=== PATIENT | male | born 1940 | race Caucasian/White ===

== ENCOUNTER 2018-06-10 11:30 | Emergency (ER) | payer MEDICARE, SELFPAY ==
[2018-06-10 11:36] VITALS: BP 136/76; PULSE 83; RESP 18; TEMP 36.2; O2SAT 99; BMI 31.2
--- NOTE | 2018-06-10 12:01 | CT_ITS ---
STUDY: CT ABDOMEN AND PELVIS WITHOUT CONTRAST REASON FOR EXAM: Male, 78 years old. Left flank pain, history of left lobectomy for cancer RADIATION DOSAGE (If Supplied By Facility): CTDIvol = ( 15.97 ) mGy, DLP = ( 849.62 ) mGycm TECHNIQUE: Transaxial images were obtained from the dome of the diaphragm to the symphysis pubis without oral contrast, and without intravenous contrast. Sagittal and coronal images were reconstructed. Individualized dose optimization techniques were used for this CT. COMPARISON: None. FINDINGS: Elevation of left hemidiaphragm compatible with history of lobectomy. There are fibrotic changes in both lung bases. Coronary artery calcifications are present. Heart size is normal visualized extent. Normal liver. The gallbladder is contracted. Normal spleen. Normal pancreas. Normal bilateral adrenal glands. Calcification in the right kidney on axial image 61 is felt to be vascular rather than nephrolithiasis. 2 and 3 mm calculus in the inferior left kidney is evident on image 57. No ureteral calculi are seen. No hydronephrosis. There is a small hiatal hernia. Normal small intestine. Normal colon. The appendix is visualized and appears normal. There is diffuse atherosclerotic calcification of the abdominal aorta, without a demonstrated aneurysm. Normal inferior vena cava. Normal retroperitoneum. Normal urinary bladder. There is enlargement of the prostate gland. Normal abdominal wall. Degenerative changes of the lumbar spine with canal narrowing at L3-L4 and L4-L5. CT/Abdomen/Pelvis without Cont IMPRESSION: 1. No hydronephrosis or ureteral calculi. Nonobstructing left renal calculus (2-3 mm). Electronically Signed: Rene Andersen MD at 13:05 EST , Service support ,
[2018-06-10] MEDS: Ketorolac 30 MG/ML Syringe IV (12:09)
--- NOTE | 2018-06-10 12:22 | ED.VISSUMM ---
- ER Visit Summary Date of Service: 06/10/18 Chief Complaint: Flank pain History of Present Illness: The patient is a 78 M who presents via private vehicle for left flank pain. Patient states that began sometime on Tuesday. Tuesday morning he was snowblowing but states he did not believe he did anything out of the ordinary. He notes the pain is grabbing him and sharp at times. It is worse when he takes a deep breath and worse with certain movements. He was seen in urgent care on Tuesday where he had a dip urine that was negative. Is felt to be musculoskeletal that time. He states is not gotten any better and family wanted him involved. He denies any rash other than the rash where his had applied a dressing that irritated his skin. He notes no bowel movement since Tuesday. No urinary symptoms. No change in his breathing from baseline. Physical Examination: Afebrile vital signs are stable Gen: Well-nourished well-developed Head: Normocephalic atraumatic Eyes: Perrl EOMI ENT: TMs clear no rhinorrhea moist mucous membranes Neck: Supple no lymphadenopathy no JVD nontender CVS: Regular rate rhythm no murmurs normal S1-S2 Respiratory: No distress clear to auscultation bilaterally chest nontender Abdomen: Soft nontender nondistended normal bowel sounds no masses Back: Nontender Extremity: Nontender no edema Skin: Normal color a well demarcated area of dermatitis in a rectangular pattern over the left lower flank. Neuro: alert orientated ?3 CN II-XII intact normal strength sensation reflexes gait cerebellar Psych: Normal affect normal mood Test Results: CBC BMP and urinalysis are normal. CT of the abdomen pelvis demonstrated no obvious perinephric stranding or hydronephroureter. Emergency Department Course and Treatment: Patient received a dose of Toradol and feels significant at this point I do not see any renal cause for the patient's CVA pain. I do not believe this to be pulmonary embolism. He has no tachypnea, tachycardia, hypoxemia, or significant risk factors for PE. I do not believe this to be cardiac in nature. Do not believe this to be aortic dissection. The patient will be discharged home with instructions for anti-inflammatories. Impression: 1. Left flank muscle strain This note was generated with [employer] dictation software. It may contain incorrect words, spelling, and punctuation that were not noted in review of the chart prior to signing ED Disposition - Plan for ED Patient: Disposition: Home or Assisted Living Instructions: ED Sprain Strain Lumbar Referrals: Tito Macias MD [Primary Care Provider] - Keep Michel appointment Additional Instructions: Anti-inflammatories for pain
[2018-06-10 12:24] LABS: Bacteria 0 SEEN /hpf (None Seen); Mucous, Urine 0 SEEN /hpf (<or=2+); Red Blood Cells-Urine 0 SEEN /hpf (0-5); Squamous Epithelial Cells - UA 0 SEEN /hpf (0-5); White Blood Cells 0 SEEN /hpf (0-5)
--- NOTE | 2018-06-10 12:25 | ED.DCSUM_ITS ---
- ER Visit Summary Date of Service: 06/10/18 Chief Complaint: Flank pain History of Present Illness: The patient is a 78 M who presents via private vehicle for left flank pain. Patient states that began sometime on Tuesday. Tuesday morning he was snowblowing but states he did not believe he did anythi ng out of the ordinary. He notes the pain is grabbing him and sharp at times. It is worse when he takes a deep breath and worse with certain movements. He was seen in urgent care on Tuesday where he had a dip urine that was negative. Is felt to be musculoskeletal that time. He states is not gotten any better and family wanted him involved. He denies any rash other than the rash where his had applied a dressing that irritated his skin. He notes no bowel movement since Tuesday. No urinary symptoms. No change in his breathing from baseline. Physical Examination: Afebrile vital signs are stable Gen: Well-nourished well-developed Head: Normocephalic atraumatic Eyes: Perrl EOMI ENT: TMs clear no rhinorrhea moist mucous membranes Neck: Supple no lymphadenopathy no JVD nontender CVS: Regular rate rhythm no murmurs normal S1-S2 Respiratory: No distress clear to auscultation bilaterally chest nontender Abdomen: Soft nontender nondistended normal bowel sounds no masses Back: Nontender Extremity: Nontender no edema Skin: Normal color a well demarcated area of dermatitis in a rectangular pattern over the left lower flank. Neuro: alert orientated ?3 CN II-XII intact normal strength sensation reflexes gait cerebellar Psych: Normal affect normal mood Test Results: CBC BMP and urinalysis are normal. CT of the abdomen pelvis demonstrated no obvious perinephric stranding or hydronephroureter. Emergency Department Course and Treatment: Patient received a dose of Toradol and feels significant at this point I do not see any renal cause for the patient's CVA pain. I do not believe this to be pulmonary embolism. He has no tachypnea, tachycardia, hypoxemia, or significant risk factors for PE. I do not believe this to be cardiac in nature. Do not believe this to be aortic dissection. The patient will be discharged home with instructions for anti- inflammatories. Impression: 1. Left flank muscle strain This note was generated with [employer] dictation software. It may contain incorrect words, spelling, and punctuation that were not noted in review of the chart prior to signing ED Disposition - Plan for ED Patient: Disposition: Home or Assisted Living Instructions: ED Sprain Strain Lumbar Referrals: Tito Macias MD [Primary Care Provider] - Keep Michel appointment Additional Instructions: Anti-inflammatories for pain
[2018-06-10 12:27] LABS: Absolute Lymphocyte Count 1.11 X10^3/ul (0.83-4.51); Absolute Neutrophil Count 3.5 X10^3/uL (2.0-7.7); Basophil# 0.03 X10^3/uL; Basophil% 0.6 % (0-1); Eosinophils% 1.9 % (0-5); Hematocrit 45.7 % (40-54); Lymphocyte # 1.11 X10^3/ul (4.0); Lymphocyte % 21.1 % (19-41); Mean Corp Hgb Conc 32.8 g/gl (32-36); Mean Corpuscular Hgb 28.1 pg (27.0-32.0); Mean Corpuscular Volume 85.6 fL (80-94); Mean Platelet Vol. 10.5 fl (6.2-12.0); Monocyte# 0.47 X10^3/uL; Monocyte% 8.9 % (0-10); Neutrophil # 3.54 X10^3/uL (2.7-7.7); Neutrophil % 67.3 % (47-70); POSITIVE COUNT NO; POSITIVE DIFFERENTIAL NO; POSITIVE MORPHOLOGY NO; Platelet Count 154 K/mm3 (150-450); RBC Distribution Width CV 12.9 % (11.6-14.6); RBC Distribution Width SD 40.3 fl (35.1-43.9); Red Blood Count 5.34 M/mm3 (4.6-6.2); White Blood Count 5.3 K/mm3 (4.4-11.0)
[2018-06-10 12:35] LABS: Color, Urine Yellow (Yellow); Glucose, Dipstick Normal (Normal); Ketone-Dipstick Negative (Negative); Leukocyte Esterase-Dipstick Negative /ul (Negative); Nitrite-Dipstick Negative (Negative); Occult Blood-Urine Negative /ul (Negative); Protein-Dipstick Negative (Negative); Specific Gravity, Urine 1.015 (1.002-1.030); Urine Bilirubin Dipstick Negative (Negative); Urine Clarity Clear (Clear); Urine Urobilinogen Normal (Normal)
[2018-06-10 12:38] LABS: Anion Gap 6 (5-15); BUN 18 mg/dL (7-18); BUN/Creat Ratio 23.1 RATIO (10-20); Chloride 102 mmol/L (98-107); Creatinine, Serum 0.78 mg/dL (0.70-1.30); EST Glomerular Filtration Rate 102 mL/min (>60); Est Glom Filt Rate - Afr Amer 124 mL/min (>60); Estimated Creatinine Clearance 62.86 ml/min; Glucose 93 mg/dL (74-106); Potassium 3.6 mmol/L (3.5-5.1); Sodium Level 136 mmol/L (136-145)
[2018-06-10 13:43] VITALS: BP 125/70; PULSE 80; RESP 15; O2SAT 97
[2018-06-10 13:44] VITALS: BP 140/72; PULSE 80; RESP 14; O2SAT 98
== END 2018-06-10 13:56 | disposition home or self-care (01) ==
PROVIDERS: Emergency Provider Emergency Medicine; Family Provider Internal Medicine; PCP Internal Medicine
DX: S39.011A Strain of muscle, fascia and tendon of abdomen, initial encounter (principal); Z87.891 Personal history of nicotine dependence; X58.XXXA Exposure to other specified factors, initial encounter; Y93.H1 Activity, digging, shoveling and raking; Y92.008 Other place in unspecified non-institutional (private) residence as the place of occurrence of the external cause; Y99.8 Other external cause status
CPT/HCPCS: 74176; 80048; 81001; 85025; 96374; 99283

== ENCOUNTER → 2019-12-28 06:33 | Outpatient (CLI) | payer MEDICARE, SELFPAY ==
--- NOTE | 2019-12-28 12:48 | STRESSREP_ITS ---
Stress Test Report Exercise myocardial perfusion stress test. 79-year-old man with a history of chest pain. Stress protocol: Resting EKG demonstrates sinus bradycardia with a rate of 48 bpm. The patient exercised according to regular Amish protocol for a total duration of 4 minutes and 31 seconds. Patient completed 1 minute and 31 seconds to stage II of the Amish protocol the maximum heart rate attained was 127 bpm which was 90% of max impacted heart rate the maximum workload was 6.4 metabolic equivalents. Patient maintained sinus rhythm throughout the recording. At rest there were no ST or T wave changes noted to suggest ischemia at peak exercise upsloping ST changes only were noted. The peak blood pressure was 170/90 mmHg. The test was ter minated due to the target heart rate being achieved. Myocardial perfusion protocol. 14.8 mCi of technetium 99m sestamibi was injected at rest. The patient exercised according to regular Amish protocol for 4-1/2 minutes. At peak exercise 44.5 mCi of technetium 99m sestamibi was injected stress images were obtained stress and rest images were reconstructed and compared in the short axis vertical and horizontal long axis. Gated images were also obtained Perfusion SPECT analysis: Review of the stress images demonstrate normal uptake of tracer noted in all areas of the myocardium the resting images similarly demonstrated normal uptake of tracer noted in all areas of the myocardium. No areas of reversibility are noted to suggest ischemia no previous infarct is noted. Gated SPECT analysis: The gated ejection fraction is 61%. Conclusion: Normal exercise myocardial perfusion stress test at a moderate workload. Preserved ejection fraction.
== END ==
PROVIDERS: PCP Internal Medicine; Referring Provider Internal Medicine; Visit Provider Internal Medicine
DX: R07.9 Chest pain, unspecified (principal); R06.00 Dyspnea, unspecified
CPT/HCPCS: 78452; 93017; A9500; A4216

== ENCOUNTER → 2020-10-29 14:57 | Outpatient (CLI) | payer MEDICARE, SELFPAY ==
[2020-10-29 08:46] VITALS: BMI 28.5
[2020-10-29 16:19] LABS: Absolute Lymphocyte Count 1.05 X10^3/uL (0.83-4.51); Absolute Neutrophil Count 4.6 X10^3/uL (2.0-7.7); Basophil# 0.05 X10^3/uL; Basophil% 0.8 % (0-1); Eosinophils% 3.1 % (0-5); Hematocrit 44.3 % (40-54); Hemoglobin 14.3 g/dL (13.0-16.5); Lymphocyte # 1.05 X10^3/ul (0.83-4.51); Lymphocyte % 16.3 % (19-41); Mean Corp Hgb Conc 32.3 g/dL (32-36); Mean Corpuscular Hgb 28.1 pg (27.0-32.0); Mean Platelet Vol. 10.1 fl (6.2-12.0); Monocyte% 7.8 % (0-10); NRBC Flagged by Analyzer 0 % (0-5); Neutrophil # 4.61 X10^3/uL (2.7-7.7); Neutrophil % 71.5 % (47-70); Platelet Count 193 K/mm3 (150-450); RBC Distribution Width CV 13.2 % (11.6-14.6); RBC Distribution Width SD 41.8 fl (35.1-43.9); Red Blood Count 5.09 M/mm3 (4.6-6.2); White Blood Count 6.4 K/mm3 (4.4-11.0)
[2020-10-29 16:46] LABS: BNP,B-Type NATRIURETIC PEPTIDE 50.3 pg/mL (0-100)
[2020-10-29 16:50] LABS: Anion Gap 5 (5-15); BUN 20 mg/dL (7-18); BUN/Creat Ratio 27.7 RATIO (10-20); Calcium,Total 8.8 mg/dL (8.5-10.1); Chloride 104 mmol/L (98-107); Creatinine, Serum 0.72 mg/dL (0.70-1.30); EST Glomerular Filtration Rate 111 mL/min (>60); Est Glom Filt Rate - Afr Amer 134 mL/min (>60); Glucose 82 mg/dL (74-106); Potassium 3.7 mmol/L (3.5-5.1); Sodium Level 138 mmol/L (136-145)
== END ==
PROVIDERS: PCP Internal Medicine; Referring Provider Internal Medicine Cardiovascular Disease; Visit Provider Internal Medicine Cardiovascular Disease
DX: I27.21 Secondary pulmonary arterial hypertension (principal); R06.02 Shortness of breath; J84.112 Idiopathic pulmonary fibrosis
CPT/HCPCS: 36415; 80048; 83880; 85025

== ENCOUNTER 2020-11-03 09:55 | Day surgery (SDC) | payer MEDICARE, SELFPAY ==
[2020-10-29 08:46] VITALS: BMI 28.5
[2020-10-31 08:34] VITALS: BMI 28.5
[2020-11-03 11:06] LABS: Blood Gas Specimen Type VEN; VBG BASE EXCESS 2 mmol/L (-1.0-3.5); VBG Bicarbonate 27 mmol/L (22-26); VBG PO2 38 mmHg (25-40); VBG SO2 69 % (50-70); VBG TCO2 29 mmol/L (23-33); VBG pCO2 47.3 mmHg (41-51); VBG pH 7.37 (7.32-7.42)
[2020-11-03 11:21] LABS: Blood Gas Specimen Type VEN; VBG BASE EXCESS 2 mmol/L (-1.0-3.5); VBG Bicarbonate 27 mmol/L (22-26); VBG PO2 38 mmHg (25-40); VBG SO2 71 % (50-70); VBG TCO2 28 mmol/L (23-33); VBG pH 7.38 (7.32-7.42)
[2020-11-03 11:21] LABS: Blood Gas Specimen Type VEN; VBG BASE EXCESS 2 mmol/L (-1.0-3.5); VBG Bicarbonate 28 mmol/L (22-26); VBG PO2 34 mmHg (25-40); VBG SO2 63 % (50-70); VBG TCO2 29 mmol/L (23-33); VBG pCO2 47.5 mmHg (41-51); VBG pH 7.37 (7.32-7.42)
--- NOTE | 2020-11-03 11:35 | CL.D_ITS ---
Patient Name: JORGE RAMIRES Study Date: 11/03/2020 Performing: Noah Rajput MD Ht: 70.07 inches 178 cm : 1940 Wt: 198.42 lbs 90 kg Age: 80 Gender: male BSA: 2.08 PROCEDURE(S) PERFORMED [id number] ONLY CLINICAL PROFILE AND INDICATIONS Indications: Other Heart Failure: None CONCLUSIONS Normal right heart pressures were noted with upper normal pulmonary capillary wedge pressure. Significant coronary calcification was noted on fluoroscopy and attempts were made to obtain precerti fication for a left heart catheterization but this was denied RECOMMENDATIONS Would recommend stress testing DESCRIPTION OF PROCEDURE The patient arrived to the procedure lab. The risks and benefits of the procedure as well as a full d escription of our services here and current unavailability of surgical backup were fully explained to the patient and/or their significant other prior to the catheterization. The Timeout was completed, verifying the correct patient and procedure. The patient's procedural site was prepped and draped in the usual fashion. . Using a modified Seldinger technique, Venous access was obtained via the right antecubital area, a 7Fr sheath was inserted. A 7Fr thermal dilution catheter was inserted and right h eart pressures were recorded, it was then advanced to PA position for cardiac outputs. O2 saturations were then obtained. Thermal dilution cardiac outputs were then recorded. The Thermal dilution cathet er was then removed.The venous sheath was then pulled and manual compression applied until hemostasis achieved CORONARY ANGIOGRAPHY RIGHT HEART ASSESSMENT Thermal CO: 4.37 Thermal CI: 2.1 PW: 18 PA: 29/10 17 RV: 30/-1 3 RA: 6/3 1 PVR: -18 Right Heart pressures - normal COMPLICATIONS PROCEDURE MEDICATIONS Versed 1 mg IV SUMMARY OF HEMODYNAMIC DATA Time AIR REST ECG 10:23:09 RA 6/3 (1) SV 10:59:17 RV 30/-1, 3 10:59:29 PA 29/10 (17) PA 11:00:00 PW (18) PV 11:01:19 PA 32/10 (18) 11:03:45 RV 31/0, 2 11:06:58 RA 3/4 (2) 11:08:35 Type SV CO (l/m) CI (l/m/ HR Time AIR REST Thermal 82.50 4.37 2.10 53 10:23:00 Label % O2 Pres/Loc Time AIR REST PA 69 PA 11:27:08 RA 63 SV 11:27:24 RV 70 11:27:29 Signed By Noah Rajput MD On 11/03/2020 11:34:25 AM Noah Rajput MD
== END 2020-11-03 14:00 | disposition home or self-care (01) ==
LOC: CLSP 09:57
PROVIDERS: PCP Internal Medicine; Referring Provider Internal Medicine Cardiovascular Disease; Visit Provider Internal Medicine Cardiovascular Disease
DX: I25.10 Atherosclerotic heart disease of native coronary artery without angina pectoris (principal); I27.21 Secondary pulmonary arterial hypertension; J84.112 Idiopathic pulmonary fibrosis; I10 Essential (primary) hypertension; E78.5 Hyperlipidemia, unspecified; N40.0 Benign prostatic hyperplasia without lower urinary tract symptoms; K21.9 Gastro-esophageal reflux disease without esophagitis; E66.9 Obesity, unspecified; Z68.28 Body mass index [BMI] 28.0-28.9, adult; I77.819 Aortic ectasia, unspecified site; Z86.2 Personal history of diseases of the blood and blood-forming organs and certain disorders involving the immune mechanism; Z85.118 Personal history of other malignant neoplasm of bronchus and lung; Z90.2 Acquired absence of lung [part of]; Z79.899 Other long term (current) drug therapy; Z87.891 Personal history of nicotine dependence
CPT/HCPCS: 82803; 93451; 99152; 99153; J7040; C1751; C1769; C1894

== ENCOUNTER → 2020-12-01 06:14 | Outpatient (CLI) | payer MEDICARE, SELFPAY ==
[2020-10-31 08:34] VITALS: BMI 28.5
--- NOTE | 2020-12-01 15:52 | STRESSREP ---
Stress Test Report Exercise myocardial perfusion stress test. 80-year-old man with a history of coronary artery calcification. Medications simvastatin, furosemide, lisinopril. Stress protocol: Rest EKG demonstrates sinus bradycardia with a rate of 55 bpm normal intervals are noted resting blood pressure is 128/82 mmHg. The patient exercised according to regular Amish protocol for total duration of 4 minutes and 17 seconds. The maximum heart rate attained was 139 bpm which was 99% of max infected heart rate the maximum workload was 6 metabolic equivalents. At rest there were no ST changes noted to suggest ischemia and at peak exercise upsloping ST changes were noted with did not meet the criteria for ischemia. The test was terminated due to dyspnea and the target heart rate being achieved. The peak blood pressure was 182/102 mmHg. Myocardial perfusion protocol. 13.0 mCi of technetium 99m sestamibi was injected at rest. The patient exercised according to the regular Amish protocol. At peak exercise 39.0 mCi of technetium 99m sestamibi was injected stress images were obtained stress and rest images were reconstructed and compared in the short axis vertical long and horizontal long axis. Gated images were also obtained. Perfusion SPECT analysis: Review of the stress images demonstrated normal uptake of tracer noted in all areas of the myocardium. The resting images similarly demonstrated normal uptake of tracer noted in all areas of the myocardium. No areas of reversibility are noted to suggest ischemia and no previous infarct is noted. Gated SPECT analysis: The gated ejection fraction is 59%. Conclusion: Normal exercise myocardial perfusion stress test. Preserved ejection fraction. Low to moderate workload attained.
== END ==
PROVIDERS: PCP Internal Medicine; Referring Provider Internal Medicine Cardiovascular Disease; Visit Provider Internal Medicine Cardiovascular Disease
DX: I25.10 Atherosclerotic heart disease of native coronary artery without angina pectoris (principal); C34.92 Malignant neoplasm of unspecified part of left bronchus or lung; D69.6 Thrombocytopenia, unspecified; E78.5 Hyperlipidemia, unspecified; I10 Essential (primary) hypertension; I25.84 Coronary atherosclerosis due to calcified coronary lesion; I27.21 Secondary pulmonary arterial hypertension; I77.819 Aortic ectasia, unspecified site; J84.112 Idiopathic pulmonary fibrosis; R06.02 Shortness of breath
CPT/HCPCS: 78452; 93017; A9500; A4216

== ENCOUNTER → 2021-09-03 | Outpatient (CLI) | payer MEDICARE, SELFPAY ==
--- NOTE | 2021-09-03 08:48 | PR.HP_ITS ---
History of Present Illness Arrival date:: 09/03/21 Arrival time:: 08:00 Date of Referral:: 09/03/21 Date of Evaluation: 09/03/21 Referring Physician: Dr. Hermelinda Cook @ [facility] Primary Diagnosis: COPD, Interstitial Pulmonary Fibrosis [facility] Breathless Scale: When is the patient short of breath? Y/N Grade: Description of Breathlessness: 0 I only get breathless with strenuous exercise. 1 I get short of breath when hurrying on level ground or walking up a slight hill. 2 On level ground, I walk slower than people of the same age because of breathless, or have to stop for breath when walking at my own pace. 3 I stop for breath after walking 100 yards or after a few minutes on level ground. 4 I am too breathless to leave the house or I am breathless when dressing. Respiratory Problems: Yes: Fatigue, Able to Speak in Full Sentences, Dizziness, Dyspnea with Activity No: Retain Secretions, Limited Range of Motion, Anxiety, Panic, Dyspnea at Rest, Dyspnea Lying Down Flat, Cough with Secretions - Secretions Normal Color:: yellowish color to clear Thin:: Yes Cough:: Yes AM: Yes Hx of Sleep Apnea: No Do you snore loudly (louder than talking or can be heard through closed doors)?: No Do you often feel tired/ fatigued/ sleepy during daytime?: Yes Has anyone observed you stop breathing during sleep?: No History of Hypertension (for STOP score): Yes STOP Results: Positive Home Medications: Home Medications albuterol sulfate 90 mcg/actuation aerosol inhaler 2 inh INHALATION Q6H PRN g 10/28/20 aspirin 81 mg tablet,delayed release 81 mg PO DAILY 10/28/20 calcium carbonate 500 mg calcium (1,250 mg) tablet 500 mg PO DAILY 10/28/20 multivitamin 1 tab PO DAILY 10/28/20 naproxen sodium 220 mg capsule 220 mg PO BID PRN 10/28/20 oxybutynin chloride 5 mg tablet,extended release 24 hr 5 mg PO DAILY tab 10/28/20 pantoprazole 20 mg tablet,delayed release 20 mg PO DAILY tab 10/28/20 simvastatin 10 mg tablet 10 mg PO QHS tab 10/28/20 tamsulosin 0.4 mg capsule 0.8 mg PO DAILY cap 10/28/20 furosemide 40 mg tablet 40 mg PO DAILY #90 tab 10/29/20 lisinopril 10 mg tablet 10 mg PO DAILY tab 10/29/20 mometasone-formoterol HFA 200 mcg-5 mcg/actuation aerosol inhaler 2 inh INHALATION BID g 10/29/20 Allergies/Adverse Reactions: Allergies No Known Allergies Allergy (Verified 01/29/21 13:42) Medical Utilization Do you use a peak flow meter at home?: No Do you use a spacer device with your inhalers?: No Number of hospital visits in the last year?: 0 Number of emergency room visits in the last year?: 0 Do you see your physician on a regular schedule?: Yes How often?: 6 months Advanced Directives - Advanced Directives Power of Carton Marker Machine: Yes Living Will: Yes Advance Directives Information Provided: No Advance Directives on File: No - @ the [facility] DNR Order?:: No - MOLST See MOLST form: No Past Medical History - Covid-19 Screening Fever: No Unexplained muscle aches: No - chronic lower back and hip area if retaining fluid Current respiratory symptoms: Yes - chronic shortness of breath related to lung disease Upper respiratory infections symptoms: No Gastro-intestinal symptoms: No Bcv-Obbw-Mkidio symptoms: No Has tested positive for COVID-19 in last 30 days: No Date of testin07/01/21 - All vaccines including the two boosters. Had contact w/person w/symptoms or Covid-19 (+) last 14 days: No Has High Risk Exposures ID'd by Health dept/Inf Control team: No 65 years or older:: Yes Lives in Assisted Living facility:: No Has a chronic lung disease or moderate to severe asthma:: Yes Has a serious heart condition:: No Immunocompromised:: No Severely obese (Body Mass Index of 40 or higher):: No Diabetic:: No Has chronic kidney disease undergoing dialysis:: No Has liver disease:: No Medical History: Past Medical History (Last Reviewed 01/29/21 @ 16:36 by Dottie Jackson NP, [employer]) BPH (benign prostatic hyperplasia) N40.0 Coronary artery calcification I25.10, I25.84 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 4.1 cm per echo 08/2020 Essential hypertension I10 GERD (gastroesophageal reflux disease) K21.9 Hiatal hernia K44.9 Hyperlipidemia E78.5 Non-small cell cancer of left lung C34.92 Obesity E66.9 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 Thrombocytopenia D69.6 Thyroid nodule E04.1 Surgical History: Past Surgical History (Last Reviewed 01/29/21 @ 16:36 by Dottie Jackson [employer], [facility]) History of bronchoscopy Onset Date: 2016 Z98.890 History of lobectomy of lung Onset Date: 2007 Z90.2 left History of right heart catheterization Onset Date: 11/03/20 Z98.890 - Current/ Previous Services Pulmonary Rehab:: No Social History - Smoking History Smoking Status: Former smoker Packs Smoked per Day: 1 Hx Smoking Cessation Date: 09/16/69 Hx Tobacco Use: Yes Hx Smoking Exposure: No - Alcohol Use Alcohol Usage: No - Substance Abuse Hx Substance Use: No - Occupation Occupation (List type of work in comments):: 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 Functioning ADL/IADL - Current Ability Current Ability: Independent Self-Care (e.g.,grooming, dressing, & bathing), Independent Ambulation, Independent Transfer, Independent Household tasks (e.g., light meal prep, laundry, shopping) - Pt Functioning Prior to Problem Prior Functioning: Self-Care (e.g.,grooming, dressing, & bathing): Independent, Ambulation: Independent, Transfer: Independent, Household tasks (e.g., light meal prep, laundry, shopping): Independent Social Environment - Status Marital Status: - Current Living Arrangements Living Environment:: Spouse - Children How many children do you have?: 2 Do any of your children live nearby?: Yes - Safety Do you feel safe in your surroundings?: Yes - Assistance Do you need any assistance at home?: none Review of Systems Review of Systems: Right click = Denies (Slash). Left click = Reports ([place]) Respiratory: Reports: Cough, SOB upon Exertion, Sputum production, Appetite, Normal - nothing tastes as good as it once used too., Dizziness/Lightheadedness - when get short of breath and extremely whipped ill feel dizzy for a brief period., Fatigue, Sleep, Normal. Denies: Sexual changes Is Patient Pain Free?: Yes Pain Location: none Pain Level: 0/10 Risk Factor Assessment - Vital Signs Temperature: 98.6 F Pulse Rate: 64 Pulse Rhythm: Regular Respiratory Rate: 17 Pulse Ox: 97 - 3 liters, Blood Pressure: 120/58 - Diabetes Nutrition Referral for Diabetes: No - Obesity Height: 5 ft 10 in Weight:: 179 lb Weight in Pounds: 179.0 lbs Weight Source: Standing Scale Body Mass Index (BMI): 25.7 Nutritional Referral for Obesity: No - Physical Activity Physical Inactivity: None - Risk Stratification Risk Guidelines: Lowest Risk: Risk Factor for Smoking, Risk Factor for Dyslipidemia, Risk Factor for Diabetes, Risk Factor for Obesity, Risk Factor for Hypertension, Risk Factor for Depression, Moderate Risk: Risk Factor for Sedentary Lifestyle - moderate to severe, Highest Risk: Risk Factor for Sedentary Lifestyle Motivation - Motivation to Participate On a scale of 1 to 10, how prepared are you to commit to attending program?: 10 What do you see as barriers to successfully being able to complete the program?: none What do you see as the benefits of succesfully completing the program? In other words, what do you hope to get out of participating in the program?: want to be able to do things, maybe get off the oxygen. Are there issues you are dealing with that will interfere with completing the program?: none Do you have a spouse or signficant other, family or friends who will help support you to complete the program?: yes Diagnostic Data Review - Pulmonary Function Test FEV1:: 1.69 - 62% predicted FVC:: 2.05 - 56% predicted FEV1/FVC%:: 82
[2021-09-03 09:07] VITALS: BP 120/58; PULSE 64; RESP 17; TEMP 37; O2SAT 97; BMI 25.7
--- NOTE | 2021-09-03 09:14 | PR.ITP_ITS ---
General Information2 - General Information Admitting Diagnosis: INTERSTITIAL PULMONARY FIBROSIS, COPD - Personal Learning Style/Barriers Personal Learning Style:: Audio/Visual, Written Barriers to Learning: Vision impaired, Hearing impaired Stage of change r/t lifestyle modifications: Action Educational Classes MA: Living with Chronic Lung Disease: Initial Assessment, Breathing Retraining: Initial Assessment, Energy Conservation: Initial Assessment, Oxygen therapy: Initial Assessment - PATIENT WOULD LIKE TO DECREASE LITER FLOW - Education/Goals Individual Counseling: Initial Assessment: Sedentary Lifestyle MA Patient Goals: Increase muscle strength: Initial Assessment, Experience less dyspnea: Initial Assessment, Improve energy level: Initial Assessment, Participate in home exercise: Initial Assessment, Improve the ability to cope with ADLs: Initial Assessment, Improve knowledge of lung disease: Initial Assessment, Increase knowledge of oxygen use: Initial Assessment, Reduce Stress/relaxation techniques: Initial Assessment Exercise - Initial Assessment - Visit Date of Eval: 09/03/21 Session Number:: 0 - PRE-PULMONARY REHAB EVALUATION - Problem/Goals Problems: Deconditioning, No regular exercise, Knowledge deficit exercise guidelines, Knowledge deficit exercise safety Goals:: Aerobic exercise 30-60 mins x 12 weeks [36 sessions] - Physician Prescribed Exercise Modalities: Treadmill, Airdyne, NuStep Frequency (days/week): 3 Duration (Minutes):: 30-45 Intensity: 60-80% of age predicted maximum heart rate reserve Current METSs:: 3.0 Target HR:: 118 - 90-118 THRR Resting Blood Pressure: 120/58 Minimum SpO2 with exercise: 97 - 3 LITERS OXYGEN EKG Type: NSR - Plan Plan and Plan to Review:: Benefits of exercise, Core components of exercise, How to measure dyspnea level, How to monitor dyspnea level, Exercise intensity, Exercise safety guideline, Home exercise guidelines, Carla: 3-4/11-13 Home Exercise Mode: Airdyne, Treadmill, Walking Nutrition/Wt Mgmt - Initial - Visit Date of Eval: 09/03/21 Session Number:: 0 - PRE-PULM REHAB EVAL - Problems/Goals Goals: BMI 21-25 - Weight Management Admit Height:: 5 ft 10 in Admit Weight:: 179 lb Admit BMI:: 25.7 - Intervention Referral to dietitian:: No Will attend diet classes:: No Intervention/Plan: Instruct on ideal BMI & set weight loss goal w/patient - Plan Nutrition Plan: Yes Physical activity log: Psychosocial - Initial Assess - Visit Date of Eval: 09/03/21 Session Number:: 0 - PRE-PULM REHAB EVAL - Problems/Goals History of Emotional Disorders: None Psychosocial Goals: 1. Patient is free from overwhelming symtoms of depression (or anxiety, 2. Identifies personal stressors & states the strategies for managing, 3. Identifies activities to decrease isolation and/or symptoms of, 4. Improved psychosocial coping skills., 5. Verbalizes coping strategies., 6. Adequate treatment of depression., 7. Improved Q.O.L. - Psychosocial Test Tool Used:: Pulmonary QOL, PHQ-9 Questionnaire - Referral to Behavioral Health PS - Interventions: Yes Attend Stress Management Classes, No Referral to Behavioral Health if PHQ-9 score >9:, No [facility], No Referral to Physician if PHQ-9 if score is 5-9: - Intervention/Plan: See List Interventions/Plan:: Assess stressors,coping strategies & signs of derpression on admission, Instruct/assist pt to develop coping & personal stress Mgt strategies, Instruct patient to recognize signs & symptoms of depression, Instruct patient to recog Oxygen & Oxygen Titration Init - Visit Date of Eval: 09/03/21 Session Number:: 0 - PRE-PULM REHAB EVAL - Initial Assessment Oxygen on Admission: Continuous home use SpO2:: 97 Port O2:: 3 Patient Reports:: Prod cough daily <1 Tbsp - Goal Oxygen & Oxygen Tritration Goals: Effective hypoxemia control, Uses O2 as Rx'd/safely - Plans Plan: Monitor SpO2 rest & with exercise, Recommend appropriate FiO2 to Pt/MD, Train appropriate O2 use at rest, Train appropriate O2 use with exercise, Train O2 safety & systems Reviewed prescribed medications:: Purpose, Schedule, Side effects, Importance of compliance Instruct correct technique/timing & care:: MDI, DPI, Nebulizer, Return demo use of inhaler Bronchial Hygiene Plan: Controlled cough, Vibratory PEP device, Role of exercise in secretion clearance, Hydration, Hand hygiene, When to call MD, Signs/symptoms to report: Core Components - Initial - Visit Date of Eval: 09/03/21 Session Number:: 0 - PRE-PULM REHAB EVALUATION - Hypertension Hypertension Diagnosis:: Hypertension ICD-10 I10 BP: 120/58 - TAKING BP MEDICATION [place] [employer] Hypertension Guidelines: [place] [employer] Hypertension Guidelines. Normal BP Less than 120/80. Elevated BP 120/80. Hypertension Stage 1: BP 130-139/80-89. Hypertesnion Stage 2: BP 140 or higher/90 or higher. Hypertension Crisis: BP higher than 180/120 Low Sodium diet: Yes Outcomes/Goals: Able to verbalize/achieve optimal blood pressure <130/80, Incorporates diet changes & exercise for blood pressure control by DC - Exacerbation Mgmt & Airway Clearance Problems:: Poor knowledge of O2 use/safety Hypoxemia Goals:: Hypoxemia managed Bronchial Hygiene Problems:: Respiratory infection Prevention/Management Goals: Pt demonstrates effective cough, effective secretion clearance., Pt describes signs and symptoms of infection. Patient Reports:: Prod cough daily <1 Tbsp Plan: Monitor SpO2 rest & with exercise, Recommend appropriate FiO2 to Pt/MD, Train appropriate O2 use at rest, Train appropriate O2 use with exercise, Train O2 safety & systems Instruct correct technique/timing & care:: MDI, DPI, Nebulizer, Return demo use of inhaler Bronchial Hygiene Plan: Controlled cough, Vibratory PEP device, Role of exercise in secretion clearance, Hydration, Hand hygiene, When to call MD, Signs/symptoms to report: - Medication Interventions/plans: Instruct on medication effects & side effects, Instruct importance of taking meds as ordered & assist problem solving Medication Goals: Adherence to prescribed medications, Correct technique/timing & care of MDI, DPI, nebulizer, and spacer. Medications: Yes MDI, Yes DPI, Yes NEB, No Spacer Reviewed prescribed medications:: Purpose, Schedule, Side effects - Diabetes Diabetes:: No Core Components - 30 DAYS Core Components - 60 DAYS Core Components - 90 DAYS Core Components - Final Patient Health Questionnaire Initial Assessment 1. Little interest or pleasure in doing things: Several days 2. Feeling down, depressed, or hopeless: Several days 3. Trouble falling or staying asleep, or sleeping too much: Not at all 4. Feeling tired or having little energy: Several days 5. Poor appetite or overeating: Not at all 6. Feeling bad about yourself -- or that you are a failure or have let yourself or your family down: Several days 7. Trouble concentrating on things, such as reading the newspaper or watching television: Not at all 8. Moving or speaking so slowly that other people could have noticed. Or the opposite - being so fidgety or restless that you have been moving around a lot more than usual: Not at all 9. Thoughts that you would be better off , or of hurting yourself in some way: Not at all How difficult have these problems made it for you to do your work, take care of things at home, or get along with other people?: Somewhat difficult Total Score: 4 Knowledge Questionaire (BCKQ) - Information Information: [place] COPD Knowledge Questionnaire (BCKQ) This questionnaire is designed to find out what you know about your lung problem. It should be completed without help form anyone else. This usually takes between 10 and 20 minutes. Your answers will help us to find out what information you need to help you to understand and manage your lung condition. Gregory the [place] which you think is the correct answer. - Questions a. In COPD the word chronic means it is severe: Don't know b. COPD can only be confirmed by breathing tests: True c. In COPD ther is usually gradual worsening over time: True d. In COPD oxygen levels in the blood are always low: Don't know e. COPD is usually in people less than 40 years old: Don't know Promise than 80% of COPD cases are caused by cigarette smoking: True b. COPD can be caused by occupational dust exposure: True c. Longstanding asthma can develop into COPD: Don't know d. COPD is commonly an inherited disease: Don't know e. Women are less vunerable to the effects of cigarette than men: False a. Swelling of the ankles is common in COPD:: True b. Fatigue [tiredness] is common in COPD: True c. Wheezing is common in COPD: True d. Crushing chest pain is common in COPD: True e. Rapid weight loss is common in COPD: Don't know a. Severe breathlessness prevents travel by air: Don't know b. Breathlessness can be worsened by eating large meals: True c. Breathlessness means that your oxygen levels are low: True d. Breathlessness is a normal response to exercise: Don't know e. Breathlessness is primarily caused by a narrowing of the bronchial tubes: True a. Coughing phlegm is a common symptom in COPD: True b. Clearing phlegm is more difficult if you get dehydrated: True c. Bronchodilator inhalers can help clear phlegm: True d. Phlegm causes harm if swallowed: Don't know e. Clearing phlegm can be assisted by breathing exercises: True a. Chest infections often cause coughing of blood: Don't know b. Chest infection phlegm usually becomes coloured (ylw/grn): True cExerbations (episodes of worsening) can occur in the absence of chest infection: True d. Chest infections are always accompanied by a high temperature: True e. Steroid tablets should be taken whenever there is an exacerbation: True aWalking excercises better than breathing to improve fitness: True b. Exercise should be avoided as it strains the lungs: False c. Exercise can help maintain your bone density: True d. Exercise helps relieve depression: True e. Exercise should be stopped if it makes you breathless: Don't know a. Stopping smoking will reduce the risk of heart disease: True b. Stopping smoking will slow down further lung damage: True c. Stopping smoking is pointless as the damage is done: False d.Stopping smoking usually results in improved lung function: True eNicotine replacement therapy only available on prescription: Don't know a. A flu jab is recommended every year: True b. You can get flu from having a flu jab: Don't know c. You can only have a flu jab if you are 65 or over: False d. A pneumonia jab protects against all forms of pneumonia: True e.You can have a pneumonia jab and a flu job on the same day: False a. Bronchodilators act quickly (within 10 minutes): True b. Both short & long acting bronchodilators can be taken on the same day: Don't know c. Spacers (volumatic,nebuhaler,serochamber)should be dried w/atowel after washing: Don't know d. A spacer device increases the medication to the lungs: True e. Tremor may be a side effect of bronchodilators: True a. To be effective, the course should last at least 10 days: True b. Excessive use of antibiotics can cause resistant bacteria (germs): True c. Antibiotics will clear all chest infections: True d. Antibiotic treatment is necessary for an exacerbation (worsening) however mild: True e. Seek advice if antibiotics cause severe diarrhoea: True a. Steroid tablets help strengthen muscles: False b. Steroid tablets should be avoided if there is a chest infection: False c. The risk of long-term side effects due to steroids is less w/short courses then w/continous treatment: Don't know dIndigestion is common side effect from using steroid tablet: True e. Steroid tablets can increase your appetite: True a. Inhaled steroids should be stopped if you are given steroid tablets: Don't k now bSteroid inhalers can be used for rapid relief breathlessnes: True c. Spacer devices reduce the risk of getting thrush in the mouth: True d.Steroid inhaler should be taken before your bronchodilator: Don't know e. Inhaled steroids improve lung function in COPD: True COPD Knowledge Test Total Score:: 33 COPD Assessment Test [CAT] - Questions Never cough = 0, Cough all the time = 5: 1 No phlegm = 0, Chest full of phlegm = 5: 3 No chest tightness = 0, Chest very tight = 5: 2 No breathless w/exertion = 0, Very breathless w/exertion = 5: 5 No limitations w/activity = 0, Very limited w/activity = 5: 5 Confident leaving home = 0, Not at all confident = 5: 3 Sleep soundly = 0, Don't sleep soundly = 5: 1 Lots of energy = 0, No energy at all = 5: 4 Total CAT score:: 24 Self-Efficacy Initial Assessment We would like to know how confident you are in doing certain activities. Please select your confidence level for:: Select your confidence level for the following using the scale 1-10 where 1 is not at all confident and 10 is totally confident. Your score is the average of all 6 responses. Fatigue: How confident are you that you can keep the fatigue caused by your disease from interfering with the things you want to do? Select Number: 1 Physical Discomfort or Pain: How confident are you that you can keep the physical discomfort or pain of your disease from interfering with the things you want to do? Select Number: 1 Emotional Distress: How confident are you that you can keep the emotional distress caused by your disease from interfering with the things you want to do? Select Number: 1 Other Symptoms or Health Problems: How confident are you that you can keep other symptoms or health problems from interfering with the things you want to do? Different Tasks and Activities: How confident are you that you can do the different tasks and activities needed to manage your health condition so as to reduce your need to see a doctor? Select Number: 4 Medication: How confident are you that you can do things other than just taking medication to reduce how much your illness affects your everyday life? Select Number: 2 Nutrition Survey - Nutrition Survey Initial Have you lost >10 lbs over the past 2 months without trying?: No Are you following a special diet at home for diabetes, low fat, or low salt?: Yes Are you interested in meeting with a dietitian for help understanding your diet?: No Do you eat less than 3 meals a day?: No Do you eat fatty meats (guajardo, sausage, ribs, etc), fried foods, desserts, large amounts of salad dressings, margarine, butter, or cheese most days?: No Do you have food allergies? [Enter types in comment field]: No Do you eat in restaurants more than 3 times a week?: No Do you season food with salt, seasoning salt, or garlic salt?: No Do you used canned, boxed, frozen meals, or soups, seasoning packets?: Yes Total Score:: 2
[2021-09-03 10:09] VITALS: BP 120/58; O2SAT 97; BMI 25.7
== END | disposition home or self-care (01) ==
PROVIDERS: PCP Internal Medicine
DX: J84.112 Idiopathic pulmonary fibrosis (principal); C34.92 Malignant neoplasm of unspecified part of left bronchus or lung; J44.9 Chronic obstructive pulmonary disease, unspecified; I27.21 Secondary pulmonary arterial hypertension; D69.6 Thrombocytopenia, unspecified; Z87.891 Personal history of nicotine dependence; N40.0 Benign prostatic hyperplasia without lower urinary tract symptoms; I25.10 Atherosclerotic heart disease of native coronary artery without angina pectoris; I10 Essential (primary) hypertension; K21.9 Gastro-esophageal reflux disease without esophagitis; E78.5 Hyperlipidemia, unspecified; E66.9 Obesity, unspecified; E04.1 Nontoxic single thyroid nodule; Z79.899 Other long term (current) drug therapy; Z79.82 Long term (current) use of aspirin
CPT/HCPCS: 97150; G0239

== ENCOUNTER 2021-09-11 10:30 | Outpatient (RCR) | payer MEDICARE, SELFPAY | END 2021-09-15 23:59 | LOC: PR 10:30 | PROVIDERS: PCP Internal Medicine | DX: J44.9 Chronic obstructive pulmonary disease, unspecified (principal) | CPT/HCPCS: 97150; 94626 ==

== ENCOUNTER 2021-10-02 10:55 | Outpatient (CLI) | payer MEDICARE, SELFPAY ==
[2021-09-30 08:19] VITALS: BMI 26.4
--- NOTE | 2021-10-02 10:57 | CT_ITS ---
STUDY: CTA CHEST REASON FOR EXAM: Male, 81 years old. Dilation of aorta and pulmonary fibrosis RADIATION DOSAGE (If Supplied By Facility): CTDIvol = ( 21.66 ) mGy, DLP = ( 462.89 ) mGycm TECHNIQUE: The examination was performed with the intravenous administration of IV 75mL Isovue-370. Post-processing of the angiographic images was performed, with multiplanar reformation and 3D reconstruction. Individualized dose optimization techniques were used for this CT. COMPARISON: None. FINDINGS: 59.4 mm hypodense nodule in the right lobe of the thyroid gland. Normal enhancement of the main pulmonary artery and right and left pulmonary arteries. Normal enhancement of the bilateral peripheral pulmonary arteries. There is no demonstrated pulmonary embolism. There is atherosclerotic calcification of the aortic arch with tortuosity. There is no demonstrated aortic dissection. There are calcifications of the coronary arteries. There are visualized mediastinal lymph nodes, which are within normal size limits, and with normal morphology. Calcified bilateral hilar lymph nodes. Normal visualized trachea and bronchi. Hyperinflation. Diffuse increased interstitial markings in both lungs worse in the lower lobes although the upper lobes are affected as well especially in the right upper lobe. Multiple subpleural blebs suggestive of a chronic end-stage pulmonary fibrosis. Normal pleura. Normal chest wall structures. There are degenerative changes of thoracic spine. Hiatal hernia. CT/CTA Chest W/WO Contrast IMPRESSION: Findings in keeping with chronic interstitial fibrosis. Coronary artery calcification. No evidence of aortic dilatation. Electronically Signed: Anthony Chapa MD at 12:05 EDT ,
[2021-10-02 11:15] LABS: CREATININE FINGERSTICK < 0.9 mg/dL (0.70-1.30); EGFR FINGERSTICK > 60.0000 mL/min (>60)
== END 2021-10-02 23:59 | disposition home or self-care (01) ==
LOC: CT 10:56
PROVIDERS: PCP Internal Medicine; Referring Provider Nurse Practitioner Gerontology; Visit Provider Nurse Practitioner Gerontology
DX: I77.819 Aortic ectasia, unspecified site (principal); J44.9 Chronic obstructive pulmonary disease, unspecified; J84.112 Idiopathic pulmonary fibrosis
CPT/HCPCS: 71275; 97150; Q9967; 94626

== ENCOUNTER 2021-10-14 10:30 | Outpatient (RCR) | payer MEDICARE, SELFPAY ==
--- NOTE | 2021-09-30 08:12 | PCM.PR.TP ---
Exercise - 30-Day Assessment - Visit Date of Eval: 09/30/21 Session Number:: 9 - Physician Prescribed Exercise Modalities: Treadmill, NuStep, SciFit Frequency (days/week): 3 Duration (Minutes):: 30-45 Aerobic Exercise [30-60 min 3-7x/week]:: Progressing Current METSs:: 3.5 Target HR:: 118 - THHR 90-118 Target RPE 12-16:: 12-13 Current RPD:: 2-3 Maximum Exercise HR:: 104 Resting Blood Pressure: 110/54 Maximum Exercise Blood Pressure: 116/54 Minimum SpO2 with exercise: 90 EKG Type: Sinus tach with occasional PAC and PVC Current Minutes of Exercise: 39:00 - Home Exercise Home Exercise:: No Nutrition/Wt Mgmt - 30-Day - Visit Date of Eval: 09/30/21 Session Number:: 9 - Weight Management Height: 5 ft 10 in Weight:: 184 lb BMI: 26.4 Weight Goals Progress:: Goal met Psychosocial - 30-Day - Visit Date of Eval: 09/30/21 Session Number:: 9 - Problems/Goals Psychosocial Goals: 7. Improved Q.O.L. - Psychosocial Test Tool Used:: PHQ-9 Questionnaire Referred to MD for counseling:: No - Referral to Behavioral Health PS - Interventions: Yes Attend Stress Management Classes, No Referral to Behavioral Health if PHQ-9 score >9:, No Referral to [facility], No Referral to Physician if PHQ-9 if score is 5-9: - Plan Interventions/Plan:: Assess stressors,coping strategies & signs of derpression on admission, Instruct/assist pt to develop coping & personal stress Mgt strategies, Instruct patient to recognize signs & symptoms of depression, Instruct patient to recog Oxygen & Oxygen Titration 30D - Visit Date of Eval: 09/30/21 Session Number:: 9 - Reassessment Reassessment- 30 Days: Demonstrate knowledge of O2 Rx at rest & w/exercise, Using O2 as Rx'd, Has home O2 as Rx'd, Uses port O2 as Rx'd Breath Sounds:: Diminished, Inspiratory Wheezes SpO2:: 98 - @ rest 4 liters Core Components - Initial Core Components - 30 DAYS - Visit Date of Eval: 09/30/21 Session Number:: 9 - Hypertension Resting Blood Pressure:: 110/54 [place] [employer] Hypertension Guidelines: [place] [employer] Hypertension Guidelines. Normal BP Less than 120/80. Elevated BP 120/80. Hypertension Stage 1: BP 130-139/80-89. Hypertesnion Stage 2: BP 140 or higher/90 or higher. Hypertension Crisis: BP higher than 180/120 Peak Exercise Blood Pressure:: 132/66 - W/exercise Change in medication: No Outcomes/Goals: Able to verbalize/achieve optimal blood pressure <130/80, Incorporates diet changes & exercise for blood pressure control by DC Interventions/plan: Instruct on optimal blood pressure, hypertension & medications, Instruct on effects of sodium, alcohol, stress, exercise &hypertension 30 day Reassessments:: Progressing - Exacerbation Mgmt & Airway Clearance Reassessment: Demonstrates knowledge of O2 Rx at rest, Demonstrates knowledge of O2 Rx with exercise, Using O2 as prescribed, Has home O2 as prescribed, Uses port O2 as prescribed Bronchial Hygiene Plan: Yes Pt demonstrates correctly for effective cough, Yes Pt demo correct for device - PFlex, SMI and Spacer devices, Yes Pt demo correct for improved hydration, Yes Pt demo correct for hand hygiene, Yes Pt demo correct for verbalize when to call MD - Medication Medication list reviewed:: Yes Taking medications 100% of the time:: Met Medication reassessment: Yes Pt demonstrates correct technique timing for MDI, Yes Pt demonstrates correct technique timing for DPI, Yes Pt demonstrates correct technique timing for NEB, Yes Pt demonstrates correct technique timing for spacer - Diabetes Diabetes:: No - Heart Failure Documenting weight rocky: Yes Core Components - 60 DAYS Core Components - 90 DAYS Core Components - Final Patient Health Questionnaire 30-Day Re-eval Assessment 1. Little interest or pleasure in doing things: Several days 2. Feeling down, depressed, or hopeless: Several days 3. Trouble falling or staying asleep, or sleeping too much: Not at all 4. Feeling tired or having little energy: Several days 5. Poor appetite or overeating: Not at all 6. Feeling bad about yourself -- or that you are a failure or have let yourself or your family down: Not at all 7. Trouble concentrating on things, such as reading the newspaper or watching television: Not at all 8. Moving or speaking so slowly that other people could have noticed. Or the opposite - being so fidgety or restless that you have been moving around a lot more than usual: Not at all 9. Thoughts that you would be better off , or of hurting yourself in some way: Not at all How difficult have these problems made it for you to do your work, take care of things at home, or get along with other people?: Somewhat difficult Total Score: 3 Knowledge Questionaire (BCKQ) - Information Information: [place] COPD Knowledge Questionnaire (BCKQ) This questionnaire is designed to find out what you know about your lung problem. It should be completed without help form anyone else. This usually takes between 10 and 20 minutes. Your answers will help us to find out what information you need to help you to understand and manage your lung condition. Gregory the [place] which you think is the correct answer. Self-Efficacy 30-Day Re-eval Assessment We would like to know how confident you are in doing certain activities. Please select your confidence level for:: Select your confidence level for the following using the scale 1-10 where 1 is not at all confident and 10 is totally confident. Your score is the average of all 6 responses. Fatigue: How confident are you that you can keep the fatigue caused by your disease from interfering with the things you want to do? Select Number: 3 Physical Discomfort or Pain: How confident are you that you can keep the physical discomfort or pain of your disease from interfering with the things you want to do? Select Number: 4 Emotional Distress: How confident are you that you can keep the emotional distress caused by your disease from interfering with the things you want to do? Select Number: 4 Other Symptoms or Health Problems: How confident are you that you can keep other symptoms or health problems from interfering with the things you want to do? Select Number: 5 Different Tasks and Activities: How confident are you that you can do the different tasks and activities needed to manage your health condition so as to reduce your need to see a doctor? Select Number: 3 Medication: How confident are you that you can do things other than just taking medication to reduce how much your illness affects your everyday life? Select Number: 4 Total Score:: 3 Nutrition Survey
[2021-09-30 08:19] VITALS: BP 110/54; BP 132/66; O2SAT 98; BMI 26.4
== END 2021-10-15 23:59 ==
LOC: PR 10:30
PROVIDERS: PCP Internal Medicine
DX: J84.112 Idiopathic pulmonary fibrosis (principal); J44.9 Chronic obstructive pulmonary disease, unspecified
CPT/HCPCS: 97150; 94626

== ENCOUNTER 2021-11-13 10:30 | Outpatient (RCR) | payer MEDICARE, SELFPAY ==
[2021-09-30 08:19] VITALS: BMI 26.4
[2021-10-16 00:43] VITALS: BP 110/54; BP 132/66
--- NOTE | 2021-10-30 06:29 | PCM.PR.TP ---
Exercise - 60-Day Assessment - Visit Date of Eval: 10/30/21 Session Number:: 21 - Physician Prescribed Exercise Modalities: Biodyne - Schwinn Airdyne Bike, SciFit Intensity: 60-80% of age predicted maximum heart rate reserve Aerobic Exercise [30-60 min 3-7x/week]:: Progressing Carla-14 Current METSs: 3.5 Target HR:: 118 - THHR 90-118 Current RPD:: 3 Maximum Exercise HR:: 103 Resting Blood Pressure: 100/48 Maximum Exercise Blood Pressure: 120/62 Minimum SpO2 with exercise: 91 - on 4 liters EKG Type: NSR to sinus tach w occasional PACs and rare PVC Current Minutes of Exercise: 51:16 - Home Exercise Home Exercise:: Yes Mode: Walking Frequency:: daily Time (minutes):: 60 - > 1 hour physical activity daily Nutrition/Wt Mgmt - 60-Day - Visit Date of Eval: 10/30/21 Session Number:: 21 - Weight Management Height: 5 ft 10 in Weight:: 180 lb 8 oz BMI: 25.9 Weight Goals Progress:: Goal met Psychosocial - 60-Day - Visit Date of Eval: 10/30/21 Session Number:: 21 - Problems/Goals History of Emotional Disorders: Anxious - Psychosocial Test Tool Used:: PHQ-9 Questionnaire Referred to MD for counseling:: No - Referral to Behavioral Health PS - Interventions: Yes Attend Stress Management Classes, No Referral to Behavioral Health if PHQ-9 score >9:, No Referral to [facility], No Referral to Physician if PHQ-9 if score is 5-9: - Plan Interventions/Plan:: Assess stressors,coping strategies & signs of derpression on admission, Instruct/assist pt to develop coping & personal stress Mgt strategies, Instruct patient to recognize signs & symptoms of depression, Instruct patient to recog Oxygen & Oxygen Titration 60D - Visit Date of Eval: 10/30/21 Session Number:: 21 - Reassessment Reassessment- 60 Days: Demonstrate knowledge of O2 Rx at rest & w/exercise, Using O2 as Rx'd, Has home O2 as Rx'd, Uses port O2 as Rx'd Breath Sounds:: Clear, Diminished SpO2:: 95 - on 4 liters at rest Core Components - Initial Core Components - 30 DAYS Core Components - 60 DAYS - Visit Date of Eval: 10/30/21 Session Number:: 21 - Hypertension Hypertension Diagnosis:: Hypertension ICD-10 I10 Resting Blood Pressure:: 100/48 Citizen [place] [employer] Hypertension Guidelines: [place] [employer] Hypertension Guidelines. Normal BP Less than 120/80. Elevated BP 120/80. Hypertension Stage 1: BP 130-139/80-89. Hypertesnion Stage 2: BP 140 or higher/90 or higher. Hypertension Crisis: BP higher than 180/120 Peak Exercise Blood Pressure:: 120/62 Change in medication: No Outcomes/Goals: Able to verbalize/achieve optimal blood pressure <130/80, Incorporates diet changes & exercise for blood pressure control by DC Interventions/plan: Instruct on optimal blood pressure, hypertension & medications, Instruct on effects of sodium, alcohol, stress, exercise &hypertension 60 day Reassessments:: Met - Tobacco - 60-Day Tobacco Program Goals: Complete smoking cessation. Attend education classes. Improve Knowledge Test score Tobacco Use: Non-smoker Gave Education Materials For:: Pulmonary Disease, Risk Factors, Breathing Techniques, Medical Compliance, Pulmonary A&P, Exacerbation Signs & Symptoms, Stress & Relaxation 60-day Reassessments:: Progressing - Exacerbation Mgmt & Airway Clearance Reassessment: Demonstrates knowledge of O2 Rx at rest, Demonstrates knowledge of O2 Rx with exercise, Using O2 as prescribed, Has home O2 as prescribed, Uses port O2 as prescribed Bronchial Hygiene Plan: Yes Pt demo correct for device - SMI, Acapella, Spacer, PFlex, Yes Pt demo correct for improved hydration, Yes Pt demo correct for hand hygiene, Yes Pt demo correct for verbalize when to call MD - Medication Medication list reviewed:: Yes Taking medications 100% of the time:: Met Taking medications 100% of the time:: Met Medication reassessment: Yes Pt demonstrates correct technique timing for MDI, Yes Pt demonstrates correct technique timing for DPI, Yes Pt demonstrates correct technique timing for NEB, Yes Pt demonstrates correct technique timing for spacer 60-day Reassessments:: Met - Diabetes Diabetes:: No Core Components - 90 DAYS Core Components - Final Patient Health Questionnaire 60-Day Re-eval Assessment 1. Little interest or pleasure in doing things: Not at all 2. Feeling down, depressed, or hopeless: Several days 3. Trouble falling or staying asleep, or sleeping too much: Several days 4. Feeling tired or having little energy: Not at all 5. Poor appetite or overeating: Not at all 6. Feeling bad about yourself -- or that you are a failure or have let yourself or your family down: Not at all 7. Trouble concentrating on things, such as reading the newspaper or watching television: Not at all 8. Moving or speaking so slowly that other people could have noticed. Or the opposite - being so fidgety or restless that you have been moving around a lot more than usual: Not at all 9. Thoughts that you would be better off , or of hurting yourself in some way: Not at all How difficult have these problems made it for you to do your work, take care of things at home, or get along with other people?: Somewhat difficult Total Score: 2 Knowledge Questionaire (BCKQ) - Information Information: [place] COPD Knowledge Questionnaire (BCKQ) This questionnaire is designed to find out what you know about your lung problem. It should be completed without help form anyone else. This usually takes between 10 and 20 minutes. Your answers will help us to find out what information you need to help you to understand and manage your lung condition. Gregory the [place] which you think is the correct answer. Self-Efficacy 60-Day Re-eval Assessment We would like to know how confident you are in doing certain activities. Please select your confidence level for:: Select your confidence level for the following using the scale 1-10 where 1 is not at all confident and 10 is totally confident. Your score is the average of all 6 responses. Fatigue: How confident are you that you can keep the fatigue caused by your disease from interfering with the things you want to do? Select Number: 5 Physical Discomfort or Pain: How confident are you that you can keep the physical discomfort or pain of your disease from interfering with the things you want to do? Select Number: 5 Emotional Distress: How confident are you that you can keep the emotional distress caused by your disease from interfering with the things you want to do? Select Number: 5 Other Symptoms or Health Problems: How confident are you that you can keep other symptoms or health problems from interfering with the things you want to do? Select Number: 7 Different Tasks and Activities: How confident are you that you can do the different tasks and activities needed to manage your health condition so as to reduce your need to see a doctor? Select Number: 4 Medication: How confident are you that you can do things other than just taking medication to reduce how much your illness affects your everyday life? Select Number: 4 Total Score:: 5 Nutrition Survey
[2021-10-30 06:37] VITALS: BP 100/48; BP 120/62; O2SAT 95; BMI 25.9
== END 2021-11-15 23:59 ==
LOC: PR 10:30
PROVIDERS: PCP Internal Medicine
DX: J84.112 Idiopathic pulmonary fibrosis (principal); J44.9 Chronic obstructive pulmonary disease, unspecified
CPT/HCPCS: 97150; 94626

== ENCOUNTER 2021-12-04 10:30 | Outpatient (RCR) | payer MEDICARE, SELFPAY ==
[2021-10-30 06:37] VITALS: BMI 25.9
[2021-11-16 00:33] VITALS: BP 100/48; BP 120/62
--- NOTE | 2021-11-27 08:50 | PR.ITP_ITS ---
Exercise - Final Assessment - Visit Date of Eval: 11/27/21 Session Number:: 32 - Physician Prescribed Exercise Modalities: Treadmill, NuStep, SciFit Frequency (days/week): 3 Duration (Minutes):: 38:12 Aerobic Exercise [30-60 min 3-7x/week]:: Met - Patient has met his program and personal goal Carla Current METSs:: 4.5 Target Heart Rate:: 90-118 Current RPD:: 2 Resting Blood Pressure: 118/56 Maximum Exercise Blood Pressure: 142/68 Minimum SpO2 with exercise: 90 EKG Type: NSR to sinus tach w/rare PAC & PVC Current Minutes of Exercise: 38:12 - Home Exercise Home Exercise:: Yes Mode: Walking Frequency: daily Time (minutes):: 30 Nutrition/Wt Mgmt - Final - Visit Date of Eval: 11/27/21 Session Number:: 32 - Weight Management Height: 5 ft 10 in Weight:: 182 lb BMI: 26.1 Weight Goals Progress:: Goal met - Healthier weight and toned Psychosocial - Final Assess - Visit Date of Eval: 11/27/21 Session Number:: 32 - Referral to Behavioral Health PS - Interventions: Yes Attend Stress Management Classes, No Referral to Behavioral Health if PHQ-9 score >9:, No Referral to [facility], No Referral to Physician if PHQ-9 if score is 5-9: - Plan Interventions/Plan:: Assess stressors,coping strategies & signs of derpression on admission, Instruct/assist pt to develop coping & personal stress Mgt strategies, Instruct patient to recognize signs & symptoms of depression, Instruct patient to recog - Patient verablizes adn demonstrated proper methods to reduce stress and anxiety Oxygen & Oxygen Titration ASHLY - Visit Date of Eval: 11/27/21 Session Number:: 32 - Reassessment Oxygen & Oxygen Titration Final: Continuous Home Use Breath Sounds:: Diminished, Insp. & Exp. Wheezing - slight SpO2:: 97 - on his 4 liters at rest Core Components - Initial Core Components - 30 DAYS Core Components - 60 DAYS Core Components - 90 DAYS Core Components - Final - Visit Date of Eval: 11/27/21 Session Number:: 32 - Hypertension Hypertension Diagnosis:: Hypertension ICD-10 I10 Resting Blood Pressure:: 118/56 [place] [employer] Hypertension Guidelines: [place] [employer] Hypertension Guidelines. Normal BP Less than 120/80. Elevated BP 120/80. Hypertension Stage 1: BP 130-139/80-89. Hypertesnion Stage 2: BP 140 or higher/90 or higher. Hypertension Crisis: BP higher than 180/120 Peak Exercise Blood Pressure:: 142/68 Outcomes/Goals: Able to verbalize/achieve optimal blood pressure <130/80, Incorporates diet changes & exercise for blood pressure control by DC - Exacerbation Mgmt & Airway Clearance Final Assessment: Demonstrates knowledge of O2 Rx at rest, Demonstrates knowledge of O2 Rx with exercise, Using O2 as prescribed, Has home O2 as prescribed, Uses port O2 as prescribed Bronchial Hygiene Plan: Yes Pt demo correct for device - SMI PFLEX and Spacer, Yes Pt demo correct for sputum management - Acapella Devices, Yes Pt demo correct for improved hydration, Yes Pt demo correct for hand hygiene - Medication Medication list reviewed:: Yes Taking medications 100% of the time:: Met Medication reassessment: Yes Pt demonstrates correct technique timing for MDI, Yes Pt demonstrates correct technique timing for DPI, Yes Pt demonstrates correct technique timing for NEB, Yes Pt demonstrates correct technique timing for spacer - Diabetes Diabetes:: No - Heart Failure Documenting weight daily: No Patient Health Questionnaire Discharge Assessment 1. Little interest or pleasure in doing things: Not at all 2. Feeling down, depressed, or hopeless: Not at all 3. Trouble falling or staying asleep, or sleeping too much: Not at all 4. Feeling tired or having little energy: Several days 5. Poor appetite or overeating: Not at all 6. Feeling bad about yourself -- or that you are a failure or have let yourself or your family down: Not at all 7. Trouble concentrating on things, such as reading the newspaper or watching television: Not at all 8. Moving or speaking so slowly that other people could have noticed. Or the opposite - being so fidgety or restless that you have been moving around a lot more than usual: Not at all 9. Thoughts that you would be better off , or of hurting yourself in some way: Not at all How difficult have these problems made it for you to do your work, take care of things at home, or get along with other people?: Not difficult at all Total Score: 1 Knowledge Questionaire (BCKQ) - Information Information: [place] COPD Knowledge Questionnaire (BCKQ) This questionnaire is designed to find out what you know about your lung probl em. It should be completed without help form anyone else. This usually takes between 10 and 20 minutes. Your answers will help us to find out what information you need to help you to understand and manage your lung condition. Gregory the [place] which you think is the correct answer. Self-Efficacy Discharge Assessment We would like to know how confident you are in doing certain activities. Please select your confidence level for:: Select your confidence level for the following using the scale 1-10 where 1 is not at all confident and 10 is totally confident. Your score is the average of all 6 responses. Fatigue: How confident are you that you can keep the fatigue caused by your disease from interfering with the things you want to do? Select Number: 9 Physical Discomfort or Pain: How confident are you that you can keep the physical discomfort or pain of your disease from interfering with the things you want to do? Select Number: 9 Emotional Distress: How confident are you that you can keep the emotional di stress caused by your disease from interfering with the things you want to do? Select Number: 9 Other Symptoms or Health Problems: How confident are you that you can keep other symptoms or health problems from interfering with the things you want to do? Select Number: 6 Different Tasks and Activities: How confident are you that you can do the different tasks and activities needed to manage your health condition so as to reduce your need to see a doctor? Select Number: 6 Medication: How confident are you that you can do things other than just taking medication to reduce how much your illness affects your everyday life? Select Number: 6 Total Score:: 7 Nutrition Survey
[2021-11-27 08:57] VITALS: BP 118/56; BP 142/68; O2SAT 97; BMI 26.1
== END 2021-12-16 23:59 ==
LOC: PR 10:30
PROVIDERS: PCP Internal Medicine
DX: J84.112 Idiopathic pulmonary fibrosis (principal); J44.9 Chronic obstructive pulmonary disease, unspecified
CPT/HCPCS: 97150; 94626

== ENCOUNTER → 2022-08-12 | Outpatient (CLI) | payer MEDICARE, SELFPAY ==
[2021-11-27 08:57] VITALS: BMI 26.1
--- NOTE | 2022-08-12 13:30 | RAD_ITS ---
INDICATION: LERMA, Rhonchi EXAMINATION/TECHNIQUE: X-RAY - XR Chest 2 Views COMPARISON: FINDINGS: LINES/DEVICES: None. LUNGS: Severe fibrosis right upper lobe, moderate fibrosis peripherally left upper lobe with severe lingula and left lower lobe fibrosis and moderate fibrosis right middle and right lower lobes. MEDIASTINUM AND CARDIOVASCULAR STRUCTURES: Atherosclerotic vascular calcification aortic arch. Tortuous descending aorta. BONES AND SOFT TISSUES: Unremarkable. RAD/Chest PA and Lateral IMPRESSION: Extensive pulmonary fibrosis detailed above. Electronically Signed: Gregory Johnson MD, LILLIAN at 17:19 EDT ,
== END | disposition home or self-care (01) ==
LOC: RAD 13:28
PROVIDERS: PCP Internal Medicine; Referring Provider Nurse Practitioner Gerontology; Visit Provider Nurse Practitioner Gerontology
DX: R06.09 Other forms of dyspnea (principal); R09.89 Other specified symptoms and signs involving the circulatory and respiratory systems
CPT/HCPCS: 71046

== ENCOUNTER → 2023-09-20 | Outpatient (CLI) | payer MEDICARE, SELFPAY ==
[2021-11-27 08:57] VITALS: BMI 26.1
--- NOTE | 2023-09-20 12:51 | ECHOD_ITS ---
Reason For Study: LERMA Procedure This was a 2D Doppler, Color Flow transthoracic echocardiogram. Exam performed in department. Left Ventricle Normal LV size. Left ventricular systolic function is normal. The left ventricular ejection fraction is 55 %. Stage 1 diastolic dysfunction. No regional wall motion abnormalities noted. Right Ventricle Normal RV size. Normal systolic function. Atria Normal left atrium. Normal right atrium. Mitral Valve Normal mitral valve. Tricuspid Valve Normal tricuspid valve. Moderate (2+) tricuspid valve insufficiency. Pulmonary artery systolic pressure is 63 mmHg. Moderate pulmonary hypertension. Aortic Valve Trisinus/trileaflet aortic valve. Pulmonic Valve Normal pulmonic valve. Great Vessels Normal aortic root. The pulmonary artery is normal size. Normal inferior vena cava. Pericardium/Pleural No pericardial effusion. MMode/2D Measurements & Calculations LVIDd: 4.6 cm IVSd: 1.1 cm LA dimension: 2.9 cm LVIDs: 2.8 cm LVPWd: 0.92 cm RVDd: 4.2 cm FS: 39.6 % LAV(MOD-bp): 59.9 ml LA A4 area: 21.2 cm2 RA A4 area: 12.7 cm2 LAV(MOD-bp) Indexed: 32.0 ml/m2 LAV(MOD-sp2): 58.3 ml LAV(MOD-sp4): 58.2 ml Time Measurements MV dec time: 0.34 sec Doppler Measurements & Calculations MV E max dami: 50.4 cm/sec Lat Peak E' Dami: 11.7 cm/sec Med Peak E' Dami: 4.7 cm/sec MV A max dami: 78.8 cm/sec E/E' lat: 4.3 E/E' med: 10.8 MV E/A: 0.64 MV V2 max: 99.1 cm/sec MV P1/2t max dami: 61.6 cm/sec Ao V2 max: 102.3 cm/sec MV max P.9 mmHg MV P1/2t: 120.0 msec Ao max P.2 mmHg MV V2 mean: 50.2 cm/sec MV dec slope: 150.3 cm/sec2 Ao V2 mean: 73.6 cm/sec MV mean P.2 mmHg MVA(P1/2t): 1.8 cm2 Ao mean P.5 mmHg MV V2 VTI: 29.3 cm Ao V2 VTI: 24.3 cm AV (velocity ratio): 0.88 LV V1 max: 84.5 cm/sec PA V2 max: 116.3 cm/sec LV V1 max P.9 mmHg PI dec slope: 177.3 cm/sec2 LV V1 mean P.6 mmHg LV V1 mean: 58.9 cm/sec LV V1 VTI: 21.3 cm TR max dami: 382.2 cm/sec TR max P.4 mmHg ECHO/Echo Complete Interpretation Summary Normal LV size. Left ventricular systolic function is normal. The left ventricular ejection fraction is 55 %. Stage 1 diastolic dysfunction. Pulmonary artery systolic pressure is 63 mmHg. Moderate pulmonary hypertension. Ordering Physician: Dottie Jackson Referring Physician: Dottie Jackson Performed By: Daryl Viera RCS
== END | disposition home or self-care (01) ==
LOC: CVS 12:50
PROVIDERS: PCP Internal Medicine; Referring Provider Nurse Practitioner Gerontology; Visit Provider Nurse Practitioner Gerontology
DX: R06.09 Other forms of dyspnea (principal); I77.819 Aortic ectasia, unspecified site
CPT/HCPCS: 93306

== ENCOUNTER 2024-01-09 13:30 | Emergency (ER) | payer MEDICARE, SELFPAY ==
[2021-11-27 08:57] VITALS: BMI 26.1
[2024-01-09] VITALS (10 sets, daily range): BP systolic 116–167; BP diastolic 63–76; PULSE 70–105; RESP 17–30; TEMP 36.5–38.4; O2SAT 97–100; BMI 23.2
--- NOTE | 2024-01-09 13:54 | EKG12_ITS ---
Test Reason : Blood Pressure : / mmHG Vent. Rate : 095 BPM Atrial Rate : 095 BPM P-R Int : 144 ms QRS Dur : 094 ms QT Int : 338 ms P-R-T Axes : 075 -19 041 degrees QTc Int : 424 ms Sinus rhythm with Premature supraventricular complexes Otherwise normal ECG Confirmed by Jean Curiel ([id number]), telegraph editor KOMAL FRANCIS ([id number]) on 01/10/2024 10:50:03 AM Referred By: Confirmed By:Jean Curiel
[2024-01-09 14:13] LABS: Absolute Lymphocyte Count 0.31 X10^3/uL (0.83-4.51); Absolute Neutrophil Count 7.6 X10^3/uL (2.0-7.7); Basophil# 0.03 X10^3/uL; Basophil% 0.3 % (0-1); Hematocrit 43.2 % (40-54); Hemoglobin 13.9 g/dL (13.0-16.5); Lymphocyte # 0.31 X10^3/ul (0.83-4.51); Lymphocyte % 3.6 % (19-41); Mean Corp Hgb Conc 32.2 g/dL (32-36); Mean Corpuscular Volume 90.2 fL (80-94); Mean Platelet Vol. 10.5 fl (6.2-12.0); Monocyte# 0.76 X10^3/uL; Monocyte% 8.7 % (0-10); NRBC Flagged by Analyzer 0 % (0-5); Neutrophil # 7.59 X10^3/uL (2.7-7.7); Neutrophil % 87.2 % (47-70); POSITIVE DIFFERENTIAL YES; POSITIVE MORPHOLOGY YES; Platelet Count 159 K/mm3 (150-450); RBC Distribution Width CV 12.8 % (11.6-14.6); RBC Distribution Width SD 42.2 fl (35.1-43.9); Red Blood Count 4.79 M/mm3 (4.6-6.2); White Blood Count 8.7 K/mm3 (4.4-11.0)
[2024-01-09 14:15] LABS: Differential Indicated SCAN CRITERIA MET
--- NOTE | 2024-01-09 14:19 | NURSING ---
NO OLD EKGS
[2024-01-09 14:26] LABS: Anion Gap 3 (5-15); BUN 30 mg/dL (7-18); BUN/Creat Ratio 33.9 RATIO (10-20); Calcium,Total 9.6 mg/dL (8.5-10.1); Chloride 102 mmol/L (98-107); Creatinine, Serum 0.89 mg/dL (0.70-1.30); EST Glomerular Filtration Rate 87 mL/min (>60); Est Glom Filt Rate - Afr Amer 105 mL/min (>60); Estimated Creatinine Clearance 64.93 ml/min; Glucose 196 mg/dL (74-106); Potassium 4.1 mmol/L (3.5-5.1); Sodium Level 137 mmol/L (136-145)
--- NOTE | 2024-01-09 14:30 | RAD_ITS ---
STUDY: X-RAY CHEST REASON FOR EXAM: Male, 83 years old. Shortness of breath TECHNIQUE: Single AP portable view of the chest. COMPARISON: Comparison is made with prior study dated August 12, 2022. FINDINGS: Once again, there is evidence of increased interstitial markings with areas of confluence worsened the right upper lobe and left lower lobe in keeping with chronic extensive fibrosis. There is been essentially no change. There is no demonstrated pleural abnormality. Normal size heart. Normal mediastinum and nitesh. Normal visualized pulmonary arteries. There is atherosclerotic calcification of the aortic arch with tortuosity. There are degenerative changes of the visualized thoracic spine. Normal visualized ribs, clavicles, and shoulders. There is no demonstrated abnormality of the visualized soft tissue structures of the upper abdomen. RAD/Chest 1 View (Portable) IMPRESSION: 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 Electronically Signed: Anthony Chapa MD at 14:40 EDT ,
--- NOTE | 2024-01-09 15:54 | EDS_ITS ---
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 Patient states that yesterday he went out to take care of his horses and noted that he started not feeling well and became very nauseous. He states that he felt like he wanted to throw up but ultimately did not. Patient notes that starting yesterday he had increasing cough and shortness of breath with exertion. Patient states that he still is not feeling well prompting him to come here for the valuation management. Patient denies any recent sick contacts. 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 BPH (benign prostatic hyperplasia) Thyroid nodule Hiatal hernia Thrombocytopenia Obesity Hyperlipidemia Essential hypertension GERD (gastroesophageal reflux disease) Non-small cell cancer of left lung Home Medications ?Medication ?Instructions ?Recorded ?Last Taken ?Type albuterol sulfate 90 mcg/actuation 2 inh inhalation Q6H PRN Shortness 10/28/20 Unknown History aerosol inhaler Of Breath multivitamin 1 tab PO DAILY 10/28/20 Unknown History oxybutynin chloride 5 mg 5 mg PO DAILY 10/28/20 Unknown History tablet,extended release 24 hr pantoprazole 20 mg tablet,delayed 20 mg PO DAILY 10/28/20 Unknown History release simvastatin 10 mg tablet 10 mg PO QHS 10/28/20 Unknown History tamsulosin 0.4 mg capsule 0.8 mg PO DAILY 10/28/20 Unknown History lisinopril 10 mg tablet 10 mg PO DAILY 10/29/20 Unknown History mometasone-formoterol HFA 200 2 inh inhalation BID 10/29/20 Unknown History mcg-5 mcg/actuation aerosol inhaler Allergy/AdvReac Type Severity Reaction Status Date / Time No Known Allergies Allergy Verified 01/09/24 13:31 Surgical History History of right heart catheterization (11/03/20) History of bronchoscopy (2016) History of lobectomy of lung (2007) Social History Smoking Status: Former smoker alcohol intake: never substance use type: does not use ROS ROS ED ROS Narrative Constitutional: Denies any fevers, headaches, lightness, dizziness Eyes: Denies change in vision double vision blurry vision Cardiovascular: Denies chest pain palpitations Respiratory: Complains of cough and shortness of breath as noted above Abdomen: Complains of nausea as noted above denies abdominal pain vomiting diarrhea : Denies any urinary symptoms Neurological: Denies numbness, weakness, tingling Musculoskeletal: Denies back pain Skin: Denies rashes or lesions EXAM Physical Exam Narrative Exam Narrative: General: Patient lying in bed rest comfortably did not appear to be acute distress Head: Atraumatic, normocephalic Eyes: PERRL bilateral, EOMI bilateral, no conjunctival injection noted Neck: Soft, supple, trach midline Cardiovascular: Regular rate and rhythm no murmurs gallops rubs noted Respiratory: Patient has coarse breath sounds bilaterally no wheezing noted Abdomen: Soft, nondistended, nontender to palpation Extremities: +4/5 strength noted in the bilateral upper and lower extremities, no pedal edema on exam, radial pulses +2/4 in the bilateral upper extremities Neurological: Patient is following commands knew that he was at [facility] years 2023 Skin: Warm, dry, tact Const Vital Signs: 01/09/24 13:31 01/09/24 15:48 01/09/24 15:48 Temperature 97.7 F L Temperature Source Temporal Pulse Rate 105 H Respiratory Rate 18 29 H Respiratory Effort Respiratory Depth Respiratory Pattern Blood Pressure 132/76 H Blood Pressure Mean 94 Pulse Ox 97 100 100 Oxygen Delivery Method Nasal Cannula Nasal Cannula Nasal Cannula Oxygen Flow Rate (L/min) 5 5 5 01/09/24 15:49 01/09/24 15:52 Temperature Temperature Source Pulse Rate 92 Respiratory Rate 30 H Respiratory Effort Non-Labored Respiratory Depth Normal Respiratory Pattern Tachypnea Blood Pressure 116/70 Blood Pressure Mean 85 Pulse Ox 99 Oxygen Delivery Method Nasal Cannula Nasal Cannula Oxygen Flow Rate (L/min) 5 5 MDM MDM MDM Narrative Medical decision making narrative: Patient is a 83-year-old male who presents to the emergency department the chief complaint of cough and shortness of breath. Patient will have workup performed here on the differential diagnose includes but not limited to ACS, pneumonia, upper respiratory effect second viral etiology, COPD exacerbation. Once workup is obtained reviewed he will be reevaluated. Patient be given 30 cc/kg bolus of IV fluids. Lab Data Labs: Laboratory Results - last 24 hr 01/09/24 14:05 WBC 8.7 RBC 4.79 Hgb 13.9 Hct 43.2 MCV 90.2 MCH 29.0 MCHC 32.2 RDW Std Deviation 42.2 RDW Coeff of Amna 12.8 Plt Count 159 MPV 10.5 Immature Gran % (Auto) 0.200 Neut % (Auto) 87.2 H Lymph % (Auto) 3.6 L [place] % (Auto) 8.7 Eos % (Auto) 0.0 Baso % (Auto) 0.3 Absolute Neuts (auto) 7.6 Absolute Lymphs (auto) 0.31 L Nucleated RBC % 0 Differential Comment COMMENT Sodium 137 Potassium 4.1 Chloride 102 Carbon Dioxide 32.0 Anion Gap 3 L BUN 30 H Creatinine 0.89 Estim Creat Clear Calc 64.93 Est GFR (MDRD) Af Amer 105 Est GFR (MDRD) Non-Af 87 BUN/Creatinine Ratio 33.9 H Glucose 196 H Calcium 9.6 Radiography Diagnostic Testing: Clinical Impression(s) from Imaging Studies Chest X-Ray 01/09/24 14:30 IMPRESSION: 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 Electronically Signed: Anthony Chapa MD at 14:40 EDT , Discharge Plan Triage Chief Complaint: Shortness of Breath ED Provider: Armando Kennedy Dx/Rx/DC Orders Prescriptions: No Action tamsulosin 0.4 mg capsule 0.8 mg PO DAILY oxybutynin chloride 5 mg tablet extended release 24hr 5 mg PO DAILY pantoprazole 20 mg tablet,delayed release (DR/EC) 20 mg PO DAILY simvastatin 10 mg tablet 10 mg PO QHS albuterol sulfate 90 mcg/actuation HFA aerosol inhaler 2 inh inhalation Q6H PRN (Reason: Shortness Of Breath) Patient Comments: INHALE 2 PUFFS INSTRUCTED FOUR TIMES DAILY NEEDED. FOR WHEEZINGAND SHORTNESS OF BREATH. multivitamin Tablet 1 tab PO DAILY Dulera 200-5 mcg/actuation HFA aerosol inhaler 2 inh inhalation BID lisinopril 10 mg tablet 10 mg PO DAILY Primary Care Provider: Tito Macias Referrals: Tito Macias MD [Primary Care Provider] - Print Language: Mauritanian
[2024-01-09] MEDS: 0.9% Normal Saline (1000mL) 1,000 ML 999 ML IV ×3 (16:21→19:03)
[2024-01-09 16:26] LABS: BNP,B-Type NATRIURETIC PEPTIDE 48.1 pg/mL (0-100)
[2024-01-09 16:31] LABS: Troponin-I HS 7 pg/mL (3.0-78.0)
[2024-01-09 16:42] LABS: International Normalized Ratio 1.4; Prothrombin Time (Protime)PT. 16.7 SECONDS (11.7-14.9)
[2024-01-09 16:43] LABS: Partial Thromboplast Time 32.3 Seconds (24.1-36.2)
[2024-01-09] MEDS: Acetaminophen 500 MG Tablet 1000 MG PO (17:08)
[2024-01-09 17:54] LABS: Troponin-I HS 7 pg/mL (3.0-78.0)
[2024-01-09 18:35] LABS: Squamous Epithelial Cells - UA 0 SEEN /hpf (0-5)
[2024-01-09 18:44] LABS: Color, Urine Amber (Yellow); Glucose, Dipstick Normal (Normal); Ketone-Dipstick 5 mg/dl (Negative); Leukocyte Esterase-Dipstick 25 /ul (Negative); Nitrite-Dipstick Negative (Negative); Occult Blood-Urine 50 /ul (Negative); Protein-Dipstick 30 mg/dl (Negative); Specific Gravity, Urine 1.015 (1.002-1.030); Urine Clarity Clear (Clear); Urine Urobilinogen 1 mg/dl (Normal)
[2024-01-09 19:10] LABS: Urine Bilirubin Dipstick 1 mg/dL (Negative)
[2024-01-09 19:11] LABS: Bacteria 1+ /hpf (None Seen); Mucous, Urine 1+ /hpf (<or=2+); Red Blood Cells-Urine 0-5 SEEN /hpf (0-5); White Blood Cells 5-10 SEEN /hpf (0-5)
[2024-01-09] MEDS: levoFLOXacin 750 MG Tablet PO (20:17)
== END 2024-01-09 20:31 | disposition home or self-care (01) ==
PROVIDERS: Emergency Provider Emergency Medicine; PCP Internal Medicine; Visit Provider Emergency Medicine
DX: R06.02 Shortness of breath (principal); J44.9 Chronic obstructive pulmonary disease, unspecified; I25.10 Atherosclerotic heart disease of native coronary artery without angina pectoris; Z87.891 Personal history of nicotine dependence; E78.5 Hyperlipidemia, unspecified; I10 Essential (primary) hypertension; Z85.118 Personal history of other malignant neoplasm of bronchus and lung; K21.9 Gastro-esophageal reflux disease without esophagitis; Z79.899 Other long term (current) drug therapy; N40.0 Benign prostatic hyperplasia without lower urinary tract symptoms
CPT/HCPCS: 71045; 80048; 81001; 83605; 83880; 84484; 85025; 85610; 85730; 87040; 87086; 87631; 93005; 94760; 96360; 96361; 99285; J7030; P9612; A4216

== ENCOUNTER → 2024-02-20 | Outpatient (CLI) | payer MEDICARE, SELFPAY ==
[2021-11-27 08:57] VITALS: BMI 26.1
--- NOTE | 2024-02-20 13:17 | US_ITS ---
STUDY: THYROID ULTRASOUND REASON FOR EXAM: Male, 83 years old. follow up nodule TECHNIQUE: Ultrasound evaluation of the thyroid was performed with real-time and static morocho-scale imaging. COMPARISON: 03/11/2023 FINDINGS: RIGHT LOBE: The right lobe of the thyroid gland measures 5.0 x 2.4 x 2.1 cm. There is a homogeneous echotexture. Nodule 1: Shrinking (8 x 8 x 8 mm from 10 x 10 x 12 mm) solid hypoechoic wider than tall smoothly marginated nodule with no echogenic foci (TR 4) in the lateral right lobe consistent with an adenoma. LEFT LOBE: The left lobe of the thyroid gland measures 4.8 x 1.8 x 1.8 cm. There is a homogeneous echotexture. There are no demonstrated solid, cystic or complex lesions. ISTHMUS: The isthmus measures . The regional lymph nodes are normal. US/Thyroid IMPRESSION: Shrinking adenoma in the right lobe. Electronically Signed: Chemo Tilley MD at 10:25 EST ,
== END | disposition home or self-care (01) ==
LOC: US 13:16
PROVIDERS: PCP Internal Medicine; Referring Provider Surgery; Visit Provider Surgery
DX: E04.1 Nontoxic single thyroid nodule (principal)
CPT/HCPCS: 76536

== ENCOUNTER → 2024-02-23 | Outpatient (CLI) | payer MEDICARE, SELFPAY ==
[2021-11-27 08:57] VITALS: BMI 26.1
[2024-02-23 12:49] LABS: Absolute Lymphocyte Count 0.79 X10^3/uL (0.83-4.51); Absolute Neutrophil Count 3.8 X10^3/uL (2.0-7.7); Basophil# 0.05 X10^3/uL; Basophil% 0.9 % (0-1); Eosinophil# 0.65 X10^3/uL; Eosinophils% 11.5 % (0-5); Hematocrit 43.5 % (40-54); Hemoglobin 13.4 g/dL (13.0-16.5); Lymphocyte # 0.79 X10^3/ul (0.83-4.51); Mean Corp Hgb Conc 30.8 g/dL (32-36); Mean Corpuscular Hgb 27.5 pg (27.0-32.0); Mean Corpuscular Volume 89.3 fL (80-94); Mean Platelet Vol. 10.3 fl (6.2-12.0); Monocyte# 0.33 X10^3/uL; Monocyte% 5.8 % (0-10); NRBC Flagged by Analyzer 0 % (0-5); Neutrophil # 3.82 X10^3/uL (2.7-7.7); Neutrophil % 67.4 % (47-70); Platelet Count 197 K/mm3 (150-450); RBC Distribution Width CV 13.1 % (11.6-14.6); RBC Distribution Width SD 42.4 fl (35.1-43.9); Red Blood Count 4.87 M/mm3 (4.6-6.2); White Blood Count 5.7 K/mm3 (4.4-11.0)
[2024-02-23 13:08] LABS: BNP,B-Type NATRIURETIC PEPTIDE 38.5 pg/mL (0-100)
[2024-02-23 13:10] LABS: Anion Gap 2 (5-15); BUN 36 mg/dL (7-18); BUN/Creat Ratio 53.7 RATIO (10-20); Calcium,Total 9.3 mg/dL (8.5-10.1); Chloride 107 mmol/L (98-107); Creatinine, Serum 0.67 mg/dL (0.70-1.30); EST Glomerular Filtration Rate 120 mL/min (>60); Est Glom Filt Rate - Afr Amer 145 mL/min (>60); Glucose 98 mg/dL (74-106); Potassium 3.9 mmol/L (3.5-5.1); Sodium Level 141 mmol/L (136-145)
== END | disposition home or self-care (01) ==
LOC: LAB 11:59
PROVIDERS: PCP Internal Medicine; Referring Provider Nurse Practitioner Gerontology; Visit Provider Nurse Practitioner Gerontology
DX: R06.09 Other forms of dyspnea (principal)
CPT/HCPCS: 36415; 80048; 83880; 85025

== ENCOUNTER → 2025-01-08 | Outpatient (CLI) | payer MEDICARE, SELFPAY ==
[2021-11-27 08:57] VITALS: BMI 26.1
[2025-01-08 10:55] LABS: Hematocrit 41.3 % (40-54); Hemoglobin 13.1 g/dL (13.0-16.5); Immature Granulocytes Count 0.010 X10^3/uL (0.0-0.0); Mean Corp Hgb Conc 31.7 g/dL (32-36); Mean Corpuscular Volume 90.0 fL (80-94); Mean Platelet Vol. 10.6 fl (6.2-12.0); NRBC Flagged by Analyzer 0 % (0-5); Platelet Count 161 K/mm3 (150-450); RBC Distribution Width CV 13.2 % (11.6-14.6); RBC Distribution Width SD 42.7 fl (35.1-43.9); Red Blood Count 4.59 M/mm3 (4.6-6.2); White Blood Count 4.7 K/mm3 (4.4-11.0)
[2025-01-08 11:30] LABS: Anion Gap 8 (5-15); BUN 15 mg/dL (4-19); BUN/Creat Ratio 23.7 RATIO (10-20); Calcium,Total 9.1 mg/dL (7.6-11.0); Carbon Dioxide 28.6 mmol/L (21.0-32.0); Chloride 102 mmol/L (98-108); Glucose 97 mg/dL (70-99); Potassium 3.9 mmol/L (3.3-5.1); Pro- Brain NATRIURETIC PEPTIDE 201 pg/mL (<=1800)
== END | disposition home or self-care (01) ==
LOC: LAB 10:05
PROVIDERS: PCP Internal Medicine; Referring Provider Nurse Practitioner Gerontology; Visit Provider Nurse Practitioner Gerontology
DX: R06.09 Other forms of dyspnea (principal)
CPT/HCPCS: 36415; 80048; 83880; 85025

== ENCOUNTER → 2025-02-07 | Outpatient (CLI) | payer MEDICARE, SELFPAY ==
[2021-11-27 08:57] VITALS: BMI 26.1
--- NOTE | 2025-02-07 09:50 | ECHOD_ITS ---
Reason For Study Reason For Study: LERMA Procedure This was a 2D Doppler, Color Flow transthoracic echocardiogram. Exam performed in department. Left Ventricle Normal LV size. The left ventricular ejection fraction is 60 %. Stage 1 diastolic dysfunction. No regional wall motion abnormalities noted. Right Ventricle Normal RV size. Normal systolic function. Atria Normal left atrium. Normal right atrium. Mitral Valve Normal mitral valve. Tricuspid Valve Normal tricuspid valve. Mild-Moderate (1-2+) tricuspid valve insufficiency. Pulmonary artery systolic pressure is 42 mmHg. Aortic Valve Normal aortic valve. Pulmonic Valve Normal pulmonic valve. Great Vessels Normal aortic root. The pulmonary artery is normal size. Inferior vena cava collapse with respiration. Pericardium/Pleural No pericardial effusion. MMode/2D Measurements & Calculations LVIDd: 3.7 cm IVSd: 0.83 cm LVOT diam: 2.1 cm LVIDs: 2.6 cm LVPWd: 0.92 cm LVOT area: 3.4 cm2 RVDd: 4.6 cm FS: 31.2 % Ao root diam: 3.4 cm LAV(MOD-bp): 64.9 ml LVAd ap4: 30.1 cm2 LA dimension: 2.8 cm LAV(MOD-bp) Indexed: 33.0 ml/m2 LVLd ap4: 7.8 cm LAV(MOD-sp2): 59.7 ml EDV(MOD-sp4): 92.1 ml LAV(MOD-sp4): 60.1 ml EDV(sp4-el): 98.9 ml LVAs ap4: 17.3 cm2 LVLs ap4: 6.0 cm ESV(MOD-sp4): 41.7 ml ESV(sp4-el): 42.5 ml EF(MOD-sp4): 54.7 % EF(sp4-el): 57.0 % LVAd ap2: 27.8 cm2 SV(MOD-sp4): 50.4 ml SV(MOD-sp2): 49.8 ml LVLd ap2: 7.6 cm SI(MOD-sp4): 25.6 ml/m2 SI(MOD-sp2): 25.3 ml/m2 EDV(MOD-sp2): 83.4 ml EDV(sp2-el): 86.1 ml LVAs ap2: 15.3 cm2 LVLs ap2: 5.8 cm ESV(MOD-sp2): 33.6 ml ESV(sp2-el): 33.9 ml EF(MOD-sp2): 59.7 % SV(sp4-el): 56.4 ml LA A4 area: 20.4 cm2 RA A4 area: 20.5 cm2 TAPSE: 1.3 cm Time Measurements MV dec time: 0.34 sec Doppler Measurements & Calculations MV E max dami: 55.0 cm/sec Lat Peak E' Dami: 13.8 cm/sec Med Peak E' Dami: 5.2 cm/sec MV A max dami: 75.2 cm/sec E/E' lat: 4.0 E/E' med: 10.7 MV E/A: 0.73 MV dec slope: 161.2 cm/sec2 Ao V2 max: 106.9 cm/sec LV V1 max: 91.8 cm/sec Ao max P.6 mmHg LV V1 max P.4 mmHg Ao V2 mean: 77.4 cm/sec LV V1 mean P.8 mmHg Ao mean P.7 mmHg LV V1 mean: 62.6 cm/sec Ao V2 VTI: 24.4 cm LV V1 VTI: 20.5 cm AV (velocity ratio): 0.84 RACHELLE(I,D): 2.8 cm2 RACHELLE(V,D): 2.9 cm2 SV(LVOT): 69.3 ml PA V2 max: 65.2 cm/sec PI end-d dami: 164.3 cm/sec TR max dami: 308.1 cm/sec TR max P.1 mmHg ECHO/Echo Complete Interpretation Summary Normal LV size. The left ventricular ejection fraction is 60 %. Stage 1 diastolic dysfunction. Mild-Moderate (1-2+) tricuspid valve insufficiency. Ordering Physician: Dottie Jackson Referring Physician: Tito Macias Performed By: Giovanni Boss RDCS
== END | disposition home or self-care (01) ==
LOC: CVS 09:50
PROVIDERS: PCP Internal Medicine; Referring Provider Nurse Practitioner Gerontology; Visit Provider Nurse Practitioner Gerontology
DX: R06.09 Other forms of dyspnea (principal)
CPT/HCPCS: 93306

== ENCOUNTER → 2025-03-15 | Outpatient (CLI) | payer MEDICARE, SELFPAY ==
[2021-11-27 08:57] VITALS: BMI 26.1
--- NOTE | 2025-03-15 13:48 | US_ITS ---
PROCEDURE: THYROID 03/15/2025 REASON FOR EXAM: THYROID NODULE TECHNIQUE: Procedure Code: USTHY Modality: US Procedure: THYROID COMPARISON: 20 February 2024. FINDINGS: Transcutaneous 2-D grayscale and color Doppler ultrasound of the thyroid gland was performed. MEASUREMENTS: Right lobe: 4.2 x 2.1 x 1.6 cm. Left lobe: 3.9 x 1.2 x 0.9 cm. Isthmus: 2 mm. RIGHT SIDE: Homogeneous echotexture. The interpolar right thyroid contains a solid, hypoechoic, wider than tall, lobulated nodule measuring 0.9 x 0.8 x 0.7 cm without evidence of echogenic foci. (TR 4) (stable) The interpolar right thyroid contains mixed cystic and solid, isoechoic, wider than tall, smooth nodule measuring 0.4 x 0.3 x 0.2 cm without evidence of echogenic foci. (TR 3) (new) LEFT SIDE: Homogeneous echotexture. No discrete lesion. ISTHMUS: No evidence of nodule or mass. Normal vascularity without microcalcification. No enlarged lymph nodes within the visualized neck US/Thyroid IMPRESSION: Subcentimeter thyroid nodules. TI-RADS 4, MODERATELY SUSPICIOUS. RECOMMENDATIONS: Recommend repeat ultrasound in one year as these nodules do not currently meet size criteria for image guided fine needle aspiration. ACR TI-RADS Guidelines TI RADS 1 - Benign; No FNA TI RADS 2- Not Suspicious; No FNA TI RADS 3- Mildly Suspicious; FNA if >2.5cm or Follow if >1.5cm at 1, 3 and 5 y ears. TI RADS 4- Moderately Suspicious; FNA if >1.5cm or Follow if >1cm at 1, 2, 3 an d 5 years. TI RADS 5- Highly Suspicious; FNA if >1cm or Follow if >0.5cm yearly for up to 5 years. Reference: David FN, Santy WD, Gino EG et al. ACR Thyroid Imaging, Repor ting and Data System (TI-RADS): White Paper of the ACR TI-RADS Committee. J Am Reading Location: [id number]
--- OUTSIDE RECORDS SUMMARY | 2025-03-15 13:48 | XMS RPT_ITS | CCD ---
Author Organization [facility] Care Team Providers Care Quitline Counselor Name Role Phone JOSE R SPICER Unavailable Unavailable JOSE R SPICER Unavailable Unavailable Tito Macias MD Primary Care Provider Dr. Tito Macias Primary Care Provider Dr. Tito Macias Referring Provider Manuel DIRECT MARKETING ANALYST, DIRECT MARKETING ANALYST-C Dottie Attending Provider Tito Macias MD Primary Care Provider Tito Macias MD Primary Care Provider Dr. Tito Macias Primary Care Provider Dr. Tito Macias Referring Provider Manuel HANNAH, DIRECT MARKETING ANALYST-C Dottie Attending Provider Tito Macias MD Primary Care Provider Max 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, Erika M Unavailable Dr. Tito Macias MD Primary Care Provider Dr. Tito Macias MD Referring Provider Manuel HANNAH-Dottie Boykin Attending Provider Dr. Tito Macias MD Primary Care Physician Dr. Tito Macias MD Referring Provider Manuel HANNAH-Dottie Boykin Attending Physician Manuel HANNAH-CDottie Referring Provider Tito Macias Primary Care Unavailable Tito Macias Referring Unavailable Dottie Jackson Attending Unavailable Dottie Jackson Referring Unavailable Macias, Tito Primary Care Unavailable Dottie Jackson Attending Unavailable Manuel, Dottie Attending Unavailable Macias, Tito Primary Care Unavailable Macias, Tito Referring Unavailable Noah Rajput Attending Unavailable Macias, Tito Primary Care Unavailable Manuel, Dottie Attending Unavailable Macias, Tito Primary Care Unavailable Macias, Tito Primary Care Unavailable Macias, Tito Referring Unavailable Manuel, Dottie Attending Unavailable Macias, Tito Primary Care Unavailable Cornelius, Kirstin Attending Unavailable Cornelius, Kirstin Referring Unavailable Manuel, Dottie Referring Unavailable Macias, Tito Primary Care Unavailable Manuel, Dottie Attending Unavailable Manuel, Dottie Referring Unavailable Macias, Tito Primary Care Unavailable Manuel, Dottie Attending Unavailable Macias, Tito Primary Care Unavailable Macias, Tito Referring Unavailable Cornelius, Kirstin Attending Unavailable MACIAS, VESTA Attending Unavailable MACIAS, VESTA Primary Care Unavailable JESSICA MORENO Attending Unavailable MACIAS, VESTA Primary Care Unavailable MACIAS, VESTA Primary Care Unavailable HERMELINDA COPELAND Attending Unavailable MACIAS, VESTA Primary Care Unavailable HERMELINDA COPELAND Referring Unavailable MACIAS, VESTA Primary Care Unavailable HERMELINDA COPELAND Referring Unavailable MACIAS, VESTA Primary Care Unavailable MACIAS, VESTA Referring Unavailable MACIAS, VESTA Primary Care Unavailable HERMELINDA COPELAND Attending Unavailable MACIAS, VESTA Primary Care Unavailable MACIAS, VESTA Attending Unavailable MACIAS, VESTA Primary Care Unavailable HERMELINDA COPELAND Attending Unavailable MACIAS, VESTA Primary Care Unavailable Medications Current Medications Medication Drug Class(es) Dates Sig (Normalized) Sig (Original) [id number] 200 actuat albuterol 0.09 mg/actuat metered dose inhaler (20 sources) beta2-Adrenergic Agonist Start: 10-28-2020 Start: 10-28-2020 Albuterol Sulf ate Active 2 INH INHALATION EVERY 6 HOURS October 28, 2020 12:00am Start: 10-10-2017 take 2 puff(s) by in halation four times daily as needed for wheezing albuterol HFA (PROVENTIL HFA, VENTOLIN HFA) 90 mcg/actuation inhaler Indications: Pulmonary fibrosis (HCC) Inhale 2 Puffs as instructed four times daily as needed. FOR WHEEZING AND SHORTNESS OF BREATH. 1 Inhaler 3 10/10/2017 Active Comment on above: Inhale 2 Puffs as in structed four times daily as needed. FOR WHEEZING AND SHORTNESS OF BREATH. albuterol 0.833 mg/ml / ipratropium bromide 0.167 mg/ml inhalation solution (20 sources) Anticholinergic, beta2-Adrenergic Agonist Start: take 3 mL by inhalation every four hours as needed ipratropium-albute rol 3 mL nebulizer solution (DUONEB) Start: 01-18-2023 End: 05-09-2024 take 3 mL by inhalation every four hours as needed ipratropium-albuterol (DUONEB) 0.5 mg-3 mg(2.5 mg base)/3 mL nebu Inhale 3 mL as instructed every 4 hours as needed for wheezing/shortness of breath. 120 Each 5 05/10/2024 Active Start: 01-18-2022 End: 01-18-2023 take 3 mL by inhalation every six hours as needed for wheezing ipratropium-albuterol (DUONEB) 0.5 mg-3 mg(2.5 mg base)/3 mL nebu Indications: IPF (idiopathic pulmonary fibrosis) (HCC) Inhale 3 mL as instructed every 6 hours as needed for wheezing/shortness of breath. 120 mL 4 07/30/2022 01/18/2023 Discontinued Comment on above: Inhale 3 mL as instr ucted every 6 hours as needed for wheezing/shortness of breath. Inhale 3 mL as instr ucted every 4 hours as needed for wheezing/shortness of breath. azithromycin 500 mg oral tablet (1 source) Macrolide Antimicrobial Start: End: take 1 tablet by mouth once daily azithromycin (ZITHROMAX) 500 mg tablet Take 1 tablet by mouth once daily for 3 days. 3 tablet 0 07/11/2023 07/14/2023 Active Comment on above: Take 1 tablet by cheryl once daily for 3 days. ciprofloxacin 500 mg oral tablet (2 sources) Quinolone Antimicrobial Start: End: take 1 tablet by mouth twice daily ciprofloxacin HCl (CIPRO) 500 mg tablet Indications: Acute bronchitis due to other specified organisms Take 1 tablet by mouth two times a day for 7 days. 14 tablet 0 07/18/2023 07/25/2023 Active Start: 11-27-2021 End: 12-04-2021 take 1 tablet by mouth twice daily ciprofloxacin HCl (CIPRO) 500 mg tablet Indications: Idiopathic pulmonary fibrosis (HCC) Take 1 tablet by mouth twice daily for 7 days. 14 tablet 0 11/27/2021 12/04/2021 Active Comment on above: Take 1 tablet by cheryl th twice daily for 7 days. Take 1 tablet by cheryl th two times a day for 7 days. mirtazapine 7.5 mg oral tablet (20 sources) Start: 03-08-2023 End: 02-01-2024 take 1 tablet by mouth once daily at bedtime Mirtazapine (REMERON) 7.5 mg tablet Indications: Abnormal weight loss Take 1 tablet by mouth daily at bedtime. 90 tablet 3 02/01/2024 Active Comment on above: Take 1 tablet by cheryl th daily at bedtime. Mucus Clearing Device wilmar (20 sources) Start: 01-18-2022 Mucus Clearing Device wilmar Indications: IPF (idiopathic pulmonary fibrosis) ([facility]) Provide 1 device 1 Each 01/18/2022 Active Start: 01-18-2022 Mucus Clearing Device wilmar Indications: IPF (idiopathic pulmonary fibrosis) ([facility]) Provide 1 device 1 Each 0 01/18/2022 Active Comment on above: Provide 1 device Multivitamin preparation (5 sources) Start: 10-28-2020 take 1 tablet by mouth once daily Multivitamin Active 1 TABLET PO DAILY October 28, 2020 7:03pm Start: 10-28-2020 take 1 tablet by cheryl th once daily Multivitamin Active 1 TABLET PO DAILY October 28, 2020 12:00am Multivitamin tablet (3 sources) Start: 10-28-2020 Start: 10-28-2020 Multivitamin t ablet Active 1 {tbl} PO DAILY October 28, 2020 12:00am Nebulizer Accessories kit (20 sources) Start: 01-18-2022 Nebulizer Accessories kit Indications: IPF (idiopathic pulmonary fibrosis) ([facility]) Provide 1 kit. 1 Each 5 01/18/2022 Active Comment on above: Provide 1 kit. 24 hr oxybutynin chloride 5 mg extended release oral tablet (20 sources) Cholinergic Muscarinic Antagonist Start: 04-17-2020 End: 05-07-2024 take 1 tablet by mouth once daily Comment on above: Take 1 tablet by cheryl th once daily. pantoprazole 20 mg delayed release oral tablet (20 sources) Proton Pump Inhibitor Start: 12-06-2019 End: 02-01-2024 take 1 tablet by mouth once daily Comment on above: Take 1 tablet by cheryl th once daily. simvastatin 10 mg oral tablet (20 sources) HMG-CoA Reductase Inhibitor Start: 12-06-2019 End: 01-31-2024 take 1 tablet by mouth at bedtime Comment on above: Take 1 tablet by cheryl th daily at bedtime. sulfamethoxazole 800 mg / trimethoprim 160 mg oral tablet (3 sources) Dihydrofolate Reductase Inhibitor Antibacterial, Sulfonamide Antimicrobial Start: 02-15-2022 End: 03-01-2022 take 1 tablet by mouth twice daily sulfamethoxazole- trimethoprim (BACTRIM DS) 800-160 mg per tablet Indications: COPD with exacerbation (HCC) Take 1 tablet by mouth twice daily for 14 days. 28 tablet 0 02/15/2022 03/01/2022 Active Start: 12-10-2021 End: 12-24-2021 sulfamethoxazole-trimethopri m (BACTRIM DS) 800-160 mg per tablet Take 1 tablet by mouth twice daily for 14 days. FOR 3 DAYS. 28 tablet 0 12/10/2021 12/24/2021 Active Comment on above: Take 1 tablet by cheryl th twice daily for 14 days. FOR 3 DAYS. Take 1 tablet by cheryl th twice daily for 14 days. tamsulosin hydrochloride 0.4 mg oral capsule (20 sources) alpha-Adrenergic Aden Start: 10-28-2020 take 0.8 mg by mouth once daily Tamsulosin Active 0.8 MG PO DAILY October 28, 2020 12:00am Start: 05-24-2020 End: 09-03-2024 take 2 capsules by mouth once daily Comment on above: Take 2 capsules by m out once daily. THERAPEUTIC MULTIVIT/MINERAL TAB (20 sources) Start: 01-19-2005 THERAPEUTIC MULTIVIT/MINERAL TAB Take one(1) tablet daily. otc 0 01/19/2005 Active Comment on above: Take one(1) tablet d aily. Completed/Discontinued Medications Medication Drug Class(es) Dates Sig (Normalized) Sig (Original) aspirin 81 mg delayed release oral tablet (20 sources) Platelet Aggregation Inhibitor, Nonsteroidal Anti-inflammatory Drug Start: 01-31-2008 End: 06-28-2023 take 1 tablet by mouth once daily Aspirin (Adult Aspirin Regimen) 81 mg tablet,delayed release (DR/EC) Discontinued 81 mg PO DAILY October 28, 2020 12:00am June 28, 2023 1:58pm Comment on above: Take one(1) tablet d aily. benzonatate 100 mg oral capsule (13 sources) Non-narcotic Antitussive Start: 02-12-2022 End: 08-20-2022 take 1 capsule by mouth three times daily as needed for cough benzonatate (TESSALON PERLE) 100 mg capsule Indications: Idiopathic pulmonary fibrosis (HCC) , COPD with chronic bronchitis Take 1 capsule by mouth three times daily as needed for cough. 30 capsule 0 02/12/2022 08/20/2022 Discontinued Comment on above: Take 1 capsule by mo ut three times daily as needed for cough. Calcium (1 source) Phosphate Binder, Calcium Start: 01-31-2008 End: 06-17-2021 CALCIUM 500 MG TAB Take one(1) tablet daily. 0 01/31/2008 06/17/2021 Discontinued calcium carbonate 1250 mg oral tablet (8 sources) Start: 10-28-2020 End: 06-28-2023 take 1 tablet by mouth once daily Calcium Carbonate (Calcium 500) 500 mg calcium (1,250 mg) tablet Discontinued 500 mg PO DAILY October 28, 2020 12:00am June 28, 2023 1:58pm doxycycline hyclate 100 mg oral capsule (4 sources) Tetracycline-class Drug Start: 06-03-2023 End: 06-13-2023 take 1 capsule by mouth twice daily doxycycline hyclate (VIBRAMYCIN) 100 mg capsule Indications: Staphylococcus aureus bronchitis Take 1 capsule by mouth two times a day for 10 days. 20 capsule 06/03/2023 06/13/2023 Comment on above: Take 1 capsule by mo ut two times a day for 10 days. fish oil/omega-3 fatty acids(FISH OIL OMEGA 3-6-9 1,000 MG-300 MG CAP) (1 source) Start: 04-25-2007 End: 06-17-2021 fish oil/omega-3 fatty acids(FISH OIL OMEGA 3-6-9 1,000 MG-300 MG CAP) Take one(1) tablet daily. 0 04/25/2007 06/17/2021 Discontinued fluticasone / salmeterol (20 sources) Corticosteroid, beta2-Adrenergic Agonist Start: 03-06-2021 End: 08-20-2022 take 1 dose by inhalation twice daily fluticasone-salmeter ol (ADVAIR, WIXELA) 250-50 mcg/dose inhaler Inhale 1 Each as instructed twice daily. 0 03/06/2021 08/20/2022 Discontinued (Discontinued by Patient) Start: 03-06-2021 take 1 dose by inhal ation twice daily fluticasone-salmeterol (ADVAIR, WIXELA) 250-50 mcg/dose inhaler Inhale 1 Each as instructed twice daily. 0 03/06/2021 Active Start: 03-06-2021 take 1 dose by inhal ation twice daily fluticasone-salmeterol (ADVAIR, WIXELA) 250-50 mcg/dose inhaler Inhale 1 Each as instructed twice daily. 0 03/06/2021 Active take 1 puff(s) by in halation twice daily fluticasone-salmeterol (WIXELA INHUB) 250-50 mcg/dose inhaler Inhale 1 Puff as instructed two times a day. Active take 1 puff(s) by in halation twice daily fluticasone-salmeterol (WIXELA INHUB) 250-50 mcg/dose inhaler Inhale 1 Puff as instructed two times a day. 0 Active End: 07-28-2021 take 1 puff(s) by inhalation twice daily fluticasone-salmeterol (ADVAIR, WIXELA) 250-50 mcg/dose inhaler Inhale 1 Puff as instructed twice daily. 0 07/28/2021 Discontinued (Changing Therapy/Dosage Form) Comment on above: Inhale 1 Puff as ins tructed twice daily. Inhale 1 Each as ins tructed twice daily. Inhale 1 Puff as ins tructed two times a day. fluticasone propion/salmeterol (WIXELA INHUB INHALATION) (1 source) End: 08-18-19 Comment on above: Inhale as instructed . Unknown dose. 60 actuat formoterol fumarate 0.005 mg/actuat / mometasone furoate 0.2 mg/actuat metered dose inhaler (14 sources) Corticosteroid, beta2-Adrenergic Agonist Start: 07-29-19 End: 08-18-19 take 2 puff(s) by inhalation twice daily mometasone-formotero l (DULERA) 200-5 mcg/actuation inhaler Inhale 2 Puffs as instructed twice daily. 1 Inhaler 5 07/28/2021 08/17/2021 Discontinued Start: 10-29-2020 Start: 10-29-2020 Mometasone-For moterol (Dulera) 200-5 mcg/actuation HFA aerosol inhaler Active 2 INH INHALATION TWICE A DAY October 29, 2020 12:00am Comment on above: Inhale 2 Puffs as in structed twice daily. furosemide 40 mg oral tablet (20 sources) Loop Diuretic Start: End: take 1 tablet by mouth twice daily Furosemide (Lasix) 40 mg tablet Discontinued 40 mg PO TWICE A DAY 180 February 09, 2022 2:09pm June 28, 2023 1:59pm Start: 10-29-2020 End: 02-09-2022 take 1 tablet by mouth once daily Furosemide (Lasix) 40 mg tablet Discontinued 40 mg PO DAILY 90 3 October 29, 2020 12:00am February 09, 2022 2:10pm Comment on above: Take 1 tablet by cheryl twice daily. From Dr. Rajput. Start taking one daily. 12 hr guaiFENesin 600 mg extended release oral tablet (20 sources) Start: 08-18-19 End: 11-12-19 take 2 tablets by mouth twice daily guaiFENesin (MUCINEX) 600 mg 12 hr tablet Indications: Chronic cough Take 2 tablets by mouth twice daily. 360 tablet 3 11/17/2022 03/08/2023 Discontinued Comment on above: Take 1 tablet by cheryl th twice daily. Take 2 tablets by mo [facility] twice daily. levoFLOXacin 750 mg oral tablet (8 sources) Quinolone Antimicrobial Start: 01-09-20 24 End: 02-23-20 24 take 1 tablet by mouth once daily Levofloxacin 750 mg tablet Discontinued 750 mg PO DAILY 5 5 0 January 09, 2024 12:00am February 23, 2024 12:35pm Start: 07-28-2021 End: 08-04-2021 levoFLOXacin (LEVAQUIN) 750 mg tablet Take 1 tablet by mouth once daily for 7 days. FOR 7 DAYS. 14 tablet 0 07/28/2021 08/04/2021 Active Comment on above: Take 1 tablet by cheryl once daily for 7 days. FOR 7 DAYS. lisinopril 5 mg oral tablet (20 sources) Angiotensin Converting Enzyme Inhibitor Start: 10-28-2020 End: 10-29-2020 Lisinopril 5 mg tablet Discontinued mg PO October 28, 2020 12:00am October 29, 2020 1:49pm Start: 10-28-2020 End: 10-29-2020 Lisinopril Discontinued MG P O October 28, 2020 12:00am October 29, 2020 1:49pm Start: 06-16-2020 End: 05-02-2025 take 1 tablet by mouth once daily Comment on above: Take 1 tablet by cheryl once daily. naproxen sodium 220 mg oral capsule (20 sources) Nonsteroidal Anti-inflammatory Drug Start: End: 3 take 1 capsule by mouth twice daily as needed for pain Naproxen Sodium (Aleve) 220 mg capsule Discontinued 220 mg PO TWICE A DAY as needed for Pain October 28, 2020 12:00am August 12, 2022 1:09pm Start: 01-31-2008 End: 11-17-2022 naproxen sodium(ALEVE 220 MG TAB) Take one(1) tablet twice daily. 0 01/31/2008 11/17/2022 Discontinued (Discontinued by Patient) Comment on above: Take one(1) tablet t wice daily. nintedanib 150 mg oral capsule (20 sources) Kinase Inhibitor Start: 2 End: 2 take 1 capsule by mouth every twelve hours Nintedanib (Ofev) 100 mg capsule Discontinued 100 mg PO Q12H January 29, 2022 12:00am February 09, 2022 1:42pm Start: 01-12-2022 End: 02-04-2023 take 1 capsule by mouth every twelve hours Nintedanib (Ofev) 150 mg capsule Discontinued 150 mg PO Q12H February 09, 2022 12:00am February 04, 2023 11:35am Comment on above: Take 1 capsule by mo [facility] every 12 hours. [place]-3 Fatty Acids (Fish Oil Concentrate) 1,000 mg capsule (8 sources) Start: 10-28-2020 End: 09-03-2021 take 1 capsule by mouth once daily [place]-3 Fatty Acids (Fish Oil Concentrate) 1,000 mg capsule Discontinued 1000 MG PO DAILY October 28, 2020 7:03pm September 03, 2021 8:52am Start: 10-28-2020 End: 09-03-2021 take 1 capsule by mouth once daily [place]-3 Fatty Acids (Fish Oil Concentrate) 1,000 mg capsule Discontinued 1000 mg PO DAILY October 28, 2020 12:00am September 03, 2021 8:52am Start: 10-28-2020 End: 09-03-2021 take 1 capsule by mouth once daily [place]-3 Fatty Acids (Fish Oil Concentrate) 1,000 mg capsule Discontinued 1000 MG PO DAILY October 28, 2020 12:00am September 03, 2021 8:52am omega3/dha/epa/fish oil/vit D3 (FISH OIL-VIT D3 ORAL) (4 sources) End: 10-01-2021 omega3/dha/epa/fish oil/vit D3 (FISH OIL-VIT D3 ORAL) Take by mouth. 0 10/01/2021 Discontinued (Course of therapy completed) omega3/dha/epa/f kandice oil/vit D3 (FISH OIL-VIT D3 ORAL) Take by mouth. 0 Active Comment on above: Take by mouth. ondansetron 4 mg oral tablet (20 sources) Serotonin-3 Receptor Antagonist Start: 03-30-2022 End: 08-20-2022 ondansetron (ZOFRAN) 4 mg tablet Take one tablet 30 minutes prior to OFEV and every 8 hours as needed for nausea 10 tablet 0 03/30/2022 08/20/2022 Discontinued (Duplicate Entry) Comment on above: Take one tablet 30 m inutes prior to OFEV and every 8 hours as needed for nausea ubidecarenone 100 mg oral capsule (20 sources) Start: 09-08-2010 End: 03-08-2023 Coenzyme Q10 (Co Q-10) 100 mg capsule Discontinued 100 mg PO DAILY October 28, 2020 12:00am September 03, 2021 8:51am Comment on above: Take 1 capsule by mo ut once daily. Problems Active Problems Problem Classification Problem Date Documented Date Episodic/Chronic Acute bronchitis (2 sources) Acute bronchitis; Translations: [Acute bronchitis, unspecified] 07-11-2023 Episodic Aortic; peripheral; and visceral artery aneurysms (15 sources) Dilatation of aorta; Translations: [Aortic ectasia, unspecified site] Chronic Comment on above: 4.1 cm per echo 09/04 20 Cancer of bronchus; lung (8 sources) Non-small cell lung cancer; Translations: [Malignant neoplasm of unspecified part of left bronchus or lung] 10-28-2020 Chronic Chronic obstructive pulmonary disease and bronchiectasis (20 sources) Centriacinar emphysema; Translations: [Centrilobular emphysema] Onset: 12-29-2020 12-29-2020 Chronic Chronic obstructive pulmonary disease and bronchiectasis (1 source) Staphylococcal pneumonia; Translations: [Bronchitis, not specified as acute or chronic] 06-03-2023 Episodic Coagulation and hemorrhagic disorders (20 sources) Platelet count below reference range; Translations: [Thrombocytopenia, unspecified] Onset: 06-12-2014 Resolved: 08-20-2022 06-12-2014 Chronic Coronary atherosclerosis and other heart disease (8 sources) Calcification of coronary artery; Translations: [Atherosclerotic heart disease of [place] coronary artery without angina pectoris] 11-03-2020 Chronic Deficiency and other anemia (1 source) Anemia; Translations: [Anemia, unspecified] Episodic Disorders of lipid metabolism (20 sources) Hyperlipidemia; Translations: [Hyperlipidemia, unspecified] Onset: 01-19-2005 07-01-2015 Chronic Esophageal disorders (20 sources) Gastroesophageal reflux disease; Translations: [Gastro-esophageal reflux disease without esophagitis] Onset: 08-20-2006 08-20-2006 Chronic Essential hypertension (20 sources) Benign essential hypertension; Translations: [Essential (primary) hypertension] Onset: 09-06-2012 09-06-2012 Chronic Headache; including migraine (1 source) Acute headache; Translations: [Acute nonintractable headache, unspecified headache type] 03-06-2024 Episodic Hyperplasia of prostate (20 sources) Benign prostatic hypertrophy with outflow obstruction; Translations: [Benign prostatic hyperplasia with lower urinary tract symptoms] Onset: 01-17-2006 10-08-2015 Chronic Immunizations and screening for infectious disease (4 sources) Vaccination needed; Translations: [Encounter for immunization] Episodic Other aftercare (3 sources) Patient encounter status; Translations: [Encounter for therapeutic drug level monitoring] Episodic Other circulatory disease (4 sources) Wheeze - rhonchi; Translations: [Other specified symptoms and signs involving the circulatory and respiratory systems] 08-12-2022 Episodic Other circulatory disease (1 source) Other specified symptoms and signs involving the circulatory and respiratory systems; Translations: [Abnormal chest sounds] 08-12-2022 Episodic Other connective tissue disease (1 source) Swollen thumb; Translations: [Other specified soft tissue disorders] 06-16-2020 Episodic Other lower respiratory disease (1 source) Interstitial pulmonary disease, unspecified; Translations: [Interstitial pulmonary disease, unspecified] Onset: 10-13-2016 Chronic Other lower respiratory disease (20 sources) Idiopathic pulmonary fibrosis; Translations: [Idiopathic pulmonary fibrosis] Onset: 07-02-2015 12-29-2020 Chronic Other lower respiratory disease (1 source) Pulmonary fibrosis, unspecified; 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)] Onset: 12-05-2024 Chronic Other lower respiratory disease (1 source) Idiopathic pulmonary fibrosis; Translations: [Idiopathic pulmonary fibrosis (HCC)] Onset: 07-29-2021 Chronic Other lower respiratory disease (6 sources) Cough; Translations: [Cough] Episodic Other lower respiratory disease (2 sources) Dyspnea; Translations: [Shortness of breath] Episodic Other lower respiratory disease (14 sources) Dyspnea on exertion; Translations: [Shortness of breath] 08-12-2022 Episodic Other lower respiratory disease (3 sources) Shortness of breath; Translations: [Shortness of breath] Episodic Other lower respiratory disease (2 sources) Chronic cough; Translations: [Chronic cough] Episodic Other lower respiratory disease (2 sources) Other forms of dyspnea; Translations: [Other forms of dyspnea] Onset: 01-17-2025 Episodic Other nutritional; endocrine; and metabolic disorders (8 sources) Obesity; Translations: [Obesity, unspecified] 10-28-2020 Chronic Other upper respiratory disease (1 source) Bleeding from nose; Translations: [Epistaxis] Episodic Pneumonia (except that caused by tuberculosis or sexually transmitted disease) (4 sources) Infective pneumonia; Translations: [Pneumonia, unspecified organism] Onset: 02-15-2025 Episodic Pulmonary heart disease (20 sources) Pulmonary arterial hypertension; Translations: [Secondary pulmonary arterial hypertension] Onset: 02-12-2022 Chronic Residual codes; unclassified (5 sources) Bilateral lower limb edema; Translations: [Localized edema] 12-05-2024 Episodic Respiratory failure; insufficiency; arrest (adult) (20 sources) Chronic hypoxemic respiratory failure; Translations: [Chronic respiratory failure with hypoxia] Onset: 09-17-2021 Chronic Spondylosis; intervertebral disc disorders; other back problems (1 source) Acute low back pain; Translations: [Acute left-sided low back pain without sciatica] Episodic Thyroid disorders (20 sources) Thyroid nodule; Translations: [Nontoxic single thyroid nodule] Onset: 12-18-2019 12-18-2019 Chronic Comment on above: This is an 83-year-o ld male with a moderately complex past history inclusive of a known diagnosis of thyroid nodules who was diagnosed with a right mid polar TI-RADS 5 nodule on ultrasound imaging obtained March 11, 2023. Per history he does not seem symptomatic from this finding and this is unsurprising given its small size. Patient's nodule was primarily regarded as highly suspicious on the account of its modestly oblong shape. Patient reportedly underwent ultrasound-guided FNA with Dr. Navarro and reports of the cytopathology suggest a overall nondiagnostic result but findings of potential atypia amongst the cellularity appreciated. Interestingly, patient's specimen [facility] and the ultimate result from that testing was a benign result. I had a lengthy discussion with Mr. Ramires and his regarding thyroid nodularity, its prevalence, and the scoring using the TI-RADS system. Additionally, I discussed the ways in which thyroid nodule biopsies are now evaluated both by cytopathology as well as by genomic sequencing. It remains unclear to me the exact result of patient's cytopathology and I wish to follow-up with this formally, however, I have shared with him the significance of his benign result with Afirma testing and related to him the excellent negative predictive value that this testing demonstrates. Thus, it is my recommendation to enter a period of surveillance rather than proceed with repeat biopsy. I have stressed the small size of this nodule as being 1 of those motivating factors in addition to the benign result. Given patient's frailty I truly believe this is in his best interest and he agrees.Update 03/14/2024: Patient presents just over 8 months after his initial consultation in 1 year after his most recent thyroid ultrasound for surveillance of a right-sided thyroid nodule that was considered highly suspicious but sonographic appearance but underwent biopsy by Dr. Navarro and had atypical cytopathology with reassuring Afirma genomics that were considered benign. Today patient denies any compressive symptoms and his exam is also reassuring. Further, he completed interval ultrasound imaging that shows shrinkage of his nodule under surveillance (as well as a downgrading). I take all of these to further corroborate our assumption that this nodule, indeed, represents a benign adenoma. Given its previously higher TI-RADS drinking (although I agree with the most recent TI-RADS ranking) and its prior size I recommend keeping to the ACR guidance for thyroid nodule surveillance which would have us repeat his thyroid ultrasound in 1 year. If this to remain stable then we could reevaluate whether or not be continue surveillance or do a third ultrasound in a year and a fourth in 2 years. Patient is pleased with this plan but also confirms that he will reach out earlier if he develops any compressive symptoms. Viral infection (2 sources) Viral disease; Translations: [Viral infection, unspecified] 03-06-2023 Episodic Past or Other Problems Problem Classification Problem Date Documented Date Episodic/Chronic Abdominal hernia (20 sources) Hiatal hernia; Translations: [Diaphragmatic hernia without obstruction or gangrene] Onset: 06-04-2013 Resolved: 09-15-2023 06-04-2013 Episodic Cancer of bronchus; lung (20 sources) History of malignant neoplasm of thoracic cavity structure; Translations: [Personal history of other malignant neoplasm of bronchus and lung] Onset: 04-09-2008 04-09-2008 Episodic Other and unspecified benign neoplasm (20 sources) History of polyp of colon; Translations: [Personal history of colonic polyps] Onset: 06-21-2005 Resolved: 09-15-2023 06-21-2005 Episodic Other connective tissue disease (15 sources) Cyst ; Translations: [Ganglion, multiple sites] Onset: 03-22-2013 Resolved: 07-02-2015 07-02-2015 Episodic Other diseases of bladder and urethra (15 sources) Bladder neck obstruction; Translations: [Bladder-neck obstruction] Onset: 01-17-2006 Resolved: 06-11-2014 06-11-2014 Chronic Other diseases of bladder and urethra (15 sources) Overactive bladder; Translations: [Other neuromuscular dysfunction of bladder] Onset: 01-17-2006 Resolved: 06-11-2014 06-11-2014 Chronic Other diseases of kidney and ureters (1 source) Other obstructive and reflux uropathy; Translations: [BPH with obstruction/lower urinary tract symptoms] Onset: 10-08-2015 Episodic Other inflammatory condition of skin (20 sources) Seborrheic dermatitis; Translations: [Seborrheic dermatitis, unspecified] Onset: 03-13-2007 03-13-2007 Episodic Other lower respiratory disease (15 sources) Lung field abnormal; Translations: [Nonspecific abnormal findings on radiological and other examination of lung field] Onset: 03-17-2007 Resolved: 06-12-2014 06-12-2014 Episodic Other male genital disorders (15 sources) Male erectile dysfunction, unspecified; Translations: [Impotence of organic origin] Onset: 03-13-2010 Resolved: 05-09-2017 05-09-2017 Chronic Other male genital disorders (15 sources) Hemospermia; Translations: [Hematospermia] Onset: 01-17-2006 Resolved: 06-11-2014 06-11-2014 Episodic Other nutritional; endocrine; and metabolic disorders (20 sources) Obese class I; Translations: [Obesity, unspecified] Onset: 10-10-2017 Resolved: 09-15-2023 10-10-2017 Chronic Other nutritional; endocrine; and metabolic disorders (20 sources) Hypoalbuminemia due to protein calorie malnutrition; Translations: [Other disorders of plasma-protein metabolism, not elsewhere classified] Onset: 09-17-2021 Resolved: 08-20-2022 Chronic Other nutritional; endocrine; and metabolic disorders (20 sources) Abnormal weight loss; Translations: [Abnormal weight loss] Onset: 03-08-2023 Resolved: 09-15-2023 03-08-2023 Episodic Results Test Name Value Interpretation Reference Range Facility [facility] 02-22-2025 CNOV Office Visit (PULMWS ) -- JORGE RAMIRES ([id number]) 1940 M NFR Date Time Provider Department 02/22/25 12:45 PM HERMELINDA COPELAND PULMWS During your visit today, we recorded the following information about you: Pulse Blood pressure Weight 95/minute 130/72 75.8 kg Hermelinda Copeland MD 02/22/2025 2:14 PM Signed . [facility] Note Patient name: Jorge Ramires PCP: Tito Macias MD CC: pneumonia HPI: Jorge Ramires 84 year old male former [id number] smoker quitting in 1981 with PMH significant for CPFE, bronchiectasis, history of lung cancer, CAD, HTN, HLD, chronic hypoxemic respiratory failure recently seen for acute visit. He had increased sputum production with change in color. Chest x-ray ordered which did not show any obvious infiltrate, sputum culture showed moderate normal respiratory braxton and rare mold. He was treated with Levaquin. Additionally he had been intolerant of Ofev and Esbriet. Started process for approval of nerandomilast. Needs a new acapella device. Recent echo showed mild PAH with RVSP 42 mmHg and grade 1 diastolic dysfunction. Today he states that the frequency and amount of sputum production has improved with recent course of Levaquin. He continues to have cough at night which interferes with his sleep. This is not a new problem. No chest pain, fevers, chills, wheezing. 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 Coronary artery disease Erectile dysfunction 03/13/2010 Esophageal reflux Essential hypertension, benign 09/06/2012 Ganglion and cyst of synovium, tendon and bursa 03/22/2013 Hematospermia 01/17/2006 Hiatal hernia 06/04/2013 HYPERLIPIDEMIA NEC/NOS 01/19/2005 HYPERTROPHY PROSTATE WITH OBST 01/17/2006 Hypoalbuminemia due to protein-calorie malnutrition (HCC) 09/17/2021 Idiopathic pulmonary fibrosis (HCC) 07/02/2015 Obesity, Class I, BMI 30-34.9 10/10/2017 PERS HX BRONCHOGENIC MALIGNAN 04/09/2008 Personal history of colonic polyps Colon polyps Pulmonary fibrosis (HCC) 07/02/2015 Pure hypercholesterolemia Secondary pulmonary arterial hypertension (HCC) 02/12/2022 Furosemide. [facility]. Thyroid nodule greater than or equal to 1 cm in diameter incidentally noted on imaging study 12/18/2019 ALLERGIES No Known Allergies levoFLOXacin (LEVAQUIN) 500 mg tabletTake 1 tablet by mouth once daily for 7 days.Disp: 7 tabletRfl: 0 tamsulosin (FLOMAX) 0.4 mgTake 2 capsules by mouth once daily.Disp: 180 capsuleRfl: 3 ipratropium-albuterol (DUONEB) 0.5 mg-3 mg(2.5 mg base)/3 mL nebuInhale 3 mL as instructed every 4 hours as needed for wheezing/shortness of breath.Disp: 120 EachRfl: 5 lisinopril (ZESTRIL) 10 mg tabletTake 1 tablet by mouth once daily.Disp: 90 tabletRfl: 3 oxybutynin XL (DITROPAN XL) 5 mg 24 hr tabletTake 1 tablet by mouth once daily.Disp: 90 tabletRfl: 3 Mirtazapine (REMERON) 7.5 mg tabletTake 1 tablet by mouth daily at bedtime.Disp: 90 tabletRfl: [address] (PROTONIX) 20 mg tabletTake 1 tablet by mouth once daily.Disp: 90 tabletRfl: 3 simvastatin (ZOCOR) 10 mg tabletTake 1 tablet by mouth daily at bedtime.Disp: 90 tabletRfl: 3 fluticasone-salmeterol (WIXELA INHUB) 250-50 mcg/dose inhalerInhale 1 Puff as instructed two times a day.Disp: Rfl: Nebulizer Accessories kitProvide 1 kit.Disp: 1 EachRfl: 5 Mucus Clearing Device deviProvide 1 deviceDisp: 1 EachRfl: 0 albuterol HFA (PROVENTIL HFA, VENTOLIN HFA) 90 mcg/actuation inhalerInhale 2 Puffs as instructed four times daily as needed. FOR WHEEZING AND SHORTNESS OF BREATH.Disp: 1 InhalerRfl: 3 THERAPEUTIC MULTIVIT/MINERAL TABTake one(1) tablet daily.Disp: otcRfl: 0 SOCIAL HISTORY[1] FAMILY HISTORY Problem Relation Age of Onset Alzheimer's Disease Mother Heart Father heart attack Breast Cancer Sister Heart Brother aortic aneurysm COPD No Family History PAST SURGICAL HISTORY Procedure Laterality Date COLONOSCOPY FLX DX W/COLLJ SPEC WHEN PFRMD 07/12/2005 COLONOSCOPY FLX DX W/COLLJ SPEC WHEN PFRMD 07/19/2013 Colonoscopy COLONOSCOPY W/BIOPSY SINGLE/MULTIPLE 03/02/2010 ESOPHAGOGASTRODUODENOSCOPY TRANSORAL DIAGNOSTIC 07/19/2013 EGD REMOVAL OF LUNG,LOBECTOMY Left 04/2007 left upper lobe RIGHT HEART CATH 11/03/2020 TONSILLECTOMY AND ADENOIDECTOMY PMH, Social history, family history and surgical history reviewed and updated EMR REVIEW OF SYSTEMS: CONSTITUTIONAL: No fevers, chills, nightsweats, unintended weight loss CARDIOVASCULAR: No chest pain, palpitations, orthopnea. Edema PULM: Se (more content not included)... Normal [facility] CBC panel Auto (Bld)on 02-18 Erythrocyte distribution width (RBC) [Ratio] 13.2 % Normal 11.5-15.0 [facility] Comment on above: Order Comment: Speci men Type: BLOOD SPECIMENOrdering Facility: [facility] Address: [address] [place] [address] Performed By: #### 5 8410-2 ####[facility] LABCLIA [id number] [place] [address] [place] Hematocrit (Bld) [Volume fraction] 43.4 % Normal 39.0-51.0 [facility] Comment on above: Order Comment: Speci men Type: BLOOD SPECIMENOrdering Facility: [facility] Address: [address] [place] [address] Performed By: #### 5 8410-2 ####[facility] LABCLIA [id number] [place] [address] [place] Hemoglobin (Bld) [Mass/Vol] 13.8 g/dL Normal 13.0-17.0 [facility] Comment on above: Order Comment: Speci men Type: BLOOD SPECIMENOrdering Facility: [facility] Address: [address] [place] [address] Performed By: #### 5 8410-2 ####[facility] LABIA [id number] [address] [place] MCH (RBC) [Entitic mass] 28.8 pg Normal 26.0-34.0 [facility] Comment on above: Order Comment: Speci men Type: BLOOD SPECIMENOrdering Facility: [facility] Address: [address] [place] [address] Performed By: #### 5 8410-2 ####[facility] LABIA [id number] [place] [address] [place] MCHC (RBC) [Mass/Vol] 31.8 g/dL Normal 30.5-36.0 [facility] Comment on above: Order Comment: Speci men Type: BLOOD SPECIMENOrdering Facility: [facility] Address: [address] [place] [address] Performed By: #### 5 8410-2 ####[facility] LABIA [id number] [place] [address] [place] MCV (RBC) [Entitic vol] 90.4 fL Normal 80.0-100.0 [facility] Comment on above: Order Comment: Speci men Type: BLOOD SPECIMENOrdering Facility: [facility] Address: [address] [place] [address] Performed By: #### 5 8410-2 ####[facility] LABCLIA [id number] [place] [address] [place] Nucleated RBC (Bld) [#/Vol] 10*3/uL Normal <0.01 [facility] Comment on above: Order Comment: Speci men Type: BLOOD SPECIMENOrdering Facility: [facility] Address: [address] [place] [address] Performed By: #### 5 8410-2 ####[facility] LABCLIA [id number] [place] [address] [place] Platelet mean volume (Bld) [Entitic vol] 11.0 fL Normal 9.0-12.7 [facility] Comment on above: Order Comment: Speci men Type: BLOOD SPECIMENOrdering Facility: [facility] Address: [address] [place] [address] Performed By: #### 5 8410-2 ####[facility] LABCLIA [id number] [place] [address] [place] Platelets (Bld) [#/Vol] 181 10*3/uL Normal 150-400 [facility] Comment on above: Order Comment: Speci men Type: BLOOD SPECIMENOrdering Facility: [facility] Address: [address] [place] [address] Performed By: #### 5 8410-2 ####[facility] LABIA [id number] [place] [address] [place] RBC (Bld) [#/Vol] 4.80 10*6/uL Normal 4.20-6.00 [facility] Comment on above: Order Comment: Speci men Type: BLOOD SPECIMENOrdering Facility: [facility] Address: [address] [place] [address] Performed By: #### 5 8410-2 ####[facility] LABCLIA [id number] [place] [address] [place] WBC (Bld) [#/Vol] 4.16 10*3/uL Normal 3.70-11.00 [facility] Comment on above: Order Comment: Speci men Type: BLOOD SPECIMENOrdering Facility: [facility] Address: [address] [place] [address] Performed By: #### 5 8410-2 ####[facility] LABCLIA [id number] [place] [address] [place] Suzanne 02-18-2025 [facility] KEYLAJORGE ([id number]) 1940 M NFR Date Time Provider Department 02/18/25 HERMELINDA COPELAND During your visit today, we recorded the following information about you: Anette Patricia LPN 02/18/2025 11:34 AM Signed Jascayd 18mg tablets Approved today by [employer] 2017 CaseId:[id number];Status:Ap proved;Review Type:Prior Auth;Coverage Start Date:01/19/2025;Coverage End Date:02/18/2026; Effective Date: 01/19/2025 Authorization Expiration Date: 02/18/2026 Allergies As of Date: 02/18/2025 (No Known Allergies) Date Reviewed: 02/15/2025 Reviewed by: Hermelinda Copeland MD - Fully Assessed Reason for Visit: Insurance Authorization [[id number]] Prescriptions as of 02/27/2025 - tamsulosin (FLOMAX) 0.4 mg Take 2 capsules by mouth once daily. - ipratropium-albuterol (DUONEB) 0.5 mg-3 mg(2.5 mg base)/3 mL nebu Inhale 3 mL as instructed every 4 hours as needed for wheezing/shortness of breath. - lisinopril (ZESTRIL) 10 mg tablet Take 1 tablet by mouth once daily. - oxybutynin XL (DITROPAN XL) 5 mg 24 hr tablet Take 1 tablet by mouth once daily. - Mirtazapine (REMERON) 7.5 mg tablet Take 1 tablet by mouth daily at bedtime. - pantoprazole DR (PROTONIX) 20 mg tablet Take 1 tablet by mouth once daily. - simvastatin (ZOCOR) 10 mg tablet Take 1 tablet by mouth daily at bedtime. - fluticasone-salmeterol (WIXELA INHUB) 250-50 mcg/dose inhaler Inhale 1 Puff as instructed two times a day. - Nebulizer Accessories kit Provide 1 kit. - Mucus Clearing Device wilmar Provide 1 device - albuterol HFA (PROVENTIL HFA, VENTOLIN HFA) 90 mcg/actuation inhaler Inhale 2 Puffs as instructed four times daily as needed. FOR WHEEZING AND SHORTNESS OF BREATH. - THERAPEUTIC MULTIVIT/MINERAL TAB Take one(1) tablet daily. Facility-Administered Medications as of 02/27/2025 - ipratropium-albuterol 3 mL nebulizer solution (DUONEB) Meds Comments as of 05/02/2007: Last dose of fish oil, selenium, calcium, BabyASA, Aleve, and MVI 04/28/07...Reviewed on 05/02/07 All medications have been reviewed /12/05/2006 Judith Roman [facility] Problem List As Of Date 02/18/2025 Noted Resolved Hyperlipidemia, unspecified [E78.5] 01/19/2005 PERSONAL HISTORY OF GI-COLONIC POLYPS [Z86.0100]06/21/2005 09/15/2023 Hematospermia [R36.1] 01/17/2006 06/11/2014 Bladder neck obstruction [N32.0] 01/17/2006 06/11/2014 BPH with obstruction/lower urinary tract sympto*01/17/2006 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] 01/17/2006 06/11/2014 ESOPHAGEAL REFLUX [K21.9] 08/20/2006 SEBORRHEIC DERMATITIS NOS [L21.9] 03/13/2007 Nonspecific (abnormal) findings on radiological*03/17/2007 06/12/2014 PERS HX BRONCHOGENIC MALIGNAN [Z85.118] 04/09/2008 Erectile dysfunction [N52.9] 03/13/2010 05/09/2017 Essential hypertension, benign [I10] 09/06/2012 Ganglion and cyst of synovium, tendon and bursa*03/22/2013 07/02/2015 Hiatal hernia [K44.9] 06/04/2013 09/15/2023 Thrombocytopenia (HCC) [D69.6] 06/12/2014 08/20/2022 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] 07/02/2015 Obesity, Class I, BMI 30-34.9 [E66.811] 10/10/2017 09/15/2023 Thyroid nodule greater than or equal to 1 cm in*12/18/2019 Centrilobular emphysema (HCC) [J43.2] 12/29/2020 COPD with chronic bronchitis (HCC) [J44.89] 12/29/2020 Hypoalbuminemia due to protein-calorie malnutri*09/17/2021 08/20/2022 Dependence on continuous supplemental oxygen [Z*09/17/2021 Chronic respiratory failure with hypoxia (HCC) *12/10/2021 Secondary pulmonary arterial hypertension (HCC)*02/12/2022 Abnormal weight loss [R63.4] 03/08/2023 09/15/2023 Encounter Status:Closed by ANETTE PATRICIA on 02/27/25 Normal [facility] Comprehensive metabolic 2000 panelon 02-18-2025 Albumin [Mass/Vol] 3.8 g/dL Low 3.9-4.9 [facility] Comment on above: Order Comment: Speci priscila Type: BLOOD SPECIMENOrdering Facility: [facility] Address: [address] [place] [address] Performed By: #### 2 4323-8, 38324-5 ####[facility] LABCLIA [id number] [place] [address] [place] ALP [Catalytic activity/Vol] 74 U/L Normal 38-113 [facility] Comment on above: Order Comment: Quangi priscila Type: BLOOD SPECIMENOrdering Facility: [facility] Address: [address] [place] [address] Performed By: #### 2 4323-8, 42316-3 ####[facility] LABCLIA [id number] [place] [address] [place] ALT [Catalytic activity/Vol] 13 U/L Normal 10-54 [facility] Comment on above: Order Comment: Quangi men Type: BLOOD SPECIMENOrdering Facility: [facility] Address: [address] [place] [address] Performed By: #### 2 4323-8, 79657-1 ####[facility] LABCLIA [id number] [place] [address] [place] Anion gap [Moles/Vol] 10 mmol/L Normal 8-15 [facility] Comment on above: Order Comment: Speci men Type: BLOOD SPECIMENOrdering Facility: [facility] Address: [address] [place] [address] Performed By: #### 2 4323-8, 74515-5 ####[facility] LABCLIA [id number] [place] [address] [place] AST [Catalytic activity/Vol] 19 U/L Normal 14-40 [facility] Comment on above: Order Comment: Speci men Type: BLOOD SPECIMENOrdering Facility: [facility] Address: [address] [place] [address] Performed By: #### 2 4323-8, 13851-0 ####[facility] LABCLIA [id number] [place] [address] [place] Bilirubin [Mass/Vol] 0.4 mg/dL Normal 0.2-1.3 [facility] Comment on above: Order Comment: Speci men Type: BLOOD SPECIMENOrdering Facility: [facility] Address: [address] [place] [address] Performed By: #### 2 4323-8, 19303-6 ####[facility] LABCLIA [id number] [place] [address] [place] Calcium [Mass/Vol] 9.4 mg/dL Normal 8.5-10.2 [facility] Comment on above: Order Comment: Speci men Type: BLOOD SPECIMENOrdering Facility: [facility] Address: [address] [place] [address] Performed By: #### 2 4323-8, 19337-4 ####[facility] LABCLIA [id number] [place] [address] [place] Chloride [Moles/Vol] 102 mmol/L Normal 98-107 [facility] Comment on above: Order Comment: Speci men Type: BLOOD SPECIMENOrdering Facility: [facility] Address: [address] [place] [address] Performed By: #### 2 4323-8, 11535-9 ####[facility] LABCLIA [id number] [place] [address] [place] CO2 [Moles/Vol] 28 mmol/L Normal 22-30 [facility] Comment on above: Order Comment: Speci men Type: BLOOD SPECIMENOrdering Facility: [facility] Address: [address] [place] [address] Performed By: #### 2 4323-8, 83553-1 ####[facility] LABCLIA [id number] [place] [address] [place] Creatinine [Mass/Vol] 0.72 mg/dL Low 0.73-1.22 [facility] Comment on above: Order Comment: Speci men Type: BLOOD SPECIMENOrdering Facility: [facility] Address: [address] [place] [address] Performed By: #### 2 4323-8, ####[facility] LABCLIA [id number] [place] [address] [place] eGFRcr SerPlBld CKD-EPI 2020 90 mL/min/1.73m??? Normal >=60 [facility] Comment on above: Order Comment: Speci men Type: BLOOD SPECIMENOrdering Facility: [facility] Address: [address] [place] [address] Result Comment: Rosario mated Glomerular Filtration Rate (eGFR) is calculated using the 2020 CKD-EPI creatinine equation. This equation utilizes serum creatinine, sex, and age as parameters. The creatinine assay has traceable calibration to isotope dilution-mass spectrometry. Refer to KDIGO guidelines for clinical interpretation. In patients with unstable renal function, e.g. those with acute kidney injury, the eGFR may not accurately reflect actual GFR. Performed By: #### 2 4323-8, 00082-0 ####[facility] LABCLIA [id number] [place] [id number] [place] Glucose [Mass/Vol] 106 mg/dL High 74-99 [facility] Comment on above: Order Comment: Speci men Type: BLOOD SPECIMENOrdering Facility: [facility] Address: [address] [place] [address] Result Comment: The [place] [employer] (ADA) provides guidance for cutoff values for fasting glucose and random glucose. The ADA defines fasting as no caloric intake for at least 8 hours. Fasting plasma glucose results between 100 to 125 mg/dL indicate increased risk for diabetes (prediabetes). Fasting plasma glucose results greater than or equal to 126 mg/dL meet the criteria for diagnosis of diabetes. In the absence of unequivocal hyperglycemia, results should be confirmed by repeat testing. In a patient with classic symptoms of hyperglycemia or hyperglycemic crisis, random plasma glucose results greater than or equal to 200 mg/dL meet the criteria for diagnosis of diabetes. Reference: Standards of Medical Care in Diabetes 2016, [place] [employer]. Diabetes Care. 2016.39(Suppl 1). Performed By: #### 2 4323-8, 17894-5 ####[facility] LABCLIA [id number] [place] [address] [place] Potassium [Moles/Vol] 4.1 mmol/L Normal 3.7-5.1 [facility] Comment on above: Order Comment: Speci men Type: BLOOD SPECIMENOrdering Facility: [facility] Address: [address] [place] [address] Performed By: #### 2 4323-8, 30089-0 ####[facility] LABCLIA [id number] [place] [address] [place] Protein [Mass/Vol] 6.9 g/dL Normal 6.3-8.0 [facility] Comment on above: Order Comment: Speci men Type: BLOOD SPECIMENOrdering Facility: [facility] Address: [address] [place] [address] Performed By: #### 2 4323-8, ####[facility] LABCLIA [id number] [place] [id number] [place] Sodium [Moles/Vol] 140 mmol/L Normal 136-144 [facility] Comment on above: Order Comment: Speci men Type: BLOOD SPECIMENOrdering Facility: [facility] Address: [address] [place] [address] Performed By: #### 2 4323-8, 00673-0 ####[facility] LABCLIA [id number] [place] [address] [place] Urea nitrogen [Mass/Vol] 27 mg/dL High 9-24 [facility] Comment on above: Order Comment: Speci men Type: BLOOD SPECIMENOrdering Facility: [facility] Address: [address] [place] [address] Performed By: #### 2 4323-8, 95616-3 ####[facility] LABCLIA [id number] [address] STATES OF [facility] Lipid 1996 panelon 5 Cholesterol [Mass/Vol] 124 mg/dL Normal <200 [facility] Comment on above: Order Comment: Speci men Type: BLOOD SPECIMENOrdering Facility: [facility] Address: [address] [place] [address] Result Comment: <200 mg/dL, Desirable 200-239 mg/dL, Borderline high >239 mg/dL, High Performed By: #### 2 4323-8, 29236-6 ####[facility] LABCLIA [id number] [address] STATES [facility] Cholesterol in HDL [Mass/Vol] 46 mg/dL Normal >39 [facility] Comment on above: Order Comment: Speci men Type: BLOOD SPECIMENOrdering Facility: [facility] Address: [address] [place] [address] Result Comment: 40-5 9 mg/dL, Acceptable >59 mg/dL, High: Negative risk factor for coronary heart disease <40 mg/dL, Low: Positive risk factor for coronary heart disease Performed By: #### 2 4323-8, 14918-3 ####[facility] LABCLIA [id number] [place] [id number] [place] OF [facility] Cholesterol in LDL [Mass/Vol] 64 mg/dL Normal <100 [facility] Comment on above: Order Comment: Quangi men Type: BLOOD SPECIMENOrdering Facility: [facility] Address: [address] [place] [address] Result Comment: <100 mg/dL, Optimal 100-129 mg/dL, Near optimal/above optimal 130-159 mg/dL, Borderline high 160-189 mg/dL, High >189 mg/dL, Very high Secondary prevention optimal LDL Cholesterol levels are recommended to be <70 mg/dL LDL cholesterol is calculated using the Barone-NIH equation. Performed By: #### 2 4323-8, 10882-5 ####[facility] LABCLIA [id number] [place] [address] [place] Cholesterol in LDL/Cholesterol in HDL [Mass ratio] 1.39 {ratio} Normal <2.54 [facility] Comment on above: Order Comment: Quangi men Type: BLOOD SPECIMENOrdering Facility: [facility] Address: [address] [place] [address] Result Comment: Danny santos: 1. National Cholesterol Education Program ATP III Guideline At-A-Glance Quick Desk Reference: National Heart, Lung, and Blood [place]. National Institutes of Health. 2001: NIH Publication No. 01-3305. 2. An International Atherosclerosis Society position paper: global recommendations for the management of dyslipidemia: executive summary, Atherosclerosis. 2014: 232(2):410-413. Performed By: #### 2 4323-8, 23919-1 ####[facility] LABCLIA [id number] [place] [id number] [place] Cholesterol in VLDL [Mass/Vol] 10 mg/dL Normal <30 [facility] Comment on above: Order Comment: Quangi men Type: BLOOD SPECIMENOrdering Facility: [facility] Address: [address] [place] [address] Performed By: #### 2 4323-8, ####[facility] LABCLIA [id number] [place] [id number] [place] Cholesterol non HDL [Mass/Vol] 78 mg/dL Normal <130 [facility] Comment on above: Order Comment: Speci men Type: BLOOD SPECIMENOrdering Facility: [facility] Address: [address] [place] [address] Result Comment: <130 mg/dL, Optimal 130-159 mg/dL, Near optimal/above optimal 160-189 mg/dL, Borderline high 190-219 mg/dL, High >219 mg/dL, Very high Secondary prevention optimal non HDL Cholesterol levels are recommended to be <100 mg/dL Performed By: #### 2 4323-8, 95822-4 ####[facility] LABCLIA [id number] [place] [address] [place] Cholesterol.total/Chol esterol in HDL [Mass ratio] 2.70 {ratio} Normal <5.10 [facility] Comment on above: Order Comment: Speci men Type: BLOOD SPECIMENOrdering Facility: [facility] Address: [address] [place] [address] Performed By: #### 2 4323-8, 16624-2 ####[facility] LABCLIA [id number] [address] STATES [place] FASTING TIME 12 hrs Normal [facility] Comment on above: Order Comment: Speci men Type: BLOOD SPECIMENOrdering Facility: [facility] Address: [address] [place] [address] Performed By: #### 2 4323-8, 11952-7 ####[facility] LABCLIA [id number] [place] [address] [place] Triglyceride [Mass/Vol] 68 mg/dL Normal <150 [facility] Comment on above: Order Comment: Speci men Type: BLOOD SPECIMENOrdering Facility: [facility] Address: [address] [place] [address] Result Comment: <150 mg/dL, Normal 150-199 mg/dL, Borderline high 200-499 mg/dL, High >499 mg/dL, Very high Performed By: #### 2 4323-8, 96030-7 ####[facility] LABCLIA [id number] [address] [place] CNOVon 02-15-2025 CNOV Office Visit (PULMWS ) -- JORGE RAMIRES ([id number]) 1940 M NFR Date Time Provider Department 02/15/25 2:15 PM HERMELINDA COPELAND PULMWS During your visit today, we recorded the following information about you: Pulse Blood pressure Weight 106/minute 120/70 78.5 kg Hermelinda Copeland MD 02/15/2025 3:14 PM Signed . [facility] [place] Note Patient name: Jorge Ramires PCP: Tito Macias MD CC: Not feeling well HPI: Jorge Ramires 84 year old male former 03-dabe-odor smoker, quitting in 1981 with PMH significant for combined pulmonary fibrosis emphysema, bronchiectasis, history of lung cancer, CAD, HTN, HLD, chronic hypoxemic respiratory failure presenting for an acute visit. Unable to tolerate in the past OFEV due to side effects. Has previously grown Serratia marcescens and Staph aureus in sputum. He has not been feeling well for several days. He has had significant fatigue, chills without documented fever, increased chest congestion and shortness of breath. Sputum is thick and yellow to green in color. He submitted a sputum sample which shows moderate respiratory braxton culture is pending at this time. He has had some chest pain more on the right posterior back and across his shoulders. He has been wheezing more, using his nebulized treatments. 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) 12/29/2020 Coronary artery disease Erectile dysfunction 03/13/2010 Esophageal reflux Essential hypertension, benign 09/06/2012 Ganglion and cyst of synovium, tendon and bursa 03/22/2013 Hematospermia 01/17/2006 Hiatal hernia 06/04/2013 HYPERLIPIDEMIA NEC/NOS 01/19/2005 HYPERTROPHY PROSTATE WITH OBST 01/17/2006 Hypoalbuminemia due to protein-calorie malnutrition (HCC) 09/17/2021 Idiopathic pulmonary fibrosis (HCC) 07/02/2015 Obesity, Class I, BMI 30-34.9 10/10/2017 PERS HX BRONCHOGENIC MALIGNAN 04/09/2008 Personal history of colonic polyps Colon polyps Pulmonary fibrosis (HCC) 07/02/2015 Pure hypercholesterolemia Secondary pulmonary arterial hypertension (HCC) 02/12/2022 Furosemide. Heart Group. Thyroid nodule greater than or equal to 1 cm in diameter incidentally noted on imaging study 12/18/2019 ALLERGIES No Known Allergies levoFLOXacin (LEVAQUIN) 500 mg tabletTake 1 tablet by mouth once daily for 7 days.Disp: 7 tabletRfl: 0 tamsulosin (FLOMAX) 0.4 mgTake 2 capsules by mouth once daily.Disp: 180 capsuleRfl: 3 ipratropium-albuterol (DUONEB) 0.5 mg-3 mg(2.5 mg base)/3 mL nebuInhale 3 mL as instructed every 4 hours as needed for wheezing/shortness of breath.Disp: 120 EachRfl: 5 lisinopril (ZESTRIL) 10 mg tabletTake 1 tablet by mouth once daily.Disp: 90 tabletRfl: 3 oxybutynin XL (DITROPAN XL) 5 mg 24 hr tabletTake 1 tablet by mouth once daily.Disp: 90 tabletRfl: 3 Mirtazapine (REMERON) 7.5 mg tabletTake 1 tablet by mouth daily at bedtime.Disp: 90 tabletRfl: [address] (PROTONIX) 20 mg tabletTake 1 tablet by mouth once daily.Disp: 90 tabletRfl: 3 simvastatin (ZOCOR) 10 mg tabletTake 1 tablet by mouth daily at bedtime.Disp: 90 tabletRfl: 3 fluticasone-salmeterol (WIXELA INHUB) 250-50 mcg/dose inhalerInhale 1 Puff as instructed two times a day.Disp: Rfl: Nebulizer Accessories kitProvide 1 kit.Disp: 1 EachRfl: 5 Mucus Clearing Device deviProvide 1 deviceDisp: 1 EachRfl: 0 albuterol HFA (PROVENTIL HFA, VENTOLIN HFA) 90 mcg/actuation inhalerInhale 2 Puffs as instructed four times daily as needed. FOR WHEEZING AND SHORTNESS OF BREATH.Disp: 1 InhalerRfl: 3 THERAPEUTIC MULTIVIT/MINERAL TABTake one(1) tablet daily.Disp: otcRfl: 0 SOCIAL HISTORY[1] FAMILY HISTORY Problem Relation Age of Onset Alzheimer's Disease Mother Heart Father heart attack Breast Cancer Sister Heart Brother aortic aneurysm COPD No Family History PAST SURGICAL HISTORY Procedure Laterality Date COLONOSCOPY FLX DX W/COLLJ SPEC WHEN PFRMD 07/12/2005 COLONOSCOPY FLX DX W/COLLJ SPEC WHEN PFRMD 07/19/2013 Colonoscopy COLONOSCOPY W/BIOPSY SINGLE/MULTIPLE 03/02/2010 ESOPHAGOGASTRODUODENOSCOPY TRANSORAL DIAGNOSTIC 07/19/2013 EGD REMOVAL OF LUNG,LOBECTOMY Left 04/2007 left upper lobe RIGHT HEART CATH 11/03/2020 TONSILLECTOMY AND ADENOIDECTOMY PMH, Social history, family history and surgical history reviewed and updated in EMR REVIEW OF SYSTEMS: CONSTITUTIONAL: No fevers, nightsweats, unintended weight loss. Chills HEENT: Denies nasal congestion/sinus symptoms, allergy problems. CARDIOVASCULAR: No palpit (more content not included)... Normal [facility] XR CHEST 2V FRONTAL/LATon XR CHEST 2V FRONTAL/LAT * * *Final Report* * * DATE OF EXAM: Feb 15 2025 3:03PM [id number] [id number] - XR CHEST 2V FRONTAL/LAT / PROCEDURE REASON: Bacterial pneumonia * * * * Physician Interpretation * * * * EXAMINATION: CHEST RADIOGRAPH (2 VIEW FRONTAL and LATERAL) CLINICAL HISTORY: Bacterial pneumonia MQ: [id number] EXAM DATE/TIME: 02/15/2025 3:03 PM COMPARISON: 03/07/2023 RESULT: Lines, tubes, and devices: None. Lungs and pleura: Lung scarring and extensive interstitial lung. There is elevation left diaphragm. No discrete superimposed alveolar consolidation or gross pleural fluid. No pneumothorax Cardiomediastinal silhouette: Normal cardiomediastinal silhouette. Bones and soft tissues: Degenerative spine changes. IMPRESSION: Lung scarring and interstitial prominence No superimposed alveolar consolidation Clod Puller: ANASTACIA Transcribe Date/Time: Feb 21 2025 6:20P Dictated by : KIRSTIN PHIPPS MD This examination was interpreted and the report reviewed and electronically signed by: KIRSTIN PHIPPS MD on Feb 21 2025 6:22PM EST [id number] Normal [facility] Bacteria Spec Resp Culton Bacteria identified Respiratory culture Nom (Unsp spec) ORGANISM ID: 1 Moderate normal respiratory braxton ORGANISM ID: 2 Rare Mold Mold isolated. Refer to Organism Identification, Mold culture, for species identification. GRAM STAIN: Rare Mixed oral braxton Rare Polymorphonuclear leukocytes Abnormal [facility] Comment on above: Performed By: #### 3 2355-0, 43937-9 ####[facility] LABCLIA [id number] [address] Microorganism Spec Culton Microorganism identified Cx Nom (Unsp spec) ORGANISM ID: 1 Rare Aspergillus fumigatus By MALDI TOF Mass Spectrometry. Normal [facility] Comment on above: Performed By: #### 3 2355-0, 34763-4 ####[facility] LABCLIA [id number] [address] [place] Echo Completeon 02-07-2025 Echo Complete [facility] [address] [place] [address] Echo Complete 02/07/25 0953 MR#: [id number] Acct: [id number] Name: JORGE RAMIRES Rep #: [id number] : 1940 84 From: Noah Rajput MD Attending Dr: Dottie Jackson NP-C Status: [facility] [address] Ordering Dr: Dottie Jackson NP DIRECT MARKETING ANALYST-C Date: 02/07/25 Location: [facility] Sex: M C Admitted: Reason For Study Reason For Study: LERMA Procedure This was a 2D Doppler, Color Flow transthoracic echocardiogram. Exam performed in department. Left Ventricle Normal LV size. The left ventricular ejection fraction is 60 %. Stage 1 diastolic dysfunction. No regional wall motion abnormalities noted. Right Ventricle Normal RV size. Normal systolic function. Atria Normal left atrium. Normal right atrium. Mitral Valve Normal mitral valve. Tricuspid Valve Normal tricuspid valve. Mild-Moderate (1-2+) tricuspid valve insufficiency. Pulmonary artery systolic pressure is 42 mmHg. Aortic Valve Normal aortic valve. Pulmonic Valve Normal pulmonic valve. Great Vessels Normal aortic root. The pulmonary artery is normal size. Inferior vena cava collapse with respiration. Pericardium/Pleural No pericardial effusion. MMode/2D Measurements Calculations LVIDd: 3.7 cm IVSd: 0.83 cm LVOT diam: 2.1 cm LVIDs: 2.6 cm LVPWd: 0.92 cm LVOT area: 3.4 cm2 RVDd: 4.6 cm FS: 31.2 % Ao root diam: 3.4 cm LAV(MOD-bp): 64.9 ml LVAd ap4: 30.1 cm2 LA dimension: 2.8 cm LAV(MOD-bp) Indexed: 33.0 ml/m2 LVLd ap4: 7.8 cm LAV(MOD-sp2): 59.7 ml EDV(MOD-sp4): 92.1 ml LAV(MOD-sp4): 60.1 ml EDV(sp4-el): 98.9 ml LVAs ap4: 17.3 cm2 LVLs ap4: 6.0 cm ESV(MOD-sp4): 41.7 ml ESV(sp4-el): 42.5 ml EF(MOD-sp4): 54.7 % EF(sp4-el): 57.0 % LVAd ap2: 27.8 cm2 SV(MOD-sp4): 50.4 ml SV(MOD-sp2): 49.8 ml LVLd ap2: 7.6 cm SI(MOD-sp4): 25.6 ml/m2 SI(MOD-sp2): 25.3 ml/m2 EDV(MOD-sp2): 83.4 ml EDV(sp2-el): 86.1 ml LVAs ap2: 15.3 cm2 LVLs ap2: 5.8 cm ESV(MOD-sp2): 33.6 ml ESV(sp2-el): 33.9 ml EF(MOD-sp2): 59.7 % SV(sp4-el): 56.4 ml LA A4 area: 20.4 cm2 RA A4 area: 20.5 cm2 TAPSE: 1.3 cm Time Measurements MV dec time: 0.34 sec Doppler Measurements Calculations MV E max steven: 55.0 cm/sec Lat Peak E' Steven: 13.8 cm/sec Med Peak E' Steven: 5.2 cm/sec MV A max steven: 75.2 cm/sec E/E' lat: 4.0 E/E' med: 10.7 MV E/A: 0.73 MV dec slope: 161.2 cm/sec2 Ao V2 max: 106.9 cm/sec LV V1 max: 91.8 cm/sec Ao max P.6 mmHg LV V1 max P.4 mmHg Ao V2 mean: 77.4 cm/sec LV V1 mean P.8 mmHg Ao mean P.7 mmHg LV V1 mean: 62.6 cm/sec Ao V2 VTI: 24.4 cm LV V1 VTI: 20.5 cm AV (velocity ratio): 0.84 RACHELLE(I,D): 2.8 cm2 RACHELLE(V,D): 2.9 cm2 SV(LVOT): 69.3 ml PA V2 max: 65.2 cm/sec PI end-d steven: 164.3 cm/sec TR max steven: 308.1 cm/sec TR max P.1 mmHg ECHO/Echo Complete Interpretation Summary Normal LV size. The left ventricular ejection fraction is 60 %. Stage 1 diastolic dysfunction. Mild-Moderate (1-2+) tricuspid valve insufficiency. Ordering Physician: Dottie Jackson Referring Physician: Tito Macias Performed By: Giovanni Boss RDCS 02/07/25 1226 Date Noah Rajput MD CC: DIRECT MARKETING ANALYST-C Dottie Jackson; Dr. Tito Macias MD Date Dictated: 02/07/25952 Date Transcribed: 02/07/251225 Clod Puller: Signed Normal [facility] Absolute lymphocyte countOrd ered By: Dottie Jackson on 01-08-2025 Lymphocytes Auto (Unsp spec) [#/Vol] 0.73 10*3/uL Low 0.83-4.51 [facility] Absolute neutrophil countOrd ered By: Dottie Jackson on 01-08-2025 Neutrophils (Bld) [#/Vol] 3.4 10*3/uL 2.0-7.7 [facility] Anion gap in Serum or Plasma Ordered By: Dottie Jackson on 01-08-2025 Anion gap [Moles/Vol] 8 mmol/L 5-15 [facility] Automated lymphocyte count a s percentage of total leukocytesOrdered By: Dottie Jackson on 01-08-2025 Lymphocytes/100 WBC Auto (Unsp spec) 15.4 % Low 19-41 [facility] BUN/creatinine ratioOrdered By: Dottie Jackson on 01-08-2025 Urea nitrogen/Creatinine [Mass ratio] 23.7 mg/mg High 02-04 [facility] Basic Metabolic Profile (BMP )on 01-08-2025 BUN/CRE 23.7 RATIO High 02-04 [facility] Comment on above: Performed By: #### L 503.7501, L500.2500, L100.0100 #### [facility] Laboratory [facility] [place], [address] Calcium [Mass/Vol] 9.1 mg/dL Normal 7.6-11.0 [facility] Comment on above: Performed By: #### L 503.7505, L500.2500, L100.0100 #### [facility] [address] [place], [address] Chloride [Moles/Vol] 102 mmol/L Normal 98-108 [facility] Comment on above: Performed By: #### L 503.7505, L500.2500, L100.0100 #### [facility] [address] [place], [address] CO2 [Moles/Vol] 28.6 mmol/L Normal 21.0-32.0 [facility] Comment on above: Performed By: #### L 503.7505, L500.2500, L100.0100 #### [facility] [address] [place], [address] Creatinine [Mass/Vol] 0.62 mg/dL Low 0.70-1.20 [facility] Comment on above: Performed By: #### L 503.7505, L500.2500, L100.0100 #### [facility] [address] [place], [address] GAP 8 Normal 5-15 [facility] Comment on above: Performed By: #### L 503.7505, L500.2500, L100.0100 #### [facility] [address] [place], [address] GFR/1.73 sq M.predicted among non-blacks MDRD (S/P/Bld) [Vol rate/Area] 94 mL/min/{1.73_m2} Normal >60 [facility] Comment on above: Result Comment: mL/m in/1.73m2 CKD-EPI Creatinine Equation (2020) Performed By: #### L 503.7505, L500.2500, L100.0100 #### [facility] [address] [place], [address] Glucose [Mass/Vol] 97 mg/dL Normal 70-99 [facility] Comment on above: Performed By: #### L 503.7505, L500.2500, L100.0100 #### [facility] [address] [place], [address] Potassium [Moles/Vol] 3.9 mmol/L Normal 3.3-5.1 [facility] Comment on above: Performed By: #### L 503.7505, L500.2500, L100.0100 #### [facility] [address] [place], [address] Sodium [Moles/Vol] 139 mmol/L Normal 133-145 [facility] Comment on above: Performed By: #### L 503.7505, L500.2500, L100.0100 #### [facility] [address] [place], [address] Urea nitrogen [Mass/Vol] 15 mg/dL Normal 4-19 [facility] Comment on above: Performed By: #### L 503.7505, L500.2500, L100.0100 #### [facility] [address] [place], [address] Basophil percentageOrdered B y: Dottie Jackson on 01-08-2025 Basophils/100 WBC (Bld) 0.6 % 0-1 [facility] CBC W/Diff, Automatedon 12-18 Absolute Lymph 0.73 X10 3/uL Low 0.83-4.51 [facility] Comment on above: Performed By: #### L 503.7505, L500.2500, L100.0100 #### [facility] [address] [place], [address] Absolute Neut 3.4 X10 3/uL Normal 2.0-7.7 [facility] Comment on above: Performed By: #### L 503.7505, L500.2500, L100.0100 #### [facility] [address] [place], [address] Basophils/100 WBC (Bld) 0.6 % Normal 0-1 [facility] Comment on above: Performed By: #### L 503.7505, L500.2500, L100.0100 #### [facility] [address] [place], [address] Eosinophils/100 WBC (Bld) 4.0 % Normal 0-5 [facility] Comment on above: Performed By: #### L 503.7505, L500.2500, L100.0100 #### [facility] [address] [place], [address] Erythrocyte distribution width (RBC) [Ratio] 13.2 % Normal 11.6-14.6 [facility] Comment on above: Performed By: #### L 503.7505, L500.2500, L100.0100 #### [facility] [address] [place], [address] Hematocrit (Bld) [Volume fraction] 41.3 % Normal 40-54 [facility] Comment on above: Performed By: #### L 503.7505, L500.2500, L100.0100 #### [facility] [address] [place], [address] Hemoglobin (Bld) [Mass/Vol] 13.1 g/dL Normal 13.0-16.5 [facility] Comment on above: Performed By: #### L 503.7505, L500.2500, L100.0100 #### [facility] [address] [place], [address] IG% 0.200 Normal 0.0-0.9 [facility] Comment on above: Result Comment: IG% - Immature Granulocytes (promyelocytes, myelocytes and metamyelocytes) > 1% indicates that a LEFT SHIFT is Present. Performed By: #### L 503.7505, L500.2500, L100.0100 #### [facility] [address] [place], [address] Lymphocytes/100 WBC (Bld) 15.4 % Low 19-41 [facility] Comment on above: Performed By: #### L 503.7505, L500.2500, L100.0100 #### [facility] [address] [place], [address] MCH (RBC) [Entitic mass] 28.5 pg Normal 27.0-32.0 [facility] Comment on above: Performed By: #### L 503.7505, L500.2500, L100.0100 #### [facility] [address] [place], [address] MCHC (RBC) [Mass/Vol] 31.7 g/dL Low 32-36 [facility] Comment on above: Performed By: #### L 503.7505, L500.2500, L100.0100 #### [facility] [address] [place], [address] MCV (RBC) [Entitic vol] 90.0 fL Normal 80-94 [facility] Comment on above: Performed By: #### L 503.7505, L500.2500, L100.0100 #### [facility] [address] [place], [address] Monocytes/100 WBC (Bld) 7.4 % Normal 0-10 [facility] Comment on above: Performed By: #### L 503.7505, L500.2500, L100.0100 #### [facility] [address] [place], [address] Neutrophils/100 WBC (Bld) 72.4 % High 47-70 [facility] Comment on above: Performed By: #### L 503.7505, L500.2500, L100.0100 #### [facility] [address] [place], [address] Nucleated RBC (Bld) [#/Vol] 0 10*3/uL Normal 0-5 [facility] Comment on above: Performed By: #### L 503.7505, L500.2500, L100.0100 #### [facility] [address] [place], [address] Platelet mean volume (Bld) [Entitic vol] 10.6 fL Normal 6.2-12.0 [facility] Comment on above: Performed By: #### L 503.7505, L500.2500, L100.0100 #### [facility] [address] [place], [address] Platelets (Bld) [#/Vol] 161 10*3/uL Normal 150-450 [facility] Comment on above: Performed By: #### L 503.7505, L500.2500, L100.0100 #### [facility] [address] [place], [address] RBC (Bld) [#/Vol] 4.59 10*6/uL Low 4.6-6.2 [facility] Comment on above: Performed By: #### L 503.7505, L500.2500, L100.0100 #### [facility] [address] [place], [address] RDW SD 42.7 fl Normal 35.1-43.9 [facility] Comment on above: Performed By: #### L 503.7505, L500.2500, L100.0100 #### [facility] [address] [place], [address] WBC (Bld) [#/Vol] 4.7 10*3/uL Normal 4.4-11.0 [facility] Comment on above: Performed By: #### L 503.7505, L500.2500, L100.0100 #### [facility] [address] [place], [address] Carbon dioxide, total [Moles /volume] in Central venous bloodOrdered By: Dottie Jackson on 01-08-2025 CO2 [Moles/Vol] 28.6 mmol/L 21.0-32.0 [facility] Cardiology Visit Reporton Cardiology Visit Report [facility] [address] [place] [address] OFFICE VISIT Date of Service: 01/08/25 MR#: [id number] Acct: [id number] Name: JORGE RAMIRES Rep #: [id number] : 1940 Provider: MANOJ bueno Age/Sex: 84/M Location: [facility] Status: Signed HPI HPI History of Present Illness Details: This is a 84-year-old man who presents to the office today for a cardiovascular visit. 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 He had an echocardiogram performed in August of 2020 which demonstrated an ejection fraction of 62%, the right ventricle was mildly dilated, right ventricular function was normal, the estimated right ventricular systolic pressure was estimated to be 55mmhg. From a cardiac standpoint, the patient is doing well. He denies any palpitations, chest pain, pressure or heaviness. He does have SOB with exertion and at rest. He is currently on a 5L of oxygen. He denies Orthopnea, and PND. He does not have bleeding issues; no blood in urine, stool, or nosebleeds. He does acknowledge fatigue, he attributes this to his breathing. He denies myalgias, or claudication. He does have bilateral lower extremity edema. He does not have edema, or sudden weight gain. He denies lightheadedness, dizziness, syncopal or near syncopal episodes, and headaches. Intake Vital Signs 09/13/24 09:27 01/08/25 07:03 Height 5 ft 10 in 5 ft 10 in Weight: 174 lb BMI 25.0 BP 121/70 H Blood Pressure Location Lt brachial Position Sitting Respiration 20 H Pulse 74 Pulse Source Monitor Pulse Oximetry (%) 95 Oxygen Flow Rate (L/min) 5 Intake Visit Reasons: PER PULMONARY Carder Blankets Required: No Is patient in pain?: No Allergies No Known Allergies Allergy (Verified 01/08/25 09:47) Medications ???Medication ???Instructions ???Recorded ???Confirmed ???Type albuterol sulfate 90 mcg/actuation 2 inh inhalation Q6H PRN Shortne ss 10/28/20 01/08/25 History aerosol inhaler Of Breath multivitamin 1 tab PO DAILY 10/28/20 01/08/25 H istory oxybutynin chloride 5 mg 5 mg PO DAILY 10/28/20 01/08/25 Hi story tablet,extended release 24 hr pantoprazole 20 mg tablet,delayed 20 mg PO DAILY 10/28/20 01/08/25 History release simvastatin 10 mg tablet 10 mg PO QHS 10/28/20 01/08/25 His tory tamsulosin 0.4 mg capsule 0.8 mg PO DAILY 10/28/20 01/08/25 History lisinopril 10 mg tablet 10 mg PO DAILY 10/29/20 01/08/25 H istory mometasone-formoterol HFA 200 2 inh inhalation BID 10/29/2012/18 History mcg-5 mcg/actuation aerosol inhaler Ejection fraction %: 55 Have you fallen in the past year?: No PFSH Medical History Coronary artery calcification 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 BPH (benign prostatic hyperplasia) Thyroid nodule Hiatal hernia Thrombocytopenia Obesity Hyperlipidemia Essential hypertension GERD (gastroesophageal reflux disease) Non-small cell cancer of left lung Surgical History History of right heart catheterization (11/03/20) History of bronchoscopy (2016) History of lobectomy of lung (2007) Social History Smoking Status: Former smoker alcohol intake: never substance use type: does not use ROS Const Const: Positive for fatigue; Negative for weakness, headache(s) or frequent falls Eyes Eyes: Negative for blurry vision ENT ENT: Negative for headache(s), dizziness or Nosebleed/epistaxis Cardio Chest Pain: No Palpitations: No Edema: Bilateral (new) Muscle aches with walking: None Resp Respiratory: Positive for SOB with activity and SOB at rest; Negative for SOB orthopnea SOB lying down Additional Details: Wears oxygen 5L via NC GI GI: Negative nausea, vomiting, heartburn, bright, red blood in stools or black,tarry stools : Negative for hematuria Neuro Neuro: Negative for dizziness, lightheadedness, near syncope, syncope, frequent falls, headache(s), weakness or blurry vision Endo Endo: Positive for fatigue Cardiology Exam Const Appearance: cooperative and no acute distress Nutritional Appearance: average body habitus and overweight Orientation: alert and oriented x3 Head Head: normal to inspection Ears: hearing grossly normal bilaterally Nose: external nose normal Face and Sinus: face symmetric Eyes General: appearance normal, both eyes and all related structures Eyelids: eyelids normal Conjunctivae: conjunctivae normal Pupils: PERRL and pupil size EOM: EOM intact bilaterally Neck (more content not included)... Normal [facility] Chloride assayOrdered By: Sai Jackson on 01-08-2025 Chloride [Moles/Vol] 102 mmol/L 98-108 [facility] Eosinophil percentageOrdered By: Dottie Jackson on 01-08-2025 Eosinophils/100 WBC (Bld) 4.0 % 0-5 [facility] Erythrocyte distribution wid th ratioOrdered By: Dottie Jackson on 01-08-2025 Erythrocyte distribution width (RBC) [Ratio] 13.2 % 11.6-14.6 [facility] Erythrocyte distribution wid th standard deviationOrdered By: Dottie Jackson on 01-08-2025 Erythrocyte distribution width (RBC) [Ratio] 42.7 fl 35.1-43.9 [facility] Glomerular filtration rate ( GFR) estimation/1.73 sq m using serum, plasma, or whole bOrdered By: Dottie Jackson on 01-08-2025 GFR/1.73 sq M.predicted among non-blacks MDRD (S/P/Bld) [Vol rate/Area] 94 mL/min/{1.73_m2} >60 [facility] Comment on above: mL/min/1.73m2 CKD-EP I Creatinine Equation (2020) Hematocrit Auto (Bld) [Volum e fraction]Ordered By: Dottie Jackson on 01-08-2025 Hematocrit (Bld) [Volume fraction] 41.3 % 40-54 [facility] Hemoglobin measurementOrdere d By: Dottie Jackson on 01-08-2025 Hemoglobin (Bld) [Mass/Vol] 13.1 g/dL 13.0-16.5 [facility] Immature granulocytes/100 WB C Auto (Bld)Ordered By: Dottie Jackson on 01-08-2025 Immature granulocytes/100 WBC (Bld) 0.200 % 0.0-0.9 [facility] Comment on above: IG% - Immature Granu locytes (promyelocytes, myelocytes and metamyelocytes) > 1% indicates that a LEFT SHIFT is Present. MCV (mean corpuscular volume ) determinationOrdered By: Dottie Jackson on 01-08-2025 MCV (RBC) [Entitic vol] 90.0 fL 80-94 [facility] Mean corpuscular hemoglobin (MCH) determinationOrdered By: Dottie Jackson on 01-08-2025 MCH (RBC) [Entitic mass] 28.5 pg 27.0-32.0 [facility] Mean corpuscular hemoglobin concentration (MCHC) determinationOrdered By: Dottie Jackson on 01-08-2025 MCHC (RBC) [Mass/Vol] 31.7 g/dL Low 32-36 [facility] Mean platelet volume determi nationOrdered By: Dottie Jackson on 01-08-2025 Platelet mean volume (Bld) [Entitic vol] 10.6 fL 6.2-12.0 [facility] Monocyte percentageOrdered B y: Dottie Jackson on 01-08-2025 Monocytes/100 WBC (Bld) 7.4 % 0-10 [facility] Natriuretic peptide.B prohor mojgan N-Terminal [Mass/volume] in Serum or PlasmaOrdered By: Dottie Jackson on 01-08-2025 Natriuretic peptide.B prohormone N-Terminal [Mass/Vol] 201 pg/mL <1800 [facility] Comment on above: Heart Failure Unlike ly: < 300 pg/mLHeart Failure Likely< 50 Years: > 450 pg/mL50-75 Years: > 900 pg/mL>75 Years: > 1800 pg/mL Neutrophil percentageOrdered By: Dottie Jackson on 01-08-2025 Neutrophils/100 WBC (Bld) 72.4 % High 47-70 [facility] Nucleated red blood cell per centageOrdered By: Dottie Jackson on 01-08-2025 Nucleated RBC/100 WBC (Bld) [Ratio] 0 % 0-5 [facility] Platelet countOrdered By: Sai Jackson on 01-08-2025 Platelets (Bld) [#/Vol] 161 10*3/uL 150-450 [facility] Potassium measurement (mass/ volume)Ordered By: Dottie Jackson on 01-08-2025 Potassium (Unsp spec) [Mass/Vol] 3.9 mmol/L 3.3-5.1 [facility] Pro- Brain NATRIURETIC PEPTI Bety 01-08-2025 Natriuretic peptide B (Bld) [Mass/Vol] 201 pg/mL Normal <=1800 [facility] Comment on above: Result Comment: Hear t Failure Unlikely: < 300 pg/mL Heart Failure Likely < 50 Years: > 450 pg/mL 50-75 Years: > 900 pg/mL >75 Years: > 1800 pg/mL Performed By: #### L 503.7505, L500.2500, L100.0100 #### [facility] [address], [place], [id number] RBC Auto (Bld) [#/Vol]Ordere d By: Dottie Jackson on 01-08-2025 RBC (Bld) [#/Vol] 4.59 10*6/uL Low 4.6-6.2 [facility] Serum creatinine measurement (mass/volume)Ordered By: Dottie Jackson on 01-08-2025 Creatinine [Mass/Vol] 0.62 mg/dL Low 0.70-1.20 [facility] Serum glucose measurement (m ass/volume)Ordered By: Dottie Jackson on 01-08-2025 Glucose [Mass/Vol] 97 mg/dL 70-99 [facility] Serum or plasma calcium darwin urement (mass/volume)Ordered By: Dottie Jackson on 01-08-2025 Calcium [Mass/Vol] 9.1 mg/dL 7.6-11.0 [facility] Serum or plasma urea nitroge n measurement (mass/volume)Ordered By: Dottie Jackson on 01-08-2025 Urea nitrogen [Mass/Vol] 15 mg/dL 4-19 [facility] Sodium levelOrdered By: Ayesha Jackson on 01-08-2025 Sodium [Moles/Vol] 139 mmol/L 133-145 [facility] White blood cell (WBC) count Ordered By: Dottie Jackson on 01-08-2025 WBC (Bld) [#/Vol] 4.7 10*3/uL 4.4-11.0 [facility] CNOVon 12-05-2024 CNOV Office Visit (PULMWS ) -- JORGE RAMIRES ([id number]) 1940 M NFR Date Time Provider Department 12/05/24 10:00 AM JESSICA MORENO PULMWS During your visit today, we recorded the following information about you: Pulse Respiration Blood pressure Weight 77/minute 18/minute 110/60 78.5 kg Jessica Moreno APRN.[employer]BI[employer] APPLICATION DEVELOPMENT LEAD 12/05/2024 12:36 PM Signed Pulmonary Medicine Patients name: Jorge Ramires PCP: Tito Macias MD CC: follow-up HPI: Jorge Ramires is a 84 year old male former 24 pack year smoker with PMH significant for CPFE, h/o lung cancer, CAD, HTN, HLD, chronic hypoxemic respiratory failure, bronchiectasis. Previously did not tolerate OFEV d/t intolerable side effects. YOLANDA 04/2024 with overall stable symptoms. No recurrent infections. Current therapy is acapella every day, Wixela and Duoneb/Albuterol as needed. He presents today for follow-up with his daughter. Since his last visit, he reports overall symptoms are stable. He does note slight progression in exertional dyspnea over time. Today, patient reports rarely coughing and occasionally produces clear sputum. No hemoptysis. No wheezing, rarely notes chest tightness. No dyspnea at rest. No fevers, chills, or night sweats. No recent hospitalizations or ED visits or upper respiratory infections. Typically avoids crowds of people or going out in the winter to avoid sick exposures. His weight has remained stable. Very rarely uses Albuterol/Duoneb. He continues to be as active as he can be. 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 Self monitoring of SPO2 at home are stable. Does not use Acapella every day as he does not typically cough. He does report b/l LE edema which is new over the past few months. He follows with cardiology and has an upcoming appointment. 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 Coronary artery disease Erectile dysfunction 03/13/2010 Esophageal reflux Essential hypertension, benign 09/06/2012 Ganglion and cyst of synovium, tendon and bursa 03/22/2013 Hematospermia 01/17/2006 Hiatal hernia 06/04/2013 HYPERLIPIDEMIA NEC/NOS 01/19/2005 HYPERTROPHY PROSTATE WITH OBST 01/17/2006 Hypoalbuminemia due to protein-calorie malnutrition (HCC) 09/17/2021 Idiopathic pulmonary fibrosis (HCC) 07/02/2015 Obesity, Class I, BMI 30-34.9 10/10/2017 PERS HX BRONCHOGENIC MALIGNAN 04/09/2008 Personal history of colonic polyps Colon polyps Pulmonary fibrosis (HCC) 07/02/2015 Pure hypercholesterolemia Secondary pulmonary arterial hypertension (HCC) 02/12/2022 Furosemide. [facility]. Thyroid nodule greater than or equal to 1 cm in diameter incidentally noted on imaging study 12/18/2019 Allergies: No Known Allergies Medication List Accurate as of December 05, 2024 8:20 AM. If you have any questions, ask your nurse or doctor. CONTINUE taking these medications albuterol HFA 90 mcg/actuation inhaler Commonly known as: PROVENTIL HFA, VENTOLIN HFA Inhale 2 Puffs as instructed four times daily as needed. FOR WHEEZING AND SHORTNESS OF BREATH. ipratropium-albuterol 0.5 mg-3 mg(2.5 mg base)/3 mL Nebu Commonly known as: DUONEB Inhale 3 mL as instructed every 4 hours as needed for wheezing/shortness of breath. lisinopril 10 mg tablet Commonly known as: ZESTRIL Take 1 tablet by mouth once daily. Mirtazapine 7.5 mg tablet Commonly known as: Remeron Take 1 tablet by mouth daily at bedtime. Mucus Clearing Device Wilmar Provide 1 device Nebulizer Accessories Kit Provide 1 kit. oxybutynin XL 5 mg 24 hr tablet Commonly known as: DITROPAN XL Take 1 tablet by mouth once daily. pantoprazole DR 20 mg tablet Commonly known as: PROTONIX Take 1 tablet by mouth once daily. simvastatin 10 mg tablet Commonly known as: ZOCOR Take 1 tablet by mouth daily at bedtime. tamsulosin 0.4 mg Commonly known as: FLOMAX Take 2 capsules by mouth once daily. THERAPEUTIC MULTIVIT/MINERAL tablet Generic drug: Multivitamin,[id number]-[id number]-Mi n WIXELA INHUB 250-50 mcg/dose inhaler Generic drug: fluticasone-salmeterol DATA: I personally reviewed and analyzed all labs, radiographs and available pulmonary function testing PFT: 11/2022 Spirometry shows no obstruction.The reduced FVC suggests restriction. The TLC is reduced indicating restriction. IMMUNIZATIONS Prevnar - xx Pneumovax 23 - xx Influenza - 01/2024 COVID-19 - xx RSV- xx Review of Systems Constitutional: Negative for activity change, appetite change, fatigue and unexpected weight change. HENT: Negative for congestion, mouth sores, postnasal drip and sinus pressure. Respiratory: Positive for cough and shortness of breath. N (more content not included)... Normal [facility] Cardiology Visit Reporton Cardiology Visit Report [facility] [address] [place] [address] OFFICE VISIT Date of Service: 09/13/24 MR#: [id number] Acct: [id number] Name: JORGE RAMIRES Rep #: [id number] : 1940 Provider: MANOJ bueno Age/Sex: 84/M Location: [facility] Status: Signed HPI HPI History of Present Illness Details: This is a 84-year-old man who presents to the office today for a cardiovascular visit. 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 He had an echocardiogram performed in August of 2020 which demonstrated an ejection fraction of 62%, the right ventricle was mildly dilated, right ventricular function was normal, the estimated right ventricular systolic pressure was estimated to be 55mmhg. From a cardiac standpoint, the patient is doing well. He denies any palpitations, chest pain, pressure or heaviness. He does have SOB with exertion, and at rest. This is nothing new or worsening. He does wear 5L of Oxygen via NC. He denies Orthopnea, and PND. He does not have bleeding issues; no blood in urine, stool, or nosebleeds. He denies any decrease in energy level, myalgias, or claudication. He does not have edema, or sudden weight gain. He denies lightheadedness, dizziness, syncopal or near syncopal episodes, and headaches. Intake Vital Signs 02/23/24 11:20 09/13/24 09:27 Height 5 ft 10 in 5 ft 10 in Weight: 176 lb BMI 25.2 BP 129/73 H Blood Pressure Location Lt brachial Position Sitting Respiration 18 Pulse 81 Pulse Source Monitor Pulse Oximetry (%) 95 Oxygen Delivery Method nasal canula Oxygen Flow Rate (L/min) 5 Intake Visit Reasons: 6 M FU Carder Blankets Required: No Is patient in pain?: No Allergies No Known Allergies Allergy (Verified 09/13/24 11:38) Medications ???Medication ???Instructions ???Recorded ???Confirmed ???Type albuterol sulfate 90 mcg/actuation 2 inh inhalation Q6H PRN Shortne ss 10/28/20 09/13/24 History aerosol inhaler Of Breath multivitamin 1 tab PO DAILY 10/28/20 09/13/24 H istory oxybutynin chloride 5 mg 5 mg PO DAILY 10/28/20 09/13/24 Hi story tablet,extended release 24 hr pantoprazole 20 mg tablet,delayed 20 mg PO DAILY 10/28/20 09/13/24 History release simvastatin 10 mg tablet 10 mg PO QHS 10/28/20 09/13/24 His tory tamsulosin 0.4 mg capsule 0.8 mg PO DAILY 10/28/20 09/13/24 History lisinopril 10 mg tablet 10 mg PO DAILY 10/29/20 09/13/24 H istory mometasone-formoterol HFA 200 2 inh inhalation BID 10/29/2008/17 History mcg-5 mcg/actuation aerosol inhaler Ejection fraction %: 55 Have you fallen in the past year?: No PFSH Medical History (Reviewed 09/13/24 @ 11:32 by Dottie Jackson DIRECT MARKETING ANALYST, DIRECT MARKETING ANALYST-C) Coronary artery calcification 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 BPH (benign prostatic hyperplasia) Thyroid nodule Hiatal hernia Thrombocytopenia Obesity Hyperlipidemia Essential hypertension GERD (gastroesophageal reflux disease) Non-small cell cancer of left lung Surgical History (Reviewed 09/13/24 @ 11:32 by Dottie Jackson DIRECT MARKETING ANALYST, DIRECT MARKETING ANALYST-C) History of right heart catheterization (11/03/20) History of bronchoscopy (2016) History of lobectomy of lung (2007) Social History (Reviewed 09/13/24 @ 11:32 by Dottie Jackson DIRECT MARKETING ANALYST, DIRECT MARKETING ANALYST-C) Smoking Status: Former smoker alcohol intake: never substance use type: does not use ROS Const Const: Negative for fatigue, weakness, headache(s) or frequent falls Eyes Eyes: Negative for blurry vision ENT ENT: Negative for headache(s), dizziness or Nosebleed/epistaxis Cardio Chest Pain: No Palpitations: No Edema: None Muscle aches with walking: None Resp Respiratory: Positive for SOB with activity and SOB at rest; Negative for SOB orthopnea SOB lying down GI GI: Negative nausea, vomiting, heartburn, bright, red blood in stools or black,tarry stools : Negative for hematuria Neuro Neuro: Negative for dizziness, lightheadedness, near syncope, syncope, frequent falls, headache(s), weakness or blurry vision Endo Endo: Negative for fatigue Cardiology Exam Const Appearance: cooperative and no acute distress Nutritional Appearance: average body habitus Orientation: alert and oriented x3 Head Head: normal to inspection Ears: hearing grossly normal bilaterally Nose: external nose normal Face and Sinus: face symmetric Eyes General: appearance normal, both eyes and all related structures Eyelids: eyelids normal Conjunctivae: conjunctivae normal Pupils: PERRL and pupil size EOM: EOM intact bilaterally Neck Neck: normal visual inspection Carotids: Negative bruit Chest Chest inspection: normal inspection o (more content not included)... Normal [facility] CNOVon 09-03-2024 CNOV Office Visit (INTMWS ) -- JORGE RAMIRES ([id number]) 1940 M NFR Date Time Provider Department 09/03/24 12:40 PM TITO MACIAS INTMWS During your visit today, we recorded the following information about you: Pulse Respiration Blood pressure Weight 76/minute 24/minute 128/64 80.2 kg Tito Macias MD 09/03/2024 1:13 PM Signed This note was created using [email or web address]. Subjective Jorge Ramires is a 84 year old male. He had no new concerns. COPD, pulmonary hypertension, dyspnea on exertion, and oxygen dependency were stable. He still enjoyed going to the [employer]. His BPH was stable. Review of Systems Constitutional: Negative for appetite change and unexpected weight change. Respiratory: Negative for cough, chest tightness and wheezing. Cardiovascular: Negative for chest pain, palpitations and leg swelling. Genitourinary: Negative for difficulty urinating and dysuria. Neurological: Negative for dizziness. 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 Vaping Use Vaping status: Never Used Substance Use Topics Alcohol use: No Drug use: No Current Outpatient Medications Medication Sig ipratropium-albuterol (DUONEB) 0.5 mg-3 mg(2.5 mg base)/3 mL nebu Inhale 3 mL as instructed every 4 hours as needed for wheezing/shortness of breath. lisinopril (ZESTRIL) 10 mg tablet Take 1 tablet by mouth once daily. oxybutynin XL (DITROPAN XL) 5 mg 24 hr tablet Take 1 tablet by mouth once daily. Mirtazapine (REMERON) 7.5 mg tablet Take 1 tablet by mouth daily at bedtime. pantoprazole DR (PROTONIX) 20 mg tablet Take 1 tablet by mouth once daily. simvastatin (ZOCOR) 10 mg tablet Take 1 tablet by mouth daily at bedtime. tamsulosin (FLOMAX) 0.4 mg Take 2 capsules by mouth once daily. fluticasone-salmeterol (WIXELA INHUB) 250-50 mcg/dose inhaler Inhale 1 Puff as instructed two times a day. Nebulizer Accessories kit Provide 1 kit. Mucus Clearing Device wilmar Provide 1 device albuterol HFA (PROVENTIL HFA, VENTOLIN HFA) 90 mcg/actuation inhaler Inhale 2 Puffs as instructed four times daily as needed. FOR WHEEZING AND SHORTNESS OF BREATH. THERAPEUTIC MULTIVIT/MINERAL TAB Take one(1) tablet daily. Current Facility-Administered Medications Medication Dose Route Frequency ipratropium-albuterol 3 mL nebulizer solution (DUONEB) 3 mL INHALATION q 4 H PRN Objective BP 128/64 (BP Site: Right Arm, BP Position: Sitting, BP Cuff Size: Large Adult) Pulse 76 Resp 24 Wt 80.2 kg (176 lb 12.9 oz) BMI 25.37 kg/m? Physical Exam Constitutional: General: He is not in acute distress. Cardiovascular: Rate and Rhythm: Normal rate and regular rhythm. Heart sounds: No murmur heard. No gallop. Pulmonary: Effort: No respiratory distress. Breath sounds: No wheezing or rales. Comments: On portable O2 via NC. Abdominal: General: There is no distension. Musculoskeletal: Right lower leg: No edema. Left lower leg: No edema. Neurological: General: No focal deficit present. Mental Status: He is alert. Assessment and Plan 1. Hyperlipidemia, unspecified hyperlipidemia type - ICD9: 272.4, ICD10: E78.5 (primary diagnosis) - Controlled - Continue current medications - COMPREHENSIVE METABOLIC PANEL - LIPID PANEL, FASTING 2. BPH with obstruction/lower urinary tract symptoms - ICD9: 600.01, 599.69, ICD10: N40.1, N13.8 - Controlled. - TAMSULOSIN 0.4 MG CAPSULE 3. Essential hypertension, benign - ICD9: 401.1, ICD10: I10 - Controlled - Continue current medications - COMPLETE BLOOD COUNT 4. Idiopathic pulmonary fibrosis (HCC) - ICD9: 516.31, ICD10: J84.112 - Stable. Continue current treatments. 5. Secondary pulmonary arterial hypertension (HCC) - ICD9: 416.8, ICD10: I27.21 - Stable. Continue current treatments. Tito Macias MD Allergies As of Date: 09/03/2024 (No Known Allergies) Date Reviewed: 09/03/2024 Reviewed by: Vane Barnes LPN - Fully Assessed Reason for Visit: F/U 6 months [1177] Primary Visit Diagnosis:Hyperlipi (more content not included)... Normal [facility] CNOVon 04-23-2024 CNOV Office Visit (PULMWS ) -- JORGE RAMIRES ([id number]) 1940 M NFR Date Time Provider Department 04/23/24 12:45 PM HERMELINDA COPELAND PULMWS During your visit today, we recorded the following information about you: Weight 77.1 kg Hermelinda Copeland MD 04/23/2024 7:31 PM Signed . [facility] Note Patient name: Jorge Ramires PCP: Tito Macias MD CC: follow-up IPF/COPD HPI: Jorge Ramires 84 year old male former 24 pack year smoker with PMH significant for CPFE, h/o lung cancer, CAD, HTN, HLD, chronic hypoxemic respiratory failure. He had previously been on OFEV but had to discontinue due to intolerable side effects. At [facility] with CHRISTINE he had been admitted to [facility] with exacerbation of bronchiectasis. Sputum positive for Serratia marcescens, treated with Levaquin. He is doing much better. Not coughing as much, rare yellow mucus. Using acapella every day along with nebulized treatments. Has baseline dyspnea. No wheezing. No other new medical issues. PAST MEDICAL HISTORY Diagnosis Date Benign neoplasm of colon Centrilobular emphysema (HCC) 12/29/2020 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[facility] [facility] COPD with chronic bronchitis (HCC) 12/29/2020 Coronary artery disease Erectile dysfunction 03/13/2010 Esophageal reflux Essential hypertension, benign 09/06/2012 Ganglion and cyst of synovium, tendon and bursa 03/22/2013 Hematospermia 01/17/2006 Hiatal hernia 06/04/2013 HYPERLIPIDEMIA NEC/NOS 01/19/2005 HYPERTROPHY PROSTATE WITH OBST 01/17/2006 Hypoalbuminemia due to protein-calorie malnutrition (HCC) 09/17/2021 Idiopathic pulmonary fibrosis (HCC) 07/02/2015 Obesity, Class I, BMI 30-34.9 10/10/2017 PERS HX BRONCHOGENIC MALIGNAN 04/09/2008 Personal history of colonic polyps Colon polyps Pulmonary fibrosis (HCC) 07/02/2015 Pure hypercholesterolemia Secondary pulmonary arterial hypertension (HCC) 02/12/2022 Furosemide. [facility]. Thyroid nodule greater than or equal to 1 cm in diameter incidentally noted on imaging study 12/18/2019 ALLERGIES No Known Allergies Mirtazapine (REMERON) 7.5 mg tabletTake 1 tablet by mouth daily at bedtime.Disp: 90 tabletRfl: [address] (PROTONIX) 20 mg tabletTake 1 tablet by mouth once daily.Disp: 90 tabletRfl: 3 simvastatin (ZOCOR) 10 mg tabletTake 1 tablet by mouth daily at bedtime.Disp: 90 tabletRfl: 3 tamsulosin (FLOMAX) 0.4 mgTake 2 capsules by mouth once daily.Disp: 180 capsuleRfl: 3 fluticasone-salmeterol (WIXELA INHUB) 250-50 mcg/dose inhalerInhale 1 Puff as instructed two times a day.Disp: Rfl: lisinopril (ZESTRIL) 10 mg tabletTake 1 tablet by mouth once daily.Disp: 90 tabletRfl: 3 oxybutynin XL (DITROPAN XL) 5 mg 24 hr tabletTake 1 tablet by mouth once daily.Disp: 90 tabletRfl: 3 ipratropium-albuterol (DUONEB) 0.5 mg-3 mg(2.5 mg base)/3 mL nebuInhale 3 mL as instructed every 4 hours as needed for wheezing/shortness of breath.Disp: 120 EachRfl: 5 Nebulizer Accessories kitProvide 1 kit.Disp: 1 EachRfl: 5 Mucus Clearing Device deviProvide 1 deviceDisp: 1 EachRfl: 0 albuterol HFA (PROVENTIL HFA, VENTOLIN HFA) 90 mcg/actuation inhalerInhale 2 Puffs as instructed four times daily as needed. FOR WHEEZING AND SHORTNESS OF BREATH.Disp: 1 InhalerRfl: 3 THERAPEUTIC MULTIVIT/MINERAL TABTake one(1) tablet daily.Disp: otcRfl: 0 Social History Tobacco Use Smoking status: Former Current packs/day: 0.00 Average packs/day: 1 pack/day for 24.0 years (24.0 ttl pk-yrs) Types: Cigarettes Start date: 06/24/1957 Quit date: 04/18/1981 Years since quittin.0 Smokeless tobacco: Never Tobacco comments: No smoking in childhood home. Vaping Use Vaping status: Never Used Substance Use Topics Alcohol use: No Drug use: No PMH, Social history, family history and surgical history reviewed and updated in EMR REVIEW OF SYSTEMS: CONSTITUTIONAL: No fevers, chills, nightsweats, unintended weight loss CARDIOVASCULAR: No chest pain, palpitations, edema. PULM: See HPI GI: No nausea or diarrhea : No new urinary complaints NEURO: No falls INTEGUMENTARY: No new skin changes PHYSICAL EXAMINATION: Wt 170 lb (77.1kg) BP 122/70, pulse 91, RR 14, SpO2 96% on room air General Appearance: Elderly male, NAD. Skin: Skin color, no suspicious rashes or lesions. Dry skin Head: Normocephalic, no masses, lesions, tenderness or abnormalities. Oropharynx: No oral lesions. Neck: No masses or adenopathy Chest wall: Kyphosis. Lungs: Not labored, normal to percussion, crackles right base and scattered rhonchi on the left. Heart: Regular rate and rhythm, no murmurs. Extremities: No significant edema, no clubbing. Assessment/Plan: 1. Combined pulmonary fibrosis emphysema -Overall improvement since stopping OFEV. Good appetite and no dehydration -He will remain off antifibrotic therapy -Contin (more content not included)... Normal [facility] Surgery Visit Reporton 03-14 Surgery Visit Report [facility] [address] [place] [address] OFFICE VISIT Date of Service: 03/14/24 MR#: [id number] Acct: [id number] Name: JORGE RAMIRES Rep #: [id number] : 1940 Provider: Dr. Kirstin cespedes MD Age/Sex: 83/M Location: [facility] Status: Signed Intake Vital Signs 01/09/24 13:31 02/23/24 11:20 Height 5 ft 10 in 5 ft 10 in Intake Visit Reasons: THYROID RECALL Chief Complaint: thyroid recall Is patient in pain?: No Allergies No Known Allergies Allergy (Verified 03/14/24 10:09) Medications ???Medication ???Instructions ???Recorded ???Confirmed ???Type albuterol sulfate 90 mcg/actuation 2 inh inhalation Q6H PRN Shortness 10/28/20 03/14/24 History aerosol inhaler Of Breath multivitamin 1 tab PO DAILY 10/28/20 03/14/24 History oxybutynin chloride 5 mg 5 mg PO DAILY 10/28/20 03/14/24 History tablet,extended release 24 hr pantoprazole 20 mg tablet,delayed 20 mg PO DAILY 10/28/20 03/14/24 History release simvastatin 10 mg tablet 10 mg PO QHS 10/28/20 03/14/24 History tamsulosin 0.4 mg capsule 0.8 mg PO DAILY 10/28/20 03/14/24 History lisinopril 10 mg tablet 10 mg PO DAILY 10/29/20 03/14/24 History mometasone-formoterol HFA 200 2 inh inhalation BID 10/29/20 03/14/24 History mcg-5 mcg/actuation aerosol inhaler Have you fallen in the past year?: No PFSH Medical History Coronary artery calcification 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 BPH (benign prostatic hyperplasia) Thyroid nodule Hiatal hernia Thrombocytopenia Obesity Hyperlipidemia Essential hypertension GERD (gastroesophageal reflux disease) Non-small cell cancer of left lung Surgical History History of right heart catheterization (11/03/20) History of bronchoscopy (2016) History of lobectomy of lung (2007) Social History Smoking Status: Former smoker alcohol intake: never substance use type: does not use HPI HPI HPI: Patient is a 83-year-old gentleman who presents for evaluation of a thyroid nodule. Patient last seen in initial consultation visit 06/28/2023. He reports that he is health???[place] stable and, specifically, denies any symptoms of new dry cough, swallowing difficulty, or globus sensation. He completed a interval thyroid ultrasound earlier this month that showed a shrinking right-sided TI- RADS 4 nodule (previously rated TI-RADS 5) which now measures 0.8 x 0.8 x 0.8 cm. Below is recapitulated from patient's consultation visit for ease of review: Patient is a 83-year-old gentleman who presents for evaluation of a thyroid nodule. They are referred for surgical consultation from Dr. Macias. This was discovered during a recent physical exam and followed up with ultrasound. Patient does suggest that he has known for some time of a prior nodule but this was unchanged during surveillance. Mr. Ramires reports that he initially met with Dr. Navarro of general surgery who performed an ultrasound and then an ultrasound???guided fine-needle aspiration of the nodule in question. He shares that Dr. Navarro informed him that he had bad news and that he did not get results. Patient was told that he would not have necessarily changed his technique, but did recommend evaluation by another surgeon and initially recommended somebody further from home. It was Mr. Ramires's insistence to stay locally. They do not experience difficulty with swallowing. They do not complain of a new cough but do experience a chronic cough related to a diagnosis of COPD. They do not appreciate new voice changes, but do confirm a history of chronic hoarseness has been present for many years. They do not have a history of snoring/sleep apnea. Additionally, their weight has been slowly increasing after a weight loss related to pneumonia 2 chin ago. There is no history of recent fatigue. They do not have a history of heat or cold intolerance. Other symptoms include: No history of palpitations or sweating irregularity. They do not have a family history of thyroid disorders or endocrinopathies. There is no history of prior radiation exposure. Previous work-up has included thyroid ultrasound. This study was performed on 03/11/2023 and showed a right thyroid lobe measuring 3.7 x 2.1 x 2.3 cm. Within this lobe radiology identified a single nodule measuring 1.0 x 1.1 x 1.2 cm that was rated a TI-RADS 5 due to solid composition, hypoechoic echogenicity, and shape (taller greater than wide) in the mid pole of the lobe. The left thyroid lobe measured 3.5 x 1.9 x 1.1 cm. Within this lobe radiology identified did not comment on any additional (more content not included)... Normal [facility] CNOVon 03-06-2024 CNOV Office Visit (INTMWS ) -- RAMIRESJORGE ([id number]) 1940 M [facility] Date Time Provider Department 03/06/24 10:20 AM TITO MACIAS INTMWS During your visit today, we recorded the following information about you: Temperature Pulse Blood pressure Weight 97.8 degrees 88/minute 120/70 77.3 kg Tito Macias MD 03/07/2024 1:48 PM Signed Jorgeben Ramires is a 83 year old male here for a Medicare wellness visit. Medicare Health Risk Assessment General Health Good Exercise: Minutes/Day 10 min Exercise: Days/Week 7 days Alcohol: Daily Use Never Alcohol: Drinks/Day Patient does not drink Alcohol: 6 or more drinks Never Feel off balance No Concerns: Teeth/Dentures No Concerns: Sexual function No Troubled by feelings None of the above Frequency: Eating healthy diet Several days ADLs requiring help Grocery shopping; Cooking Safety precautions in home/vehicle Yes Smoke, vape, chews tobacco No Difficulty hearing Yes, I wear a hearing aid Difficulty seeing No Current Providers Specialists: I have reviewed specialist-related care of the patient in the medical record. Current care team: Patient Care Team: Tito Macias MD as PCP - General (Internal Medicine) Outside specialists seen: Dr. Shen. Joey, pulmonary. Dr. Noah Rajput, Heart Group. Dr. Donnie Small, Ophthalmology. Dr. Kirstin Shields, [place] surgery. Dr. Luisa Rizzo, [place], [place]. [place]. [place]. Medical/Family history review Reviewed and updated problem list, medical/surgical/family/so cial history, medications, and allergies. Opioid use review Opioid Medications (last 90 days) No data to display Anxiety/Depression screening PHQ-2 Score: 0 (Lower risk for depression) ARPITA-2 Score: 0 (Lower risk for anxiety) Recommendation: no further intervention at this time Cognitive screening Mini Cog Score: 3 Cognitive screening reviewed and No further action needed (score 3-5). Functional Observation Was the patient's Timed Up AND Go test unsteady or >= 12 seconds? No Advance Care Planning Patient was not able to provide a surrogate decision maker or written advance directives Measurements BP 120/70 (BP Site: Left Arm, BP Position: Sitting, BP Cuff Size: Large Adult) Pulse 88 Temp 36.6 ?C (97.8 ?F) (Temporal) Wt 77.3 kg (170 lb 6.7 oz) SpO2 96% BMI 24.45 kg/m? Vision Screening: Follows with optometry/ophthalmology Right: 20/40 Left: 20/ 30 Both: 20/25 Assessment/Plan Medicare annual wellness visit, subsequent (Z00.00) - Counseled on healthy diet and regular exercise - Fall avoidance information provided - Personalized prevention plan provided Tito Macias MD 03/06/2024 10:56 AM Signed Screening schedule The following prevention plan is recommended: Depression Screening Never done Anxiety Screening Never done Advance Directive Discussion due on 04/18/2023 WHAT YOU CAN DO TO PREVENT FALLS Many falls can be prevented. By making some changes, you can lower your chances of falling. Four things YOU can do to prevent falls for you* and your caregiver 1. Begin a regular exercise program Exercise is one of the most important ways to lower your chances of falling. It makes you stronger and helps you feel better. Exercises that improve balance and coordination (like [place] Chi) are the most helpful. Lack of exercise leads to weakness and increases your chances of falling. Ask your doctor or health care provider about the best type of exercise program for you. 2. Have your health care provider review your medicines Have your doctor or pharmacist review all the medicines you take, even [id number] medicines. As you get older, the way medicines work in your body can change. Some medicines, or combinations of medicines, can make you sleepy or dizzy and can cause you to fall. 3. Have your vision checked Have your eyes checked by an eye doctor at least once a year. You may be wearing the wrong glasses or have a condition like glaucoma or cataracts that limits your vision. Poor vision can increase your chances of falling. 4. Make your home safer About half of all falls happen at home. To make your home safer: Remove things you can trip over (like papers, books, clothes, and shoes) from stairs and places where you walk. Remove small throw rugs or use double-sided tape to keep the rugs from slipping. Keep items you use often in cabinets you can reach easily without using a step stool. Have grab bars put in next to your toilet and in the tub or shower. Use non-slip mats in the bathtub and on shower floors. Improve the lighting in your home. As you get older, you need brighter lights to see well. Hang light-weight curtains or shades to reduce glare. Have handrails and lights put in on all staircases. Wear shoes both inside and outside the house (more content not included)... Normal [facility] BNP,B-Type NATRIURETIC PEPTI Bety 02-23-2024 Natriuretic peptide B (Bld) [Mass/Vol] 38.5 pg/mL Normal 0-100 [facility] Comment on above: Performed By: #### L 503.6620, L500.2500, L100.0100 #### [facility] [address] [place], [address] Basic Metabolic Profile (BMP )on 02-23-2024 BUN/CRE 53.7 RATIO High 10-20 [facility] Comment on above: Performed By: #### L 503.6620, L500.2500, L100.0100 #### [facility] [address] [place], [address] CA,Total 9.3 mg/dL Normal 8.5-10.1 [facility] Comment on above: Performed By: #### L 503.6620, L500.2500, L100.0100 #### [facility] [address] [place], [address] Chloride [Moles/Vol] 107 mmol/L Normal 98-107 [facility] Comment on above: Performed By: #### L 503.6620, L500.2500, L100.0100 #### [facility] [address] [place], [address] CO2 [Moles/Vol] 33.0 mmol/L High 21.0-32.0 [facility] Comment on above: Performed By: #### L 503.6620, L500.2500, L100.0100 #### [facility] [address] [place], [address] Creatinine [Mass/Vol] 0.67 mg/dL Low 0.70-1.30 [facility] Comment on above: Result Comment: The validity of the calculated GFR GFRAA in patients over 70 years has not been determined. Clinical correlation is essential. Performed By: #### L 503.6620, L500.2500, L100.0100 #### [facility] [address] [place], [address] EST GFR - AA 145 mL/min Normal >60 [facility] Comment on above: Result Comment: Afri can [place] GFR Calc Performed By: #### L 503.6620, L500.2500, L100.0100 #### [facility] [address] [place], [address] GAP 2 Low 5-15 [facility] Comment on above: Performed By: #### L 503.6620, L500.2500, L100.0100 #### [facility] [address] [place], [address] GFR/1.73 sq M.predicted among non-blacks MDRD (S/P/Bld) [Vol rate/Area] 120 mL/min/{1.73_m2} Normal >60 [facility] Comment on above: Result Comment: Non- GFR Calc Performed By: #### L 503.6620, L500.2500, L100.0100 #### [facility] [address] [place], [address] Glucose [Mass/Vol] 98 mg/dL Normal 74-106 [facility] Comment on above: Performed By: #### L 503.6620, L500.2500, L100.0100 #### [facility] [address] [place], [address] Potassium [Moles/Vol] 3.9 mmol/L Normal 3.5-5.1 [facility] Comment on above: Performed By: #### L 503.6620, L500.2500, L100.0100 #### [facility] [address] [place], [address] Sodium [Moles/Vol] 141 mmol/L Normal 136-145 [facility] Comment on above: Performed By: #### L 503.6620, L500.2500, L100.0100 #### [facility] [address] [place], [address] Urea nitrogen [Mass/Vol] 36 mg/dL High 7-18 [facility] Comment on above: Performed By: #### L 503.6620, L500.2500, L100.0100 #### [facility] [address] [place], [address] CBC W/Diff, Automatedon 11-0 7-4 Absolute Lymph 0.79 X10 3/uL Low 0.83-4.51 [facility] Comment on above: Performed By: #### L 503.6620, L500.2500, L100.0100 #### [facility] [address] [place], [address] Absolute Neut 3.8 X10 3/uL Normal 2.0-7.7 [facility] Comment on above: Performed By: #### L 503.6620, L500.2500, L100.0100 #### [facility] [address] [place], [address] Basophils/100 WBC (Bld) 0.9 % Normal 0-1 [facility] Comment on above: Performed By: #### L 503.6620, L500.2500, L100.0100 #### [facility] [address] [place], [address] Eosinophils/100 WBC (Bld) 11.5 % High 0-5 [facility] Comment on above: Performed By: #### L 503.6620, L500.2500, L100.0100 #### [facility] [address] [place], [address] Erythrocyte distribution width (RBC) [Ratio] 13.1 % Normal 11.6-14.6 [facility] Comment on above: Performed By: #### L 503.6620, L500.2500, L100.0100 #### [facility] [address] [place], [address] Hematocrit (Bld) [Volume fraction] 43.5 % Normal 40-54 [facility] Comment on above: Performed By: #### L 503.6620, L500.2500, L100.0100 #### [facility] [address] [place], [address] Hemoglobin (Bld) [Mass/Vol] 13.4 g/dL Normal 13.0-16.5 [facility] Comment on above: Performed By: #### L 503.6620, L500.2500, L100.0100 #### [facility] [address] [place], [address] IG% 0.400 Normal 0.0-0.9 [facility] Comment on above: Result Comment: IG% - Immature Granulocytes (promyelocytes, myelocytes and metamyelocytes) > 1% indicates that a LEFT SHIFT is Present. Performed By: #### L 503.6620, L500.2500, L100.0100 #### [facility] [address] [place], [address] Lymphocytes/100 WBC (Bld) 14.0 % Low 19-41 [facility] Comment on above: Performed By: #### L 503.6620, L500.2500, L100.0100 #### [facility] [address] [place], [address] MCH (RBC) [Entitic mass] 27.5 pg Normal 27.0-32.0 [facility] Comment on above: Performed By: #### L 503.6620, L500.2500, L100.0100 #### [facility] [address] [place], [address] MCHC (RBC) [Mass/Vol] 30.8 g/dL Low 32-36 [facility] Comment on above: Performed By: #### L 503.6620, L500.2500, L100.0100 #### [facility] [address] [place], [address] MCV (RBC) [Entitic vol] 89.3 fL Normal 80-94 [facility] Comment on above: Performed By: #### L 503.6620, L500.2500, L100.0100 #### [facility] [address] [place], [address] Monocytes/100 WBC (Bld) 5.8 % Normal 0-10 [facility] Comment on above: Performed By: #### L 503.6620, L500.2500, L100.0100 #### [facility] [address] [place], [address] Neutrophils/100 WBC (Bld) 67.4 % Normal 47-70 [facility] Comment on above: Performed By: #### L 503.6620, L500.2500, L100.0100 #### [facility] [address] [place], [address] Nucleated RBC (Bld) [#/Vol] 0 10*3/uL Normal 0-5 [facility] Comment on above: Performed By: #### L 503.6620, L500.2500, L100.0100 #### [facility] [address] [place], [address] Platelet mean volume (Bld) [Entitic vol] 10.3 fL Normal 6.2-12.0 [facility] Comment on above: Performed By: #### L 503.6620, L500.2500, L100.0100 #### [facility] [address] [place], [address] Platelets (Bld) [#/Vol] 197 10*3/uL Normal 150-450 [facility] Comment on above: Performed By: #### L 503.6620, L500.2500, L100.0100 #### [facility] [address] [place], [address] RBC (Bld) [#/Vol] 4.87 10*6/uL Normal 4.6-6.2 [facility] Comment on above: Performed By: #### L 503.6620, L500.2500, L100.0100 #### [facility] [address] [place], [address] RDW SD 42.4 fl Normal 35.1-43.9 [facility] Comment on above: Performed By: #### L 503.6620, L500.2500, L100.0100 #### [facility] [address] [place], [address] WBC (Bld) [#/Vol] 5.7 10*3/uL Normal 4.4-11.0 [facility] Comment on above: Performed By: #### L 503.6620, L500.2500, L100.0100 #### [facility] [address] [place], [address] Cardiology Visit Reporton Cardiology Visit Report [facility] [address] [place] [address] OFFICE VISIT Date of Service: 02/23/24 MR#: [id number] Acct: [id number] Name: JORGE RAMIRES Rep #: [id number] : 1940 Provider: MANOJ bueno Age/Sex: 83/M Location: [facility] Status: Signed HPI HPI History of Present Illness Details: This is a 83-year-old man who presents to the office today for a cardiovascular visit. 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 He had an echocardiogram performed in August of 2020 which demonstrated an ejection fraction of 62%, the right ventricle was mildly dilated, right ventricular function was normal, the estimated right ventricular systolic pressure was estimated to be 55mmhg. From a cardiac standpoint, the patient is doing well. He denies any palpitations, chest pain, pressure or heaviness. He does have SOB with exertion, and at rest. This is worsening. He does wear 5L of Oxygen via NC. He does sleep in a recliner. He denies Orthopnea, and PND. He does not have bleeding issues; no blood in urine, stool or nosebleeds. He does acknowledge chronic fatigue. He denies myalgias, or claudication. He does not have edema, or sudden weight gain. He denies dizziness, lightheadedness, syncopal or near syncopal episodes. He does acknowledge headaches, and will be following up with his PCP for this. Intake Vital Signs 08/03/23 11:02 01/09/24 13:31 02/23/24 11:19 02/23/24 11:20 Height 5 ft 10 in 5 ft 10 in 5 ft 10 in 5 ft 10 in Weight: 163 lb BMI 23.3 BP 128/69 H Blood Pressure Location Lt brachial Position Sitting Respiration 18 Pulse 88 Pulse Source Monitor Pulse Oximetry (%) 90 Oxygen Delivery Method nasal canula Oxygen Flow Rate (L/min) 5 Intake Visit Reasons: 6-9 M Carder Blankets Required: No Is patient in pain?: No Allergies No Known Allergies Allergy (Verified 02/23/24 11:35) Medications ???Medication ???Instructions ???Recorded ???Confirmed ???Type albuterol sulfate 90 mcg/actuation 2 inh inhalation Q6H PRN Shortness 10/28/20 02/23/24 History aerosol inhaler Of Breath multivitamin 1 tab PO DAILY 10/28/20 02/23/24 History oxybutynin chloride 5 mg 5 mg PO DAILY 10/28/20 02/23/24 History tablet,extended release 24 hr pantoprazole 20 mg tablet,delayed 20 mg PO DAILY 10/28/20 02/23/24 History release simvastatin 10 mg tablet 10 mg PO QHS 10/28/20 02/23/24 History tamsulosin 0.4 mg capsule 0.8 mg PO DAILY 10/28/20 02/23/24 History lisinopril 10 mg tablet 10 mg PO DAILY 10/29/20 02/23/24 History mometasone-formoterol HFA 200 2 inh inhalation BID 10/29/20 02/23/24 History mcg-5 mcg/actuation aerosol inhaler Have you fallen in the past year?: No PFSH Medical History (Reviewed 02/23/24 @ 11:35 by Dottie Jackson DIRECT MARKETING ANALYST, DIRECT MARKETING ANALYST-C) Coronary artery calcification 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 BPH (benign prostatic hyperplasia) Thyroid nodule Hiatal hernia Thrombocytopenia Obesity Hyperlipidemia Essential hypertension GERD (gastroesophageal reflux disease) Non-small cell cancer of left lung Surgical History (Reviewed 02/23/24 @ 11:35 by Dottie Jackson DIRECT MARKETING ANALYST, DIRECT MARKETING ANALYST-C) History of right heart catheterization (11/03/20) History of bronchoscopy (2016) History of lobectomy of lung (2007) Social History (Reviewed 02/23/24 @ 11:35 by Dottie Jackson DIRECT MARKETING ANALYST, DIRECT MARKETING ANALYST-C) Smoking Status: Former smoker alcohol intake: never substance use type: does not use ROS Const Const: Positive for fatigue (chronic) and headache(s); Negative for weakness, fever(s), chills, frequent falls, weight gain or weight loss Eyes Eyes: Negative for blind spots, loss of peripheral vision, transient loss of vision, blurry vision, change in vision, double vision, floaters or tunnel vision ENT ENT: Positive for headache(s); Negative for dizziness, Nosebleed/epistaxis, balance problems or neck pain Cardio Chest Pain: No Palpitations: No Edema: None Muscle aches with walking: None Resp Respiratory: Positive for SOB with activity and SOB at rest; Negative for SOB orthopnea SOB lying down Additional Details: Wears Oxygen 5L GI GI: Negative nausea, vomiting, heartburn, bloating, vomiting blood/hematemesis, bright, red blood in stools or black,tarry stools Musc Musc: Negative for muscle aches/ myalgia, muscle weakness, joint pain or balance problems Neuro Neuro: Positive for headache(s); Negative for dizziness, lightheadedness, near syncope, syncope, orthostatic symptoms, frequent falls, weakness, blurry vision or double vision Zackary Hematologic/Lymphatic: Negative for easy bleeding or easy bruising Endo Endo: Positive for fatigue (more content not included)... Normal [facility] Thyroidon 02-20-2024 Thyroid [facility] Imaging Services [address] [place] [address] Thyroid MR#: [id number] Acct: [id number] Name: JORGE RAMIRES Rep #: [id number] : [id number] M 83 From: Chemo Tilley MD PCP: Dr. Tito Macias MD Status: REG CLI Study: Thyroid Date of Exam: 02/20/24 Exam# [id number] Ordering Dr: Kirstin Shields MD [id number] STUDY: THYROID ULTRASOUND REASON FOR EXAM: Male, 83 years old. follow up nodule TECHNIQUE: Ultrasound evaluation of the thyroid was performed with real-time and static morocho-scale imaging. COMPARISON: 03/11/2023 FINDINGS: RIGHT LOBE: The right lobe of the thyroid gland measures 5.0 x 2.4 x 2.1 cm. There is a homogeneous echotexture. Nodule 1: Shrinking (8 x 8 x 8 mm from 10 x 10 x 12 mm) solid hypoechoic wider than tall smoothly marginated nodule with no echogenic foci (TR 4) in the lateral right lobe consistent with an adenoma. LEFT LOBE: The left lobe of the thyroid gland measures 4.8 x 1.8 x 1.8 cm. There is a homogeneous echotexture. There are no demonstrated solid, cystic or complex lesions. ISTHMUS: The isthmus measures . The regional lymph nodes are normal. US/Thyroid IMPRESSION: Shrinking adenoma in the right lobe. Electronically Signed: Chemo Tilley MD at 10:25 EST , CC: Dr. Kirstin Shields MD; Dr. Tito Macias MD Clod Puller: Signed Normal [facility] XR CHEST 2V FRONTAL/LATon [facility] XR Chest PA and Lateralon IMPRESSION: Stable chest Clod Puller: ANASTACIA Transcribe Date/Time: Mar 07 2023 11:28A Dictated by : EUN REID MD This examination was interpreted and the report reviewed and electronically signed by: EUN ERID MD on Mar 07 2023 11:29AM EST DIVISION OF RADIOLOGY * * *Final Report* * * DATE OF EXAM: Mar 07 2023 11:11AM WOX 5291 - XR CHEST 2V FRONTAL/LAT / PROCEDURE REASON: multiple diagnoses * * * * Physician Interpretation * * * * EXAMINATION: CHEST RADIOGRAPH (2 VIEW FRONTAL & LATERAL) CLINICAL HISTORY: Viral illness Acute cough MQ: XC2_6 EXAM DATE/TIME: 03/07/2023 11:11 AM COMPARISON: 12/02/2022 RESULT: Lines, tubes, and devices: None. Lungs and pleura: Bilateral interstitial lung disease likely related to known pulmonary fibrosis, superimposed infectious process not excluded. Stable elevation of the left hemidiaphragm. No pneumothorax. Cardiomediastinal silhouette: Normal cardiomediastinal silhouette. Bones and soft tissues: Unremarkable. DIVISION OF RADIOLOGY Provider, [facility] - 03/07/2023 * * *Final Report* * * DATE OF EXAM: Mar 07 2023 11:11AM WOX 5291 - XR CHEST 2V FRONTAL/LAT / PROCEDURE REASON: multiple diagnoses * * * * Physician Interpretation * * * * EXAMINATION: CHEST RADIOGRAPH (2 VIEW FRONTAL & LATERAL) CLINICAL HISTORY: Viral illness Acute cough MQ: XC2_6 EXAM DATE/TIME: 03/07/2023 11:11 AM COMPARISON: 12/02/2022 RESULT: Lines, tubes, and devices: None. Lungs and pleura: Bilateral interstitial lung disease likely related to known pulmonary fibrosis, superimposed infectious process not excluded. Stable elevation of the left hemidiaphragm. No pneumothorax. Cardiomediastinal silhouette: Normal cardiomediastinal silhouette. Bones and soft tissues: Unremarkable. IMPRESSION IMPRESSION: Stable chest Clod Puller: PSCLoretta Transcribe Date/Time: Mar 07 2023 11:28A Dictated by : EUN REDI MD This examination was interpreted and the report reviewed and electronically signed by: EUN REID MD on Mar 07 2023 11:29AM EST [facility] Radiology Study observation (narrative) [facility] XR Chest PA and LateralOrder ed By: Ccf Provider on 03-07-2023 [facility] COVID & INFLUENZA A/B & RSV NAAT, ROUTINEon 03-06-2023 FLUAV RNA PAU+probe Ql (Unsp spec) Not detected Not Detected [facility] FLUBV RNA PAU+probe Ql (Unsp spec) Not detected Not Detected [facility] RSV A RNA PAU+probe Ql (Unsp spec) Not detected Not Detected [facility] SARS-CoV-2 (COVID-19) RNA PAU+probe Ql (Resp) Not detected See comment [facility] LUNG VOLUMESon 12-02-2022 [facility] No Panel Informationon 12-02 [facility] SPIROMETRY WITH DILATOR IF O BSTRUCTEDon 12-02-2022 ERV BOX (L) 0.92 L [facility] GMD40-57% PRE (L/S) 1.59 L/S [facility] FEV1 PRE (L) 1.53 L [facility] FEV1/FVC PRE (%) 81 % [facility] FRC Box (L) 2.64 L [facility] FVC PRE (L) 1.88 L [facility] IC BOX (L) 0.87 L [facility] PEF PRE (L/S) 3.49 L/S [facility] RV Box (L) 1.72 L [facility] RV/TLC Box (%) 49 % [facility] TLC Box (L) 3.54 L [facility] VC (L) BOX 1.86 L [facility] XR CHEST 2V FRONTAL/LATon [facility] No Panel Informationon 04-08 [facility] CNPNon 11-05-2021 CNPN Telephone (FVMARIA DOLORESD) -- JORGE RAMIRES ([id number]) 1940 M NFR Date Time Provider Department 11/05/21 KEILA MCFARLAND During your visit today, we recorded the following information about you: Allergies As of Date: 11/05/2021 (No Known Allergies) Date Reviewed: 10/01/2021 Reviewed by: Jose R Spicer MD - Fully Assessed Reason for Visit: error [307] Prescriptions as of 04/07/2022 - ondansetron (ZOFRAN) 4 mg tablet Take one tablet 30 minutes prior to OFEV and every 8 hours as needed for nausea - ondansetron (ZOFRAN) 4 mg tablet Take one tablet 30 minutes prior to OFEV and every 8 hours as needed for nausea - furosemide (LASIX) 40 mg tablet Take 1 tablet by mouth twice daily. From Dr. Rajput. Start taking one daily. - benzonatate (TESSALON PERLE) 100 mg capsule Take 1 capsule by mouth three times daily as needed for cough. - Nebulizer Accessories kit Provide 1 kit. - Mucus Clearing Device wilmar Provide 1 device - ipratropium-albuterol (DUONEB) 0.5 mg-3 mg(2.5 mg base)/3 mL nebu Inhale 3 mL as instructed every 6 hours as needed for wheezing/shortness of breath. - nintedanib (OFEV) 150 mg capsule Take 1 capsule by mouth every 12 hours. - pantoprazole DR (PROTONIX) 20 mg tablet Take 1 tablet by mouth once daily. - simvastatin (ZOCOR) 10 mg tablet Take 1 tablet by mouth daily at bedtime. - fluticasone-salmeterol (ADVAIR, WIXELA) 250-50 mcg/dose inhaler Inhale 1 Each as instructed twice daily. - guaiFENesin (MUCINEX) 600 mg 12 hr tablet Take 1 tablet by mouth twice daily. - lisinopril (ZESTRIL, PRINIVIL) 10 mg tablet Take 1 tablet by mouth once daily. - oxybutynin XL (DITROPAN XL) 5 mg 24 hr tablet Take 1 tablet by mouth once daily. - tamsulosin (FLOMAX) 0.4 mg Take 2 capsules by mouth once daily. - albuterol HFA (PROVENTIL HFA, VENTOLIN HFA) 90 mcg/actuation inhaler Inhale 2 Puffs as instructed four times daily as needed. FOR WHEEZING AND SHORTNESS OF BREATH. - Coenzyme Q10 100 mg ORAL Cap Take 1 capsule by mouth once daily. - aspirin(ADULT ASPIRIN EC LOW STRENGTH 81 MG TAB, DELAYED RELEASE) Take one(1) tablet daily. - naproxen sodium(ALEVE 220 MG TAB) Take one(1) tablet twice daily. - THERAPEUTIC MULTIVIT/MINERAL TAB Take one(1) tablet daily. 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] 01/17/2006 06/11/2014 ESOPHAGEAL REFLUX [K21.9] 08/20/2006 SEBORRHEIC DERMATITIS NOS [L21.9] 03/13/2007 Nonspecific (abnormal) findings on radiological*03/17/2007 06/12/2014 PERS HX BRONCHOGENIC MALIGNAN [Z85.118] 04/09/2008 Erectile dysfunction [N52.9] 03/13/2010 05/09/2017 Essential hypertension, benign [I10] 09/06/2012 Ganglion and cyst of synovium, tendon and bursa*03/22/2013 07/02/2015 Hiatal hernia [K44.9] 06/04/2013 Thrombocytopenia (HCC) [D69.6] 06/12/2014 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] 07/02/2015 Obesity, Class I, BMI 30-34.9 [E66.9] 10/10/2017 Thyroid nodule greater than or equal to 1 cm in*12/18/2019 Centrilobular emphysema (HCC) [J43.2] 12/29/2020 COPD with chronic bronchitis (HCC) [J44.9] 12/29/2020 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 Patient has symptoms of cough with yellow sputum production and more SOB than usual. Prescribed Cipro and prednisone, sent to [facility] per patient request. Keila Mcfarland APRN-[facility] Pulmonary Medicine 11/04/2021 Allergies As of Date: 11/04/2021 (No Known Allergies) Date Reviewed: 10/01/2021 Reviewed by: Jose R Spicer MD - Fully Assessed Reason for Visit: Orders [681] Order(s):predniSONE (DELTASONE) 20 mg tabletTake 2 tablets by mouth once daily for 6 days.Disp: 12 tabletRfl: 0 ciprofloxacin HCl (CIPRO) 500 mg tabletTake 1 tablet by mouth twice daily for 7 days.Disp: 14 tabletRfl: 0 Prescriptions as of 11/04/2021 - predniSONE (DELTASONE) 20 mg tablet Take 2 tablets by mouth once daily for 6 days. - ciprofloxacin HCl (CIPRO) 500 mg tablet Take 1 tablet by mouth twice daily for 7 days. - fluticasone-salmeterol (ADVAIR, WIXELA) 250-50 mcg/dose inhaler Inhale 1 Each as instructed twice daily. - guaiFENesin (MUCINEX) 600 mg 12 hr tablet Take 1 tablet by mouth twice daily. - lisinopril (ZESTRIL, PRINIVIL) 10 mg tablet Take 1 tablet by mouth once daily. - oxybutynin XL (DITROPAN XL) 5 mg 24 hr tablet Take 1 tablet by mouth once daily. - tamsulosin (FLOMAX) 0.4 mg Take 2 capsules by mouth once daily. - pantoprazole DR (PROTONIX) 20 mg tablet Take 1 tablet by mouth once daily. - simvastatin (ZOCOR) 10 mg tablet Take 1 tablet by mouth daily at bedtime. - albuterol HFA (PROVENTIL HFA, VENTOLIN HFA) 90 mcg/actuation inhaler Inhale 2 Puffs as instructed four times daily as needed. FOR WHEEZING AND SHORTNESS OF BREATH. - Coenzyme Q10 100 mg ORAL Cap Take 1 capsule by mouth once daily. - aspirin(ADULT ASPIRIN EC LOW STRENGTH 81 MG TAB, DELAYED RELEASE) Take one(1) tablet daily. - naproxen sodium(ALEVE 220 MG TAB) Take one(1) tablet twice daily. - THERAPEUTIC MULTIVIT/MINERAL TAB Take one(1) tablet daily. 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] 01/17/2006 06/11/2014 ESOPHAGEAL REFLUX [K21.9] 08/20/2006 SEBORRHEIC DERMATITIS NOS [L21.9] 03/13/2007 Nonspecific (abnormal) findings on radiological*03/17/2007 06/12/2014 PERS HX BRONCHOGENIC MALIGNAN [Z85.118] 04/09/2008 Erectile dysfunction [N52.9] 03/13/2010 05/09/2017 Essential hypertension, benign [I10] 09/06/2012 Ganglion and cyst of synovium, tendon and bursa*03/22/2013 07/02/2015 Hiatal hernia [K44.9] 06/04/2013 Thrombocytopenia (HCC) [D69.6] 06/12/2014 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 CIPROFLOXACIN 500 MG TABLET 14 t* 0 11/04/2021 11/11/2021 Route: ORAL Sig: Take 1 tablet by mouth twice daily for 7 days. Encounter Status:Closed by KEILA MCFARLAND on 11/04/21 [facility] Basophil percentageon 2021 Basophil percentage < 0.9 mg/dL 0.70-1.30 [facility] Work Phone: No Panel Informationon 10-02 Bedside Estimated GFR (eGFR) > 60.0000 mL/min >60 [facility] Work Phone: OXIMETRY WITH AMBULATIONon 0 10-01-2021 [facility] XR CHEST 2V FRONTAL/LATon [facility] No Panel Informationon 07-28 [facility] SPIROMETRY BASELINE ONLYon 0 07-28-2021 DLCO (ml/min/mmHg) 8.38 ml/min/mmHg [facility] DLCO/VA (ml/min/mmHg/L) 2.78 ml/min/mmHg/L [facility] ERV BOX (L) 0.89 L [facility] RWT05-02% PRE (L/S) 1.99 L/S [facility] FEV1 PRE (L) 1.69 L [facility] FEV1/FVC PRE (%) 0.82 % [facility] FRC Box (L) 1.91 L [facility] FVC PRE (L) 2.05 L [facility] IC BOX (L) 0.99 L [facility] PEF PRE (L/S) 5.01 L/S [facility] RV Box (L) 1.24 L [facility] RV/TLC Box (%) 41 % [facility] TLC Box (L) 3.05 L [facility] VA (L) 3.02 L [facility] VC (L) BOX 1.89 L [facility] No Panel Informationon 07-27 [facility] XR Finger - left AP and Late ral and obliqueon 06-16-2020 IMPRESSION: Refer to the result. Clod Puller: ANASTACIA Transcribe Date/Time: Jun 16 2020 2:54P Dictated by : HERMELINDA HUTCHINSON MD This examination was interpreted and the report reviewed and electronically signed by: HERMELINDA HUTCHINSON MD on Jun 16 2020 2:57PM [facility] DIVISION OF RADIOLOGY * * *Final Report* * * DATE OF EXAM: Jun 16 2020 2:45PM WOX 5318 - XR DIGIT 3V FRONTAL/LAT/OBL LT / PROCEDURE REASON: Swelling of left thumb * * * * Physician Interpretation * * * * EXAMINATION: XR DIGIT 3V FRONTAL/LAT/OBL LT CLINICAL HISTORY: Pt. states lump on Lt thumb DIP joint for 1 year. Lump keeps getting bigger. No injury. Swelling of left thumb Technique: XR DIGIT 3V FRONTAL/LAT/OBL LT -- LEFT hand 1st digit with 3 views on 3 images Comparison: None RESULT: No acute fracture or dislocation. There is narrowing of the 1st carpometacarpal, metacarpophalangeal and interphalangeal joints of the 1st digit with associated degenerative spurring and subchondral sclerotic changes. Prominent degenerative spurring is present at the distal interphalangeal joint with overlying soft tissue prominence. No radiopaque foreign body. DIVISION OF RADIOLOGY Provider, [facility] - 06/16/2020 * * *Final Report* * * DATE OF EXAM: Jun 16 2020 2:45PM WOX 5318 - XR DIGIT 3V FRONTAL/LAT/OBL LT / PROCEDURE REASON: Swelling of left thumb * * * * Physician Interpretation * * * * EXAMINATION: XR DIGIT 3V FRONTAL/LAT/OBL LT CLINICAL HISTORY: Pt. states lump on Lt thumb DIP joint for 1 year. Lump keeps getting bigger. No injury. Swelling of left thumb Technique: XR DIGIT 3V FRONTAL/LAT/OBL LT -- LEFT hand 1st digit with 3 views on 3 images Comparison: None RESULT: No acute fracture or dislocation. There is narrowing of the 1st carpometacarpal, metacarpophalangeal and interphalangeal joints of the 1st digit with associated degenerative spurring and subchondral sclerotic changes. Prominent degenerative spurring is present at the distal interphalangeal joint with overlying soft tissue prominence. No radiopaque foreign body. IMPRESSION IMPRESSION: Refer to the result. Clod Puller: ANASTACIA Transcribe Date/Time: Jun 16 2020 2:54P Dictated by : HERMELINDA HUTCHINSON MD This examination was interpreted and the report reviewed and electronically signed by: HERMELINDA HUTCHINSON MD on Jun 16 2020 2:57PM EST [facility] Radiology Study observation (narrative) [facility] XR Finger - left AP and Late ral and obliqueOrdered By: Ccf Provider on 06-16-2020 [facility] AFB Cult and Stainon 017 AFB Cult and Stain Smear Result - No ac id fast bacilli seen by fluorochrome stain Culture Result - No Acid Fast Bacilli isolated after 48 days [facility] Comment on above: Performed By: #### A FC ####[place] [id number] [place], [place] [phone] BAL Routineon 10-13-2016 BAL COMMENT SEE COMMENT [facility] Comment on above: Result Comment: Test Not Indicated Performed By: #### B ZAIN ####[place] [id number] [place], [place] [phone] BAL REVIEW SEE COMMENT [facility] Comment on above: Result Comment: Test Not Indicated Performed By: #### B ZAIN ####[address] [place], [place] [phone] Erythrocytes (RBC) 0.0031 10*6/uL Normal [facility] Comment on above: Performed By: ###Rusty PITTMAN ####[facility], [place] [phone] Lymphocytes/100 leukocytes 4 % Low 6-8 [facility] Comment on above: Performed By: ###Rusty PITTMAN ####[facility], [place] [phone] Macro% 89 % Normal [facility] Comment on above: Performed By: #### Loretta PITTMAN ####[place] [address] [address], [place] [phone] Monocytes/100 leukocytes 1 % [facility] Comment on above: Performed By: ###Rusty PITTMAN ####[place] [address] [address], [place] [phone] Neutrophils/100 WBC Auto (Bld) 6 % High 0-1 [facility] Comment on above: Performed By: ###Rusty PITTMAN ####[facility] [phone] Nucleated Cells, BAL 66 /uL Normal [facility] Comment on above: Performed By: ###Rusty PITTMAN ####[place] [address] [address], [place] [phone] Slide Number BAL [id number] [facility] Comment on above: Performed By: ###Rusty PITTMAN ####[facility], [place] [phone] Suprntnt Clarity Clear [facility] Comment on above: Performed By: ###Rusty PITTMAN ####[facility], [place] [phone] Suprntnt Color Colorless [facility] Comment on above: Performed By: ###Rusty PITTMAN ####[facility] [place], [place] [phone] Urine, clarity Clear [facility] Comment on above: Performed By: #### B ZAIN ####[facility] [address] [place], [place] [phone] Urine, color Slightly bloody Normal [facility] Comment on above: Performed By: #### B ZAIN ####[facility] [place], [place] [phone] BRIEF OP NOTon 10-13-2016 BRIEF OP NOT HNO ID: [id number] thor: Jose R Ansari: Pulmonary DiseaseAuthor Type: PhysicianType: Brief Op NoteFiled: 10/13/2016 3:04 PMNote Text:10/13/2016Jorge [id number] bronchoscopy with bronchoalveolar lavage from right middle lobeof the lung and transbronchial biopsy from the left lower lobe of thelung.Pre-procedure Dx: ILD, unspecified.Post-procedure Dx: Same.Medications: Oxygen, Xylocaine topical, Midazolam, Fentanyl.Findings: Normal airways, prior NANCY resection.Accomplished without difficulty.Tolerated well.Complications: No blood loss, pneumothorax, chest pain, hypoxemia.Specimens: RML BAL: cell count and differential, AFB, fungus, cytology.LLL TBBx: surgical pathology.Full note in Provation.Jose R Spicer MD, [facility] [address] [address]Y: [phone]: [phone] Normal [facility] CYTOLOGYon 10-13-2016 BMI (Body Mass Index) [facility]: [id number] Physician: Jose R Spicer M.D.SPECIMEN SUBMITTEDA: BRONCHIAL RIGHT MIDDLE LOBE, WASHING FINAL DIAGNOSISA. BRONCHIAL RIGHT MIDDLE LOBE, WASHINGNegative for malignant cells.Dylon Rodgers M.D. (Electronic Signature) CLINICAL DATA REMOTE NANCY RESECTION FOR CANCER. ILD NOW.BAL, RIGHT MIDDLE LOBEGROSS [id number] CC CLEAR, PINK TINGED CYTOLYT WITH PARTICLESSTAINSA: BRONCHIAL RIGHT MIDDLE LOBE, WASHING THIN PREP Non-GynPatient ID #: [id number] of Report: 10/14/2016Date of Procedure: 10/13/2016Date of Receipt: 10/14/2016Submitted by: Jose R Spicer M.D.Location: MEENDDiagnostic interpretation performed at [facility], [address] [place] [address]. [facility] Comment on above: Performed By: #### W ABRNR ####[facility] [address] [place] [phone] Fungal Cultureon 10-13-2016 Fungal Culture Culture Result - No Fungus isolated after 34 days [facility] Comment on above: Performed By: #### F CUL ####[facility] [address] [place], [place] [phone] Fungal Smearon 10-13-2016 Fungal Smear Smear Result - No fu ngus seen. [facility] Comment on above: Performed By: #### F UNGSM ####[facility] [address] [place] [phone] HISTORY PHYSICALon 7 HISTORY PHYSICAL HNO ID: [id number] thor: Jessica (American Sign Language Teacher) PfaffelService: (none)Author Type: Nurse PractitionerType: HANDPFiled: 10/13/2016 2:18 PMNote Text:HISTORY AND PHYSICAL EXAMINATIONPATIENT NAME: Jorge RamiresMRN: [id number] DATE: 10/13/2016SERVICE TIME: 2:11 PMPRIANDALUSIA HEALTH CARE PHYSICIAN: Tito Macias [facility] COMPLAINT: Trouble breathingHistory of Present Illness: This is a 76 year old male who presents for aflexible bronchoscopy with lavage and transbronchial biopsy with . States that he is having trouble breathing; this has been goingon for a couple of years, but is progressively getting worse. Had leftupper lobectomy approximately 9 years ago.PROBLEM LIST: ACTIVE PROBLEM LISTHyperlipidemia, UnspecifiedPERSONAL HISTORY OF GI-COLONIC POLYPSBph With Obstruction/Lower Urinary Tract SymptomsEsophageal RefluxSeborrheic Dermatitis, UnspecifiedPersonal History of Malignant Neoplasm of Bronchus and LungErectile DysfunctionEssential Hypertension, BenignHiatal HerniaThrombocytopenia (Hcc)Pulmonary Fibrosis (Hcc)SCHEDULED PROCEDURE: Procedure(s) and Anesthesia Type: * BRONCHOSCOPY FLEXIBLE WITH C-ARM - Procedural SedationCURRENT ALLERGIES: ALLERGIESNo Known AllergiesMEDICATIONS:lisin opril (ZESTRIL, PRINIVIL) 5 mg tablet TAKE 1 TABLET DAILYsimvastatin (ZOCOR) 10 mg tablet TAKE 1 TABLET DAILY AT BEDTIMEpantoprazole DR (PROTONIX) 20 mg tablet TAKE 1 TABLET DAILYtamsulosin ER (FLOMAX) 0.4 mg cp24 Take 2 capsules by mouth once daily.oxybutynin XL (DITROPAN XL) 5 mg 24 hr tablet Take 1 tablet by mouth oncedaily.hydrochlorothiaz sneha (HYDRODIURIL, ESIDRIX) 25 mg tablet Take 0.5 tabletsby mouth once daily.naproxen sodium(ALEVE 220 MG TAB) Take one(1) tablet twice daily.Tadalafil (CIALIS) 20 mg tab(s) Take 1 tablet by mouth as needed.selenium sulfide 2.5 % shampoo Apply to affected area 2-3 times a week.Coenzyme Q10 100 mg ORAL Cap Take 1 capsule by mouth once daily.aspirin(ADULT ASPIRIN EC LOW STRENGTH 81 MG TAB, DELAYED RELEASE) Takeone(1) tablet daily.CALCIUM 500 MG TAB Take one(1) tablet daily.fish oil/omega-3 fatty acids(FISH OIL OMEGA 3-6-9 1,000 MG-300 MG CAP)Take one(1) tablet daily.THERAPEUTIC MULTIVIT/MINERAL TAB Take one(1) tablet daily.PAST MEDICAL HISTORY:PAST MEDICAL HISTORYDiagnosis Date- Benign neoplasm of colon- Coronary artery disease- Esophageal reflux- Essential hypertension, benign 09/06/2012- Ganglion and cyst of synovium, tendon and bursa 03/22/2013- Hematospermia 01/17/2006- HYPERLIPIDEMIA NEC/NOS 01/19/2005- Hyperplasia of prostate- HYPERTROPHY PROSTATE WITH OBST 01/17/2006- PERS HX BRONCHOGENIC MALIGNAN 04/09/2008- Personal history of colonic polyps Colon polyps- Pulmonary fibrosis (HCC) 07/02/2015- Pure hypercholesterolemiaPAST SURGICAL HISTORY: PAST SURGICAL HISTORY07/12/05: COLONOSCOP W/ OR W/O BRSH SPEC07/19/2013: COLONOSCOP W/ OR W/O BRSH SPEC Comment: Vgzowhwtdtp50/15/10: COLONOSCOPY W/BX07/19/2013: EGD W/O OR W/BRUSH/WASH Comment: EGDNo date: LUNG SURGERY HX04/2007: PAST SURGICAL HISTORY OF Comment: removal left lungupper lobe removed for [id number]: REMOVAL OF LUNG,LOBECTOMY Left Comment: left upper lobeNo date: REMOVE TONSILS/ADENOIDS,<12 Y/OFAMILY HISTORY:FAMILY HISTORY Alzheimer's Disease Mother Heart Father Comment: heart attack Breast Cancer Sister Heart Brother Comment: aortic aneurysm No Family History Brother Comment: not sure of family historySOCIAL HISTORY:Social HistorySubstance Use Topics- Smoking status: Former Smoker Packs/day: 1.00 Years: 24.00 Types: Cigarettes Start date: 06/24/1957 Quit date: 04/18/1981- Smokeless tobacco: Never Used Comment: No smoking in childhood home.- Alcohol use NoVITALS: Ht 175.3 cm (5' 9) Wt 93 kg (205 lb) BMI 30.27 kg/k9VTKELTMT EXAM:GENERAL: Alert, no distress, cooperativeSKIN: Skin color, texture, turgor normal. No rashes or lesions.EYES: PERRLA, EOMIOROPHARYNX: Lips, mucosa, and tongue normal. Teeth and gums normal.Oropharynx normal.LUNGS: Positive findings: rhonchi L lower posterior, wheezing L lowerposteriorCARDIAC: Normal S1 and S2; no rubs, murmurs, or gallopsABDOMEN: Abdomen soft, non-tender, BS normal, No masses or organomegalyEXTREMITIES: Extremities normal, no deformities, edema, clubbing or skindiscoloration. Good capillary refill.PULSES: 2+ radial, 2+ carotidSIGNATURE: Jessica Acuña, CNPDATE: October 13, 2016TIME: 2:11 PM [facility] HISTORY PHYSICAL HNO ID: [id number] thor: Jose R Ansari: Pulmonary DiseaseAuthor Type: PhysicianType: HANDPFiled: 10/13/2016 1:09 PMNote Text:UPDATED HISTORY AND PHYSICAL EXAMINATIONSERVICE DATE: 10/13/2016SERVICE TIME: 12:55 PMPHYSICAL EXAM MUST BE COMPLETED ON ADMISSIONThe History and Physical (completed in the past 30 days) has been reviewedand the patient has been examined. The contents accurately reflect thepatient's condition with the following additions or revisions since theHANDP was completed.Examination indicates no changes.This HANDP can be found in the Electronic Medical Record dated 07/05/2016,and updated by PA today.SIGNATURE: Jose R Spicer MD PATIENT NAME: Jorge Alston WagnerDATE: October 13, 2016 : 1:09 PM PAGER: [phone] [facility] NURSING PROGon 10-13-2016 NURSING PROG HNO ID: [id number] thor: Robert (Rn) MOLINA Byrdervice: NursingAuthor Type: Registered NurseType: Nursing Progress NoteFiled: 10/13/2016 4:06 PMNote Text:Patient post bronchoscopy. Stable condition. Respirations even unlabored.No distress. O2 sats wnl. NPO until 1630.1600 family at bedside, updated on [id number] Report given to Kaylah. [facility] OPERATIVE NOon 10-13-2016 OPERATIVE NO HNO ID: [id number] thor: Jose R Ansari: Pulmonary DiseaseAuthor Type: PhysicianType: Operative ReportFiled: 10/13/2016 3:04 PMNote Text:10/13/2016Jorge [id number] bronchoscopy with bronchoalveolar lavage from right middle lobeof the lung and transbronchial biopsy from the left lower lobe of thelung.Pre-procedure Dx: ILD, unspecified.Post-procedure Dx: Same.Medications: Oxygen, Xylocaine topical, Midazolam, Fentanyl.Findings: Normal airways, prior NANCY resection.Accomplished without difficulty.Tolerated well.Complications: No blood loss, pneumothorax, chest pain, hypoxemia.Specimens: RML BAL: cell count and differential, AFB, fungus, cytology.LLL TBBx: surgical pathology.Full note in Provation.Jose R Spicer MD, [facility] [address] [address]M: [phone]: [phone] [facility] PROCEDUREon 10-13-2016 PROCEDURE HNO ID: [id number] thor: Jose R SpicerSerdebe: Pulmonary DiseaseAuthor Type: PhysicianType: ProceduresFiled: 10/13/2016 3:04 PMNote Text:10/13/2016Jorge [id number] bronchoscopy with bronchoalveolar lavage from right middle lobeof the lung and transbronchial biopsy from the left lower lobe of thelung.Pre-procedure Dx: ILD, unspecified.Post-procedure Dx: Same.Medications: Oxygen, Xylocaine topical, Midazolam, Fentanyl.Findings: Normal airways, prior NANCY resection.Accomplished without difficulty.Tolerated well.Complications: No blood loss, pneumothorax, chest pain, hypoxemia.Specimens: RML BAL: cell count and differential, AFB, fungus, cytology.LLL TBBx: surgical pathology.Full note in Provation.Jose R Spicer MD, [facility] [place] [address]P: [phone]: [phone] [facility] SURGICAL PATHOLOGYon 017 SURGICAL PATHOLOGY [facility]: [id number] Physician: Jose R Spicer M.D. FINAL DIAGNOSISLeft lung, lower lobe, endobronchial biopsy - Fragments of bronchial wallwith focal fibrosis.RACHELLE/jaime 10/14/2016COMMENTThe biopsy contains four fragments of bronchial wall. The findings arenon-specific. No granulomas or neoplasm are present. Brigid Brink M.D.(Electronic Signature) S PECIMEN SUBMITTEDA: TRANBRONCHIAL LEFT LOWER LOBE, LUNG BIOPSY CLINICAL DATAREMOTE NANCY RESECTION FOR CANCER. NOW WITH ILD.GROSS DESCRIPTIONA. Received in formalin are multiple pieces of delcid, soft tissue aggregatingto 2.0 x 0.7 x 0.1 cm. Totally submitted in one cassette.Gross examination performed at [facility], [address] [place] [address] 10/13/2016 9:10:47 PMPatient ID #: [id number] of Report: 10/14/2016Date of Procedure: 10/13/2016Date of Receipt: 10/13/2016Submitted by: Jose R Spicer M.D.Location: MEENDDiagnostic interpretation performed at [place] [address]. [facility] Comment on above: Performed By: #### P ATHS ####[facility] [address] [phone] Vital Signs Date Time Vital Sign Value Performing Clinician Abiodun shepherd 01-08-2025 07:03-0400 Body height 177.[address] Tito Macias MD Work Phone: [facility] 01-08-2025 07:03-0400 Body mass index (BMI) [Ratio] 25 kg/m2 Dr. Tito Macias MD Work Phone: [facility] 01-08-2025 07:03-0400 Body weight 78.[address] Tito Macias MD Work Phone: [facility] 01-08-2025 07:03-0400 Diastolic blood pressure 70 mm[Hg] Dr. Tito Macias MD Work Phone: [facility] 01-08-2025 07:03-0400 Heart rate 74 /min Dr. Tito Macias MD Work Phone: [facility] 01-08-2025 07:03-0400 Inhaled oxygen flow rate 5 L/min Dr. Tito Macias MD Work Phone: [facility] 01-08-2025 07:03-0400 Respiratory rate 20 /min Dr. Tito Macias MD Work Phone: [facility] 01-08-2025 07:03-0400 SaO2% (BldA) [Mass fraction] 95 % Dr. Tito Macias MD Work Phone: [facility] 01-08-2025 07:03-0400 Systolic blood pressure 121 mm[Hg] Dr. Tito Macias MD Work Phone: [facility] 12-05-2024 10:00-0400 Body mass index (BMI) [Ratio] 24.82 kg/m2 Jessica Click 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 Work Phone: [facility] 12-05-2024 10:00-0400 Body weight 78.47 kg Jessica Click 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 Work Phone: [facility] 12-05-2024 10:00-0400 Diastolic blood pressure 60 mm[Hg] Jessica Click 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 Work Phone: [facility] 12-05-2024 10:00-0400 Heart rate 77 /min Jessica Click 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 Work Phone: [facility] 12-05-2024 10:00-0400 Respiratory rate 18 /min Jessica Click 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 Work Phone: [facility] 12-05-2024 10:00-0400 SaO2% (BldA) [Mass fraction] 95 % Jessica Click 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 Work Phone: [facility] 12-05-2024 10:00-0400 Systolic blood pressure 110 mm[Hg] Jessica Click 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 Work Phone: [facility] 09-13-2024 09:27-0400 Body height 177.[address] Tito Macias MD Work Phone: [facility] 09-13-2024 09:27-0400 Body mass index (BMI) [Ratio] 25.2 kg/m2 Dr. Tito Macias MD Work Phone: [facility] 09-13-2024 09:27-0400 Body weight 79.[address] Tito Macias MD Work Phone: [facility] 09-13-2024 09:27-0400 Diastolic blood pressure 73 mm[Hg] Dr. Tito Macias MD Work Phone: 6(985)236-924959 [place] [address] 09-13-2024 09:27-0400 Heart rate 81 /min Dr. Tito Macias MD Work Phone: 7(161)913-134759 [place] [address] 09-13-2024 09:27-0400 Inhaled oxygen flow rate 5 L/min Dr. Tito Macias MD Work Phone: 3(691)947-624459 [place] [address] 09-13-2024 09:27-0400 Respiratory rate 18 /min Dr. Tito Macias MD Work Phone: 6(323)772-900959 [place] [address] 09-13-2024 09:27-0400 SaO2% (BldA) [Mass fraction] 95 % Dr. Tito Macias MD Work Phone: 0(444)563-791959 [place] [address] 09-13-2024 09:27-0400 Systolic blood pressure 129 mm[Hg] Dr. Tito Macias MD Work Phone: [facility] 09-03-2024 12:29-0400 Body mass index (BMI) [Ratio] 25.37 kg/m2 Tito Macias MD Work Phone: [facility] 09-03-2024 12:29-0400 Body weight 80.2 kg Tito Macias MD Work Phone: [facility] 09-03-2024 12:29-0400 Diastolic blood pressure 64 mm[Hg] Tito Macias MD Work Phone: [facility] 09-03-2024 12:29-0400 Heart rate 76 /min Tito Macias MD Work Phone: [facility] 09-03-2024 12:29-0400 Respiratory rate 24 /min Tito Macias MD Work Phone: [facility] 09-03-2024 12:29-0400 Systolic blood pressure 128 mm[Hg] Tito Macias MD Work Phone: [facility] 04-23-2024 12:31-0500 Body mass index (BMI) [Ratio] 24.39 kg/m2 Hermelinda Copeland MD Work Phone: [facility] 04-23-2024 12:31-0500 Body weight 77.11 kg Hermelinda Copeland MD Work Phone: [facility] 03-06-2024 10:11-0500 Body mass index (BMI) [Ratio] 24.45 kg/m2 Tito Macias MD Work Phone: [facility] 03-06-2024 10:11-0500 Body temperature 97.81 [degF] Tito Macias MD Work Phone: [facility] 03-06-2024 10:11-0500 Body weight 77.3 kg Tito Macias MD Work Phone: [facility] 03-06-2024 10:11-0500 Diastolic blood pressure 70 mm[Hg] Tito Macias MD Work Phone: [facility] 03-06-2024 10:11-0500 Heart rate 88 /min Tito Macias MD Work Phone: [facility] 03-06-2024 10:11-0500 SaO2% (BldA) [Mass fraction] 96 % Tito Macias MD Work Phone: [facility] 03-06-2024 10:11-0500 Systolic blood pressure 120 mm[Hg] Tito Macias MD Work Phone: [facility] 02-01-2024 10:23-0400 Body mass index (BMI) [Ratio] 23.68 kg/m2 Rashida Claudio PA-C Work Phone: [facility] 02-01-2024 10:23-0400 Body weight 74.84 kg Rashida Claudio PA-C Work Phone: [facility] 02-01-2024 10:23-0400 Diastolic blood pressure 58 mm[Hg] Rashida Claudio PA-C Work Phone: [facility] 02-01-2024 10:23-0400 Heart rate 65 /min Rashida Claudio PA-C Work Phone: [facility] 02-01-2024 10:23-0400 Respiratory rate 18 /min Rashida Claudio PA-C Work Phone: [facility] 02-01-2024 10:23-0400 SaO2% (BldA) [Mass fraction] 92 % Rashida Claudio PA-C Work Phone: [facility] 02-01-2024 10:23-0400 Systolic blood pressure 106 mm[Hg] Rashida Claudio PA-C Work Phone: [facility] 09-15-2023 10:22-0400 Body mass index (BMI) [Ratio] 23.68 kg/m2 Tito Macias MD Work Phone: [facility] 09-15-2023 10:22-0400 Body weight 74.84 kg Tito Macias MD Work Phone: [facility] 09-15-2023 10:22-0400 Diastolic blood pressure 71 mm[Hg] Tito Macias MD Work Phone: [facility] 09-15-2023 10:22-0400 Heart rate 72 /min Tito Macias MD Work Phone: [facility] 09-15-2023 10:22-0400 Respiratory rate 18 /min Tito Macias MD Work Phone: [facility] 09-15-2023 10:22-0400 SaO2% (BldA) [Mass fraction] 99 % Tito Macias MD Work Phone: [facility] 09-15-2023 10:22-0400 Systolic blood pressure 132 mm[Hg] Tito Macias MD Work Phone: [facility] 07-27-2023 10:21-0400 Body weight 72.48 kg Rashida Claudio PA-C Work Phone: [facility] 07-27-2023 10:21-0400 Diastolic blood pressure 78 mm[Hg] Rashida Claudio PA-C Work Phone: [facility] 07-27-2023 10:21-0400 Heart rate 101 /min Rashida Claudio PA-C Work Phone: [facility] 07-27-2023 10:21-0400 Respiratory rate 17 /min Rashida Claudio PA-C Work Phone: [facility] 07-27-2023 10:21-0400 SaO2% (BldA) [Mass fraction] 93 % Rashida Claudio PA-C Work Phone: [facility] 07-27-2023 10:21-0400 Systolic blood pressure 128 mm[Hg] Rashida Claudio PA-C Work Phone: [facility] 06-16-2023 10:20-0500 Body temperature 98.29 [degF] Tito Macias MD Work Phone: [facility] 06-16-2023 10:20-0500 Body weight 72.58 kg Tito Macias MD Work Phone: [facility] 06-16-2023 10:20-0500 Diastolic blood pressure 70 mm[Hg] Tito Macias MD Work Phone: [facility] 06-16-2023 10:20-0500 Heart rate 80 /min Tito Macias MD Work Phone: [facility] 06-16-2023 10:20-0500 SaO2% (BldA) [Mass fraction] 98 % Tito Macias MD Work Phone: [facility] 06-16-2023 10:20-0500 Systolic blood pressure 128 mm[Hg] Tito Macias MD Work Phone: [facility] 06-06-2023 15:07-0500 Body temperature 97.5 [degF] Victorino Navarro MD Work Phone: [facility] 03-08-2023 09:58-0500 Body height 172.7 cm Tito Macias MD Work Phone: [facility] 03-08-2023 09:58-0500 Body weight 70.76 kg Tito Macias MD Work Phone: [facility] 03-08-2023 09:58-0500 Diastolic blood pressure 64 mm[Hg] Tito Macias MD Work Phone: [facility] 03-08-2023 09:58-0500 Heart rate 88 /min Tito Macias MD Work Phone: [facility] 03-08-2023 09:58-0500 Respiratory rate 18 /min Tito Macias MD Work Phone: [facility] 03-08-2023 09:58-0500 SaO2% (BldA) [Mass fraction] 94 % Tito Macias MD Work Phone: [facility] 03-08-2023 09:58-0500 Systolic blood pressure 112 mm[Hg] Tito Macias MD Work Phone: [facility] 03-06-2023 08:10-0500 Body temperature 97.39 [degF] Donnie Anderson APRN.MOBILE APPLICATION DEVELOPMENT LEAD Work Phone: [facility] 03-06-2023 08:10-0500 Body weight 70.76 kg Donnie Anderson APRN.MOBILE APPLICATION DEVELOPMENT LEAD Work Phone: [facility] 03-06-2023 08:10-0500 Diastolic blood pressure 80 mm[Hg] Donnie Anderson APRN.MOBILE APPLICATION DEVELOPMENT LEAD Work Phone: [facility] 03-06-2023 08:10-0500 Heart rate 68 /min Donnie Luongbury 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 Work Phone: [facility] 03-06-2023 08:10-0500 Respiratory rate 16 /min Donnie Anderson 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 Work Phone: [facility] 03-06-2023 08:10-0500 SaO2% (BldA) [Mass fraction] 96 % Donnie Anderson 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 Work Phone: [facility] 03-06-2023 08:10-0500 Systolic blood pressure 120 mm[Hg] Donnie Anderson 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 Work Phone: [facility] 01-18-2023 11:31-0400 Body weight 72.12 kg Hermelinda Copeland MD Work Phone: [facility] 01-18-2023 11:31-0400 Diastolic blood pressure 60 mm[Hg] Hermelinda Copeland MD Work Phone: [facility] 01-18-2023 11:31-0400 Heart rate 67 /min Hermelinda Copeland MD Work Phone: [facility] 01-18-2023 11:31-0400 SaO2% (BldA) [Mass fraction] 95 % Hermelinda Copeland MD Work Phone: [facility] 01-18-2023 11:31-0400 Systolic blood pressure 110 mm[Hg] Hermelinda Copeland MD Work Phone: [facility] 12-02-2022 09:59-0400 Body height 174.2 cm Rashida Lay PA-C Work Phone: [facility] 12-02-2022 09:59-0400 Body weight 71.67 kg Rashida Lay PA-C Work Phone: [facility] 12-02-2022 09:59-0400 Diastolic blood pressure 58 mm[Hg] Rashida Lay PA-C Work Phone: [facility] 12-02-2022 09:59-0400 Heart rate 107 /min Rashida Claudio PA-C Work Phone: [facility] 12-02-2022 09:59-0400 Respiratory rate 14 /min Rashida Claudio PA-C Work Phone: [facility] 12-02-2022 09:59-0400 SaO2% (BldA) [Mass fraction] 94 % Rashida Claudio PA-C Work Phone: [facility] 12-02-2022 09:59-0400 Systolic blood pressure 128 mm[Hg] Rashida Claudio PA-C Work Phone: [facility] 12-02-2022 09:25-0400 Body height 174.2 cm Pulm Wstr Work Phone: [facility] 12-02-2022 09:25-0400 Body weight 71.67 kg Pulm Wstr Work Phone: [facility] 12-02-2022 09:25-0400 Heart rate 107 /min Pulm Wstr Work Phone: [facility] 12-02-2022 09:25-0400 Respiratory rate 14 /min Pulm Wstr Work Phone: [facility] 12-02-2022 09:25-0400 SaO2% (BldA) [Mass fraction] 94 % Pulm Wstr Work Phone: [facility] 11-17-2022 09:11-0400 Body weight 72.12 kg Rashida Claudio PA-C Work Phone: [facility] 11-17-2022 09:11-0400 Diastolic blood pressure 64 mm[Hg] Rashida Claudio PA-C Work Phone: [facility] 11-17-2022 09:11-0400 Heart rate 80 /min Rashida Claudio PA-C Work Phone: [facility] 11-17-2022 09:11-0400 Respiratory rate 18 /min Rashida Claudio PA-C Work Phone: [facility] 11-17-2022 09:11-0400 SaO2% (BldA) [Mass fraction] 94 % Rashida Claudio PA-C Work Phone: [facility] 11-17-2022 09:11-0400 Systolic blood pressure 128 mm[Hg] Rashida Claudio PA-C Work Phone: [facility] 08-26-2022 10:22-0400 Body weight 73.94 kg Rashida Claudio PA-C Work Phone: [facility] 08-26-2022 10:22-0400 Diastolic blood pressure 64 mm[Hg] Rashida Claudio PA-C Work Phone: [facility] 08-26-2022 10:22-0400 Heart rate 80 /min Rashida Claudio PA-C Work Phone: [facility] 08-26-2022 10:22-0400 Respiratory rate 16 /min Rashida Claudio PA-C Work Phone: [facility] 08-26-2022 10:22-0400 SaO2% (BldA) [Mass fraction] 93 % Rashida Claudio PA-C Work Phone: [facility] 08-26-2022 10:22-0400 Systolic blood pressure 118 mm[Hg] Rashida Claudio PA-C Work Phone: [facility] 08-20-2022 11:50-0400 Body weight 75.3 kg Tito Macias MD Work Phone: [facility] 08-20-2022 11:50-0400 Diastolic blood pressure 70 mm[Hg] Tito Macias MD Work Phone: [facility] 08-20-2022 11:50-0400 Heart rate 66 /min Tito Maicas MD Work Phone: [facility] 08-20-2022 11:50-0400 Respiratory rate 16 /min Tito Macias MD Work Phone: [facility] 08-20-2022 11:50-0400 SaO2% (BldA) [Mass fraction] 98 % Tito Mcaias MD Work Phone: [facility] 08-20-2022 11:50-0400 Systolic blood pressure 110 mm[Hg] Tito Macias MD Work Phone: [facility] 08-12-2022 12:58-0400 Body height 177.[address] Tito Macias Work Phone: [facility] 08-12-2022 12:56-0400 Body mass index (BMI) [Ratio] 23.8 kg/m2 Dr. Tito Macias Work Phone: [facility] 08-12-2022 12:56-0400 Body weight 75.[address] Tito Macias Work Phone: [facility] 08-12-2022 12:56-0400 Diastolic blood pressure 81 mm[Hg] Dr. Tito Macias Work Phone: [facility] 08-12-2022 12:56-0400 Heart rate 59 /min Dr. Tito Macias Work Phone: 7(993)132-160259 [place] [address] 08-12-2022 12:56-0400 Respiratory rate 18 /min Dr. Tito Macias Work Phone: [facility] 08-12-2022 12:56-0400 SaO2% (BldA) [Mass fraction] 94 % Dr. Tito Macias Work Phone: [facility] 08-12-2022 12:56-0400 Systolic blood pressure 130 mm[Hg] Dr. Tito Macias Work Phone: [facility] 03-30-2022 14:07-0500 Body weight 82.56 kg Hermelinda Copeland MD Work Phone: [facility] 03-30-2022 14:07-0500 Heart rate 90 /min Hermelinda Copeland MD Work Phone: [facility] 03-30-2022 14:07-0500 Respiratory rate 14 /min Hermelinda Copeland MD Work Phone: [facility] 03-30-2022 14:07-0500 SaO2% (BldA) [Mass fraction] 97 % Hermelinda Copeland MD Work Phone: [facility] 02-12-2022 14:25-0400 Body weight 82.56 kg Tito Macias MD Work Phone: [facility] 01-18-2022 13:37-0400 Body temperature 98.71 [degF] Rashida Claudio PA-C Work Phone: [facility] 01-18-2022 13:37-0400 Body weight 82.56 kg Rashida Claudio PA-C Work Phone: [facility] 01-18-2022 13:37-0400 Diastolic blood pressure 80 mm[Hg] Rashida Claudio PA-C Work Phone: [facility] 01-18-2022 13:37-0400 Heart rate 84 /min Rashida Claudio PA-C Work Phone: [facility] 01-18-2022 13:37-0400 Respiratory rate 17 /min Rashida Claudio PA-C Work Phone: [facility] 01-18-2022 13:37-0400 SaO2% (BldA) [Mass fraction] 99 % Rashida Claudio PA-C Work Phone: [facility] 01-18-2022 13:37-0400 Systolic blood pressure 120 mm[Hg] Rashida Claudio PA-C Work Phone: [facility] 12-10-2021 10:24-0400 Body weight 82.56 kg Hermelinda Copeland MD Work Phone: [facility] 12-10-2021 10:24-0400 SaO2% (BldA) [Mass fraction] 98 % Hermelinda Copeland MD Work Phone: [facility] 11-27-2021 08:57-0400 Body height 177.[address] Tito Macias Work Phone: [facility] Work Phone: 11-27-2021 08:57-0400 Body weight 82.[address] Tito Macias Work Phone: [facility] Work Phone: 10-30-2021 06:37-0400 Body weight 81.[address] Tito Macias Work Phone: [facility] Work Phone: 10-01-2021 14:47-0400 Body temperature 97.39 [degF] Jose R Spicer MD Work Phone: [facility] 10-01-2021 14:47-0400 Body weight 82.1 kg Jose R Spicer MD Work Phone: [facility] 10-01-2021 14:47-0400 Diastolic blood pressure 55 mm[Hg] Jose R Spicer MD Work Phone: [facility] 10-01-2021 14:47-0400 Heart rate 80 /min Jose R Spicer MD Work Phone: [facility] 10-01-2021 14:47-0400 Respiratory rate 20 /min Jose R Spicer MD Work Phone: [facility] 10-01-2021 14:47-0400 SaO2% (BldA) [Mass fraction] 100 % Jose R Spicer MD Work Phone: [facility] 10-01-2021 14:47-0400 Systolic blood pressure 102 mm[Hg] Jose R Spicer MD Work Phone: [facility] 09-30-2021 08:19-0400 Body height 177.[address] Tito Macias Work Phone: [facility] Work Phone: 09-30-2021 08:19-0400 Body weight 83.[address] Tito Macias Work Phone: [facility] Work Phone: 09-18-2021 10:46-0400 Body mass index (BMI) [Ratio] 25.7 kg/m2 Dr. Tito Macias Work Phone: [facility] Work Phone: 09-18-2021 10:46-0400 Body weight 81.[address] Tito Macias Work Phone: [facility] Work Phone: 09-18-2021 10:46-0400 Diastolic blood pressure 63 mm[Hg] Dr. Tito Macias Work Phone: [facility] Work Phone: 09-18-2021 10:46-0400 Heart rate 86 /min Dr. Tito Macias Work Phone: [facility] Work Phone: 09-18-2021 10:46-0400 Inhaled oxygen flow rate 3 L/min Dr. Tito Macias Work Phone: [facility] Work Phone: 09-18-2021 10:46-0400 Respiratory rate 18 /min Dr. Tito Macias Work Phone: [facility] Work Phone: 09-18-2021 10:46-0400 SaO2% (BldA) [Mass fraction] 95 % Dr. Tito Macias Work Phone: [facility] Work Phone: 09-18-2021 10:46-0400 Systolic blood pressure 111 mm[Hg] Dr. Tito Macias Work Phone: [facility] Work Phone: 09-17-2021 14:40-0400 Body temperature 97 [degF] Tito Macias MD Work Phone: [facility] 09-17-2021 14:40-0400 Body weight 81.56 kg Tito Macias MD Work Phone: [facility] 09-17-2021 14:40-0400 Diastolic blood pressure 62 mm[Hg] Tito Macias MD Work Phone: [facility] 09-17-2021 14:40-0400 Heart rate 80 /min Tito Macias MD Work Phone: [facility] 09-17-2021 14:40-0400 Respiratory rate 20 /min Tito Macias MD Work Phone: [facility] 09-17-2021 14:40-0400 SaO2% (BldA) [Mass fraction] 96 % Tito Macias MD Work Phone: [facility] 09-17-2021 14:40-0400 Systolic blood pressure 104 mm[Hg] Tito Macias MD Work Phone: [facility] 09-03-2021 10:09-0400 Body mass index (BMI) [Ratio] 25.7 kg/m2 Dr. Tito Macias Work Phone: [facility] Work Phone: 09-03-2021 10:09-0400 Body weight 81.[address] Tito Macias Work Phone: [facility] Work Phone: 09-03-2021 10:09-0400 Body height 177.8 cm [facility] Work Phone: 09-03-2021 10:09-0400 Body mass index (BMI) [Ratio] 25.7 kg/m2 [facility] Work Phone: 09-03-2021 10:09-0400 Body weight 81.19 kg [facility] Work Phone: 09-03-2021 09:07-0400 Body temperature 98.6 [degF] Dr. Tito Macias Work Phone: [facility] Work Phone: 05-19-2022 09:07-0400 Diastolic blood pressure 58 mm[Hg] Dr. Tito Macias Work Phone: [facility] Work Phone: 09-03-2021 09:07-0400 Heart rate 64 /min Dr. Tito Macias Work Phone: [facility] Work Phone: 09-03-2021 09:07-0400 Respiratory rate 17 /min Dr. Tito Macias Work Phone: [facility] Work Phone: 09-03-2021 09:07-0400 SaO2% (BldA) [Mass fraction] 97 % Dr. Tito Macias Work Phone: [facility] Work Phone: 09-03-2021 09:07-0400 Systolic blood pressure 120 mm[Hg] Dr. Tito Macias Work Phone: [facility] Work Phone: 09-03-2021 09:07-0400 Body temperature 98.6 [degF] [facility] Work Phone: 09-03-2021 09:07-0400 Diastolic blood pressure 58 mm[Hg] [facility] Work Phone: 09-03-2021 09:07-0400 Heart rate 64 /min [facility] Work Phone: 09-03-2021 09:07-0400 Respiratory rate 17 /min [facility] Work Phone: 09-03-2021 09:07-0400 SaO2% (BldA) [Mass fraction] 97 % [facility] Work Phone: 09-03-2021 09:07-0400 Systolic blood pressure 120 mm[Hg] [facility] Work Phone: 08-17-2021 15:06-0400 Body weight 81.19 kg Rashida Lay PA-C Work Phone: [facility] 07-28-2021 15:04-0400 Body weight 83.01 kg Jose R Spicer MD Work Phone: [facility] 07-28-2021 15:04-0400 Diastolic blood pressure 59 mm[Hg] Jose R Spicer MD Work Phone: [facility] 07-28-2021 15:04-0400 Heart rate 91 /min Jose R Spicer MD Work Phone: [facility] 07-28-2021 15:04-0400 SaO2% (BldA) [Mass fraction] 93 % Jose R Spicer MD Work Phone: [facility] 07-28-2021 15:04-0400 Systolic blood pressure 98 mm[Hg] Jose R Spicer MD Work Phone: [facility] 07-28-2021 15:03-0400 Body height 174.2 cm Respiratory Wstr Work Phone: [facility] 07-28-2021 15:03-0400 Body weight 83.28 kg Respiratory Wstr Work Phone: [facility] 07-28-2021 15:03-0400 Diastolic blood pressure 59 mm[Hg] Respiratory Wstr Work Phone: [facility] 07-28-2021 15:03-0400 Heart rate 91 /min Respiratory Wstr Work Phone: [facility] 07-28-2021 15:03-0400 Respiratory rate 14 /min Respiratory Wstr Work Phone: [facility] 07-28-2021 15:03-0400 SaO2% (BldA) [Mass fraction] 93 % Respiratory Wstr Work Phone: [facility] 07-28-2021 15:03-0400 Systolic blood pressure 98 mm[Hg] Respiratory Wstr Work Phone: [facility] Encounters Encounter Date Encounter Type Care Provider Facility Start: 02-22-2025 End: 02-22-2025 alec COPELAND Facility:[facility] Start: 02-18-2025 End: 02-18-2025 ambulatory TITO MACIAS Facility:[facility] Start: 02-15-2025 End: 02-15-2025 ambulatory HERMELINDA COPELAND Facility:[facility] Start: 02-14-2025 End: 02-14-2025 ambulatory TITO MACIAS Facility:[facility] Start: 02-07-2025 ambulatory Dottie Jackson Facility: [facility] Start: 02-07-2025 ambulatory Noah Rajput Facility:[facility] Start: 01-08-2025 End: 01-08-2025 Patient encounter procedure Dottie Jackson DIRECT MARKETING ANALYST-C -Laboratory Work Phone: Start: 01-08-2025 End: 01-08-[address] 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 Tito Macias MD Work Phone: [facility] Work Phone: Start: 09-03-2024 End: 09-03-2024 Office outpatient visit 15 minutes Tito Macias MD Work Phone: [facility] [place] Comment on above: Hyperlipidemia, unsp ecified hyperlipidemia type (Primary Dx); BPH with obstruction/lower urinary tract symptoms; Essential hypertension, benign; Idiopathic pulmonary fibrosis (HCC); Secondary pulmonary arterial hypertension (HCC) Start: 09-03-2024 End: 09-03-2024 ambulatory TITO MACIAS Facility:[facility] Start: 05-09-2024 End: 05-10-2024 Refill Hermelinda Copeland MD Work Phone: Pulmonary Medicine Comment on above: Refill Request Start: 05-07-2024 End: 05-07-2024 Refill Tito Macias MD Work Phone: [facility] [place] Comment on above: Refill Request Start: 04-23-2024 End: 04-23-2024 ambulatory HERMELINDA COPELAND Facility:[facility] Start: 04-23-2024 End: 04-23-2024 Patient encounter procedure Hermelinda Copeland MD Work Phone: Pulmonary Medicine Comment on above: 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 Start: 03-06-2024 End: 03-06-2024 ambulatory TITO MACIAS Facility:[facility] Start: 03-06-2024 End: 03-06-2024 Patient encounter procedure Tito Macias MD Work Phone: [facility] [place] Comment on above: Medicare annual well ness visit, subsequent (Primary Dx); Screening for depression; Encounter for screening examination for other mental health and behavioral disorders; Acute nonintractable headache, unspecified headache type; Thyroid nodule greater than or equal to 1 cm in diameter incidentally noted on imaging study; COPD with chronic bronchitis (HCC); Hyperlipidemia, unspecified hyperlipidemia type; Essential hypertension, benign; Idiopathic pulmonary fibrosis (HCC) Start: 02-23-2024 End: 02-23-2024 ambulatory Dottie Jackson Facility:[facility] Start: 02-23-2024 End: 02-23-2024 ambulatory Dottie Jackson Facility:[facility] Start: 02-20-2024 End: 02-20-2024 ambulatory Tito Macias Facility:[facility] Start: 02-01-2024 End: 02-01-2024 Refill Tito Macias MD Work Phone: [facility] [place] Comment on above: Idiopathic pulmonary fibrosis (HCC) (Primary Dx); Chronic respiratory failure with hypoxia (HCC); Need for influenza vaccination; Gastroesophageal reflux disease without esophagitis; COPD with chronic bronchitis (HCC) Start: 01-31-2024 End: 01-31-2024 Refill Tito Macias MD Work Phone: [facility] [place] Comment on above: Refill Request Start: 01-09-2024 End: 01-09-2024 ambulatory Tito Macias MD Work Phone: [facility] [place] Comment on above: Shortness of Breath Start: 01-09-2024 End: 01-09-2024 Telephone encounter Rashida ELC Work Phone: Pulmonary Medicine Comment on above: Patient Update Start: 09-15-2023 End: 09-15-2023 Patient encounter procedure Tito Macias MD Work Phone: [facility] [place] Comment on above: COPD with chronic br onchitis (HCC) (Primary Dx); BPH with obstruction/lower urinary tract symptoms; Thyroid nodule greater than or equal to 1 cm in diameter incidentally noted on imaging study; Hyperlipidemia, unspecified hyperlipidemia type; Chronic respiratory failure with hypoxia (HCC); Secondary pulmonary arterial hypertension (HCC) Start: 07-27-2023 End: 07-27-2023 Patient encounter procedure Rashida ELC Work Phone: Pulmonary Medicine Comment on above: Idiopathic pulmonary fibrosis (HCC) (Primary Dx); Chronic respiratory failure with hypoxia (HCC); COPD with chronic bronchitis (HCC) Start: 07-18-2023 Orders Only Rashida JoshiC Work Phone: Pulmonary Medicine Comment on above: Acute bronchitis due to other specified organisms (Primary Dx) Start: 07-11-2023 Orders Only Hermelinda Copeland MD Work Phone: Pulmonary Medicine Comment on above: Acute bronchitis, un specified organism (Primary Dx) Start: 07-10-2023 ambulatory Rashida Ulloa PA-C Work Phone: Pulmonary Medicine Comment on above: Sputum test Start: 06-27-2023 Telephone encounter Tito li MD Work Phone: [facility] [place] Comment on above: Results Start: 06-16-2023 End: 06-16-2023 Patient encounter procedure Tito Macias MD Work Phone: [facility] [place] Comment on above: Thyroid nodule great er than or equal to 1 cm in diameter incidentally noted on imaging study (Primary Dx); Abnormal weight loss; Essential hypertension, benign; BPH with obstruction/lower urinary tract symptoms Start: 06-08-2023 Telephone encounter Tito li MD Work Phone: [facility] [place] Comment on above: Referral Request Start: 06-06-2023 End: 06-06-2023 Patient encounter procedure Victorino Navarro MD Work Phone: General Surgery Comment on above: Thyroid nodule great er than or equal to 1 cm in diameter incidentally noted on imaging study (Primary Dx) Start: 06-06-2023 End: 02-21-2024 Telephone encounter Victorino Navarro MD Work Phone: General Surgery Comment on above: Appointment Start: 06-03-2023 Orders Only Rashida Claire Luis Antonio bonnie PA-C Work Phone: Pulmonary Medicine Comment on above: Staphylococcus aureu s bronchitis (Primary Dx); COPD with exacerbation (HCC) Start: 05-30-2023 Orders Only Rashida Claire Luis Antonio bonnie PA-C Work Phone: Pulmonary Medicine Comment on above: IPF (idiopathic pulm onary fibrosis) (HCC) (Primary Dx) Start: 03-19-2023 Orders Only Tito crawford MD Work Phone: [facility] [place] Comment on above: Thyroid nodule great er than or equal to 1 cm in diameter incidentally noted on imaging study (Primary Dx) Start: 03-11-2023 End: 03-11-2023 Subsequent hospital visit by physician [facility] Work Phone: Radiology Comment on above: Thyroid nodule great er than or equal to 1 cm in diameter incidentally noted on imaging study [E04.1] Start: 03-08-2023 End: 03-08-2023 Patient encounter procedure Tito Macias MD Work Phone: [facility] [place] Comment on above: Medicare annual well ness visit, subsequent (Primary Dx); Chronic respiratory failure with hypoxia (HCC); BPH with obstruction/lower urinary tract symptoms; Essential hypertension, benign; COPD with chronic bronchitis; Thyroid nodule greater than or equal to 1 cm in diameter incidentally noted on imaging study; Abnormal weight loss Start: 03-07-2023 Telephone encounter Donnie cramer 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 Work Phone: [facility] Comment on above: Results Start: 03-07-2023 End: 03-07-2023 Subsequent hospital visit by physician [facility] [place] Work Phone: Radiology Comment on above: Viral illness [B34.9 ] Start: 03-06-2023 End: 03-06-2023 Office outpatient visit 15 minutes Donnie Anderson 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 Work Phone: [facility] Comment on above: Viral illness (Prima ry Dx); Acute cough Start: 01-18-2023 End: 01-18-2023 Patient encounter procedure Hermelinda Copeland MD Work Phone: Pulmonary Medicine Comment on above: 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); Chronic respiratory failure with hypoxia (HCC); Need for influenza vaccination Start: 12-02-2022 End: 12-02-2022 Subsequent hospital visit by physician X[facility] [place] Work Phone: Radiology Comment on above: 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, 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] Start: 12-02-2022 End: 12-02-2022 Office outpatient visit 40 minutes Rashida Lay PA-C Work Phone: Pulmonary Medicine Comment on above: 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); Chronic hypoxemic respiratory failure (HCC); Need for vaccination Start: 12-02-2022 End: 12-02-2022 ambulatory Pulm [facility] Work Phone: [facility] Comment on above: Spirometry Start: 12-02-2022 End: 12-02-2022 Patient encounter procedure [facility] Work Phone: [place] [facility] Start: 11-29-2022 Refill Tito crawford MD Work Phone: [facility] [place] Comment on above: Refill Request Start: 11-17-2022 End: 11-17-2022 Patient encounter procedure Rashida Lay PA-C Work Phone: Pulmonary Medicine Comment on above: 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); Chronic cough; Chronic hypoxemic respiratory failure (HCC); COPD with chronic bronchitis (HCC) Start: 11-15-2022 ambulatory Hermelinda Copeland MD Work Phone: Pulmonary Medicine Comment on above: sleep study Start: 10-08-2022 ambulatory Tito crawford MD Work Phone: [facility] [place] Comment on above: Lisinopril Start: 08-26-2022 End: 08-26-2022 Patient encounter procedure Rashida Lay PA-C Work Phone: Pulmonary Medicine Comment on above: IPF (idiopathic pulm onary fibrosis) (HCC) (Primary Dx); 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); Chronic hypoxemic respiratory failure (HCC) Start: 08-20-2022 End: 08-20-2022 Patient encounter procedure Tito Macias MD Work Phone: [facility] [place] Comment on above: 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 Tito Macias Work Phone: [facility] Work Phone: Start: 08-12-2022 End: 08-12-[address] Tito Macias Work Phone: [facility] [facility] Start: 07-30-2022 Refill Rashida Ulloa PA-C Work Phone: Pulmonary Medicine Comment on above: Refill Request Start: 06-25-2022 Refill Tito crawford MD Work Phone: [facility] [place] Comment on above: Refill Request Start: 04-27-2022 Orders Only Hermelinda Copeland MD Work Phone: Pulmonary Medicine Comment on above: Idiopathic pulmonary fibrosis (HCC) (Primary Dx) Start: 04-14-2022 Telephone encounter Hermelinda Copeland MD Work Phone: Pulmonary Medicine Comment on above: Returning Patient's Call (Chest CT) Results Start: 04-09-2022 ambulatory Rashida Ulloa PA-C Work Phone: Pulmonary Medicine Comment on above: results Start: 04-09-2022 E-mail encounter fro m caregiver Rashida Lay PA-C Work Phone: [facility] Start: 04-08-2022 End: 04-08-2022 Subsequent hospital visit by physician [facility] ([facility]-Stat) Work Phone: Cat Scan Start: 04-06-2022 End: 04-06-2022 Subsequent hospital visit by physician [facility] ([facility]) Work Phone: Cat Scan Comment on above: Canceled (CC cx: Equ ipment, Prep, Appropriateness) Start: 03-30-2022 End: 03-30-2022 Patient encounter procedure Hermelinda Copeland MD Work Phone: Pulmonary Medicine Comment on above: 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); Chronic cough; Chronic hypoxemic respiratory failure (HCC); Therapeutic drug monitoring Start: 02-15-2022 ambulatory Rashida Claire Luis Antonio nicole PA-C Work Phone: Pulmonary Medicine Comment on above: sputum test Start: 02-15-2022 Telephone encounter Rashida Claire Claudio PA-C Work Phone: Pulmonary Medicine Comment on above: Results Start: 02-12-2022 End: 02-12-2022 Patient encounter procedure Tito Macias MD Work Phone: [facility] [place] Comment on above: Medicare annual well ness visit, subsequent (Primary Dx); Secondary pulmonary arterial hypertension (HCC); Idiopathic pulmonary fibrosis (HCC); COPD with chronic bronchitis (HCC); Thyroid nodule greater than or equal to 1 cm in diameter incidentally noted on imaging study Start: 01-21-2022 ambulatory Rashida Claire Luis Antonio bonnie PA-C Work Phone: Pulmonary Medicine Comment on above: Nebulizer machine pr escription to [employer] Start: 01-18-2022 Telephone encounter Rashida M Claudio PA-C Work Phone: Pulmonary Medicine Comment on above: Orders Start: 01-18-2022 End: 01-18-2022 Patient encounter procedure Rashida M Claudio PA-C Work Phone: Pulmonary Medicine Comment on above: IPF (idiopathic pulm onary fibrosis) (HCC) (Primary Dx); Mucopurulent chronic bronchitis (HCC); Chronic respiratory failure with hypoxia (HCC); Acute cough Start: 01-17-2022 ambulatory Hermelinda Copeland MD Work Phone: Pulmonary Medicine Comment on above: Cough Start: 01-12-2022 Orders Only Hermelinda Copeland MD Work Phone: Pulmonary Medicine Comment on above: IPF (idiopathic pulm onary fibrosis) (HCC) (Primary Dx) Ofev prescription re quested to [facility] Start: 01-06-2022 Orders Only Hermelinda Copeland MD Work Phone: Pulmonary Medicine Comment on above: Pneumonia of both lo wer lobes due to infectious organism (Primary Dx) Sputum culture Start: 12-29-2021 ambulatory Hermelinda Copeland MD Work Phone: Pulmonary Medicine Comment on above: Sputum Culture Start: 12-15-2021 Telephone encounter Hermelinda Copeland MD Work Phone: Pulmonary Medicine Comment on above: Medication Problem ( OFEV) Start: 12-10-2021 End: 12-10-2021 Patient encounter procedure Hermelinda Copeland MD Work Phone: Pulmonary Medicine Comment on above: IPF (idiopathic pulm onary fibrosis) (HCC) (Primary Dx); Mucopurulent chronic bronchitis (HCC); Chronic respiratory failure with hypoxia (HCC); Nasal bleeding Start: 12-04-2021 End: 12-16-2021 Refill Tito Macias MD Work Phone: [facility] [place] Comment on above: Refill Request Start: 12-04-2021 End: 12-16-[address] Tito Macias Work Phone: [facility] Start: 11-19-2021 ambulatory Rashida Ulloa PA-C Work Phone: Pulmonary Medicine Comment on above: sputum test Start: 11-13-2021 End: 11-15-[address] [facility] Start: 11-05-2021 Telephone encounter Keila Mcfarland APRN.CNP Work Phone: [facility] Comment on above: error Start: 10-25-2021 ambulatory Rashida Ulloa PA-C Work Phone: Pulmonary Medicine Comment on above: sputum lab test? Start: 10-14-2021 End: 10-15-[address] [facility] Start: 10-12-2021 Chart abstracting Rashida ELC Work Phone: Pulmonary Medicine Start: 10-02-2021 End: 10-02-[address] Tito Macias Work Phone: [facility] Start: 10-02-[address] Mike Macias Work Phone: [facility] Start: 10-01-2021 End: 10-01-2021 ambulatory Respiratory Therapist [facility] Work Phone: Pulmonary Medicine Comment on above: Spirometry Start: 10-01-2021 End: 10-01-2021 Patient encounter [facility] Work Phone: [facility] Comment on above: Idiopathic pulmonary fibrosis (HCC) (Primary Dx); COPD with chronic bronchitis (HCC); Pulmonary arterial hypertension (HCC); Chronic hypoxemic respiratory failure (HCC) Start: 10-01-2021 End: 10-01-2021 Subsequent hospital visit by physician Xr [facility] Work Phone: Radiology Comment on above: 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] Start: 09-18-2021 End: 09-18-[address] 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 Tito Macias Work Phone: [facility] Start: 09-07-2021 Registered Recurring [facility] Start: 09-03-2021 End: 09-03-2021 Patient encounter procedure [facility] Start: 08-23-2021 ambulatory Rashida Ulloa PA-C Work Phone: Pulmonary Medicine Comment on above: lower back pain Start: 08-17-2021 End: 08-17-2021 Patient encounter procedure Rashida Lay PA-C Work Phone: Pulmonary Medicine Comment on above: Idiopathic pulmonary fibrosis (HCC) (Primary Dx); COPD with chronic bronchitis (HCC); Pulmonary arterial hypertension (HCC); Chronic hypoxemic respiratory failure (HCC); Pneumonia of left lower lobe due to infectious organism; Cough Start: 07-30-2021 ambulatory Jose R Spicer MD Work Phone: Pulmonary Medicine Comment on above: Portable Oxygen Portable Oxygen Solu tions Start: 07-30-2021 Telephone encounter Jose R ortiz MD Work Phone: Pulmonary Medicine Comment on above: POC order Start: 07-29-2021 Telephone encounter Rashida ELC Work Phone: Pulmonary Medicine Comment on above: Orders Start: 07-28-2021 End: 07-28-2021 ambulatory Respiratory Therapist [facility] Work Phone: Pulmonary Medicine Comment on above: Spirometry Start: 07-28-2021 End: 07-28-2021 Patient encounter procedure Respiratory Therapist [facility] Work Phone: [facility] Comment on above: Idiopathic pulmonary fibrosis (HCC) (Primary Dx); COPD with chronic bronchitis (HCC); Pulmonary arterial hypertension (HCC); Chronic hypoxemic respiratory failure (HCC); Pneumonia of left lower lobe due to infectious organism Start: 07-27-2021 Telephone encounter Jose R barillas Work Phone: Pulmonary Medicine Comment on above: Orders; Patient Upda te Start: 07-27-2021 End: 07-27-2021 Subsequent hospital visit by physician Xr [facility] Work Phone: Radiology Comment on above: Cough [R05.9] Start: 07-21-2021 Telephone encounter Tito li MD Work Phone: Internal Medicine [place] Comment on above: Referral Request Start: 06-16-2020 End: 06-16-2020 Subsequent hospital visit by physician Charles [facility] [place] Work Phone: Radiology Comment on above: Swelling of left jeane henrique [M79.89] Start: 10-13-2016 [facility]ulatory [facility] Procedures Date Procedure Procedure Detail Performing Clinician Start: 03-06-2024 Adult depression scr eening assessment Tito Macias MD Work Phone: Start: 03-07-2023 Radiologic exam ches t 2 views Donnie Anderson 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 Work Phone: Start: 03-06-2023 COVID & INFLUENZA A/ B & RSV NAAT, ROUTINE Donnie Anderson 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 Work Phone: Start: 01-18-2023 INFLUENZA VACCINE, P RSV FREE, AGE 65+ YR, HIGH DOSE, QUADRIVALENT (FLUZONE HIGH-DOSE) Hermelinda Copeland MD Work Phone: Start: 12-02-2022 Radiologic exam ches t 2 views Rashida Lay PA-C Work Phone: Start: 12-02-2022 Noninvasive ear/puls e oximetry multiple deter Rashida Lay PA-C Work Phone: Start: 12-02-2022 Brncdilat rspse spmt ry pre&post-brncdilat admn Rashida Lay PA-C Work Phone: Start: 08-20-2022 [employer] COVI D-19 BIVALENT VACCINE, AGE 12+ YR Tito Macias MD Work Phone: Start: 08-12-2022 Plain chest X-ray Dr. Jann Macias Work Phone: Start: 04-08-2022 Ct thorax w/o contra st material Hermelinda Copeland MD Work Phone: Start: 10-02-2021 CT angiography of ch est with contrast Dr. Tito Macias Work Phone: Start: 10-01-2021 Noninvasive ear/puls e oximetry multiple maximo ELC Work Phone: Start: 10-01-2021 Radiologic exam ches t 2 views Jose R Spicer MD Work Phone: Start: 07-28-2021 Noninvasive ear/puls e oximetry multiple maximo Spicer MD Work Phone: Start: 07-28-2021 End: 07-28-2021 Spmtry w/vc expiratory morgan w/wo mxml vol vntj Rashida ELC Work Phone: Start: 07-27-2021 Radiologic exam ches t 2 views Jose R Spicer MD Work Phone: Start: 06-16-2020 Radex fingr minimum 2 views Tito Macias MD Work Phone: Plan of Treatment Date Care Activity Detail Author Start: 09-16-2031 Urine microalbumin profile [facility] Start: 02-24-2027 Diabetes Screening Diabetes Screenin g [facility] Start: 03-03-2026 Diabetes Screening Diabetes Screenin g [facility] Start: 09-16-2025 End: 09-16-2025 Patient encounter procedure 09/16/2025 12:00 PM EDT Office Visit [facility] [place] [address] [place], [place] [id number] Tito Macias MD [address] [place], [place] [id number] Medicare Wellness [facility] [place] Comment on above: Medicare Wellness Start: 06-30-2025 Urine microalbumin profile DTAP,TDAP,TD (3 - Tdap) [facility] Start: 03-06-2025 Anxiety Screening Anxiety Screening [facility] Start: 03-06-2025 Depression Screening Depression Scre ening [facility] Start: 03-04-2025 End: 03-04-2025 Patient encounter procedure 03/04/2025 12:40 PM EST Office Visit Internal Medicine [place] [address] [place] [address] Erika Santana, 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 [address] [place] [address] 6 month follow up [facility] Medicine [place] Comment on above: 6 month follow up Start: 02-23-2025 DIABETES SCREEN DIABETES SCREEN [facility] Start: 02-23-2025 Diabetes Screening Diabetes Screenin g [facility] Start: 02-19-2025 End: 02-19-2025 Patient encounter procedure 02/19/2025 10:00 AM EST Office Visit Pulmonary Medicine [address] [place] [address] Jessica Moreno, COLIN.MOBILE APPLICATION DEVELOPMENT LEAD [address] 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]; Chronic respiratory failure with hypoxia (HCC) [J96.11] Start: 02-18-2025 End: 05-20-2025 CBC panel - Blood by Automated count COMPLETE BLOOD COUNT Lab Routine Essential hypertension, benign Expected: 02/18/2025, Expires: 05/20/2025 [facility] Work Phone: Comment on above: Expected: 02/18/2025 , Expires: 05/20/2025 Start: 02-18-2025 End: 05-20-2025 Comprehensive metabolic 2000 panel - Serum or Plasma COMPREHENSIVE METABOLIC PANEL Lab Routine Hyperlipidemia, unspecified hyperlipidemia type Expected: 02/18/2025, Expires: 05/20/2025 [facility] Comment on above: Expected: 02/18/2025 , Expires: 05/20/2025 Start: 02-18-2025 End: 05-20-2025 Lipid 1996 panel - Serum or Plasma LIPID PANEL, FASTING Lab Routine Hyperlipidemia, unspecified hyperlipidemia type Expected: 02/18/2025, Expires: 05/20/2025 [facility] Comment on above: Expected: 02/18/2025 , Expires: 05/20/2025 Start: 01-07-2025 DIABETES SCREEN DIABETES SCREEN [facility] Start: 12-17-2024 Influenza vaccination Influenza Vacc ine (#1) [facility] Start: 12-05-2024 End: 03-06-2025 Bacteria identified in Unspecified specimen by Respiratory culture BACTERIAL CULTURE AND GRAM STAIN, RESPIRATORY, SPUTUM AND TRACHEAL ASPIRATE Microbiology Routine Bronchiectasis without complication (HCC) Expected: 12/05/2024, Expires: 03/06/2025 [facility] Work Phone: Comment on above: Expected: 12/05/2024 , Expires: 03/06/2025 Start: 10-25-2024 End: 10-25-2024 Patient encounter procedure 10/25/2024 11:45 AM EDT Office Visit Pulmonary Medicine [address] [place] [phone] Hermelinda Copeland MD [address] [place] [address] 6 month f/u Pulmonary Medicine Comment on above: 6 month f/u Start: 09-10-2024 DIABETES SCREEN DIABETES SCREEN [facility] Start: 09-03-2024 End: 09-03-2024 Patient encounter procedure 09/03/2024 12:40 PM EDT Office Visit Internal Medicine [place] [address] [place] [address] Tito Macias MD [address] [place] [address] 6 month follow-up [facility] Medicine [place] Comment on above: 6 month follow-up Start: 04-23-2024 End: 04-23-2024 Patient encounter procedure 04/23/2024 12:45 PM EST Office Visit Pulmonary Medicine [address] [place], [place] [phone] Hermelinda Copeland MD [address] [place] [phone] 3 month f/u Pulmonary Medicine Comment on above: 3 month f/u Start: 04-18-2024 Advance Directive Discussion Advance Directive Discussion [facility] Start: 04-18-2024 Medicare Advantage Annual Wellness Visit Medicare Advantage Annual Wellness Visit [facility] Start: 03-17-2024 End: 06-16-2024 CBC panel - Blood by Automated count COMPLETE BLOOD COUNT Lab Routine COPD with chronic bronchitis (HCC) Expected: 03/17/2024, Expires: 06/16/2024 [facility] Work Phone: Comment on above: Expected: 03/17/2024 , Expires: 06/16/2024 Start: 03-17-2024 End: 06-16-2024 Comprehensive metabolic 2000 panel - Serum or Plasma COMPREHENSIVE METABOLIC PANEL Lab Routine Hyperlipidemia, unspecified hyperlipidemia type Expected: 03/17/2024, Expires: 06/16/2024 [facility] Comment on above: Expected: 03/17/2024 , Expires: 06/16/2024 Start: 03-17-2024 End: 06-16-2024 Lipid 1996 panel - Serum or Plasma LIPID PANEL BASIC Lab Routine Hyperlipidemia, unspecified hyperlipidemia type Expected: 03/17/2024, Expires: 06/16/2024 [facility] Comment on above: Expected: 03/17/2024 , Expires: 06/16/2024 Start: 03-06-2024 End: 03-06-2024 Patient encounter procedure 03/06/2024 10:20 AM EST Office Visit Internal Medicine [place] [address] [place] [address] Tito Macias MD [address] [place] [address] Medicare Wellness , 6 month follow up [facility] Medicine [place] Comment on above: Medicare Wellness , 6 month follow up Start: 02-01-2024 End: 02-01-2024 Patient encounter procedure 02/01/2024 10:30 AM EDT Office Visit Pulmonary Medicine [address] [place] [address] Rashida Lay PA-C [address] [place] [address] 6 MTH F/U Pulmonary Medicine Comment on above: 6 MTH F/U Start: 12-18-2023 Covid-19 Vaccine ( season) Covid-19 Vaccine ( season) [facility] Start: 12-18-2023 Influenza vaccination Influenza Vacc ine (#1) [facility] Start: 12-11-2023 DIABETES SCREEN DIABETES SCREEN [facility] Start: 07-11-2023 End: 10-10-2023 Bacteria identified in Unspecified specimen by Respiratory culture RESPIRATORY CULTURE AND STAIN Microbiology Routine Acute bronchitis, unspecified organism Expected: 07/11/2023, Expires: 10/10/2023 [facility] Work Phone: Comment on above: Expected: 07/11/2023 , Expires: 10/10/2023 Start: 04-18-2023 Advance Directive Discussion Advance Directive Discussion [facility] Start: 04-18-2023 Behavioral Health Screening Behavioral Health Screening [facility] Start: 04-18-2023 Depression Assessment Depression Ass essment [facility] Start: 02-20-2023 End: 04-22-2023 CBC panel - Blood by Automated count CBC Lab Routine Secondary pulmonary arterial hypertension (HCC) Expected: 02/20/2023, Expires: 04/22/2023 [facility] Work Phone: Comment on above: Expected: 02/20/2023 , Expires: 04/22/2023 Start: 02-20-2023 End: 04-22-2023 Comprehensive metabolic 2000 panel - Serum or Plasma COMP METABOLIC PANEL Lab Routine Hyperlipidemia, unspecified hyperlipidemia type Expected: 02/20/2023, Expires: 04/22/2023 [facility] Work Phone: Comment on above: Expected: 02/20/2023 , Expires: 04/22/2023 Start: 02-20-2023 End: 04-22-2023 Lipid 1996 panel - Serum or Plasma LIPID PANEL BASIC Lab Routine Hyperlipidemia, unspecified hyperlipidemia type Expected: 02/20/2023, Expires: 04/22/2023 [facility] Work Phone: Comment on above: Expected: 02/20/2023 , Expires: 04/22/2023 Start: 12-17-2022 Influenza vaccination INFLUENZA (#1) [facility] Start: 06-21-2022 End: 04-29-2023 Ct thorax w/o contrast material CT CHEST WO IVCON Radiology Routine Expected: 06/21/2022, Expires: 04/29/2023 [facility] Work Phone: Comment on above: Expected: 06/21/2022 , Expires: 04/29/2023 Start: 04-18-2022 ADVANCE DIRECTIVE DISCUSSION ADVANCE DIRECTIVE DISCUSSION [facility] Start: 04-18-2022 DEPRESSION ASSESSMENT DEPRESSION ASS ESSMENT [facility] Start: 04-02-2022 End: 10-31-2022 SPIROMETRY BASELINE ONLY SPIROMETRY BASELINE ONLY PFT Routine 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) Expected: 04/02/2022 (Approximate), Expires: 10/31/2022 [facility] Work Phone: Comment on above: Expected: 04/02/2022 (Approximate), Expires: 10/31/2022 Start: 02-15-2022 End: 04-17-2022 Basic metabolic 2000 panel - Serum or Plasma BASIC METABOLIC PNL Lab Routine COPD with exacerbation (HCC) Expected: 02/15/2022, Expires: 04/17/2022 [facility] Work Phone: Comment on above: Expected: 02/15/2022 , Expires: 04/17/2022 Start: 01-18-2022 End: 03-20-2022 Bacteria identified in Unspecified specimen by Respiratory culture RESP CULTURE + STAIN Microbiology Routine IPF (idiopathic pulmonary fibrosis) (HCC) Expected: 01/18/2022, Expires: 03/20/2022 [facility] Work Phone: Comment on above: Expected: 01/18/2022 , Expires: 03/20/2022 Start: 01-06-2022 End: 03-08-2022 (1,3)-B-D-GLUCAN (1,3)-B-D-GLUCAN Lab Routine Pneumonia of both lower lobes due to infectious organism Expected: 01/06/2022, Expires: 03/08/2022 [facility] Work Phone: Comment on above: Expected: 01/06/2022 , Expires: 03/08/2022 Start: 01-06-2022 End: 03-08-2022 ASPERGILLUS GALACTOMANNAN SERUM ASPERGILLUS GALACTOMANNAN SERUM Lab Routine Pneumonia of both lower lobes due to infectious organism Expected: 01/06/2022, Expires: 03/08/2022 [facility] Work Phone: Comment on above: Expected: 01/06/2022 , Expires: 03/08/2022 Start: 12-18-2021 End: 02-17-2022 Albumin [Mass/volume] in Serum or Plasma ALBUMIN BLD Lab Routine Hypoalbuminemia due to protein-calorie malnutrition (HCC) Expected: 12/18/2021, Expires: 02/17/2022 [facility] Work Phone: Comment on above: Expected: 12/18/2021 , Expires: 02/17/2022 Start: 12-18-2021 End: 02-17-2022 Basic metabolic 2000 panel - Serum or Plasma BASIC METABOLIC PNL Lab Routine Hyperlipidemia, unspecified hyperlipidemia type Expected: 12/18/2021, Expires: 02/17/2022 [facility] Work Phone: Comment on above: Expected: 12/18/2021 , Expires: 02/17/2022 Start: 12-18-2021 End: 02-17-2022 CBC panel - Blood by Automated count CBC Lab Routine Anemia, unspecified type Expected: 12/18/2021, Expires: 02/17/2022 [facility] Work Phone: Comment on above: Expected: 12/18/2021 , Expires: 02/17/2022 Start: 12-17-2021 Influenza vaccination INFLUENZA (#1) [facility] Start: 12-10-2021 End: 02-09-2022 Bacteria identified in Unspecified specimen by Respiratory culture [facility] Work Phone: Comment on above: Expected: 12/10/2021 , Expires: 02/09/2022 Start: 11-20-2021 End: 01-20-2022 Bacteria identified in Unspecified specimen by Respiratory culture RESP CULTURE + STAIN Microbiology Routine Idiopathic pulmonary fibrosis ([facility]) Expected: 11/20/2021, Expires: 01/20/2022 [facility] Work Phone: Comment on above: Expected: 11/20/2021 , Expires: 01/20/2022 Start: 10-26-2021 End: 12-26-2021 Bacteria identified in Unspecified specimen by Respiratory culture RESP CULTURE + STAIN Microbiology Routine Idiopathic pulmonary fibrosis ([facility]) Expected: 10/26/2021, Expires: 12/26/2021 [facility] Work Phone: Comment on above: Expected: 10/26/2021 , Expires: 12/26/2021 Start: 09-10-2021 COVID-19 VACCINE (5 - Booster for Pfizer series) COVID-19 VACCINE (5 - Booster for Pfizer series) [facility] Start: 09-03-2021 [facility] Work Phone: Start: 04-18-2021 ADVANCE DIRECTIVE DISCUSSION ADVANCE DIRECTIVE DISCUSSION [facility] Start: 04-18-2021 DEPRESSION ASSESSMENT DEPRESSION ASS ESSMENT [facility] Start: 2000 RSV Vaccine (1 - 1-d ose 60+ series) RSV Vaccine (1 - 1-dose 60+ series) [facility] Start: 1958 Anxiety Screening Anxiety Screening [facility] Start: 1958 Depression Screening Depression Scre ening [facility] Bacteria identified in Unspecified specimen by Respiratory culture RESP CULTURE + STAIN Microbiology Routine Idiopathic pulmonary fibrosis ([facility]) 04/27/2022 12:00 AM EST [facility] Work Phone: End: 08-26-2023 Bacteria identified in Unspecified specimen by Respiratory culture RESP CULTURE + STAIN Microbiology Routine IPF (idiopathic pulmonary fibrosis) ([facility]) Once per month for 11 Occurrences starting 08/26/2022 until 08/26/2023, 1 completed [facility] Work Phone: Comment on above: Once per month for 1 1 Occurrences starting 08/26/2022 until 08/26/2023, 1 completed Bacteria identified in Unspecified specimen by Respiratory culture RESP CULTURE + STAIN Microbiology Routine IPF (idiopathic pulmonary fibrosis) (HCC) 08/26/2022 11:42 AM EDT [facility] Work Phone: End: 05-29-2024 Bacteria identified in Unspecified specimen by Respiratory culture RESP CULTURE + STAIN Microbiology Routine IPF (idiopathic pulmonary fibrosis) (HCC) Once per month for 11 Occurrences starting 05/30/2023 until 05/29/2024 [facility] Work Phone: Comment on above: Once per month for 1 1 Occurrences starting 05/30/2023 until 05/29/2024 Bacteria identified in Unspecified specimen by Respiratory culture RESP CULTURE + STAIN Microbiology Routine IPF (idiopathic pulmonary fibrosis) ([facility]) 05/30/2023 1:30 PM EST [facility] Work Phone: End: 07-26-2024 Bacteria identified in Unspecified specimen by Respiratory culture [facility] Work Phone: Comment on above: Once per month for 1 1 Occurrences starting 07/27/2023 until 07/26/2024 2x per week for 11 O ccurrences starting 07/27/2023 until 07/26/2024 Guidance for percutaneous biopsy.core needle of Thyroid gland IMAGING GUIDED BIOPSY THYROID Radiology Routine Thyroid nodule greater than or equal to 1 cm in diameter incidentally noted on imaging study Ordered: 06/06/2023 [facility] Work Phone: Comment on above: Ordered: 06/06/2023 Hepatic function 200 0 panel - Serum or Plasma HEPATIC FUNCTION PNL Lab Routine Therapeutic drug monitoring 03/30/2022 3:06 PM EST [facility] Work Phone: End: 09-25-2023 LUNG VOLUMES LUNG VOLUMES PFT Routine IPF (idiopathic pulmonary fibrosis) ([facility]) 1 Occurrences starting 08/26/2022 until 09/25/2023 [facility] Work Phone: Comment on above: 1 Occurrences starti ng 08/26/2022 until 09/25/2023 End: 01-04-2026 LUNG VOLUMES LUNG VOLUMES PFT Routine 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[facility]) 1 Occurrences starting 12/05/2024 until 01/04/2026 [facility] Comment on above: 1 Occurrences starti ng 12/05/2024 until 01/04/2026 End: 09-16-2022 OXIMETRY WITH AMBULATION OXIMETRY WITH AMBULATION PFT Routine Idiopathic pulmonary fibrosis (HCC) Pulmonary arterial hypertension (HCC) Chronic hypoxemic respiratory failure (HCC) 1 Occurrences starting 08/17/2021 until 09/16/2022 [facility] Work Phone: Comment on above: 1 Occurrences starti ng 08/17/2021 until 09/16/2022 End: 01-04-2026 OXIMETRY WITH AMBULATION OXIMETRY WITH AMBULATION PFT Routine 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) Chronic respiratory failure with hypoxia (HCC) 1 Occurrences starting 12/05/2024 until 01/04/2026 [facility] Comment on above: 1 Occurrences starti ng 12/05/2024 until 01/04/2026 End: 08-27-2022 Radiologic exam chest 2 views XR CHEST 2V FRONTAL/LAT Radiology Routine 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) 1 Occurrences starting 07/28/2021 until 08/27/2022 [facility] Work Phone: Comment on above: 1 Occurrences starti ng 07/28/2021 until 08/27/2022 End: 01-01-2024 Radiologic exam chest 2 views XR CHEST 2V FRONTAL/LAT Radiology Routine 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) 1 Occurrences starting 12/02/2022 until 01/01/2024 [facility] Work Phone: Comment on above: 1 Occurrences starti ng 12/02/2022 until 01/01/2024 Radiologic exam ches t 2 views XR CHEST 2V FRONTAL/LAT Radiology Routine 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) 12/02/2022 11:18 AM EDT [facility] Work Phone: SIX MINUTE WALK SIX MINUTE WALK PFT Routine 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) Pulmonary arterial hypertension (HCC) 07/28/2021 3:08 PM EDT [facility] Work Phone: End: 01-04-2026 SPIROMETRY BASELINE ONLY SPIROMETRY BASELINE ONLY PFT Routine 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) 1 Occurrences starting 12/05/2024 until 01/04/2026 [facility] Comment on above: 1 Occurrences starti ng 12/05/2024 until 01/04/2026 End: 09-25-2023 SPIROMETRY WITH DILATOR IF OBSTRUCTED SPIROMETRY WITH DILATOR IF OBSTRUCTED PFT Routine IPF (idiopathic pulmonary fibrosis) ([facility]) 1 Occurrences starting 08/26/2022 until 09/25/2023 [facility] Work Phone: Comment on above: 1 Occurrences starti ng 08/26/2022 until 09/25/2023 US Heart [facility] End: 03-14-2023 Us soft tissue head & neck real time imge docm US THYROID/PARATHYROID Radiology Routine Thyroid nodule greater than or equal to 1 cm in diameter incidentally noted on imaging study 1 Occurrences starting 02/12/2022 until 03/14/2023 [facility] Work Phone: Comment on above: 1 Occurrences starti ng 02/12/2022 until 03/14/2023 Us soft tissue head & neck real time imge docm US THYROID/PARATHYROID Radiology Routine Thyroid nodule greater than or equal to 1 cm in diameter incidentally noted on imaging study 03/11/2023 2:02 PM EST [facility] Work Phone: [facility] Immunizations Immunization Date Immunization Notes Care Provider Graham barnes 02-01-2024 influenza, high dose seasonal, preservative-free Tito Macias MD Work Phone: [facility] 02-01-2024 influenza virus vacc ine, unspecified formulation Jessica Moreno APRN.CNP Work Phone: [facility] 12-16-2023 COVID-19 vaccine, unspecified formulation Tito Macias MD Work Phone: [facility] 02-15-2023 respiratory syncytia l virus (RSV), unspecified formulation Tito Macias MD Work Phone: [facility] Work Phone: 01-18-2023 influenza (HD-IIV4) vaccine, age 65+ yr, high dose, quadrivalent, PF (FLUZONE HIGH-DOSE) Hermelinda Copeland MD Work Phone: [facility] 01-18-2023 influenza virus vacc ine, unspecified formulation Xr [place] Work Phone: [facility] 01-15-2023 COVID-19 vaccine, ag e 12+ yr, season ([employer]) Hermelinda Copeland MD Work Phone: [facility] 12-02-2022 pneumococcal (PCV20) vaccine, 20 valent (PREVNAR 20) Pulm Wstr Work Phone: [facility] 12-02-2022 pneumococcal Conjuga te, unspecified formulation Rashida [place] PA-C Work Phone: [facility] Work Phone: 08-20-2022 COVID-19 vaccine, ag e 12+ yr, bivalent ([employer]-BIONTECH) Tito Macias MD Work Phone: [facility] 01-04-2022 influenza, high dose seasonal, preservative-free Tito Macias MD Work Phone: [facility] 09-15-2021 tetanus toxoid, redu cally diphtheria toxoid, and acellular pertussis vaccine, adsorbed Tito Macias MD Work Phone: [facility] Work Phone: 07-16-2021 COVID-19 original vaccine, age 12+ yr, monovalent ([employer] - CEDENO TOP) Tito Macias MD Work Phone: [facility] Work Phone: 12-21-2020 COVID-19 original vaccine, age 12+ yr, monovalent ([employer] - PURPLE TOP) Tito Macias MD Work Phone: [facility] Work Phone: 12-14-2020 influenza nasal, unspecified formulation Rashida Lay PA-C Work Phone: [facility] Work Phone: 12-14-2020 influenza, high dose seasonal, preservative-free Tito Macias MD Work Phone: [facility] Work Phone: 05-29-2020 COVID-19 vaccine, ag e 12+ yr ([employer] - PURPLE TOP) Tito Macias MD Work Phone: [facility] Work Phone: 05-09-2020 COVID-19 vaccine, ag e 12+ yr ([employer] - PURPLE TOP) Tito Macias MD Work Phone: [facility] Work Phone: 02-06-2020 pneumococcal polysaccharide vaccine, 23 valent Tito Macias MD Work Phone: [facility] Work Phone: 01-08-2020 influenza, high dose seasonal, preservative-free Tito Macias MD Work Phone: [facility] Work Phone: 01-08-2020 influenza, injectabl e, quadrivalent, preservative free Tito Macias MD Work Phone: [facility] Work Phone: 02-06-2019 pneumococcal conjuga te vaccine, 13 valent Tito Macias MD Work Phone: [facility] Work Phone: 12-25-2018 influenza, high dose seasonal, preservative-free Tito Macias MD Work Phone: [facility] Work Phone: 10-25-2018 zoster vaccine recombinant Tito Macias MD Work Phone: [facility] Work Phone: 08-08-2018 zoster vaccine recombinant Tito Macias MD Work Phone: [facility] Work Phone: 01-28-2018 influenza, high dose seasonal, preservative-free Tito Macias MD Work Phone: [facility] 12-31-2016 influenza, high dose seasonal, preservative-free Tito Macias MD Work Phone: [facility] 01-23-2016 influenza, high dose seasonal, preservative-free Tito Macias MD Work Phone: [facility] 07-01-2015 tetanus and diphther ia toxoids, adsorbed, preservative free, for adult use (5 Lf of tetanus toxoid and 2 Lf of diphtheria toxoid) Tito Macias MD Work Phone: [facility] 01-25-2015 influenza, high dose seasonal, preservative-free Tito Macias MD Work Phone: [facility] Work Phone: 12-30-2014 pneumococcal polysaccharide vaccine, 23 valent Tito Macias MD Work Phone: [facility] 06-14-2014 pneumococcal conjuga te vaccine, 13 valent Tito Macias MD Work Phone: [facility] 01-27-2013 influenza virus vacc ine, unspecified formulation Tito Macias MD Work Phone: [facility] 09-14-2012 zoster vaccine, live Tito Macias MD Work Phone: [facility] Work Phone: 01-22-2010 influenza virus vacc ine, unspecified formulation Tito Macias MD Work Phone: [facility] Work Phone: 03-25-2009 novel influenza-H1N1 -09, preservative-free, injectable Tito Macias MD Work Phone: [facility] Work Phone: 02-04-2009 influenza virus vacc ine, unspecified formulation Tito Macias MD Work Phone: [facility] 02-10-2008 influenza virus vacc ine, whole virus Tito Macias MD Work Phone: [facility] Work Phone: 02-14-2006 influenza virus vacc ine, whole virus Tito Macias MD Work Phone: [facility] Work Phone: 02-05-2005 pneumococcal polysaccharide vaccine, 23 valent Tito Macias MD Work Phone: [facility] Work Phone: 11-05-2004 diphtheria and tetan us toxoids, adsorbed for pediatric use Tito Macias MD Work Phone: [facility] Work Phone: 04-22-1997 hepatitis B vaccine, adult dosage Tito Macias MD Work Phone: [facility] Work Phone: 07-27-1996 hepatitis B vaccine, pediatric or pediatric/adolescent dosage Tito Macias MD Work Phone: [facility] Work Phone: 05-03-1996 hepatitis B vaccine, adult dosage Tito Macias MD Work Phone: [facility] Work Phone: Payers Date Payer Category Payer Self-pay [id number] 2021 Medicare AETNA MEDICARE A ETNA MEDICARE PPO [id number] 2021-Present [phone] [address] [place] [address] [facility] [id number] 2021 Medicare (Managed Care) ERICA KUMAR [id number] 2021 Private Health Insurance [id number] 2014 Medicare [id number] Unknown [id number] Unknown [id number] Unknown [id number] Unknown [id number] Unknown [id number] Unknown [id number] Unknown [id number] Unknown [id number] Unknown [id number] Unknown [id number] Social History Date Type Detail Facility Start: 06-24-2016 End: 01-09-2024 Tobacco smoking status NHIS Ex-smoker [facility] Start: 06-24-1957 End: 04-18-1981 History of tobacco use Current smoker [facility] Start: 06-24-1957 End: 04-18-1981 History of tobacco use Cigarette Smoker [facility] Start: 06-17-2021 End: 12-05-2024 Alcohol intake Current non-drinker of alcohol (finding) [facility] Start: 06-24-2016 End: 12-10-2021 Tobacco Comment No smoking in childhood home. [facility] Start: 1940 Sex Assigned At Not on file [facility] Start: 05-17-2020 End: 02-12-2022 Exposure to SARS-CoV-2 (event) Not sure [facility] Work Phone: Start: 09-03-2021 End: 08-12-2022 Tobacco smoking status RIIS Unknown if ever smoked [facility] Start: 1940 Sex Assigned At Male [facility] Start: 06-24-2016 End: 08-20-2022 Cigarettes smoked current (pack per day) - Reported 1 [facility] Work Phone: Start: 06-24-2016 End: 02-01-2024 Tobacco use and exposure Smokeless tobacco non-user [facility] Work Phone: Start: 12-28-2021 End: 01-07-2022 Exposure to SARS-CoV-2 (event) Unable to assess [facility] Work Phone: Start: 08-20-2022 End: 08-26-2022 Tobacco use panel [facility] Work Phone: Start: 03-19-2012 Adult Depression Screening Assessment 0 [facility] Work Phone: How often to you hav e a drink containing alcohol? Never [facility] Functional Status Date Assessment Result Facility 09-23-2014 Are you deaf, or do you have serious difficulty hearing No 09/23/2014 1:57 PM EDT Torie Lynch LPN No [facility] 09-23-2014 Are you blind, or do you have serious difficulty seeing, even when wearing glasses No 09/23/2014 1:57 PM EDT Torie Lynch LPN No [facility] 09-23-2014 Do you have serious difficulty walking or climbing stairs No 09/23/2014 1:57 PM EDT Torie Lynch LPN No [facility] 09-23-2014 Do you have difficul ty dressing or bathing No 09/23/2014 1:57 PM EDT Torie Lynch LPN No [facility] 09-23-2014 Because of a physica l, mental, or emotional condition, do you have difficulty doing errands alone such as visiting a physician's office or shopping No 09/23/2014 1:57 PM EDT Torie Lynch LPN No [facility] Mental Status Date Assessment Result Facility 09-23-2014 Because of a physica l, mental, or emotional condition, do you have serious difficulty concentrating, remembering, or making decisions No 09/23/2014 1:57 PM EDT Torie Lynch LPN No [facility] Clinical Notes 03-22-2013 to 02-22-2025 Note Date & Type Note Facility 02-22-2025 Note HNO ID: [id number] Author: HERMELINDA COPELAND MD Service: ? Author Type: Physician Type: Progress Notes Filed: 02/22/2025 14:14 Note Text: . [facility] Note Patient name: Jorge Ramires PCP: Tito Macias MD CC: pneumonia HPI: Jorge Ramires 84 year old male former [id number] smoker quitting in 1981 with PMH significant for CPFE, bronchiectasis, history of lung cancer, CAD, HTN, HLD, chronic hypoxemic respiratory failure recently seen for acute visit. He had increased sputum production with change in color. Chest x-ray ordered which did not show any obvious infiltrate, sputum culture showed moderate normal respiratory braxton and rare mold. He was treated with Levaquin. Additionally he had been intolerant of Ofev and Esbriet. Started process for approval of nerandomilast. Needs a new acapella device. Recent echo showed mild PAH with RVSP 42 mmHg and grade 1 diastolic dysfunction. Today he states that the frequency and amount of sputum production has improved with recent course of Levaquin. He continues to have cough at night which interferes with his sleep. This is not a new problem. No chest pain, fevers, chills, wheezing. 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 Coronary artery disease Erectile dysfunction 03/13/2010 Esophageal reflux Essential hypertension, benign 09/06/2012 Ganglion and cyst of synovium, tendon and bursa 03/22/2013 Hematospermia 01/17/2006 Hiatal hernia 06/04/2013 HYPERLIPIDEMIA NEC/NOS 01/19/2005 HYPERTROPHY PROSTATE WITH OBST 01/17/2006 Hypoalbuminemia due to protein-calorie malnutrition (HCC) 09/17/2021 Idiopathic pulmonary fibrosis (HCC) 07/02/2015 Obesity, Class I, BMI 30-34.9 10/10/2017 PERS HX BRONCHOGENIC MALIGNAN 04/09/2008 Personal history of colonic polyps Colon polyps Pulmonary fibrosis (HCC) 07/02/2015 Pure hypercholesterolemia Secondary pulmonary arterial hypertension (HCC) 02/12/2022 Furosemide. [facility]. Thyroid nodule greater than or equal to 1 cm in diameter incidentally noted on imaging study 12/18/2019 ALLERGIES No Known Allergies levoFLOXacin (LEVAQUIN) 500 mg tabletTake 1 tablet by mouth once daily for 7 days.Disp: 7 tabletRfl: 0 tamsulosin (FLOMAX) 0.4 mgTake 2 capsules by mouth once daily.Disp: 180 capsuleRfl: 3 ipratropium-albuterol (DUONEB) 0.5 mg-3 mg(2.5 mg base)/3 mL nebuInhale 3 mL as instructed every 4 hours as needed for wheezing/shortness of breath.Disp: 120 EachRfl: 5 lisinopril (ZESTRIL) 10 mg tabletTake 1 tablet by mouth once daily.Disp: 90 tabletRfl: 3 oxybutynin XL (DITROPAN XL) 5 mg 24 hr tabletTake 1 tablet by mouth once daily.Disp: 90 tabletRfl: 3 Mirtazapine (REMERON) 7.5 mg tabletTake 1 tablet by mouth daily at bedtime.Disp: 90 tabletRfl: [address] (PROTONIX) 20 mg tabletTake 1 tablet by mouth once daily.Disp: 90 tabletRfl: 3 simvastatin (ZOCOR) 10 mg tabletTake 1 tablet by mouth daily at bedtime.Disp: 90 tabletRfl: 3 fluticasone-salmeterol (WIXELA INHUB) 250-50 mcg/dose inhalerInhale 1 Puff as instructed two times a day.Disp: Rfl: Nebulizer Accessories kitProvide 1 kit.Disp: 1 EachRfl: 5 Mucus Clearing Device deviProvide 1 deviceDisp: 1 EachRfl: 0 albuterol HFA (PROVENTIL HFA, VENTOLIN HFA) 90 mcg/actuation inhalerInhale 2 Puffs as instructed four times daily as needed. FOR WHEEZING AND SHORTNESS OF BREATH.Disp: 1 InhalerRfl: 3 THERAPEUTIC MULTIVIT/MINERAL TABTake one(1) tablet daily.Disp: otcRfl: 0 SOCIAL HISTORY[1] FAMILY HISTORY Problem Relation Age of Onset Alzheimer's Disease Mother Heart Father heart attack Breast Cancer Sister Heart Brother aortic aneurysm COPD No Family History PAST SURGICAL HISTORY Procedure Laterality Date COLONOSCOPY FLX DX W/COLLJ SPEC WHEN PFRMD 07/12/2005 COLONOSCOPY FLX DX W/COLLJ SPEC WHEN PFRMD 07/19/2013 Colonoscopy COLONOSCOPY W/BIOPSY SINGLE/MULTIPLE 03/02/2010 ESOPHAGOGASTRODUODENOSCOPY TRANSORAL DIAGNOSTIC 07/19/2013 EGD REMOVAL OF LUNG,LOBECTOMY Left 04/2007 left upper lobe RIGHT HEART CATH 11/03/2020 TONSILLECTOMY AND ADENOIDECTOMY PMH, Social history, family history and surgical history reviewed and updated EMR REVIEW OF SYSTEMS: CONSTITUTIONAL: No fevers, chills, nightsweats, unintended weight loss CARDIOVASCULAR: No chest pain, palpitations, orthopnea. Edema PULM: See HPI INTEGUMENTARY: No new skin changes PHYSICAL EXAMINATION: BP 130/72 Pulse 95 Wt 167 lb (75.8kg) SpO2 94[on 5L O2]% General Appearance: Elderly male, NAD. Skin: Skin color, texture, turgor normal, no suspicious rashes or lesions. Head: Normoc (more content not included)... [facility] 02-15-2025 Note HNO ID: [id number] Author: BONNIE MORA RT(R) Service: ? Author Type: Batch Unloader Type: Progress Notes Filed: 02/15/2025 15:02 Note Text: Radiology Service Progress Note PATIENT NAME: Jorge Ramires DATE OF SERVICE: February 15, 2025 TIME: 2:52 PM PATIENT IDENTITY VERIFICATION COMPLETED USING TWO (2) IDENTIFIERS: Name and Date of confirmed by patient verbally. FALL SCREENING: Has the patient had 2 falls in the last year or 1 fall with injury or currently using an Ambulatory Assistive Device (Walker, Cane, Wheelchair, Crutches, etc.)? Yes, Patient High Risk for Falls What interventions were put in place to prevent falls during this visit? Increased Observations by Caregivers PATIENT GENDER DATA: Assigned male at PATIENT RELEVANT IMPLANT DATA REVIEWED: Yes PATIENT PRESENTS WITH AN IMPLANTABLE OR ATTACHED CHANGE MANAGEMENT COORDINATOR: No RADIOLOGY DEPARTMENT: General X-ray: Exam(s) Completed: Chest X-Ray PERIPHERAL IV DATA: Not applicable SIGNED BY: RT Chucho(R) February 15, 2025 2:52 PM [facility] 02-15-2025 Note HNO ID: [id number] Author: HERMELINDA COPELAND MD Service: ? Author Type: Physician Type: Progress Notes Filed: 02/15/2025 15:14 Note Text: . [facility] Note Patient name: Jorge Ramires PCP: Tito Macias MD CC: Not feeling well HPI: Jorge Ramires 84 year old male former [id number] smoker, quitting in 1981 with PMH significant for combined pulmonary fibrosis emphysema, bronchiectasis, history of lung cancer, CAD, HTN, HLD, chronic hypoxemic respiratory failure presenting for an acute visit. Unable to tolerate in the past OFEV due to side effects. Has previously grown Serratia marcescens and Staph aureus in sputum. He has not been feeling well for several days. He has had significant fatigue, chills without documented fever, increased chest congestion and shortness of breath. Sputum is thick and yellow to green in color. He submitted a sputum sample which shows moderate respiratory braxton culture is pending at this time. He has had some chest pain more on the right posterior back and across his shoulders. He has been wheezing more, using his nebulized treatments. 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) 12/29/2020 Coronary artery disease Erectile dysfunction 03/13/2010 Esophageal reflux Essential hypertension, benign 09/06/2012 Ganglion and cyst of synovium, tendon and bursa 03/22/2013 Hematospermia 01/17/2006 Hiatal hernia 06/04/2013 HYPERLIPIDEMIA NEC/NOS 01/19/2005 HYPERTROPHY PROSTATE WITH OBST 01/17/2006 Hypoalbuminemia due to protein-calorie malnutrition (HCC) 09/17/2021 Idiopathic pulmonary fibrosis (HCC) 07/02/2015 Obesity, Class I, BMI 30-34.9 10/10/2017 PERS HX BRONCHOGENIC MALIGNAN 04/09/2008 Personal history of colonic polyps Colon polyps Pulmonary fibrosis (HCC) 07/02/2015 Pure hypercholesterolemia Secondary pulmonary arterial hypertension (HCC) 02/12/2022 Furosemide. [facility]. Thyroid nodule greater than or equal to 1 cm in diameter incidentally noted on imaging study 12/18/2019 ALLERGIES No Known Allergies levoFLOXacin (LEVAQUIN) 500 mg tabletTake 1 tablet by mouth once daily for 7 days.Disp: 7 tabletRfl: 0 tamsulosin (FLOMAX) 0.4 mgTake 2 capsules by mouth once daily.Disp: 180 capsuleRfl: 3 ipratropium-albuterol (DUONEB) 0.5 mg-3 mg(2.5 mg base)/3 mL nebuInhale 3 mL as instructed every 4 hours as needed for wheezing/shortness of breath.Disp: 120 EachRfl: 5 lisinopril (ZESTRIL) 10 mg tabletTake 1 tablet by mouth once daily.Disp: 90 tabletRfl: 3 oxybutynin XL (DITROPAN XL) 5 mg 24 hr tabletTake 1 tablet by mouth once daily.Disp: 90 tabletRfl: 3 Mirtazapine (REMERON) 7.5 mg tabletTake 1 tablet by mouth daily at bedtime.Disp: 90 tabletRfl: [address] (PROTONIX) 20 mg tabletTake 1 tablet by mouth once daily.Disp: 90 tabletRfl: 3 simvastatin (ZOCOR) 10 mg tabletTake 1 tablet by mouth daily at bedtime.Disp: 90 tabletRfl: 3 fluticasone-salmeterol (WIXELA INHUB) 250-50 mcg/dose inhalerInhale 1 Puff as instructed two times a day.Disp: Rfl: Nebulizer Accessories kitProvide 1 kit.Disp: 1 EachRfl: 5 Mucus Clearing Device deviProvide 1 deviceDisp: 1 EachRfl: 0 albuterol HFA (PROVENTIL HFA, VENTOLIN HFA) 90 mcg/actuation inhalerInhale 2 Puffs as instructed four times daily as needed. FOR WHEEZING AND SHORTNESS OF BREATH.Disp: 1 InhalerRfl: 3 THERAPEUTIC MULTIVIT/MINERAL TABTake one(1) tablet daily.Disp: otcRfl: 0 SOCIAL HISTORY[1] FAMILY HISTORY Problem Relation Age of Onset Alzheimer's Disease Mother Heart Father heart attack Breast Cancer Sister Heart Brother aortic aneurysm COPD No Family History PAST SURGICAL HISTORY Procedure Laterality Date COLONOSCOPY FLX DX W/COLLJ SPEC WHEN PFRMD 07/12/2005 COLONOSCOPY FLX DX W/COLLJ SPEC WHEN PFRMD 07/19/2013 Colonoscopy COLONOSCOPY W/BIOPSY SINGLE/MULTIPLE 03/02/2010 ESOPHAGOGASTRODUODENOSCOPY TRANSORAL DIAGNOSTIC 07/19/2013 EGD REMOVAL OF LUNG,LOBECTOMY Left 04/2007 left upper lobe RIGHT HEART CATH 11/03/2020 TONSILLECTOMY AND ADENOIDECTOMY PMH, Social history, family history and surgical history reviewed and updated in EMR REVIEW OF SYSTEMS: CONSTITUTIONAL: No fevers, nightsweats, unintended weight loss. Chills HEENT: Denies nasal congestion/sinus symptoms, allergy problems. CARDIOVASCULAR: No palpitations, orthopnea, edema. PULM: See HPI GI: No dysphagia/odynophagia, nausea, diarrhea MUSC-SKEL: No arthralgias INTEGUMENTARY: No new skin changes PHYSICAL EXAMINATION: BP 120/70 Pulse 106 Wt 173 lb (78.5kg) SpO2 91% General Appearance: Elderly (more content not included)... [facility] 01-08-2025 Evaluation note Diagnosis Onset Date Resolution Bilateral lower extremity edema acute January 08, 2025 9:23am LERMA (dyspnea on exertion) acute January 08, 2025 9:23am Essential hypertension acute Se ptember 2024 9:23am Hyperlipidemia acute January 08, 2025 9:23am Dilation of aorta chronic Septemb er 2024 9:23am [facility] Work Phone: 1(873) 496-606409-23-2025 [facility] [address] [place] [address] OFFICE VISIT Date of Service: 01/08/25 MR#: [id number] Acct: [id number] Name: JORGE RAMIRES Rep #: [id number] : 1940 Provider: MANOJ Jackson Age/Sex: 84/M Location: [facility] Status: Signed HPI HPI History of Present Illness Details: This is a 84-year-old man who presents to the office today for a cardiovascular visit. 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 He had an echocardiogram performed in August of 2020which demonstrated an ejection fraction of 62%, the right ventricle was mildly dilated, right ventricular function was normal, the estimated right ventricular systolic pressure was estimated to be 55mmhg. From a cardiac standpoint, the patient is doing well. He denies any palpitations, chest pain, pressure or heaviness. He does have SOB with exertion and at rest. He is currently on a 5L of oxygen. He denies Orthopnea, and PND. He does not have bleeding issues; no blood in urine, stool, or nosebleeds. He does acknowledge fatigue, he attributes this to his breathing. He denies myalgias, orclaudication. He does have bilateral lower extremity edema. He does not have edema, or sudden weight gain. He denies lightheadedness, dizziness, syncopal or near syncopal episodes, and headaches. Intake Vital Signs 09/13/24 09:27 01/08/25 07:03 Height 5 ft 10 in 5 ft 10 in Weight: 174 lb BMI 25.0 BP 121/70 H Blood Pressure Location Lt brachial Position Sitting Respiration 20 H Pulse 74 Pulse Source Monitor Pulse Oximetry (%) 95 Oxygen Flow Rate (L/min) 5 Intake Visit Reasons: PER PULMONARY Carder Blankets Required: No Is patient in pain?: No Allergies No Known Allergies Allergy (Verified 01/08/25 09:47) Medications ?Medication ?Instructions ?Recorded ?Confirmed ?Type albuterol sulfate 90 mcg/actuation 2 inh inhalation Q6 H PRN Shortness 10/28/20 01/08/25 History aerosol inhaler Of Breath multivitamin 1 tab PO DAILY 10/28/2012/18 History oxybutynin chloride 5 mg 5 mg PO DAILY 10/28/2001/08 History tablet,extended release 24 hr pantoprazole 20 mg tablet,delayed 20 mg PO DAILY 10/2801/08/25 History release simvastatin 10 mg tablet 10 mg PO QHS 10/28/20 History tamsulosin 0.4 mg capsule 0.8 mg PO DAILY 10/28/20 History lisinopril 10 mg tablet 10 mg PO DAILY 10/29/2012/18 History mometasone-formoterol HFA 200 2 inh inhalation BID 01/08/25 History mcg-5 mcg/actuation aerosol inhaler Ejection fraction %: 55 Have you fallen in the past year?: No PFSH Medical History Coronary artery calcification 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 BPH (benign prostatic hyperplasia) Thyroid nodule Hiatal hernia Thrombocytopenia Obesity Hyperlipidemia Essential hypertension GERD (gastroesophageal reflux disease) Non-small cell cancer of left lung Surgical History (Reviewed 01/08/25 @ 10:05 by Dottie Jackson DIRECT MARKETING ANALYST, DIRECT MARKETING ANALYST-C) History of right heart catheterization (11/03/20) History of bronchoscopy (2016) History of lobectomy of lung (2007) Social History Smoking Status: Former smoker alcohol intake: never substance use type: does not use ROS Const Const: Positive for fatigue; Negative for weakness, headache(s) or frequent falls Eyes Eyes: Negative for blurry vision ENT ENT: Negative for headache(s), dizziness or Nosebleed/epistaxis Cardio Chest Pain: No Palpitations: No Edema: Bilateral (new) Muscle aches with walking: None Resp Respiratory: Positive for SOB with activity and SOB at rest; Negative for SOB orthopnea\SOB lying down Additional Details: Wears oxygen 5L via [place] GI GI: Negative nausea, vomiting, heartburn, bright, red blood in stools or black,tarry stools : Negative for hematuria Neuro Neuro: Negative for dizziness, lightheadedness, near syncope, syncope, frequent falls, headache(s),weakness or blurry vision Endo Endo: Positive for fatigue Cardiology Exam Const Appearance: cooperative and no acute distress Nutritional Appearance: average body habitus and overweight Orientation: alert and oriented x3 Head Head: normal to inspection Ears: hearing grossly normal bilaterally Nose: external nose normal Face and Sinus: face symmetric Eyes General: appearance normal, both eyes and all related structures Eyelids: eyelids normal Conjunctivae: conjunctivae normal Pupils: PERRL and pupil size EOM: EOM intact bilaterally Neck Neck: normal visual inspection Carotids: Negative bruit Chest Chest inspection: normal inspection of the chest and normal respiratory effort Auscultation: Bilateral: Diminished Lung Sounds (Wearing 5L of O2 via NC) 5L of oxygen Cardio Palpation: normal PMI Rate: regular rate Rhythm: regular rhythm Heart sounds: S1 normal and S2 normal; Negative rub, gallop or murmur GI GI: normal to inspection and soft Neuro General: patient alert, patient oriented x3 and CN's II-XI intact bilaterally Skin Skin: no rashes or lesions noted Extremities Pulses: Normal: Right Posterior Tibial Pulse, Left Posterior Tibial Pulse, RightRadial Pulse and Left Radial Pulse Lower Extremity Edema: +1: Bilateral Psych Psychological: normal affect Supplemental Info Supplemental Information Echocardiogram 09/20/2023: Interpretation Summary Normal LV size. Left ventricular systolic function is normal. The left ventricular ejection fraction is 55 %. Stage 1 diastolic dysfunction. Pulmonary artery systolic pressure is 63 mmHg. Moderate pulmonary hypertension. CHEST CTA 10/02/2021 IMPRESSION: Findings in keeping with chronic interstitial fibrosis. Coronary artery calcification. No evidence of aortic dilatation. Exercise myocardial perfusion stress test 12/01/2020 Stress protocol: Rest EKG demonstrates sinus bradycardia with a rate of 55 bpm normal intervals are noted resting blood pressure is 128/82 mmHg. The patient exercised according to regular [facility] protocol for total duration of 4 minutes and 17 seconds. The maximum heart rate attained was 139 bpm which was 99% of max infected heart rate the maximum workload was 6 metabolic equivalents. At rest there were no ST changes noted to suggest ischemia and at peak exercise upsloping ST changes were noted with did not meet the criteria for ischemia. The test was terminated due to dyspnea and the target heart rate being achieved. The peak blood pressure was 182/102 mmHg. Perfusion SPECT analysis: Review of the stress images demonstrated normal uptake of tracer noted in all areas of the myocardium. The resting images similarly demonstrated normal uptake of tracer noted in all areas of the myocardium. No areas of reversibility are noted to suggest ischemia and no previous infarct is noted. Gated SPECT analysis: The gated ejection fraction is 59%. Conclusion: Normal exercise myocardial perfusion stress test. Preserved ejection fraction. Low to moderate workload attained. RIGHT HEART CATHETERIZATION 11/03/2020: CONCLUSIONS Normal right heart pressures were noted with upper normal pulmonary capillary wedge pressure. Significant coronary calcification was noted on fluoroscopy and attempts were made to obtain precertification for a left heart catheterization but this was denied RECOMMENDATIONS Would recommend stress testing RIGHT HEART ASSESSMENT Thermal CO: 4.37 Thermal CI: 2.1 PW: 18 PA: 29/10 17 RV: 30/-1 3 RA: 09/18 1 PVR: -18 Right Heart pressures - normal ECHOCARDIOGRAM 08/28/2020 CONCLUSIONS: Technically difficult exam due to body habitus and left lobectomy. Exam indication: Shortness of Breath The left ventricle is normal in size. Left ventricular systolic function is normal. EF = 62 +/- 5% (2D 4-ch.) Grade I left ventricular diastolic dysfunction. The right ventricle is mildly dilated. Right ventricular systolic function is normal. The visualized aorta is dilated with a maximal dimension of 4.1 cm. Estimated right ventricular systolic pressure is 55 mmHg consistent with Moderate pulmonary hypertension. Estimated right atrial pressure is 3 mmHg Diagnostics: Electrocardiogram Echocardiogram Stress Test Stress Test Nuclear Medicine Cardiac Catheterization Chest X-Ray Chest CTA Abdomen/Pelvis CT Past Visits: Cardiology Visit Today Assessment and Plan Assessment and Plan (1) Dilation of aorta: Status: Chronic Comment: 4.1 cm per echo 08/2020 Plan: Patient has a history of a dilated aorta. His echocardiogram 08/2020 demonstrateda dilated aorta of 4.1cm. His most recent echocardiogram from 09/2023 did not mention a dilated aorta. His most recent Chest CTA from 09/2021 demonstrated no evidence of aortic dilatation. Blood pressure and heart rate con trol were discussed with patient. We will continue to monitor. (2) Essential hypertension: Status: Acute Plan: Patient has a history of hypertension. His blood pressure is well controlled at this time-121/70. He will continue with his current medical therapy, along with monitoring his blood pressures at home.He will notify our office of any persistently elevated or low blood pressure readings. (3) Hyperlipidemia: Status: Acute Plan: Patient has a history of hyperlipidemia. His PCP monitors this. He will continue with simvastatin 10 mg daily, along with aggressive risk factor and lifestyle modifications. A copy of his most recentlipid panel would be greatly appreciated. (4) LERMA (dyspnea on exertion): Status: Acute Plan: Patient acknowledges dyspnea on exertion and at rest. He also acknowledges bilateral lower extremity edema. He states this is new. Would like to obtain an echocardiogram to assess his left ventricular systolic function, and lab work toassess for fluid overload. Depending on results, further recommendations will bemade. (5) Bilateral lower extremity edema: Status: Acute Plan: Patient acknowledges bilateral lower extremity edema. He states this is new. He does have 1+ bilateral lower extremity edema noted on exam. Would like to obtainan echocardiogram to assess his left ventricular systolic function, and lab workto assess for fluid overload. Depending on results, further recommendations willbe made. He was also encouraged to elevate his legs when able, and wear compression stockings. Will keep close follow-up with patient. Orders: Orders Echo Complete Today R06.09 - Other forms of dyspnea Pro- Brain NATRIURETIC PEPTIDE Today R06.09 - Other forms of dyspnea Basic Metabolic Profile (BMP) Today R06.09 - Other forms of dyspnea CBC W/Diff, Automated Today R06.09 - Other forms of dyspnea Plan Details Additional Comments: Patient will follow up in 2 months, or sooner if needed. Thank you for allowing me to participate in the care of your patient. Please don't hesitate to callif any issues arise. This note was generated using a voice recognition system and there may be incorrect words, spelling, or punctuation that were not noted when reviewing theoffice note prior to saving. Portions of this documentation were copied and pasted from previous office visitnotes to provide a cohesive continuity of the history. The note has been reviewed, edited, and updated, as necessary. Follow Up: Keep as is (KR) Coding Level of Care Code Off vis,est,level 4 Diagnoses 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 Essential hypertension I10 Hyperlipidemia E78.5 LERMA (dyspnea on exertion) R06.09 Bilateral lower extremity edema R60.0 Coding Level of Care Code Off vis,est,level 4 Diagnoses 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 Essential hypertension I10 Hyperlipidemia E78.5 LERMA (dyspnea on exertion) R06.09 Bilateral lower extremity edema R60.0 Clinical Quality Measures Falls Risk Screening/Assistive Devices Have you fallen in the past year?: No Cardiac Ejection fraction %: 55 01/08/25 1009 DIRECT MARKETING ANALYST DIRECT MARKETING ANALYST-C> Date _ Dottie Jackson DIRECT MARKETING ANALYST DIRECT MARKETING ANALYST-C Cosigner Signature: Date (if applicable) CC: ~ [facility]08-20-2025 Instructions* Patient Instructions* Jessica Moreno APRN.CNP - 12/05/2024 10:48 AM EDT Continue Wixela twice a day. Rinse your mouth out well after use. Continue using Albuterol or duoneb as needed for symptoms. Use your acapella every day a few times a day. We will plan to repeat the pulmonary function testing and check your oxygen level with walking to see if 5 liters is still enough oxygen. Standing order for a sputum sample if you note acute symptoms. Stay up to date with vaccines. Talk with your route inspector about the swelling in your legs. [facility] History of Present illness Narrative* Jessica Moreno APRN.CNP - 12/05/2024 10:00 AM EDT Images from the original note were not included. Pulmonary Medicine Patients name: Jorge Ramires PCP: Tito Macias MD CC: follow-up HPI: Jorge Ramires is a 84 year old male former 24 pack year smoker with PMH significant for CPFE, h/o lung cancer, CAD, HTN, HLD, chronic hypoxemic respiratory failure, bronchiectasis. Previously did not tolerate OFEV d/t intolerable side effects. YOLANDA 04/2024 with overall stable symptoms. No recurrent infections. Current therapy is acapella every day, Wixela and Duoneb/Albuterol as needed. He presents today for follow-up with his daughter. Since his last visit, he reports overall symptoms are stable. He does note slight progression in exertional dyspnea over time. Today, patient reports rarely coughing and occasionally produces clear sputum. No hemoptysis. No wheezing, rarely notes chest tightness. No dyspnea at rest. No fevers, chills, or night sweats. No recent hospitalizations or ED visits or upper respiratory infections. Typically avoids crowds of people or going out in the winter to avoid sick exposures. His weight has remained stable. Very rarely uses Albuterol/Duoneb. He continues to be as active as he can be. 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 Self monitoring of SPO2 at home are stable. Does not use Acapella every day as he does not typically cough. He does report b/l LE edema which is new over the past few months. He follows with cardiology and has an upcoming appointment. 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 Coronary artery disease Erectile dysfunction 03/13/2010 Esophageal reflux Essential hypertension, benign 09/06/2012 Ganglion and cyst of synovium, tendon and bursa 03/22/2013 Hematospermia 01/17/2006 Hiatal hernia 06/04/2013 HYPERLIPIDEMIA NEC/NOS 01/19/2005 HYPERTROPHY PROSTATE WITH OBST 01/17/2006 Hypoalbuminemia due to protein-calorie malnutrition (HCC) 09/17/2021 Idiopathic pulmonary fibrosis (HCC) 07/02/2015 Obesity, Class I, BMI 30-34.9 10/10/2017 PERS HX BRONCHOGENIC MALIGNAN 04/09/2008 Personal history of colonic polyps Colon polyps Pulmonary fibrosis (HCC) 07/02/2015 Pure hypercholesterolemia Secondary pulmonary arterial hypertension (HCC) 02/12/2022 Furosemide. [facility]. Thyroid nodule greater than or equal to 1 cm in diameter incidentally noted on imaging study 12/18/2019 Allergies: No Known Allergies Medication List Accurate as of December 05, 2024 8:20 AM. If you have any questions, ask your nurse or doctor. CONTINUE taking these medications albuterol HFA 90 mcg/actuation inhaler Commonly known as: PROVENTIL HFA, VENTOLIN HFA Inhale 2 Puffs as instructed four times daily as needed. FOR WHEEZING AND SHORTNESS OF BREATH. ipratropium-albuterol 0.5 mg-3 mg(2.5 mg base)/3 mL Nebu Commonly known as: DUONEB Inhale 3 mL as instructed every 4 hours as needed for wheezing/shortness of breath. lisinopril 10 mg tablet Commonly known as: ZESTRIL Take 1 tablet by mouth once daily. Mirtazapine 7.5 mg tablet Commonly known as: Remeron Take 1 tablet by mouth daily at bedtime. Mucus Clearing Device Wilmar Provide 1 device Nebulizer Accessories Kit Provide 1 kit. oxybutynin XL 5 mg 24 hr tablet Commonly known as: DITROPAN XL Take 1 tablet by mouth once daily. pantoprazole DR 20 mg tablet Commonly known as: PROTONIX Take 1 tablet by mouth once daily. simvastatin 10 mg tablet Commonly known as: ZOCOR Take 1 tablet by mouth daily at bedtime. tamsulosin 0.4 mg Commonly known as: FLOMAX Take 2 capsules by mouth once daily. THERAPEUTIC MULTIVIT/MINERAL tablet Generic drug: Multivitamin,Do-Rtpq-Wi-Min WIXELA INHUB 250-50 mcg/dose inhaler Generic drug: fluticasone-salmeterol DATA: I personally reviewed and analyzed all labs, radiographs and available pulmonary function testing PFT: 11/2022 Spirometry shows no obstruction.The reduced FVC suggests restriction. The TLC is reduced indicating restriction. IMMUNIZATIONS Prevnar - xx Pneumovax 23 - xx Influenza - 01/2024 COVID-19 - xx RSV- xx Review of Systems Constitutional: Negative for activity change, appetite change, fatigue and unexpected weight change. HENT: Negative for congestion, mouth sores, postnasal drip and sinus pressure. Respiratory: Positive for cough and shortness of breath. Negative for chest tightness and wheezing. Cardiovascular: Positive for leg swelling. Negative for chest pain and palpitations. Allergic/Immunologic: Negative for environmental allergies. Neurological: Negative for weakness. BP 110/60 Pulse 77 Resp 18 Wt 78.5 kg (173 lb) SpO2 95% BMI 24.82 kg/m Physical Exam Vitals reviewed. Constitutional: General: He is not in acute distress. Appearance: Normal appearance. He is not ill-appearing. HENT: Head: Normocephalic. Mouth/Throat: Mouth: Mucous membranes are moist. Pharynx: No posterior oropharyngeal erythema. Cardiovascular: Rate and Rhythm: Normal rate and regular rhythm. Pulmonary: Effort: Pulmonary effort is normal. No respiratory distress. Breath sounds: Rhonchi present. No wheezing. Musculoskeletal: Right lower leg: Edema present. Left lower leg: Edema present. Comments: 1-2+ b/l LE edema Lymphadenopathy: Cervical: No cervical adenopathy. Skin: General: Skin is warm and dry. Capillary Refill: Capillary refill takes less than 2 seconds. Neurological: General: No focal deficit present. Mental Status: He is alert. ASSESSMENT/PLAN: 1. 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[facility]) - ICD9: 492.8, 515, ICD10: J43.9, J84.10 (primary diagnosis) - slight progression in exertional dyspnea but otherwise unchanged. - repeat testing at next visit. Previously did not tolerate OFEV d/t significant nausea. - Continue Wixela and PRN Albuterol. - Continue activity as tolerated. - OXIMETRY WITH AMBULATION - SPIROMETRY BASELINE ONLY - LUNG VOLUMES 2. Chronic respiratory failure with hypoxia ([facility]) - ICD9: 518.83, 799.02, ICD10: J96.11 - stable SPO2 with self monitoring. Will repeat formal testing. - DME: [employer] - OXIMETRY WITH AMBULATION 3. Bronchiectasis without complication ([facility]) - ICD9: 494.0, ICD10: J47.9 - encouraged regular use of acapella. - would like to have standing order for respiratory culture in the event of illness. - BACTERIAL CULTURE AND GRAM STAIN, RESPIRATORY, SPUTUM AND TRACHEAL ASPIRATE 4. Bilateral lower extremity edema - ICD9: 782.3, ICD10: R60.0 - new over the last few months. Denies significant changes in his weight. - encouraged follow-up with cardiology. F/u 3 months with PFT Portions of this documentation were copied and pasted from previous office visit notes in order to provide a cohesive continuity of the history. The note has been reviewed and edited and updated as necessary. Jessica Moreno APRN.CNP I spent a total of 53 minutes on the date of the service which included preparing to see the patient, [id number] patient care, completing clinical documentation, performing a medically appropriate examination, counseling and educating the patient/family/caregiver, and ordering medications, tests,or procedures. [facility] NoteHNO ID: [id number] Author: JESSICA MORENO APRN.CNP Service: ? Author Type: Nurse Practitioner Type: Progress Notes Filed: 12/05/2024 12:36 Note Text: Pulmonary Medicine Patients name: Jorge Ramires PCP: Tito Macias MD CC: follow-up HPI: Jorge Ramires is a 84 year old male former 24 pack year smoker with PMH significant for CPFE, h/o lung cancer, CAD, HTN, HLD, chronic hypoxemic respiratory failure, bronchiectasis. Previously did not tolerate OFEV d/t intolerable side effects. YOLANDA 04/2024 with overall stable symptoms. No recurrent infections. Current therapy is acapella every day, Wixela and Duoneb/Albuterol as needed. He presents today for follow-up with his daughter. Since his last visit, he reports overall symptoms are stable. He does note slight progression in exertional dyspnea over time. Today, patient reports rarely coughing and occasionally produces clear sputum. No hemoptysis. No wheezing, rarely notes chest tightness. No dyspnea at rest. No fevers, chills, or night sweats. No recent hospitalizations or ED visits or upper respiratory infections. Typically avoids crowds of people or going out in the winter to avoid sick exposures. His weight has remained stable. Very rarely uses Albuterol/Duoneb. He continues to be as active as he can be. He tends to his [employer] daily and generally stays active outside. Self monitoring of SPO2 at home are stable. Does not use Acapella every day as he does not typically cough. He does report b/l LE edema which is new over the past few months. He follows with cardiology and has an upcoming appointment. 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 Coronary artery disease Erectile dysfunction 03/13/2010 Esophageal reflux Essential hypertension, benign 09/06/2012 Ganglion and cyst of synovium, tendon and bursa 03/22/2013 Hematospermia 01/17/2006 Hiatal hernia 06/04/2013 HYPERLIPIDEMIA NEC/NOS 01/19/2005 HYPERTROPHY PROSTATE WITH OBST 01/17/2006 Hypoalbuminemia due to protein-calorie malnutrition (HCC) 09/17/2021 Idiopathic pulmonary fibrosis (HCC) 07/02/2015 Obesity, Class I, BMI 30-34.9 10/10/2017 PERS HX BRONCHOGENIC MALIGNAN 04/09/2008 Personal history of colonic polyps Colon polyps Pulmonary fibrosis (HCC) 07/02/2015 Pure hypercholesterolemia Secondary pulmonary arterial hypertension (HCC) 02/12/2022 Furosemide. [facility]. Thyroid nodule greater than or equal to 1 cm in diameter incidentally noted on imaging study 12/18/2019 Allergies: No Known Allergies Medication List Accurate as of December 05, 2024 8:20 AM. If you have any questions, ask your nurse or doctor. CONTINUE taking these medications albuterol HFA 90 mcg/actuation inhaler Commonly known as: PROVENTIL HFA, VENTOLIN HFA Inhale 2 Puffs as instructed four times daily as needed. FOR WHEEZING AND SHORTNESS OF BREATH. ipratropium-albuterol 0.5 mg-3 mg(2.5 mg base)/3 mL Nebu Commonly known as: DUONEB Inhale 3 mL as instructed every 4 hours as needed for wheezing/shortness of breath. lisinopril 10 mg tablet Commonly known as: ZESTRIL Take 1 tablet by mouth once daily. Mirtazapine 7.5 mg tablet Commonly known as: Remeron Take 1 tablet by mouth daily at bedtime. Mucus Clearing Device Wilmar Provide 1 device Nebulizer Accessories Kit Provide 1 kit. oxybutynin XL 5 mg 24 hr tablet Commonly known as: DITROPAN XL Take 1 tablet by mouth once daily. pantoprazole DR 20 mg tablet Commonly known as: PROTONIX Take 1 tablet by mouth once daily. simvastatin 10 mg tablet Commonly known as: ZOCOR Take 1 tablet by mouth daily at bedtime. tamsulosin 0.4 mg Commonly known as: FLOMAX Take 2 capsules by mouth once daily. THERAPEUTIC MULTIVIT/MINERAL tablet Generic drug: Multivitamin,Dg-Onms-Ho-Min WIXELA INHUB 250-50 mcg/dose inhaler Generic drug: fluticasone-salmeterol DATA: I personally reviewed and analyzed all labs, radiographs and available pulmonary function testing PFT: 11/2022 Spirometry shows no obstruction.The reduced FVC suggests restriction. The TLC is reduced indicating restriction. IMMUNIZATIONS Prevnar - xx Pneumovax 23 - xx Influenza - 01/2024 COVID-19 - xx RSV- xx Review of Systems Constitutional: Negative for activity change, appetite change, fatigue and unexpected weight change. HENT: Negative for congestion, mouth sores, postnasal drip and sinus pressure. Respiratory: Positive for cough and shortness of breath. Negative for chest tightness and wheezing. Cardiovascular: Positive for leg swelling. Negative for chest pain and palpitations. Allergic/Immunologic: Negative for environmental allergies. Neurological: Negative for weakness. BP 110/60 Pulse 77 Resp 18 Wt 78.5 (more content not included)...[facility]05-19-2025 NoteHNO ID: [id number] Author: TITO MACIAS MD Service: ? Author Type: Physician Type: Progress Notes Filed: 09/03/2024 13:13 Note Text: This note was created using [employer]. Subjective Jorge Ramires is a 84 year old male. He had no new concerns. COPD, pulmonary hypertension, dyspnea on exertion, and oxygen dependency were stable. He still enjoyed going to the [place]. His BPH was stable. Review of Systems Constitutional: Negative for appetite change and unexpected weight change. Respiratory: Negative for cough, chest tightness and wheezing. Cardiovascular: Negative for chest pain, palpitations and leg swelling. Genitourinary: Negative for difficulty urinating and dysuria. Neurological: Negative for dizziness. 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 Vaping Use Vaping status: Never Used Substance Use Topics Alcohol use: No Drug use: No Current Outpatient Medications Medication Sig ipratropium-albuterol (DUONEB) 0.5 mg-3 mg(2.5 mg base)/3 mL nebu Inhale 3 mL as instructed every 4 hours as needed for wheezing/shortness of breath. lisinopril (ZESTRIL) 10 mg tablet Take 1 tablet by mouth once daily. oxybutynin XL (DITROPAN XL) 5 mg 24 hr tablet Take 1 tablet by mouth once daily. Mirtazapine (REMERON) 7.5 mg tablet Take 1 tablet by mouth daily at bedtime. pantoprazole DR (PROTONIX) 20 mg tablet Take 1 tablet by mouth once daily. simvastatin (ZOCOR) 10 mg tablet Take 1 tablet by mouth daily at bedtime. tamsulosin (FLOMAX) 0.4 mg Take 2 capsules by mouth once daily. fluticasone-salmeterol (WIXELA INHUB) 250-50 mcg/dose inhaler Inhale 1 Puff as instructed two times a day. Nebulizer Accessories kit Provide 1 kit. Mucus Clearing Device wilmar Provide 1 device albuterol HFA (PROVENTIL HFA, VENTOLIN HFA) 90 mcg/actuation inhaler Inhale 2 Puffs as instructed four times daily as needed. FOR WHEEZING AND SHORTNESS OF BREATH. THERAPEUTIC MULTIVIT/MINERAL TAB Take one(1) tablet daily. Current Facility-Administered Medications Medication Dose Route Frequency ipratropium-albuterol 3 mL nebulizer solution (DUONEB) 3 mL INHALATION q 4 H PRN Objective BP 128/64 (BP Site: Right Arm, BP Position: Sitting, BP Cuff Size: Large Adult) Pulse 76 Resp 24 Wt 80.2 kg (176 lb 12.9 oz) BMI 25.37 kg/m? Physical Exam Constitutional: General: He is not in acute distress. Cardiovascular: Rate and Rhythm: Normal rate and regular rhythm. Heart sounds: No murmur heard. No gallop. Pulmonary: Effort: No respiratory distress. Breath sounds: No wheezing or rales. Comments: On portable O2 via NC. Abdominal: General: There is no distension. Musculoskeletal: Right lower leg: No edema. Left lower leg: No edema. Neurological: General: No focal deficit present. Mental Status: He is alert. Assessment and Plan 1. Hyperlipidemia, unspecified hyperlipidemia type - ICD9: 272.4, ICD10: E78.5 (primary diagnosis) - Controlled - Continue current medications - COMPREHENSIVE METABOLIC PANEL - LIPID PANEL, FASTING 2. BPH with obstruction/lower urinary tract symptoms - ICD9: 600.01, 599.69, ICD10: N40.1, N13.8 - Controlled. - TAMSULOSIN 0.4 MG CAPSULE 3. Essential hypertension, benign - ICD9: 401.1, ICD10: I10 - Controlled - Continue current medications - COMPLETE BLOOD COUNT 4. Idiopathic pulmonary fibrosis (HCC) - ICD9: 516.31, ICD10: J84.112 - Stable. Continue current treatments. 5. Secondary pulmonary arterial hypertension (HCC) - ICD9: 416.8, ICD10: I27.21 - Stable. Continue current treatments. Tito Macias [facility]05-19-2025 History of Present illness Narrative* Tito Macias MD - 09/03/2024 12:55 PM EDT This note was created using NoteWriter. Subjective Jorge Ramires is a 84 year old male. He had no new concerns. COPD, pulmonary hypertension, dyspnea on exertion, and oxygen dependency were stable. He still enjoyed going to the [employer]. His BPHwas stable. Review of Systems Constitutional: Negative for appetite change and unexpected weight change. Respiratory: Negative for cough, chest tightness and wheezing. Cardiovascular: Negative for chest pain, palpitations and leg swelling. Genitourinary: Negative for difficulty urinating and dysuria. Neurological: Negative for dizziness. 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 Vaping Use Vaping status: Never Used Substance Use Topics Alcohol use: No Drug use: No Current Outpatient Medications Medication Sig ipratropium-albuterol (DUONEB) 0.5 mg-3 mg(2.5 mg base)/3 mL nebu Inhale 3 mL as instructed every 4hours as needed for wheezing/shortness of breath. lisinopril (ZESTRIL) 10 mg tablet Take 1 tablet by mouth once daily. oxybutynin XL (DITROPAN XL) 5 mg 24 hr tablet Take 1 tablet by mouth once daily. Mirtazapine (REMERON) 7.5 mg tablet Take 1 tablet by mouth daily at bedtime. pantoprazole DR (PROTONIX) 20 mg tablet Take 1 tablet by mouth once daily. simvastatin (ZOCOR) 10 mg tablet Take 1 tablet by mouth daily at bedtime. tamsulosin (FLOMAX) 0.4 mg Take 2 capsules by mouth once daily. fluticasone-salmeterol (WIXELA INHUB) 250-50 mcg/dose inhaler Inhale 1 Puff as instructed two timesa day. Nebulizer Accessories kit Provide 1 kit. Mucus Clearing Device wilmar Provide 1 device albuterol HFA (PROVENTIL HFA, VENTOLIN HFA) 90 mcg/actuation inhaler Inhale 2 Puffs as instructed four times daily as needed. FOR WHEEZING AND SHORTNESS OF BREATH. THERAPEUTIC MULTIVIT/MINERAL TAB Take one(1) tablet daily. Current Facility-Administered Medications Medication Dose Route Frequency ipratropium-albuterol 3 mL nebulizer solution (DUONEB) 3 mL INHALATION q 4 H PRN Objective BP 128/64 (BP Site: Right Arm, BP Position: Sitting, BP Cuff Size: Large Adult) Pulse 76 Resp 24 Wt 80.2 kg (176 lb 12.9 oz) BMI 25.37 kg/m Physical Exam Constitutional: General: He is not in acute distress. Cardiovascular: Rate and Rhythm: Normal rate and regular rhythm. Heart sounds: No murmur heard. No gallop. Pulmonary: Effort: No respiratory distress. Breath sounds: No wheezing or rales. Comments: On portable O2 via NC. Abdominal: General: There is no distension. Musculoskeletal: Right lower leg: No edema. Left lower leg: No edema. Neurological: General: No focal deficit present. Mental Status: He is alert. Assessment and Plan 1. Hyperlipidemia, unspecified hyperlipidemia type - ICD9: 272.4, ICD10: E78.5 (primary diagnosis) - Controlled - Continue current medications - COMPREHENSIVE METABOLIC PANEL - LIPID PANEL, FASTING 2. BPH with obstruction/lower urinary tract symptoms - ICD9: 600.01, 599.69, ICD10: N40.1, N13.8 - Controlled. - TAMSULOSIN 0.4 MG CAPSULE 3. Essential hypertension, benign - ICD9: 401.1, ICD10: I10 - Controlled - Continue current medications - COMPLETE BLOOD COUNT 4. Idiopathic pulmonary fibrosis (HCC) - ICD9: 516.31, ICD10: J84.112 - Stable. Continue current treatments. 5. Secondary pulmonary arterial hypertension (HCC) - ICD9: 416.8, ICD10: I27.21 - Stable. Continue current treatments. Tito Macias MD [facility] Telephone encounter Note * Telephone Encounter - Anette Patricia LPN - 05/10/2024 8:10 AM EST YOLANDA 04/23/24 Patient phones requesting refills as follows: Requested Prescriptions Pending Prescriptions Disp Refills ipratropium-albuterol (DUONEB) 0.5 mg-3 mg(2.5 mg base)/3 mL nebu 120 Each 5 Sig: Inhale 3 mL as instructed every 4 hours as needed for wheezing/shortness of breath. Please review and advise. Anette Patricia LPN [facility]01-23-2025 Miscellaneous Notes* Telephone Encounter - Anette Patricia LPN - 05/10/2024 8:10 AM EST YOLANDA 04/23/24 Patient phones requesting refills as follows: Requested Prescriptions Pending Prescriptions Disp Refills ipratropium-albuterol (DUONEB) 0.5 mg-3 mg(2.5 mg base)/3 mL nebu 120 Each 5 Sig: Inhale 3 mL as instructed every 4 hours as needed for wheezing/shortness of breath. Please review and advise. Anette Patricia LPN [facility] Telephone encounter Note * Telephone Encounter - Joya Herndon RN - 05/07/2024 1:34 PM EST The patient has been identified by name and date of : Yes Caregiver verified no other encounters exist for this prescription request: Yes Caregiver confirmed with patient/requestor that no other refills are due, in the near future, with this provider at this time: Yes The last office visit in the department: 03/06/2024 Does the patient have a future office visit with this provider/department: Yes 09/03/2024 Requested Prescriptions Pending Prescriptions Disp Refills lisinopril (ZESTRIL) 10 mg tablet 90 tablet 3 Sig: Take 1 tablet by mouth once daily. oxybutynin XL (DITROPAN XL) 5 mg 24 hr tablet 90 tablet 3 Sig: Take 1 tablet by mouth once daily. Joya Herndon RN May 07, 2024 1:35 PM [facility]01-20-2025 Miscellaneous Notes* Telephone Encounter - Joya Herndon RN - 05/07/2024 1:34 PM EST The patient has been identified by name and date of : Yes Caregiver verified no other encounters exist for this prescription request: Yes Caregiver confirmed with patient/requestor that no other refills are due, in the near future, with this provider at this time: Yes The last office visit in the department: 03/06/2024 Does the patient have a future office visit with this provider/department: Yes 09/03/2024 Requested Prescriptions Pending Prescriptions Disp Refills lisinopril (ZESTRIL) 10 mg tablet 90 tablet 3 Sig: Take 1 tablet by mouth once daily. oxybutynin XL (DITROPAN XL) 5 mg 24 hr tablet 90 tablet 3 Sig: Take 1 tablet by mouth once daily. Joya Herndon RN May 07, 2024 1:35 PM [facility] Instructions* Patient Instructions* Hermelinda Copeland MD - 04/23/2024 12:58 PM EST Images from the original note were not included. [facility] History of Present illness Narrative* Hermelinda Copeland MD - 04/23/2024 12:45 PM EST Images from the original note were not included. . [facility] Note Patient name: Jorge Ramries PCP: Tito Macias MD CC: follow-up IPF/COPD HPI: Jorge Ramires 84 year old male former 24 pack year smoker with PMH significant for CPFE, h/olung cancer, CAD, HTN, HLD, chronic hypoxemic respiratory failure. He had previously been on OFEV but had to discontinue due to intolerable side effects. At [facility] with PA-C he had been admitted to [facility] with exacerbation of bronchiectasis. Sputum positive for Serratia marcescens, treated with Levaquin.He is doing much better. Not coughing as much, rare yellow mucus. Using acapella every day along with nebulized treatments. Has baseline dyspnea. No wheezing. No other new medical issues. PAST MEDICAL HISTORY Diagnosis Date Benign neoplasm of colon Centrilobular emphysema (HCC) 12/29/2020 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[facility]) COPD with chronic bronchitis (HCC) 12/29/2020 Coronary artery disease Erectile dysfunction 03/13/2010 Esophageal reflux Essential hypertension, benign 09/06/2012 Ganglion and cyst of synovium, tendon and bursa 03/22/2013 Hematospermia 01/17/2006 Hiatal hernia 06/04/2013 HYPERLIPIDEMIA NEC/NOS 01/19/2005 HYPERTROPHY PROSTATE WITH OBST 01/17/2006 Hypoalbuminemia due to protein-calorie malnutrition (HCC) 09/17/2021 Idiopathic pulmonary fibrosis (HCC) 07/02/2015 Obesity, Class I, BMI 30-34.9 10/10/2017 PERS HX BRONCHOGENIC MALIGNAN 04/09/2008 Personal history of colonic polyps Colon polyps Pulmonary fibrosis (HCC) 07/02/2015 Pure hypercholesterolemia Secondary pulmonary arterial hypertension (HCC) 02/12/2022 Furosemide. [facility]. Thyroid nodule greater than or equal to 1 cm in diameter incidentally noted on imaging study 12/18/2019 ALLERGIES No Known Allergies Mirtazapine (REMERON) 7.5 mg tablet^Take 1 tablet by mouth daily at bedtime.^Disp: 90 tablet^Rfl: [address] (PROTONIX) 20 mg tablet^Take 1 tablet by mouth once daily.^Disp: 90 tablet^Rfl: 3 simvastatin (ZOCOR) 10 mg tablet^Take 1 tablet by mouth daily at bedtime.^Disp: 90 tablet^Rfl: 3 tamsulosin (FLOMAX) 0.4 mg^Take 2 capsules by mouth once daily.^Disp: 180 capsule^Rfl: 3 fluticasone-salmeterol (WIXELA INHUB) 250-50 mcg/dose inhaler^Inhale 1 Puff as instructed two timesa day.^Disp: ^Rfl: lisinopril (ZESTRIL) 10 mg tablet^Take 1 tablet by mouth once daily.^Disp: 90 tablet^Rfl: 3 oxybutynin XL (DITROPAN XL) 5 mg 24 hr tablet^Take 1 tablet by mouth once daily.^Disp: 90 tablet^Rfl: 3 ipratropium-albuterol (DUONEB) 0.5 mg-3 mg(2.5 mg base)/3 mL nebu^Inhale 3 mL as instructed every 4hours as needed for wheezing/shortness of breath.^Disp: 120 Each^Rfl: 5 Nebulizer Accessories kit^Provide 1 kit.^Disp: 1 Each^Rfl: 5 Mucus Clearing Device wilmar^Provide 1 device^Disp: 1 Each^Rfl: 0 albuterol HFA (PROVENTIL HFA, VENTOLIN HFA) 90 mcg/actuation inhaler^Inhale 2 Puffs as instructed four times daily as needed. FOR WHEEZING AND SHORTNESS OF BREATH.^Disp: 1 Inhaler^Rfl: 3 THERAPEUTIC MULTIVIT/MINERAL TAB^Take one(1) tablet daily.^Disp: otc^Rfl: 0 Social History Tobacco Use Smoking status: Former Current packs/day: 0.00 Average packs/day: 1 pack/day for 24.0 years (24.0 ttl pk-yrs) Types: Cigarettes Start date: 06/24/1957 Quit date: 04/18/1981 Years since quittin.0 Smokeless tobacco: Never Tobacco comments: No smoking in childhood home. Vaping Use Vaping status: Never Used Substance Use Topics Alcohol use: No Drug use: No PMH, Social history, family history and surgical history reviewed and updated in EMR REVIEW OF SYSTEMS: CONSTITUTIONAL: No fevers, chills, nightsweats, unintended weight loss CARDIOVASCULAR: No chest pain, palpitations, edema. PULM: See HPI GI: No nausea or diarrhea : No new urinary complaints NEURO: No falls INTEGUMENTARY: No new skin changes PHYSICAL EXAMINATION: Wt 170 lb (77.1kg) BP 122/70, pulse 91, RR 14, SpO2 96% on room air General Appearance: Elderly male, NAD. Skin: Skin color, no suspicious rashes or lesions. Dry skin Head: Normocephalic, no masses, lesions, tenderness or abnormalities. Oropharynx: No oral lesions. Neck: No masses or adenopathy Chest wall: Kyphosis. Lungs: Not labored, normal to percussion, crackles right base and scattered rhonchi on the left. Heart: Regular rate and rhythm, no murmurs. Extremities: No significant edema, no clubbing. Assessment/Plan: 1. Combined pulmonary fibrosis emphysema -Overall improvement since stopping OFEV. Good appetite and no dehydration -He will remain off antifibrotic therapy -Continue oxygen -Up to date on vaccinations including Prevnar 20 2. Chronic hypoxemic respiratory failure -Patient benefits from and is compliant with use of supplemental oxygen 3. Bronchiectasis without complication -Continue bronchopulmonary hygiene Hermelinda Copeland MD [facility] NoteHNO ID: [id number] Author: HERMELINDA COPELAND MD Service: ? Author Type: Physician Type: Progress Notes Filed: 04/23/2024 19:31 Note Text: . [facility] Note Patient name: Jorge Ramires PCP: Tito Macias MD CC: follow-up IPF/COPD HPI: Jorge Ramires 84 year old male former 24 pack year smoker with PMH significant for CPFE, h/o lung cancer, CAD, HTN, HLD, chronic hypoxemic respiratory failure. He had previously been on OFEV but had to discontinue due to intolerable side effects. At [facility] with CHRISTINE he had been admitted to [facility] with exacerbation of bronchiectasis. Sputum positive for Serratia marcescens, treated with Levaquin. He is doing much better. Not coughing as much, rare yellow mucus. Using acapella every day along with nebulized treatments. Has baseline dyspnea. No wheezing. No other new medical issues. PAST MEDICAL HISTORY Diagnosis Date Benign neoplasm of colon Centrilobular emphysema (HCC) 12/29/2020 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[facility]) COPD with chronic bronchitis (HCC) 12/29/2020 Coronary artery disease Erectile dysfunction 03/13/2010 Esophageal reflux Essential hypertension, benign 09/06/2012 Ganglion and cyst of synovium, tendon and bursa 03/22/2013 Hematospermia 01/17/2006 Hiatal hernia 06/04/2013 HYPERLIPIDEMIA NEC/NOS 01/19/2005 HYPERTROPHY PROSTATE WITH OBST 01/17/2006 Hypoalbuminemia due to protein-calorie malnutrition (HCC) 09/17/2021 Idiopathic pulmonary fibrosis (HCC) 07/02/2015 Obesity, Class I, BMI 30-34.9 10/10/2017 PERS HX BRONCHOGENIC MALIGNAN 04/09/2008 Personal history of colonic polyps Colon polyps Pulmonary fibrosis (HCC) 07/02/2015 Pure hypercholesterolemia Secondary pulmonary arterial hypertension (HCC) 02/12/2022 Furosemide. [facility]. Thyroid nodule greater than or equal to 1 cm in diameter incidentally noted on imaging study 12/18/2019 ALLERGIES No Known Allergies Mirtazapine (REMERON) 7.5 mg tabletTake 1 tablet by mouth daily at bedtime.Disp: 90 tabletRfl: [address] (PROTONIX) 20 mg tabletTake 1 tablet by mouth once daily.Disp: 90 tabletRfl: 3 simvastatin (ZOCOR) 10 mg tabletTake 1 tablet by mouth daily at bedtime.Disp: 90 tabletRfl: 3 tamsulosin (FLOMAX) 0.4 mgTake 2 capsules by mouth once daily.Disp: 180 capsuleRfl: 3 fluticasone-salmeterol (WIXELA INHUB) 250-50 mcg/dose inhalerInhale 1 Puff as instructed two times a day.Disp: Rfl: lisinopril (ZESTRIL) 10 mg tabletTake 1 tablet by mouth once daily.Disp: 90 tabletRfl: 3 oxybutynin XL (DITROPAN XL) 5 mg 24 hr tabletTake 1 tablet by mouth once daily.Disp: 90 tabletRfl: 3 ipratropium-albuterol (DUONEB) 0.5 mg-3 mg(2.5 mg base)/3 mL nebuInhale 3 mL as instructed every 4 hours as needed for wheezing/shortness of breath.Disp: 120 EachRfl: 5 Nebulizer Accessories kitProvide 1 kit.Disp: 1 EachRfl: 5 Mucus Clearing Device deviProvide 1 deviceDisp: 1 EachRfl: 0 albuterol HFA (PROVENTIL HFA, VENTOLIN HFA) 90 mcg/actuation inhalerInhale 2 Puffs as instructed four times daily as needed. FOR WHEEZING AND SHORTNESS OF BREATH.Disp: 1 InhalerRfl: 3 THERAPEUTIC MULTIVIT/MINERAL TABTake one(1) tablet daily.Disp: otcRfl: 0 Social History Tobacco Use Smoking status: Former Current packs/day: 0.00 Average packs/day: 1 pack/day for 24.0 years (24.0 ttl pk-yrs) Types: Cigarettes Start date: 06/24/1957 Quit date: 04/18/1981 Years since quittin.0 Smokeless tobacco: Never Tobacco comments: No smoking in childhood home. Vaping Use Vaping status: Never Used Substance Use Topics Alcohol use: No Drug use: No PMH, Social history, family history and surgical history reviewed and updated in EMR REVIEW OF SYSTEMS: CONSTITUTIONAL: No fevers, chills, nightsweats, unintended weight loss CARDIOVASCULAR: No chest pain, palpitations, edema. PULM: See HPI GI: No nausea or diarrhea : No new urinary complaints NEURO: No falls INTEGUMENTARY: No new skin changes PHYSICAL EXAMINATION: Wt 170 lb (77.1kg) BP 122/70, pulse 91, RR 14, SpO2 96% on room air General Appearance: Elderly male, NAD. Skin: Skin color, no suspicious rashes or lesions. Dry skin Head: Normocephalic, no masses, lesions, tenderness or abnormalities. Oropharynx: No oral lesions. Neck: No masses or adenopathy Chest wall: Kyphosis. Lungs: Not labored, normal to percussion, crackles right base and scattered rhonchi on the left. Heart: Regular rate and rhythm, no murmurs. Extremities: No significant edema, no clubbing. Assessment/Plan: 1. Combined pulmonary fibrosis emphysema -Overall improvement since stopping OFEV. Good appetite and no dehydration -He will remain off antifibrotic therapy -Continue oxygen -Up to date on vaccinations including Prevnar 20 2. Chronic hypoxemic respiratory failure -Patient benefits from and is compliant with use of supplemental oxygen 3. Bronchiectasis without complication -Co (more content not included)...[facility]11-20-2024 NoteHNO ID: [id number] Author: TITO MACIAS MD Service: ? Author Type: Physician Type: Progress Notes Filed: 03/07/2024 13:48 Note Text: This note was created using [email or web address]. Subjective Jorge Ramires is a 83 year old male. He was doing well in general. He mentioned dealing with a pulsating right frontal headache, moderate in severity, occurring almost daily, lasting a few hours and relieved by acetaminophen. He wakes up with a headache, which may recur later in the day. He denied malaise, fever, vision loss, jaw claudication. Review of Systems Constitutional: Negative for chills, diaphoresis, fatigue and fever. HENT: Negative for congestion, nosebleeds, sinus pain and sore throat. Eyes: Negative for pain and visual disturbance. Respiratory: Negative for chest tightness and shortness of breath. Cardiovascular: Negative for chest pain, palpitations and leg swelling. Gastrointestinal: Negative for diarrhea, nausea and vomiting. Genitourinary: Negative for difficulty urinating and dysuria. Neurological: Negative for dizziness, tremors, syncope, facial asymmetry, speech difficulty, weakness, light-headedness and numbness. ACTIVE PROBLEM LIST Hyperlipidemia, Unspecified Bph With Obstruction/Lower Urinary Tract Symptoms Esophageal Reflux Seborrheic Dermatitis, Unspecified Personal History of Malignant Neoplasm of Bronchus and Lung Essential Hypertension, Benign Idiopathic Pulmonary Fibrosis (Hcc) Thyroid Nodule Greater Than Or Equal to 1 Cm in Diameter Incidentally Noted On Imaging Study Centrilobular Emphysema (Hcc) Copd With Chronic Bronchitis (Hcc) Dependence On Continuous Supplemental Oxygen Chronic Respiratory Failure With Hypoxia (Hcc) Secondary Pulmonary Arterial Hypertension (Hcc) Social History Tobacco Use Smoking status: Former Current packs/day: 0.00 Average packs/day: 1 pack/day for 24.0 years (24.0 ttl pk-yrs) Types: Cigarettes Start date: 06/24/1957 Quit date: 04/18/1981 Years since quittin.9 Smokeless tobacco: Never Tobacco comments: No smoking in childhood home. Vaping Use Vaping status: Never Used Substance Use Topics Alcohol use: No Drug use: No Current Outpatient Medications Medication Sig Mirtazapine (REMERON) 7.5 mg tablet Take 1 tablet by mouth daily at bedtime. pantoprazole DR (PROTONIX) 20 mg tablet Take 1 tablet by mouth once daily. simvastatin (ZOCOR) 10 mg tablet Take 1 tablet by mouth daily at bedtime. tamsulosin (FLOMAX) 0.4 mg Take 2 capsules by mouth once daily. fluticasone-salmeterol (WIXELA INHUB) 250-50 mcg/dose inhaler Inhale 1 Puff as instructed two times a day. lisinopril (ZESTRIL) 10 mg tablet Take 1 tablet by mouth once daily. oxybutynin XL (DITROPAN XL) 5 mg 24 hr tablet Take 1 tablet by mouth once daily. ipratropium-albuterol (DUONEB) 0.5 mg-3 mg(2.5 mg base)/3 mL nebu Inhale 3 mL as instructed every 4 hours as needed for wheezing/shortness of breath. Nebulizer Accessories kit Provide 1 kit. Mucus Clearing Device wilmar Provide 1 device albuterol HFA (PROVENTIL HFA, VENTOLIN HFA) 90 mcg/actuation inhaler Inhale 2 Puffs as instructed four times daily as needed. FOR WHEEZING AND SHORTNESS OF BREATH. THERAPEUTIC MULTIVIT/MINERAL TAB Take one(1) tablet daily. No current facility-administered medications for this visit. Objective BP 120/70 (BP Site: Left Arm, BP Position: Sitting, BP Cuff Size: Large Adult) Pulse 88 Temp 36.6 ?C (97.8 ?F) (Temporal) Wt 77.3 kg (170 lb 6.7 oz) SpO2 96% BMI 24.45 kg/m? Physical Exam Constitutional: General: He is not in acute distress. Appearance: He is not ill-appearing. Comments: On portable O2 via NC. HENT: Head: Comments: No scalp nodularity or tenderness. Ears: Comments: TMJ bilaterally, non tender. Mouth/Throat: Mouth: Mucous membranes are moist. Pharynx: Oropharynx is clear. Eyes: Extraocular Movements: Extraocular movements intact. Conjunctiva/sclera: Conjunctivae normal. Pupils: Pupils are equal, round, and reactive to light. Neck: Vascular: No carotid bruit. Cardiovascular: Rate and Rhythm: Normal rate and regular rhythm. Heart sounds: No murmur heard. No gallop. Pulmonary: Effort: No respiratory distress. Breath sounds: No wheezing or rales. Abdominal: Palpations: Abdomen is soft. Tenderness: There is no abdominal tenderness. Musculoskeletal: Cervical back: No tenderness. Right lower leg: No edema. Left lower leg: No edema. Neurological: Mental Status: He is alert. Latest Ref Rng 02/25/2024 Protein, Total 6.3 - 8.0 g/dL 6.8 Albumin 3.9 - 4.9 g/dL 4.0 Calcium 8.5 - 10.2 mg/dL 9.4 Bilirubin, Total 0.2 - 1.3 mg/dL 0.4 Alkaline Phosphatase 38 - 113 U/L 79 AST 14 - 40 U/L 21 ALT 10 - 54 U/L 8 (L) Glucose 74 - 99 mg/dL 92 BUN 9 - 24 mg/dL 31 (H) Creatinine 0.73 - 1.22 mg/dL 0.71 (L) Sodium 136 - 144 mmol/L 141 Potassium 3.7 - 5.1 mmol/L 4.2 Chloride 98 - 107 mmol/L 102 CO2 2 (more content not included)...[facility]11-20-2024 History of Present illness Narrative* Tito Macias MD - 03/07/2024 1:35 PM EST This note was created using [email or web address]. Subjective Jorge Ramires is a 83 year old male. He was doing well in general. He mentioned dealing with a pulsating right frontal headache, moderate in severity, occurring almost daily, lasting a few hours and relieved by acetaminophen. He wakes up with a headache, which may recur later in the day. He denied malaise, fever, vision loss, jaw claudication. Review of Systems Constitutional: Negative for chills, diaphoresis, fatigue and fever. HENT: Negative for congestion, nosebleeds, sinus pain and sore throat. Eyes: Negative for pain and visual disturbance. Respiratory: Negative for chest tightness and shortness of breath. Cardiovascular: Negative for chest pain, palpitations and leg swelling. Gastrointestinal: Negative for diarrhea, nausea and vomiting. Genitourinary: Negative for difficulty urinating and dysuria. Neurological: Negative for dizziness, tremors, syncope, facial asymmetry, speech difficulty, weakness, light-headedness and numbness. ACTIVE PROBLEM LIST Hyperlipidemia, Unspecified Bph With Obstruction/Lower Urinary Tract Symptoms Esophageal Reflux Seborrheic Dermatitis, Unspecified Personal History of Malignant Neoplasm of Bronchus and Lung Essential Hypertension, Benign Idiopathic Pulmonary Fibrosis (Hcc) Thyroid Nodule Greater Than Or Equal to 1 Cm in Diameter Incidentally Noted On Imaging Study Centrilobular Emphysema (Hcc) Copd With Chronic Bronchitis (Hcc) Dependence On Continuous Supplemental Oxygen Chronic Respiratory Failure With Hypoxia (Hcc) Secondary Pulmonary Arterial Hypertension (Hcc) Social History Tobacco Use Smoking status: Former Current packs/day: 0.00 Average packs/day: 1 pack/day for 24.0 years (24.0 ttl pk-yrs) Types: Cigarettes Start date: 06/24/1957 Quit date: 04/18/1981 Years since quittin.9 Smokeless tobacco: Never Tobacco comments: No smoking in childhood home. Vaping Use Vaping status: Never Used Substance Use Topics Alcohol use: No Drug use: No Current Outpatient Medications Medication Sig Mirtazapine (REMERON) 7.5 mg tablet Take 1 tablet by mouth daily at bedtime. pantoprazole DR (PROTONIX) 20 mg tablet Take 1 tablet by mouth once daily. simvastatin (ZOCOR) 10 mg tablet Take 1 tablet by mouth daily at bedtime. tamsulosin (FLOMAX) 0.4 mg Take 2 capsules by mouth once daily. fluticasone-salmeterol (WIXELA INHUB) 250-50 mcg/dose inhaler Inhale 1 Puff as instructed two timesa day. lisinopril (ZESTRIL) 10 mg tablet Take 1 tablet by mouth once daily. oxybutynin XL (DITROPAN XL) 5 mg 24 hr tablet Take 1 tablet by mouth once daily. ipratropium-albuterol (DUONEB) 0.5 mg-3 mg(2.5 mg base)/3 mL nebu Inhale 3 mL as instructed every 4hours as needed for wheezing/shortness of breath. Nebulizer Accessories kit Provide 1 kit. Mucus Clearing Device wilmar Provide 1 device albuterol HFA (PROVENTIL HFA, VENTOLIN HFA) 90 mcg/actuation inhaler Inhale 2 Puffs as instructed four times daily as needed. FOR WHEEZING AND SHORTNESS OF BREATH. THERAPEUTIC MULTIVIT/MINERAL TAB Take one(1) tablet daily. No current facility-administered medications for this visit. Objective BP 120/70 (BP Site: Left Arm, BP Position: Sitting, BP Cuff Size: Large Adult) Pulse 88 Temp 36.6 C (97.8 F) (Temporal) Wt 77.3 kg (170 lb 6.7 oz) SpO2 96% BMI 24.45 kg/m Physical Exam Constitutional: General: He is not in acute distress. Appearance: He is not ill-appearing. Comments: On portable O2 via NC. HENT: Head: Comments: No scalp nodularity or tenderness. Ears: Comments: TMJ bilaterally, non tender. Mouth/Throat: Mouth: Mucous membranes are moist. Pharynx: Oropharynx is clear. Eyes: Extraocular Movements: Extraocular movements intact. Conjunctiva/sclera: Conjunctivae normal. Pupils: Pupils are equal, round, and reactive to light. Neck: Vascular: No carotid bruit. Cardiovascular: Rate and Rhythm: Normal rate and regular rhythm. Heart sounds: No murmur heard. No gallop. Pulmonary: Effort: No respiratory distress. Breath sounds: No wheezing or rales. Abdominal: Palpations: Abdomen is soft. Tenderness: There is no abdominal tenderness. Musculoskeletal: Cervical back: No tenderness. Right lower leg: No edema. Left lower leg: No edema. Neurological: Mental Status: He is alert. Latest Ref Rn 02/25/2024 Protein, Total 6.3 - 8.0 g/dL 6.8 Albumin 3.9 - 4.9 g/dL 4.0 Calcium 8.5 - 10.2 mg/dL 9.4 Bilirubin, Total 0.2 - 1.3 mg/dL 0.4 Alkaline Phosphatase 38 - 113 U/L 79 AST 14 - 40 U/L 21 ALT 10 - 54 U/L 8 (L) Glucose 74 - 99 mg/dL 92 BUN 9 - 24 mg/dL 31 (H) Creatinine 0.73 - 1.22 mg/dL 0.71 (L) Sodium 136 - 144 mmol/L 141 Potassium 3.7 - 5.1 mmol/L 4.2 Chloride 98 - 107 mmol/L 102 CO2 22 - 30 mmol/L 29 Anion Gap 8 - 15 mmol/L 10 eGFR >=60 mL/min/1.73m 91 WBC 3.70 - 11.00 k/uL 5.07 RBC 4.20 - 6.00 m/uL 4.72 Hemoglobin 13.0 - 17.0 g/dL 13.2 Hematocrit 39.0 - 51.0 % 42.4 MCV 80.0 - 100.0 fL 89.8 MCH 26.0 - 34.0 pg 28.0 MCHC 30.5 - 36.0 g/dL 31.1 RDW-CV 11.5 - 15.0 % 13.1 Platelet Count 150 - 400 k/uL 176 MPV 9.0 - 12.7 fL 10.9 Absolute nRBC <0.01 k/uL <0.01 Cholesterol, Total <200 mg/dL 136 Triglyceride <150 mg/dL 57 HDL Cholesterol >39 mg/dL 57 Non HDL Cholesterol <130 mg/dL 79 Fasting Time hrs 14 VLDL Cholesterol <30 mg/dL 11 TC:HDL Ratio <5.10 2.39 LDL Cholesterol <100 mg/dL 68 LDL:HDL Ratio <2.54 1.19 Legend: (L) Low (H) High Assessment and Plan 1. Medicare annual wellness visit, subsequent - ICD9: V70.0, ICD10: Z00.00 (primary diagnosis) - See wellness note. 2. Screening for depression - ICD9: V79.0, ICD10: Z13.31 Negative. - DEPRESSION SCREENING 3. Encounter for screening examination for other mental health and behavioral disorders - ICD9: V79.8, ICD10: Z13.39 Negative. - ANXIETY SCREENING 4. Acute nonintractable headache, unspecified headache type - ICD9: 784.0, ICD10: R51.9 - Have eyes checked. Return if not better. 5. Thyroid nodule greater than or equal to 1 cm in diameter incidentally noted on imaging study - ICD9: 241.0, ICD10: E04.1 - Evaluated. 6. COPD with chronic bronchitis (HCC) - ICD9: 491.20, ICD10: J44.89 Stable. 7. Hyperlipidemia, unspecified hyperlipidemia type - ICD9: 272.4, ICD10: E78.5 - Controlled - Continue current medications - Discussed need for and benefit of weight loss. BMI 24.45 kg/(m^2) 8. Essential hypertension, benign - ICD9: 401.1, ICD10: I10 - Controlled - Continue current medications 9. Idiopathic pulmonary fibrosis (HCC) - ICD9: 516.31, ICD10: J84.112 - Stable. - Continue current therapies. Tito Macias MD * Tito Macias MD - 03/06/2024 10:29 AM EST Images from the original note were not included. Jorge Ramires is a 83 year old male here for a Medicare wellness visit. Medicare Health Risk Assessment General Health Good Exercise: Minutes/Day 10 min Exercise: Days/Week 7 days Alcohol: Daily Use Never Alcohol: Drinks/Day Patient does not drink Alcohol: 6 or more drinks Never Feel off balance No Concerns: Teeth/Dentures No Concerns: Sexual function No Troubled by feelings None of the above Frequency: Eating healthy diet Several days ADLs requiring help Grocery shopping; Cooking Safety precautions in home/vehicle Yes Smoke, vape, chews tobacco No Difficulty hearing Yes, I wear a hearing aid Difficulty seeing No Current Providers Specialists: I have reviewed specialist-related care of the patient in the medical record. Current care team: Patient Care Team: Tito Macias MD as PCP - General (Internal Medicine) Outside specialists seen: Dr. Shen. Joey, pulmonary. Dr. Noah Rajput, [facility]. Dr. Donnie Small, Ophthalmology. Dr. Kirstin Shields, [place] [facility]. Dr. Luisa Rizzo, [place], [place]. [place] opt[place]. [place] audiology. Medical/Family history review Reviewed and updated problem list, medical/surgical/family/social history, medications, and allergies. Opioid use review Opioid Medications (last 90 days) No data to display Anxiety/Depression screening PHQ-2 Score: 0 (Lower risk for depression) ARPITA-2 Score: 0 (Lower risk for anxiety) Recommendation: no further intervention at this time Cognitive screening Mini Cog Score: 3 Cognitive screening reviewed and No further action needed (score 3-5). Functional Observation Was the patient's Timed Up & Go test unsteady or >= 12 seconds? No Advance Care Planning Patient was not able to provide a surrogate decision maker or written advance directives Measurements BP 120/70 (BP Site: Left Arm, BP Position: Sitting, BP Cuff Size: Large Adult) Pulse 88 Temp 36.6 C (97.8 F) (Temporal) Wt 77.3 kg (170 lb 6.7 oz) SpO2 96% BMI 24.45 kg/m Vision Screening: Follows with optometry/ophthalmology Right: 20/40 Left: 20/ 30 Both: 20/25 Assessment/Plan Medicare annual wellness visit, subsequent (Z00.00) - Counseled on healthy diet and regular exercise - Fall avoidance information provided - Personalized prevention plan provided [facility] Instructions* Patient Instructions* Tito Macias MD - 03/06/2024 10:56 AM EST Screening schedule The following prevention plan is recommended: Depression Screening Never done Anxiety Screening Never done Advance Directive Discussion due on 04/18/2023 WHAT YOU CAN DO TO PREVENT FALLS Many falls can be prevented. By making some changes, you can lower your chances of falling. Four things YOU can do to prevent falls for you* and your caregiver 1. Begin a regular exercise program Exercise is one of the most important ways to lower your chances of falling. It makes you stronger and helps you feel better. Exercises that improve balance and coordination (like [place] Chi) are the most helpful. Lack of exercise leads to weakness and increases your chances of falling. Ask your doctor or health care provider about the best type of exercise program for you. 2. Have your health care provider review your medicines Have your doctor or pharmacist review all the medicines you take, even ztai-rth-ycxutrs medicines. As you get older, the way medicines work in your body can change. Some medicines, or combinations of medicines, can make you sleepy or dizzy andcan cause you to fall. 3. Have your vision checked Have your eyes checked by an eye doctor at least once a year. You may be wearing the wrong glasses or have a condition like glaucoma or cataracts that limits your vision. Poor vision can increase your chances of falling. 4. Make your home safer About half of all falls happen at home. To make your home safer: Remove things you can trip over (like papers, books, clothes, and shoes) from stairs and places where you walk. Remove small throw rugs or use double-sided tape to keep the rugs from slipping. Keep items you use often in cabinets you can reach easily without using a step stool. Have grab bars put in next to your toilet and in the tub or shower. Use non-slip mats in the bathtub and on shower floors. Improve the lighting in your home. As you get older, you need brighter lights to see well. Hang light-weight curtains or shades to reduce glare. Have handrails and lights put in on all staircases. Wear shoes both inside and outside the house. Avoid going barefoot or wearing slippers. For more information, contact: [facility] for Disease Control and Prevention www.cdc.gov/injury * This information may not apply if you have certain medical conditions. documented in this encounterMer[facility]24 NoteHNO ID: [id number] Author: TITO MACIAS MD Service: ? Author Type: Physician Type: Progress Notes Filed: 03/07/2024 13:48 Note Text: Jorge Ramires is a 83 year old male here for a Medicare wellness visit. Medicare Health Risk Assessment General Health Good Exercise: Minutes/Day 10 min Exercise: Days/Week 7 days Alcohol: Daily Use Never Alcohol: Drinks/Day Patient does not drink Alcohol: 6 or more drinks Never Feel off balance No Concerns: Teeth/Dentures No Concerns: Sexual function No Troubled by feelings None of the above Frequency: Eating healthy diet Several days ADLs requiring help Grocery shopping; Cooking Safety precautions in home/vehicle Yes Smoke, vape, chews tobacco No Difficulty hearing Yes, I wear a hearing aid Difficulty seeing No Current Providers Specialists: I have reviewed specialist-related care of the patient in the medical record. Current care team: Patient Care Team: Tito Macias MD as PCP - General (Internal Medicine) Outside specialists seen: Dr. Shen. Joey, pulmonary. Dr. Noah Rajput, Heart [facility]. Dr. Donnie Small, Ophthalmology. Dr. Kirstin Shields, [place] surgery. Dr. Luisa Rizzo, [place], [place]. [place]. [place] audiology. Medical/Family history review Reviewed and updated problem list, medical/surgical/family/social history, medications, and allergies. Opioid use review Opioid Medications (last 90 days) No data to display Anxiety/Depression screening PHQ-2 Score: 0 (Lower risk for depression) ARPITA-2 Score: 0 (Lower risk for anxiety) Recommendation: no further intervention at this time Cognitive screening Mini Cog Score: 3 Cognitive screening reviewed and No further action needed (score 3-5). Functional Observation Was the patient's Timed Up AND Go test unsteady or >= 12 seconds? No Advance Care Planning Patient was not able to provide a surrogate decision maker or written advance directives Measurements BP 120/70 (BP Site: Left Arm, BP Position: Sitting, BP Cuff Size: Large Adult) Pulse 88 Temp 36.6 ?C (97.8 ?F) (Temporal) Wt 77.3 kg (170 lb 6.7 oz) SpO2 96% BMI 24.45 kg/m? Vision Screening: Follows with optometry/ophthalmology Right: 20/40 Left: 20/ 30 Both: 20/25 Assessment/Plan Medicare annual wellness visit, subsequent (Z00.00) - Counseled on healthy diet and regular exercise - Fall avoidance information provided - [facility] Telephone encounter Note* Telephone Encounter - Radha Aparicio LPN - 02/01/2024 11:03 AM EDT Left a detailed message that prescription below was sent to the pharmacy. Radha Aparicio LPN [facility]10-[facility]24 Miscellaneous Notes* Telephone Encounter - Radha Aparicio LPN - 02/01/2024 11:03 AM EDT Left a detailed message that prescription below was sent to the pharmacy. Radha Aparicio LPN * Telephone Encounter - Anette Patricia LPN - 02/01/2024 10:19 AM EDT Patient presents to pulmonary appt with Mirtazapine RX. He states [facility] does not have record of this RX or refills on file that were sent in May. Asking for new RX to be sent. Patient phones requesting refills as follows: Requested Prescriptions Pending Prescriptions Disp Refills Mirtazapine (REMERON) 7.5 mg tablet 90 tablet 3 Sig: Take 1 tablet by mouth daily at bedtime. Please review and advise. Anette Patricia LPN documented in this encounterMer[facility]10-[facility] History of Present illness Narrative* Rashida Lay PA-C - 02/01/2024 10:35 AM EDT Patient: Jorge Ramires PCP: Tito Macias MD CC: follow up HPI: Jorge Ramires 83 year old male former 24 pack year smoker with PMH significant for CPFE, lung cancer NANCY, CAD, HTN, HLD, chronic hypoxemic respiratory failure presenting for follow-up. Previously on Ofev but discontinued due to side effects. Had nausea and vomiting despite use with food and use of Zofran. Most recent sputum positive for serratia marcescens and patient treated with Levaquin. Patient was evaluated in [facility] 01/09/2024 with increased cough, sputum production and SOB. CXR showed no acute abnormality. He was also dehydrated and received IV fluid. He was d ischarged home on Levaquin for 7 days. Today, patient reports cough has returned to baseline. Currently sputum is no longer green. No hemoptysis. Exertional dyspnea with minimal effort. He states he gets tired quicker. No fevers, chills, or night sweats. No unintended weight loss. Has gained some weight since last OV. Drinks Ensure daily. No lower extremity edema. No GERD/heartburn. Currently wearing between 5-6L supplemental oxygen. 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) 12/29/2020 Coronary artery disease Erectile dysfunction 03/13/2010 Esophageal reflux Essential hypertension, benign 09/06/2012 Ganglion and cyst of synovium, tendon and bursa 03/22/2013 Hematospermia 01/17/2006 Hiatal hernia 06/04/2013 HYPERLIPIDEMIA NEC/NOS 01/19/2005 Hyperplasia of prostate HYPERTROPHY PROSTATE WITH OBST 01/17/2006 Hypoalbuminemia due to protein-calorie malnutrition (HCC) 09/17/2021 Idiopathic pulmonary fibrosis (HCC) 07/02/2015 Obesity, Class I, BMI 30-34.9 10/10/2017 PERS HX BRONCHOGENIC MALIGNAN 04/09/2008 Personal history of colonic polyps Colon polyps Pulmonary fibrosis (HCC) 07/02/2015 Pure hypercholesterolemia Secondary pulmonary arterial hypertension (HCC) 02/12/2022 Furosemide. Heart [facility]. Thyroid nodule greater than or equal to 1 cm in diameter incidentally noted on imaging study 12/18/2019 Allergies: No Known Allergies fluticasone-salmeterol (WIXELA INHUB) 250-50 mcg/dose inhaler Inhale 1 Puff as instructed two timesa day. simvastatin (ZOCOR) 10 mg tablet Take 1 tablet by mouth daily at bedtime. tamsulosin (FLOMAX) 0.4 mg Take 2 capsules by mouth once daily. Mirtazapine (REMERON) 7.5 mg tablet Take 1 tablet by mouth daily at bedtime. lisinopril (ZESTRIL) 10 mg tablet Take 1 tablet by mouth once daily. oxybutynin XL (DITROPAN XL) 5 mg 24 hr tablet Take 1 tablet by mouth once daily. ipratropium-albuterol (DUONEB) 0.5 mg-3 mg(2.5 mg base)/3 mL nebu Inhale 3 mL as instructed every 4hours as needed for wheezing/shortness of breath. pantoprazole DR (PROTONIX) 20 mg tablet Take 1 tablet by mouth once daily. Nebulizer Accessories kit Provide 1 kit. Mucus Clearing Device wilmar Provide 1 device albuterol HFA (PROVENTIL HFA, VENTOLIN HFA) 90 mcg/actuation inhaler Inhale 2 Puffs as instructed four times daily as needed. FOR WHEEZING AND SHORTNESS OF BREATH. THERAPEUTIC MULTIVIT/MINERAL TAB Take one(1) tablet daily. Social History Tobacco Use Smoking status: Former Current packs/day: 0.00 Average packs/day: 1 pack/day for 24.0 years (24.0 ttl pk-yrs) Types: Cigarettes Start date: 06/24/1957 Quit date: 04/18/1981 Years since quittin.8 Smokeless tobacco: Never Tobacco comments: No smoking in childhood home. Vaping Use Vaping status: Never Used Substance Use Topics Alcohol use: No Drug use: No Family History Problem Relation Age of Onset Alzheimer's Disease Mother Heart Father heart attack Breast Cancer Sister Heart Brother aortic aneurysm COPD No Family History PAST SURGICAL HISTORY Procedure Laterality Date COLONOSCOPY FLX DX W/COLLJ SPEC WHEN PFRMD 07/12/2005 COLONOSCOPY FLX DX W/COLLJ SPEC WHEN PFRMD 07/19/2013 Colonoscopy COLONOSCOPY W/BIOPSY SINGLE/MULTIPLE 03/02/2010 ESOPHAGOGASTRODUODENOSCOPY TRANSORAL DIAGNOSTIC 07/19/2013 EGD REMOVAL OF LUNG,LOBECTOMY Left 04/2007 left upper lobe RIGHT HEART CATH 11/03/2020 TONSILLECTOMY & ADENOIDECTOMY <AGE 12 1946 I reviewed the past medical history, family history, social history and surgical history with changes noted above and updated in EMR. IMMUNIZATIONS Immunization History Administered Date(s) Administered COVID-19 original vaccine, age 12+ yr, monovalent (PFIZER-BIONTECH - CEDENO TOP) 07/16/2021 COVID-19 original vaccine, age 12+ yr, monovalent (PFIZER-BIONTECH - PURPLE TOP) 05/09/2020 05/29/2020 12/21/2020 COVID-19 vaccine, age 12+ yr (PFIZER-BIONTECH COMIRNATY) 01/15/2023 07/05/2023 COVID-19 vaccine, age 12+ yr, bivalent (MODERNA) 01/26/2022 COVID-19 vaccine, age 12+ yr, bivalent (PFIZER-BIONTECH) 08/20/2022 COVID-19 vaccine, unspecified formulation 12/16/2023 diphtheria tetanus (DT) vaccine, pediatric 11/05/2004 hepatitis B (HepB) vaccine, 3-dose series, age 0 yr - 19 yr (ENGERIX B-PEDS, RECOMBIVAX HB-PEDS) 07/27/1996 hepatitis B (HepB) vaccine, 3-dose series, age 20+ yr (ENGERIX-B, RECOMBIVAX HB) 05/03/1996 04/22/1997 influenza (HD-IIV3) vaccine, age 65+ yr, high dose, trivalent, PF (FLUZONE HIGH-DOSE) 01/25/2015 01/23/2016 12/31/2016 01/28/2018 12/25/2018 01/08/2020 12/14/2020 01/04/2022 influenza (HD-IIV4) vaccine, age 65+ yr, high dose, quadrivalent, PF (FLUZONE HIGH-DOSE) 01/18/2023 influenza (IIV4) vaccine, age 6 mo - 64 yr, quadrivalent, PF (AFLURIA, FLUARIX, FLULAVAL, FLUZONE) 01/08/2020 influenza (LAIV) vaccine, nasal, unspecified formulation 12/14/2020 influenza vaccine, unspecified formulation 02/04/2009 01/22/2010 01/27/2013 influenza vaccine, whole virus 02/14/2006 02/10/2008 novel influenza (D5R2-00) vaccine, PF 03/25/2009 pneumococcal conjugate (PCV13) vaccine, 13 valent (PREVNAR 13) 06/14/2014 02/06/2019 pneumococcal conjugate (PCV20) vaccine, 20 valent (PREVNAR 20) 12/02/2022 pneumococcal polysaccharide (PPV23) vaccine, 23 valent (PNEUMOVAX 23) 02/05/2005 12/30/2014 02/06/2020 respiratory syncytial virus (RSV), unspecified formulation 02/15/2023 tetanus diphtheria (Td) vaccine, age 7+ yr, 5 Lf tetanus, PF (TENIVAC) 07/01/2015 tetanus diphtheria pertussis (Tdap) vaccine, age 7+ yr (ADACEL, BOOSTRIX) 09/15/2021 zoster (RZV) vaccine, recombinant (SHINGRIX) 08/08/2018 10/25/2018 zoster (ZVL) vaccine, live (ZOSTAVAX) 09/14/2012 ROS: All other systems reviewed as negative except for what is noted in HPI and review of systems. PHYSICAL EXAMINATION: BP 106/58 Pulse 65 Resp 18 Wt 74.8 kg (165 lb) SpO2 92% BMI 23.68 kg/m O2: 5L NC Gen: No acute distress. Cooperative with examination. HEENT: Normocephalic. Sclera, conjunctiva clear. Dentures. No thrush. Resp: No stridor, accessory respiratory muscle use, supra-sternal or intercostal retractions. No wheezes. Bibasilar crackles. CV: Regular rythm. Heart tones normal. Radial pulses normal. Ext: Warm and well perfused. No clubbing, cyanosis, edema. Skin: No rash, ecchymoses. Neuro: Mental status normal. Affect normal. No tremor. 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 All lung volume repeatability criteria met. IMPRESSION: Spirometry shows no obstruction.The reduced FVC suggests restriction. The TLC is reduced indicating restriction. Electronically Signed On 12-02-2022 17:27:34 EDT by Hermelinda Copeland MD ID: [id number] Name: JORGE RAMIRES Race: Other Ht: 68.60 in Wt: 158.00 lbs Age: 82 Gender: Male : 1940 Dx: Idiopathic pulmonary fibrosis Smoking Hx: Non-smoker Doctor: RASHIDA LAY Test Date: 12/02/2022 Site: Tech: Sabi Ellis PRE-BRONCH POST-BRONCH Pre LLN Pred ULN %Pred Post %Pred %Chg SPIROMETRY FVC (L) 1.88 2.60 3.54 4.49 53 FEV1 (L) 1.53 1.86 2.59 3.28 58 FEV1/FVC 0.81 0.61 0.76 0.87 107 PEF L/s (L/sec) 3.49 4.35 6.57 8.80 53 FEF50 (L/sec) 2.40 1.23 3.35 5.48 71 FIF50 (L/sec) 0.98 FEF50/FIF50 2.45 90-100 FIVC (L) 1.75 DQF33-34 (L/sec) 1.59 0.64 1.77 3.47 89 Time (sec) 4.17 FET PEF (sec) 0.12 DYLAN (L) 0.08 Vol Extrap % (%) 4 LUNG VOLUMES TGV (L) 2.64 2.50 3.68 4.86 71 ERV (L) 0.92 1.18 78 RV (Pleth) (L) 1.72 2.02 2.64 3.25 65 SVC (L) 1.86 2.60 3.54 4.49 52 IC (L) 0.87 2.36 36 TLC (Pleth) (L) 3.54 5.48 6.78 8.09 52 RV/TLC (Pleth) (%) 49 32 40 47 122 Comments: ATS/ERS acceptability and repeatability standards for spirometry met. All lung volume repeatability criteria met. Arterial blood gas: pH, Arterial Date Value Ref Range Status 05/05/2007 7.44 7.35 - 7.45 Final pCO2, Arterial Date Value Ref Range Status 05/05/2007 37 34 - 46 mm Hg Final pO2, Arterial Date Value Ref Range Status 05/05/2007 140 (H) 85 - 95 mm Hg Final Bicarbonate, Arterial Date Value Ref Range Status 05/05/2007 24 22 - 26 mmol/L Final Base Excess, Arterial Date Value Ref Range Status 05/05/2007 1 mmol/L Final CT Chest other findings: Last CT Chest - Impression Only CT CHEST WO IVCON Exam End: 04/08/2022 3:59 PM (Final result) Impression: IMPRESSION: Again seen are postsurgical changes of prior left thoracotomy and left upper lobectomy, when compared the prior examination. Emphysema mild, diffuse bronchiectasis. Stable pulmonary fibrosis, with traction bronchiectasis seen within both lungs. Again seen is mediastinal and bilateral hilar lymphadenopathy. Stable hypodense nodule within the right lobe of thyroid gland, measuring approximately 1.1 cm. Dilated main pulmonary artery, measuring approximately 4.3 cm, which can ... Last XR Chest - Impression Only XR CHEST 2V FRONTAL/LAT Exam End: 03/07/2023 11:12 AM (Final result) Impression: IMPRESSION: Stable chest Clod Puller: ANASTACIA Transcribe Date/Time: Mar 07 2023 11:28A... ASSESSMENT/PLAN: 1. Idiopathic pulmonary fibrosis (HCC) - ICD9: 516.31, ICD10: J84.112 (primary diagnosis) Previously did not tolerate Ofev. Flu vaccine today. Standing sputum culture for change in sputum or increased symptoms. Sputum cups provided. 2. Chronic respiratory failure with hypoxia (HCC) - ICD9: 518.83, 799.02, ICD10: J96.11 Patient is compliant and benefits from supplemental oxygen. 3. Need for influenza vaccination - ICD9: V04.81, ICD10: Z23 - INFLUENZA VACCINE, PRSV FREE, AGE 65+ YR, HIGH DOSE, TRIVALENT (FLUZONE HIGH-DOSE) 4. Gastroesophageal reflux disease without esophagitis - ICD9: 530.81, ICD10: K21.9 On PPI - PANTOPRAZOLE 20 MG TABLET,DELAYED RELEASE 5. COPD with chronic bronchitis (HCC) - ICD9: 491.20, ICD10: J44.89 Continue Wixela and albuterol as needed. Portions of this documentation were copied and pasted from previous office visit notes in order to provide a cohesive continuity of the history. The note has been reviewed and edited and updated as necessary. Rashida Lay PA-C documented in this encounterMer[facility]24 Telephone encounter Note * Telephone Encounter - Anette Patricia LPN - 02/01/2024 10:19 AM EDT Patient presents to pulmonary appt with Mirtazapine RX. He states [facility] does not have record of this RX or refills on file that were sent in May. Asking for new RX to be sent. Patient phones requesting refills as follows: Requested Prescriptions Pending Prescriptions Disp Refills Mirtazapine (REMERON) 7.5 mg tablet 90 tablet 3 Sig: Take 1 tablet by mouth daily at bedtime. Please review and advise. Anette Patricia LPN [facility]10-15-2024 Telephone encounter Note* Telephone Encounter - Joya Herndon RN - 01/31/2024 1:16 PM EDT The patient has been identified by name and date of : Yes Caregiver verified no other encounters exist for this prescription request: Yes Caregiver confirmed with patient/requestor that no other refills are due, in the near future, with this provider at this time: Yes The last office visit in the department: 09/15/2023 Does the patient have a future office visit with this provider/department: Yes 03/06/2024 Requested Prescriptions Pending Prescriptions Disp Refills simvastatin (ZOCOR) 10 mg tablet 90 tablet 3 Sig: Take 1 tablet by mouth daily at bedtime. Joya Herndon RN January 31, 2024 1:16 PM [facility]10-15-2024 Miscellaneous Notes* Telephone Encounter - Joya Herndon RN - 01/31/2024 1:16 PM EDT The patient has been identified by name and date of : Yes Caregiver verified no other encounters exist for this prescription request: Yes Caregiver confirmed with patient/requestor that no other refills are due, in the near future, with this provider at this time: Yes The last office visit in the department: 09/15/2023 Does the patient have a future office visit with this provider/department: Yes 03/06/2024 Requested Prescriptions Pending Prescriptions Disp Refills simvastatin (ZOCOR) 10 mg tablet 90 tablet 3 Sig: Take 1 tablet by mouth daily at bedtime. Joya Herndon RN January 31, 2024 1:16 PM documented in this encounterMer[facility]09-23-2024 Telephone encounter Note * Telephone Encounter - Joya Herndon RN - 01/09/2024 12:57 PM EDT Patient call in for headache, abdominal pain, and shortness of breath. Nurse Triage assessment completed with protocol recommending for disposition of Go to ED now. voices understanding. Care advice reviewed with patient, patient stated understanding. Reason for Disposition [1] MODERATE difficulty breathing (e.g., speaks in phrases, SOB even at rest, pulse 100-120) AND [2] NEW-onset or WORSE than normal Answer Assessment - Initial Assessment Questions 1. RESPIRATORY STATUS: Shortness of breath 2. ONSET: X 3 days 3. PATTERN Constant; not getting any better; getting worse 4. SEVERITY: Moderate shortness of breath 5. RECURRENT SYMPTOM: Yes; he was given medicine 6. CARDIAC HISTORY: Denies 7. LUNG HISTORY: COPD; only has one lung 8. CAUSE: Unsure 9. OTHER SYMPTOMS: Weakness, runny nose,cough, abdominal pain (both sides) 10. O2 SATURATION MONITOR: 95 o2 on 5 L Protocols used: Breathing [id number] [facility]09-23-2024 Miscellaneous Notes* Telephone Encounter - Joya Herndon RN - 01/09/2024 12:57 PM EDT Patient call in for headache, abdominal pain, and shortness of breath. Nurse Triage assessment completed with protocol recommending for disposition of Go to ED now. voices understanding. Care advice reviewed with patient, patient stated understanding. Reason for Disposition [1] MODERATE difficulty breathing (e.g., speaks in phrases, SOB even at rest, pulse 100-120) AND [2] NEW-onset or WORSE than normal Answer Assessment - Initial Assessment Questions 1. RESPIRATORY STATUS: Shortness of breath 2. ONSET: X 3 days 3. PATTERN Constant; not getting any better; getting worse 4. SEVERITY: Moderate shortness of breath 5. RECURRENT SYMPTOM: Yes; he was given medicine 6. CARDIAC HISTORY: Denies 7. LUNG HISTORY: COPD; only has one lung 8. CAUSE: Unsure 9. OTHER SYMPTOMS: Weakness, runny nose,cough, abdominal pain (both sides) 10. O2 SATURATION MONITOR: 95 o2 on 5 L Protocols used: Breathing [id number] documented in this encounterMer[facility]09-23-2024 Telephone encounter Note * Telephone Encounter - Radha Brooks MA - 01/09/2024 12:51 PM EDT Pt calling with c/o headache and pain on both sides of his abdomen x 3 days. Having trouble catching his breath at times. Has not checked his temp, but has been chilling. With symptoms more broad than just pulmonology, pt was transferred to triage nurse to evaluate and make recommendations. Pt agreed to transfer and will speak with nurse. Radha Brooks MA [facility]09-23-2024 Miscellaneous Notes* Telephone Encounter - Radha Brooks MA - 01/09/2024 12:51 PM EDT Pt calling with c/o headache and pain on both sides of his abdomen x 3 days. Having trouble catching his breath at times. Has not checked his temp, but has been chilling. With symptoms more broad than just pulmonology, pt was transferred to triage nurse to evaluate and make recommendations. Pt agreed to transfer and will speak with nurse. Radha Brooks MA documented in this encounterMer[facility]05-30-2024 History of Present illness Narrative* Tito Macias MD - 09/15/2023 10:51 AM EDT This note was created using path intelligenceter. Subjective Jorge Ramires is a 83 year old male. His weight was increasing. BPH was controlled on tamsulosin 0.8 mg daily. COPD and chronic hypoxia was stable. He went to [place] for a 2nd opinion on his thyroid nodule. Dr. Shields did not repeat FNA but recommended follow up US and reevaluation in February. Review of Systems Constitutional: Negative for appetite change and fever. Respiratory: Negative. Cardiovascular: Negative for chest pain, palpitations and leg swelling. Gastrointestinal: Negative for constipation and diarrhea. Genitourinary: Negative for difficulty urinating. Neurological: Negative for dizziness and light-headedness. ACTIVE PROBLEM LIST Hyperlipidemia, Unspecified Bph With Obstruction/Lower Urinary Tract Symptoms Esophageal Reflux Seborrheic Dermatitis, Unspecified Personal History of Malignant Neoplasm of Bronchus and Lung Essential Hypertension, Benign Idiopathic Pulmonary Fibrosis (Hcc) Thyroid Nodule Greater Than Or Equal to 1 Cm in Diameter Incidentally Noted On Imaging Study Centrilobular Emphysema (Hcc) Copd With Chronic Bronchitis (Hcc) Dependence On Continuous Supplemental Oxygen Chronic Respiratory Failure With Hypoxia (Hcc) Secondary Pulmonary Arterial Hypertension (Hcc) Abnormal Weight Loss Social History Tobacco Use Smoking status: Former Packs/day: 1.00 Years: 24.00 Additional pack years: 0.00 Total pack years: 24.00 Types: Cigarettes Start date: 06/24/1957 Quit date: 04/18/1981 Years since quittin.4 Smokeless tobacco: Never Tobacco comments: No smoking in childhood home. Vaping Use Vaping Use: Never used Substance Use Topics Alcohol use: No Drug use: No Current Outpatient Medications Medication Sig fluticasone-salmeterol (WIXELA INHUB) 250-50 mcg/dose inhaler Inhale 1 Puff as instructed two timesa day. Mirtazapine (REMERON) 7.5 mg tablet Take 1 tablet by mouth daily at bedtime. lisinopril (ZESTRIL) 10 mg tablet Take 1 tablet by mouth once daily. oxybutynin XL (DITROPAN XL) 5 mg 24 hr tablet Take 1 tablet by mouth once daily. simvastatin (ZOCOR) 10 mg tablet Take 1 tablet by mouth daily at bedtime. ipratropium-albuterol (DUONEB) 0.5 mg-3 mg(2.5 mg base)/3 mL nebu Inhale 3 mL as instructed every 4hours as needed for wheezing/shortness of breath. pantoprazole DR (PROTONIX) 20 mg tablet Take 1 tablet by mouth once daily. tamsulosin (FLOMAX) 0.4 mg Take 2 capsules by mouth once daily. Nebulizer Accessories kit Provide 1 kit. Mucus Clearing Device wilmar Provide 1 device albuterol HFA (PROVENTIL HFA, VENTOLIN HFA) 90 mcg/actuation inhaler Inhale 2 Puffs as instructed four times daily as needed. FOR WHEEZING AND SHORTNESS OF BREATH. THERAPEUTIC MULTIVIT/MINERAL TAB Take one(1) tablet daily. No current facility-administered medications for this visit. Objective BP 132/71 Pulse 72 Resp 18 Wt 74.8 kg (165 lb) SpO2 99% BMI 23.68 kg/m Physical Exam Constitutional: General: He is not in acute distress. Comments: On portable O2 via NC. Cardiovascular: Rate and Rhythm: Normal rate and regular rhythm. Pulmonary: Breath sounds: Decreased breath sounds and rales present. No wheezing or rhonchi. Abdominal: General: There is no distension. Palpations: Abdomen is soft. Musculoskeletal: Right lower leg: No edema. Left lower leg: No edema. Neurological: General: No focal deficit present. Mental Status: He is alert. Psychiatric: Mood and Affect: Mood normal. Assessment and Plan 1. COPD with chronic bronchitis (HCC) - ICD9: 491.20, ICD10: J44.89 (primary diagnosis) Stable. - COMPLETE BLOOD COUNT 2. BPH with obstruction/lower urinary tract symptoms - ICD9: 600.01, 599.69, ICD10: N40.1, N13.8 Stable. - TAMSULOSIN 0.4 MG CAPSULE 3. Thyroid nodule greater than or equal to 1 cm in diameter incidentally noted on imaging study - ICD9: 241.0, ICD10: E04.1 - He will follow up with Dr. Kirstin Shields in February. 4. Hyperlipidemia, unspecified hyperlipidemia type - ICD9: 272.4, ICD10: E78.5 - Controlled - Continue current medications - COMPREHENSIVE METABOLIC PANEL - LIPID PANEL BASIC 5. Chronic respiratory failure with hypoxia (HCC) - ICD9: 518.83, 799.02, ICD10: J96.11 - Stable. 6. Secondary pulmonary arterial hypertension (HCC) - ICD9: 416.8, ICD10: I27.21 - Stable. Tito Macias MD documented in this encounterMer[facility]04-10-2024 History of Present illness Narrative* Rashida Lay PA-C - 07/27/2023 10:30 AM EDT Images from the original note were not included. Patient: Jorge Ramires PCP: Tito Macias MD CC: follow up HPI: Jorge Ramires 83 year old male former 24 pack year smoker with PMH significant for CPFE, lung cancer NANCY, CAD, HTN, HLD, chronic hypoxemic respiratory failure presenting for follow-up. Previously on Ofev but discontinued due to side effects. Had nausea and vomiting despite use with food and use of Zofran. Most recent sputum positive for serratia marcescens and patient treated with Levaquin. Today, patient states he is feeling much better since completely antibiotics. Daily cough with much sql ssrs developer sputum. No hemoptysis. Cough is not waking him from sleep. He now has a bed that he elevate s the HOB and is sleeping much better. Exertional dyspnea is stable. 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 No fevers, chills or nightsweats. He is maintaining his weight and drinking Ensure twice daily (provided by [place]). Uses nebulizer in the morning and as needed throughout the day. Typically he does not use it during the day. Currently wearing 5 L supplemental oxygen continuously. 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) 12/29/2020 Coronary artery disease Erectile dysfunction 03/13/2010 Esophageal reflux Essential hypertension, benign 09/06/2012 Ganglion and cyst of synovium, tendon and bursa 03/22/2013 Hematospermia 01/17/2006 HYPERLIPIDEMIA NEC/NOS 01/19/2005 Hyperplasia of prostate HYPERTROPHY PROSTATE WITH OBST 01/17/2006 Hypoalbuminemia due to protein-calorie malnutrition (HCC) 09/17/2021 Idiopathic pulmonary fibrosis (HCC) 07/02/2015 PERS HX BRONCHOGENIC MALIGNAN 04/09/2008 Personal history of colonic polyps Colon polyps Pulmonary fibrosis (HCC) 07/02/2015 Pure hypercholesterolemia Secondary pulmonary arterial hypertension (HCC) 02/12/2022 Furosemide. [facility]. Thyroid nodule greater than or equal to 1 cm in diameter incidentally noted on imaging study 12/18/2019 Allergies: No Known Allergies Mirtazapine (REMERON) 7.5 mg tablet Take 1 tablet by mouth daily at bedtime. lisinopril (ZESTRIL) 10 mg tablet Take 1 tablet by mouth once daily. oxybutynin XL (DITROPAN XL) 5 mg 24 hr tablet Take 1 tablet by mouth once daily. simvastatin (ZOCOR) 10 mg tablet Take 1 tablet by mouth daily at bedtime. ipratropium-albuterol (DUONEB) 0.5 mg-3 mg(2.5 mg base)/3 mL nebu Inhale 3 mL as instructed every 4hours as needed for wheezing/shortness of breath. pantoprazole DR (PROTONIX) 20 mg tablet Take 1 tablet by mouth once daily. tamsulosin (FLOMAX) 0.4 mg Take 2 capsules by mouth once daily. Nebulizer Accessories kit Provide 1 kit. Mucus Clearing Device wilmar Provide 1 device albuterol HFA (PROVENTIL HFA, VENTOLIN HFA) 90 mcg/actuation inhaler Inhale 2 Puffs as instructed four times daily as needed. FOR WHEEZING AND SHORTNESS OF BREATH. THERAPEUTIC MULTIVIT/MINERAL TAB Take one(1) tablet daily. Social History Tobacco Use Smoking status: Former Packs/day: 1.00 Years: 24.00 Additional pack years: 0.00 Total pack years: 24.00 Types: Cigarettes Start date: 06/24/1957 Quit date: 04/18/1981 Years since quittin.3 Smokeless tobacco: Never Tobacco comments: No smoking in childhood home. Vaping Use Vaping Use: Never used Substance Use Topics Alcohol use: No Drug use: No Family History Problem Relation Age of Onset Alzheimer's Disease Mother Heart Father heart attack Breast Cancer Sister Heart Brother aortic aneurysm COPD No Family History PAST SURGICAL HISTORY Procedure Laterality Date COLONOSCOPY FLX DX W/COLLJ SPEC WHEN PFRMD 07/12/2005 COLONOSCOPY FLX DX W/COLLJ SPEC WHEN PFRMD 07/19/2013 Colonoscopy COLONOSCOPY W/BIOPSY SINGLE/MULTIPLE 03/02/2010 ESOPHAGOGASTRODUODENOSCOPY TRANSORAL DIAGNOSTIC 07/19/2013 EGD REMOVAL OF LUNG,LOBECTOMY Left 04/2007 left upper lobe RIGHT HEART CATH 11/03/2020 TONSILLECTOMY & ADENOIDECTOMY <AGE 12 1946 I reviewed the past medical history, family history, social history and surgical history with changes noted above and updated in EMR. IMMUNIZATIONS Prevnar - 11/2022 Pneumovax - 2019 Influenza - 2022 COVID-19 - most recent 06/2023 RSV - 01/2023 ROS: CONSTITUTIONAL: No fevers, chills, nightsweats. Weight has been stable. HEENT: Denies nasal congestion/sinus symptoms, problematic allergy problems. CARDIOVASCULAR: No chest pain, dyspnea, palpitations, orthopnea, PND, edema. PULM: See HPI GI: No dysphagia or choking. No GERD/heartburn. NEURO: No balance problems, peripheral weakness/paresthesias or numbness of concern. INTEGUMENTARY: No new skin changes or rashes PHYSICAL EXAMINATION: BP 128/78 (BP Site: Right Arm, BP Position: Sitting, BP Cuff Size: Regular Adult) Pulse 101 Resp 17 Wt 72.5 kg (159 lb 12.8 oz) SpO2 93% BMI 22.93 kg/m O2: Gen: No acute distress. Cooperative with examination. HEENT: Normocephalic. Sclera, conjunctiva clear. Dentures. Resp: No stridor, accessory respiratory muscle use, supra-sternal or intercostal retractions. No wheezes. Crackles. CV: Regular rythm. Heart tones normal. Radial pulses normal. Ext: Warm and well perfused. No clubbing, cyanosis, edema. Hands are cold to the touch. Skin: No rash, ecchymoses. Neuro: Mental status normal. Affect normal. No tremor. DATA: Oximetry, 11/2022 O2 Device O2 Adapter NC O2 Flow SpO2% HR Activity Ft Walked (ft) Time (min) Avg Speed (MPH) NC 5 94 94 Resting NC 5 89 117 Walking, usual pace 580 3 2.2 PFT 11/2022: 11/2021: Review of pulmonary function test show stable combined moderately severe obstruction and restriction Imaging / Diagnostic Studies: DATE OF EXAM: Dec 02 2022 11:18AM [id number] - XR CHEST 2V FRONTAL/LAT / EXAM DATE/TIME: 12/02/2022 11:18 AM COMPARISON: 10/01/2021. RESULT: Lines, tubes, and devices: None. Lungs and pleura: There is extensive bilateral interstitial lung disease compatible with pulmonary fibrosis. There is mild loss of volume of the left lung with elevation of the left hemidiaphragm. The pleural margins appear unremarkable. Cardiomediastinal silhouette: Normal cardiomediastinal silhouette. Bones and soft tissues: Unremarkable. IMPRESSION: Persistent and extensive bilateral pulmonary fibrosis. Sputum culture, 07/12/2023 07/12/2023 Culture Many Serratia marcescens ! Culture Rare Staphylococcus aureus ! Culture Moderate normal respiratory braxton ! Smear Result Few Mixed oral braxton ! Smear Result Many Polymorphonuclear leukocytes ! ASSESSMENT/PLAN: 1. Idiopathic pulmonary fibrosis (HCC) - ICD9: 516.31, ICD10: J84.112 (primary diagnosis) Previously did not tolerate Ofev. Up to date on annual influenza, pneumococcal and Covid 19 vaccines. Standing sputum culture for change in sputum or increased symptoms. - RESPIRATORY CULTURE AND STAIN 2. Chronic respiratory failure with hypoxia (HCC) - ICD9: 518.83, 799.02, ICD10: J96.11 Patient is compliant and benefits from supplemental oxygen. 3. COPD with chronic bronchitis (HCC) - ICD9: 491.20, ICD10: J44.89 Continue Wixela twice daily. (Receives from [facility]) Nebulizer as needed. - RESPIRATORY CULTURE AND STAIN Portions of this documentation were copied and pasted from previous office visit notes in order to provide a cohesive continuity of the history. The note has been reviewed and edited and updated as necessary. Rashida Lay PA-C documented in this encounterMer[facility]03-11-2024 Miscellaneous Notes* Telephone Encounter - Alondra Elizabeth LPN - 06/27/2023 3:46 PM EDT Fernanda with [facility] Calls to report pt was referred to them by Dr. Macias. Fernanda is requesting the results from [employer] to be faxed to them at [phone]. Report faxed as requested. Alondra Elizabeth LPN documented in this encounterMercy Health [facility]02-29-2024 History of Present illness Narrative* Tito Macias MD - 06/16/2023 10:55 AM EST This note was created using path intelligenceter. Subjective Jorge Ramires is a 83 year old male. He was tolerating mirtazapine well. Sleep was good. Weight was up. Appetite was stable. He needed some refills. Review of Systems Constitutional: Negative for appetite change and unexpected weight change. Respiratory: Negative. ACTIVE PROBLEM LIST Hyperlipidemia, Unspecified PERSONAL HISTORY OF GI-COLONIC POLYPS Bph With Obstruction/Lower Urinary Tract Symptoms Esophageal Reflux Seborrheic Dermatitis, Unspecified Personal History of Malignant Neoplasm of Bronchus and Lung Essential Hypertension, Benign Hiatal Hernia Idiopathic Pulmonary Fibrosis (Hcc) Obesity, Class I, Bmi 30-34.9 Thyroid Nodule Greater Than Or Equal to 1 Cm in Diameter Incidentally Noted On Imaging Study Centrilobular Emphysema (Hcc) Copd With Chronic Bronchitis (Hcc) Dependence On Continuous Supplemental Oxygen Chronic Respiratory Failure With Hypoxia (Hcc) Secondary Pulmonary Arterial Hypertension (Hcc) Abnormal Weight Loss Current Outpatient Medications Medication Sig simvastatin (ZOCOR) 10 mg tablet Take 1 tablet by mouth daily at bedtime. ipratropium-albuterol (DUONEB) 0.5 mg-3 mg(2.5 mg base)/3 mL nebu Inhale 3 mL as instructed every 4hours as needed for wheezing/shortness of breath. pantoprazole DR (PROTONIX) 20 mg tablet Take 1 tablet by mouth once daily. tamsulosin (FLOMAX) 0.4 mg Take 2 capsules by mouth once daily. Nebulizer Accessories kit Provide 1 kit. Mucus Clearing Device wilmar Provide 1 device albuterol HFA (PROVENTIL HFA, VENTOLIN HFA) 90 mcg/actuation inhaler Inhale 2 Puffs as instructed four times daily as needed. FOR WHEEZING AND SHORTNESS OF BREATH. THERAPEUTIC MULTIVIT/MINERAL TAB Take one(1) tablet daily. Mirtazapine (REMERON) 7.5 mg tablet Take 1 tablet by mouth daily at bedtime. lisinopril (ZESTRIL) 10 mg tablet Take 1 tablet by mouth once daily. oxybutynin XL (DITROPAN XL) 5 mg 24 hr tablet Take 1 tablet by mouth once daily. No current facility-administered medications for this visit. Objective BP 128/70 (BP Site: Right Arm, BP Position: Sitting, BP Cuff Size: Large Adult) Pulse 80 Temp 36.8 C (98.3 F) (Temporal) Wt 72.6 kg (160 lb) SpO2 98% BMI 22.96 kg/m Physical Exam Constitutional: General: He is not in acute distress. Pulmonary: Effort: No respiratory distress. Breath sounds: Decreased breath sounds and rhonchi present. Comments: On portable concentrator. Neurological: General: No focal deficit present. Psychiatric: Mood and Affect: Mood normal. Assessment and Plan 1. Thyroid nodule greater than or equal to 1 cm in diameter incidentally noted on imaging study - ICD9: 241.0, ICD10: E04.1 (primary diagnosis) He had biopsy with BRUCE Richards. He will see Dr. Bah next week. 2. Abnormal weight loss - ICD9: 783.21, ICD10: R63.4 Improved. We agreed to continue the same dose. - MIRTAZAPINE 7.5 MG TABLET 3. Essential hypertension, benign - ICD9: 401.1, ICD10: I10 - Controlled - LISINOPRIL 10 MG TABLET 4. BPH with obstruction/lower urinary tract symptoms - ICD9: 600.01, 599.69, ICD10: N40.1, N13.8 Controlled. - OXYBUTYNIN CHLORIDE ER 5 MG TABLET,EXTENDED RELEASE 24 HR Tito Macias MD documented in this encounterMercy Health [facility]02-21-2024 Miscellaneous Notes* Telephone Encounter - Vane Barnes LPN - 06/08/2023 4:39 PM EST Referral faxed to Dr. Tylor Bah, Patient notified. Vane Barnes LPN * Telephone Encounter - Tito Macias MD - 06/08/2023 4:13 PM EST ASSESSMENT/PLAN: 1. Thyroid nodule greater than or equal to 1 cm in diameter incidentally noted on imaging study - ICD9: 241.0, ICD10: E04.1 - Send pathology from 05/30/23. Refer to Dr. Bah per patient request. - CONSULT TO GENERAL SURGERY Tito Macias MD * Telephone Encounter - Vane Barnes LPN - 06/08/2023 2:22 PM EST Jorge stopped into the office, Patient had needle biopsy done yesterday that was unsuccessful. recommended that needle biopsy be repeat with interventional radiology. Patient is asking for a referral to Dr. Bah, please fax order to [phone]. Vane Barnes LPN documented in this encounterMercy Health [facility]02-20-2024 History of Present illness Narrative* Victorino Navarro MD - 06/07/2023 7:45 AM EST Subjective: Patient is status post a fine-needle aspiration of a right thyroid nodule. Pathology came back as atypia of undetermined significance but was limited secondary to there not really being enough cells within this specimen. The Afirma testing is in process at the present time and I do not have it back. Objective:Temperature 36.4 C (97.5 F). Neck is supple no hard palpable nodules are identified Assessment:Thyroid nodule greater than or equal to 1 cm in diameter incidentally noted on imaging study (primary encounter diagnosis) Plan: I recommended that we repeat this study with interventional radiology. Patient would prefer to go see Dr. Bah at [facility]. documented in this encounterMercy Health [facility]02-19-2024 Telephone encounter Note * Telephone Encounter - Anca Josue - 06/06/2023 3:41 PM EST Patient to be scheduled for a FNA of right thyroid. Patient declined to be scheduled with us and stated he is going to see Dr. Bah at [facility] instead Anca Josue Photoengraving Machine Operator/Tender [facility]02-19-2024 Miscellaneous Notes* Telephone Encounter - Anca Josue - 06/06/2023 3:41 PM EST Patient to be scheduled for a FNA of right thyroid. Patient declined to be scheduled with us and stated he is going to see Dr. Bah at [facility] instead Anca Josue Photoengraving Machine Operator/Tender documented in this encounterMercy Health – [facility]11-24-2023 History of Present illness Narrative* Keila Medellin RDMS - 03/11/2023 1:45 PM EST Radiology Service Progress Note PATIENT NAME: Jorge Ramires DATE OF SERVICE: March 11, 2023 TIME: 3:29 PM PATIENT IDENTITY VERIFICATION COMPLETED USING TWO (2) IDENTIFIERS: Name and Date of confirmedby patient verbally. FALL SCREENING: Has the patient had 2 falls in the last year or 1 fall with injury or currently using an Ambulatory Assistive Device (Walker, Cane, Wheelchair, Crutches, etc.)? No PATIENT GENDER DATA: Male PATIENT RELEVANT IMPLANT DATA REVIEWED: Not Applicable RADIOLOGY DEPARTMENT: Ultrasound PERIPHERAL IV DATA: Not applicable SIGNED BY: Keila Medellin RDMS RVT March 11, 2023 3:29 PM documented [facility] this [facility] History of Present illness Narrative* Tito Macias MD - 03/08/2023 10:52 AM EST This note was created using [email or web address]. Subjective Jorge Ramires is a 82 year old male. He was losing weight and taking protein shakes. His appetitewas poor. His breathing was stable. His hypertension and lipids were controlled. Review of Systems Constitutional: Positive for appetite change and unexpected weight change. Negative for fever. Respiratory: Negative. Cardiovascular: Negative. Gastrointestinal: Negative for abdominal pain, diarrhea, nausea and vomiting. Neurological: Negative for dizziness and headaches. ACTIVE PROBLEM LIST Hyperlipidemia, Unspecified PERSONAL HISTORY OF GI-COLONIC POLYPS Bph With Obstruction/Lower Urinary Tract Symptoms Esophageal Reflux Seborrheic Dermatitis, Unspecified Personal History of Malignant Neoplasm of Bronchus and Lung Essential Hypertension, Benign Hiatal Hernia Idiopathic Pulmonary Fibrosis (Hcc) Obesity, Class I, Bmi 30-34.9 Thyroid Nodule Greater Than Or Equal to 1 Cm in Diameter Incidentally Noted On Imaging Study Centrilobular Emphysema (Hcc) Copd With Chronic Bronchitis Dependence On Continuous Supplemental Oxygen Chronic Respiratory Failure With Hypoxia (Hcc) Secondary Pulmonary Arterial Hypertension (Hcc) Current Outpatient Medications Medication Sig simvastatin (ZOCOR) 10 mg tablet Take 1 tablet by mouth daily at bedtime. ipratropium-albuterol (DUONEB) 0.5 mg-3 mg(2.5 mg base)/3 mL nebu Inhale 3 mL as instructed every 4hours as needed for wheezing/shortness of breath. pantoprazole DR (PROTONIX) 20 mg tablet Take 1 tablet by mouth once daily. lisinopril (ZESTRIL) 10 mg tablet Take 1 tablet by mouth once daily. tamsulosin (FLOMAX) 0.4 mg Take 2 capsules by mouth once daily. oxybutynin XL (DITROPAN XL) 5 mg 24 hr tablet Take 1 tablet by mouth once daily. Nebulizer Accessories kit Provide 1 kit. Mucus Clearing Device wilmar Provide 1 device THERAPEUTIC MULTIVIT/MINERAL TAB Take one(1) tablet daily. Mirtazapine (REMERON) 7.5 mg tablet Take 1 tablet by mouth daily at bedtime. albuterol HFA (PROVENTIL HFA, VENTOLIN HFA) 90 mcg/actuation inhaler Inhale 2 Puffs as instructed four times daily as needed. FOR WHEEZING AND SHORTNESS OF BREATH. No current facility-administered medications for this visit. Objective BP 112/64 (BP Site: Right Arm, BP Position: Sitting, BP Cuff Size: Large Adult) Pulse 88 Resp 18 Ht 172.7 cm (5' 8) Wt 70.8 kg (156 lb) SpO2 94% BMI 23.72 kg/m Physical Exam Constitutional: General: He is not in acute distress. Appearance: He is underweight. Cardiovascular: Rate and Rhythm: Normal rate and regular rhythm. Heart sounds: No murmur heard. No gallop. Pulmonary: Effort: No respiratory distress. Breath sounds: Decreased breath sounds present. No wheezing or rales. Abdominal: Tenderness: There is no abdominal tenderness. Musculoskeletal: Right lower leg: No edema. Left lower leg: No edema. Neurological: General: No focal deficit present. Mental Status: He is alert. Psychiatric: Mood and Affect: Mood normal. Component Latest Ref Rng & Units 03/03/2023 Protein, Total 6.3 - 8.0 g/dL 7.5 Albumin 3.9 - 4.9 g/dL 3.8 (L) Calcium 8.5 - 10.2 mg/dL 10.0 Bilirubin, Total 0.2 - 1.3 mg/dL 0.4 Alkaline Phosphatase 38 - 113 U/L 77 AST 14 - 40 U/L 19 ALT 10 - 54 U/L 10 Glucose 74 - 99 mg/dL 97 BUN 9 - 24 mg/dL 15 Creatinine 0.73 - 1.22 mg/dL 0.63 (L) Sodium 136 - 144 mmol/L 137 Potassium 3.7 - 5.1 mmol/L 4.3 Chloride 97 - 105 mmol/L 99 CO2 22 - 30 mmol/L 30 Anion Gap 9 - 18 mmol/L 8 (L) eGFR >=60 mL/min/1.73m 95 WBC 3.70 - 11.00 k/uL 4.13 RBC 4.20 - 6.00 m/uL 4.43 Hemoglobin 13.0 - 17.0 g/dL 12.6 (L) Hematocrit 39.0 - 51.0 % 39.7 MCV 80.0 - 100.0 fL 89.6 MCH 26.0 - 34.0 pg 28.4 MCHC 30.5 - 36.0 g/dL 31.7 RDW-CV 11.5 - 15.0 % 13.2 Platelet Count 150 - 400 k/uL 232 MPV 9.0 - 12.7 fL 10.0 Absolute nRBC <0.01 k/uL <0.01 Cholesterol, Total <200 mg/dL 126 Triglyceride <150 mg/dL 57 HDL Cholesterol >39 mg/dL 52 Non HDL Cholesterol <130 mg/dL 74 Fasting Time hrs 13 VLDL Cholesterol <30 mg/dL 11 TC:HDL Ratio <5.10 2.42 LDL Cholesterol <100 mg/dL 63 LDL:HDL Ratio <2.54 1.21 Assessment and Plan 1. Medicare annual wellness visit, subsequent - ICD9: V70.0, ICD10: Z00.00 (primary diagnosis) See wellness note. - ADVANCE CARE PLAN DISCUSSION 2. Chronic respiratory failure with hypoxia (HCC) - ICD9: 518.83, 799.02, ICD10: J96.11 On portable O2. 3. BPH with obstruction/lower urinary tract symptoms - ICD9: 600.01, 599.69, ICD10: N40.1, N13.8 Controlled. 4. Essential hypertension, benign - ICD9: 401.1, ICD10: I10 - Controlled 5. COPD with chronic bronchitis - ICD9: 491.20, ICD10: J44.89 Stable. 6. Thyroid nodule greater than or equal to 1 cm in diameter incidentally noted on imaging study - ICD9: 241.0, ICD10: E04.1 Follow up [place] needs scheduled. 7. Abnormal weight loss - ICD9: 783.21, ICD10: R63.4 Discussed medication dosage, usage, goals of therapy, and side effects. - MIRTAZAPINE 7.5 MG TABLET Tito Macias MD * Tito Macias MD - 03/08/2023 10:28 AM EST Jorge Ramires is a 82 year old male here for a Medicare wellness visit. Medicare Health Risk Assessment General Health Fair Exercise: Minutes/Day 45 Exercise: Days/Week 3 Alcohol: Daily Use No Alcohol: Drinks/Day No Alcohol: 6 or more drinks No Feel off balance No Concerns: Teeth/Dentures No Concerns: Sexual function No Troubled by feelings No Frequency: Eating healthy diet No ADLs requiring help No Safety precautions in home/vehicle No Smoke, vape, chews tobacco No Difficulty hearing Yes Difficulty seeing No Current Providers Specialists: I have reviewed specialist-related care of the patient in the medical record. Current care team: Patient Care Team: Tito Macias MD as PCP - General (Internal Medicine) Outside specialists seen: Dr. Allison Copeland, pulmonary. Dr. Rajput, [facility]. [place], [place]. [place]. [place]. Medical/Family history review Reviewed and updated problem list, medical/surgical/family/social history, medications, and allergies. Opioid use review Opioid Medications (last 90 days) Some values may be hidden. Unless noted otherwise, only the newest values recorded on each date aredisplayed. Opioid Medications No data to display. Depression screening Depression Screening PHQ-2 Score 08/20/2022 0 Depression screening tool completed and reviewed. Based on score and interview, patient is not at risk for depression. Screening tool discussed with patient, and I recommended no further interventionat this time. Cognitive screening Mini Cog Score: 5 Cognitive screening reviewed and no further action needed (score 3-5) Functional Observation Was the patient's timed Up & Go test unsteady or ? 12 seconds? No Advance Care Planning Patient did not wish or was not able to name a surrogate decision maker or provide an advance care plan Measurements BP 112/64 Pulse 88 Resp 18 Ht 5' 8 (1.73m) Wt 156 lb (70.8kg) SpO2 94% BMI 23.73 kg/(m^2). Additional screenings: Vision Screening Right eye - Without correction: With correction: 20/25 Left eye - Without correction: With correction: 20/40 Both eyes - Without correction: With correction: 20/25 Assessment/Plan Medicare annual wellness visit, subsequent (Z00.00) - Counseled on healthy diet and regular exercise - Fall avoidance information provided - Personalized prevention plan provided documented in this [place]11-21-2023 Instructions* Patient Instructions* Tito Macias MD - 03/08/2023 10:35 AM EST Have you ever planned for future healthcare decisions with a power of commercial real estate attorney, living will, or advance directives? Yes. Have you shared those records with your doctor? No and No. Please bring a copyto your next appointment or email to documented in this [place]11-20-2023 Miscellaneous Notes* Telephone Encounter - Jennifer De La Cruz - 03/07/2023 12:45 PM EST Patient given results and verbalized understanding of instructions given. Jennifer De La Cruz * Telephone Encounter - Donnie Anderson APRN.CNP - 03/07/2023 12:37 PM EST Stable chest x-ray. Follow-up with PCP as discussed. Donnie Anderson APRN.CNP documented in this [place]11-19-2023 Instructions* Patient Instructions* Donnie Anderson APRN.CNP - 03/06/2023 8:28 AM EST How to Manage Common Symptoms Associated with COVID for Adults Fever- Fever is a temperature over 100.4 F and can occur when the body is fighting an infection. Tohelp treat a fever: Drink plenty of fluids and stay well hydrated. Eat small amounts of easy to digest food. Rest. Your body needs rest to recover, but getting up and moving around the house frequently is a good idea. You should try to continue doing your normal daily activities (bathing, toileting, grooming, cooking), though you will probably feel tired, and need to rest often. Avoid any heavy activity or exercise, as this will increase your body temperature. Dress in light clothing and stay covered in a light sheet. Keep the room temperature cool. Take a slightly warm (not cold or cool) bath, or apply damp washcloths to the forehead and wrists. Cough- Cough is a common symptom associated with COVID and can be bothersome. To help treat a cough: Stay well hydrated. Try warm water or tea with lemon and/or honey to help soothe the cough. Use a humidifier to add moisture to the air. Try a product with menthol, like a cough drop or a rub for your chest such as Vicks, which can helpreduce cough. Try cough drops. Avoid smoking and other strong odors or perfumes. Try breathing exercises to keep your lungs open and clear. Take a big deep breath through your noseand hold for 5 seconds before slowly releasing. Repeat frequently, while you are awake. Congestion- Runny nose or nasal congestion can occur with COVID. Treatment can help relieve symptoms: Try OTC nasal saline spray, or nasal saline rinse to relieve mucus congestion. Nasal strips can help keep nasal passages open, to increase airflow. Elevating your head with an extra pillow in bed can help reduce congestion. Using a humidifier can increase moisture in the air, and make breathing easier. Sore Throat- Another common symptom with COVID, can be managed at home by: Stay well hydrated. Gargle with salt water - mix teaspoon salt with 1 cup of warm water and gargle. This helps to loosen mucus in the back of the throat and may reduce discomfort. Try ice chips, popsicles or lozenges to soothe the throat. Nausea/Vomiting/Diarrhea- These are common symptoms, and staying hydrated is most important. If you are nauseous or vomiting, start with small sips of water every 10-15 minutes and increase astolerated. You can try sucking an ice cube too. If tolerating, you can try pedialyte or Gatorade, or flat sprite or cami-erma. Start slowly and increase as you are able to. Instead of meals, try smaller, more frequent snacks. Try eating bland foods like crackers, toast, rice, and applesauce. Avoid spicy, greasy or fried foods and dairy containing foods. Even if you aren't feeling hungry due to lack of smell or taste, it is important to try to take in some food when you are able. After drinking and eating, rest in an upright position for up to two hours as needed to help decrease nauseous feelings. Try closing your eyes, avoid moving and watching TV. Avoid strong odors that can make you feel more nauseated. When to seek emergency medical attention Look for emergency warning signs for COVID-19. If having any of these symptoms, seek emergency medical care immediately: Trouble breathing Persistent pain or pressure in the chest New confusion Inability to wake or stay awake Bluish lips or face *This list is not all possible symptoms. Please call your medical provider for any other symptoms that are severe or concerning to you. documented in this [facility] History of Present illness Narrative* Donnie Anderson APRN.ELADIO - 03/06/2023 8:19 AM EST Subjective HPI Nontoxic-appearing male presents urgent care chief complaint chills. Patient states had chills yesterday. Feels better today. Presents today concerned about possible pneumonia. Does have an extensivepulmonary history. No known sick contacts. No OTC medication use today. No new shortness of breath or productive cough. Denies any chest pain fevers nausea vomiting pleuritic pain hemoptysis change in bowel or bladder habits. Past medical history prescription medications allergies reviewed. 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 12/29/2020 Coronary artery disease Erectile dysfunction 03/13/2010 Esophageal reflux Essential hypertension, benign 09/06/2012 Ganglion and cyst of synovium, tendon and bursa 03/22/2013 Hematospermia 01/17/2006 HYPERLIPIDEMIA NEC/NOS 01/19/2005 Hyperplasia of prostate HYPERTROPHY PROSTATE WITH OBST 01/17/2006 Hypoalbuminemia due to protein-calorie malnutrition (HCC) 09/17/2021 Idiopathic pulmonary fibrosis (HCC) 07/02/2015 PERS HX BRONCHOGENIC MALIGNAN 04/09/2008 Personal history of colonic polyps Colon polyps Pulmonary fibrosis (HCC) 07/02/2015 Pure hypercholesterolemia Secondary pulmonary arterial hypertension (HCC) 02/12/2022 Furosemide. [facility]. Thyroid nodule greater than or equal to 1 cm in diameter incidentally noted on imaging study 12/18/2019 PAST SURGICAL HISTORY Procedure Laterality Date COLONOSCOPY FLX DX W/COLLJ SPEC WHEN PFRMD 07/12/2005 COLONOSCOPY FLX DX W/COLLJ SPEC WHEN PFRMD 07/19/2013 Colonoscopy COLONOSCOPY W/BIOPSY SINGLE/MULTIPLE 03/02/2010 ESOPHAGOGASTRODUODENOSCOPY TRANSORAL DIAGNOSTIC 07/19/2013 EGD REMOVAL OF LUNG,LOBECTOMY Left 04/2007 left upper lobe RIGHT HEART CATH 11/03/2020 TONSILLECTOMY & ADENOIDECTOMY <AGE 12 1946 ALLERGIES Patient has no known allergies. MEDICATIONS simvastatin (ZOCOR) 10 mg tablet Take 1 tablet by mouth daily at bedtime. ipratropium-albuterol (DUONEB) 0.5 mg-3 mg(2.5 mg base)/3 mL nebu Inhale 3 mL as instructed every 4hours as needed for wheezing/shortness of breath. pantoprazole DR (PROTONIX) 20 mg tablet Take 1 tablet by mouth once daily. guaiFENesin (MUCINEX) 600 mg 12 hr tablet Take 2 tablets by mouth twice daily. tamsulosin (FLOMAX) 0.4 mg Take 2 capsules by mouth once daily. oxybutynin XL (DITROPAN XL) 5 mg 24 hr tablet Take 1 tablet by mouth once daily. Nebulizer Accessories kit Provide 1 kit. Mucus Clearing Device wilmar Provide 1 device albuterol HFA (PROVENTIL HFA, VENTOLIN HFA) 90 mcg/actuation inhaler Inhale 2 Puffs as instructed four times daily as needed. FOR WHEEZING AND SHORTNESS OF BREATH. THERAPEUTIC MULTIVIT/MINERAL TAB Take one(1) tablet daily. lisinopril (ZESTRIL) 10 mg tablet Take 1 tablet by mouth once daily. Coenzyme Q10 100 mg ORAL Cap Take 1 capsule by mouth once daily. (Patient not taking: Reported on 03/06/2023) FAMILY HISTORY Problem Relation Age of Onset Alzheimer's Disease Mother Heart Father heart attack Breast Cancer Sister Heart Brother aortic aneurysm COPD No Family History Social History Tobacco Use Smoking status: Former Packs/day: 1.00 Years: 24.00 Additional pack years: 0.00 Total pack years: 24.00 Types: Cigarettes Start date: 06/24/1957 Quit date: 04/18/1981 Years since quittin.9 Smokeless tobacco: Never Tobacco comments: No smoking in childhood home. Vaping Use Vaping Use: Never used Substance Use Topics Alcohol use: No Drug use: No BP 120/80 Pulse 68 Temp 36.3 C (97.4 F) Resp 16 Wt 70.8 kg (156 lb) SpO2 96% BMI 23.31 kg/m Review of Systems Constitutional: Positive for chills and malaise/fatigue. Negative for fever. HENT: Negative for congestion, ear discharge, ear pain, sinus pain and sore throat. Eyes: Negative for blurred vision, pain, discharge and redness. Respiratory: Negative for cough, hemoptysis, sputum production, shortness of breath, wheezing and stridor. Cardiovascular: Negative for chest pain. Gastrointestinal: Negative for abdominal pain, diarrhea, nausea and vomiting. Musculoskeletal: Positive for myalgias. Skin: Negative for itching and rash. Neurological: Negative for dizziness and headaches. Objective Physical Exam Constitutional: General: He is not in acute distress. Appearance: He is not diaphoretic. HENT: Head: Normocephalic. Jaw: No trismus, tenderness, swelling or pain on movement. Mouth/Throat: Mouth: Mucous membranes are moist. Pharynx: Oropharynx is clear. Uvula midline. No pharyngeal swelling, oropharyngeal exudate, posterior oropharyngeal erythema or uvula swelling. Eyes: Conjunctiva/sclera: Conjunctivae normal. Pupils: Pupils are equal, round, and reactive to light. Cardiovascular: Rate and Rhythm: Normal rate and regular rhythm. Heart sounds: Normal heart sounds. Pulmonary: Effort: Pulmonary effort is normal. No tachypnea, accessory muscle usage or respiratory distress. Breath sounds: No stridor. Rhonchi present. No wheezing or rales. Abdominal: General: There is no distension. Palpations: Abdomen is soft. Tenderness: There is no abdominal tenderness. There is no guarding or rebound. Musculoskeletal: Cervical back: Normal range of motion and neck supple. No edema, erythema, rigidity or tenderness. No pain with movement. Normal range of motion. Lymphadenopathy: Cervical: No cervical adenopathy. Skin: General: Skin is warm and dry. Neurological: Mental Status: He is alert and oriented to person, place, and time. ASSESSMENT/PLAN: 1. Viral illness - ICD9: 079.99, ICD10: B34.9 (primary diagnosis) - COVID & INFLUENZA A/B & RSV NAAT, ROUTINE - XR CHEST 2V FRONTAL/LAT 2. Acute cough - ICD9: 786.2, ICD10: R05.1 - XR CHEST 2V FRONTAL/LAT Patient nontoxic-appearing. Test for COVID-19 and influenza. Chest x-ray ordered. Return tomorrow for x-ray. Treat accordingly with x-ray results. Follow-up with PCP as scheduled. Patient was educated on supportive therapies. Patient was instructed to immediately proceed to emergency room for any new, worsening, or symptoms lasting longer than anticipated. The patient's clinical presentation is otherwise unremarkable at this time. Based on exam and clinical finding, the patient is stable for discharge. Plan of care was discussed with patient. Patient verbalizes understanding and agrees to plan of care. This note was generated using [employer] software. It may contain errors in wording, punctuati on, or spelling. Donnie Anderson APRN.MOBILE APPLICATION DEVELOPMENT LEAD documented in this encounter[facility] History of Present illness Narrative* Hermelinda Copeland MD - 01/18/2023 11:45 AM EDT Images from the original note were not included. . [facility] [place] Note Patient name: Jorge Ramires PCP: Tito Macias MD CC: Follow-up emphysema and pulmonary fibrosis HPI: Jorge Ramires 82 year old male former 24 pack year smoker with PMH significant for CPFE, lung cancer NANCY, CAD, HTN, HLD, chronic hypoxemic respiratory failure presenting for follow-up. StartedOFEV 10 months ago but discontinued due to side effects. Had nausea and vomiting despite use with food and use of Zofran. He has not had a decrement in his pulmonary function despite lack of antifibrotic therapy. Main persistent symptoms include dyspnea on exertion and persistent cough with mucus production. He can cough throughout the day. No noticeable triggers. Denies any reflux symptoms but is taking Protonix daily using Mucinex which does seem to help. Using his nebulized treatment once daily in the morning which also offers him some relief. No recent upper respiratory infection, ED visits or hospitalizations. is concerned about his weight. He is down 25 pounds over the last 8 months. He does not have a good appetite but does state that he is eating and using nutritional protein supplement. DME: [employer] 5 L RESPIRATORY THERAPY OXIMETRY WITH AMBULATION Oximetry with Ambulation Test for This Encounter O2 Device O2 Adapter NC O2 Flow SpO2% HR Activity Ft Walked (ft) Time (min) Avg Speed (MPH) NC 5 94 94 Resting NC 5 89 117 Walking, usual pace 580 3 2.2 General Information Pulse Oximetry Site Total Time Spent O2 Supply Carrier Walking Assistance/Device R Index Finger 15 Other: See Comment None DATA: PFT 11/2022: 11/2021: Review of pulmonary function test show stable combined moderately severe obstruction and restriction Imaging / Diagnostic Studies: DATE OF EXAM: Dec 02 2022 11:18AM [id number] - XR CHEST 2V FRONTAL/LAT / EXAM DATE/TIME: 12/02/2022 11:18 AM COMPARISON: 10/01/2021. RESULT: Lines, tubes, and devices: None. Lungs and pleura: There is extensive bilateral interstitial lung disease compatible with pulmonary fibrosis. There is mild loss of volume of the left lung with elevation of the left hemidiaphragm. The pleural margins appear unremarkable. Cardiomediastinal silhouette: Normal cardiomediastinal silhouette. Bones and soft tissues: Unremarkable. IMPRESSION: Persistent and extensive bilateral pulmonary fibrosis. I personally reviewed the images and agree with the above assessment PAST MEDICAL HISTORY Diagnosis Date Benign neoplasm of colon Centrilobular emphysema (HCC) 12/29/2020 COPD with chronic bronchitis 12/29/2020 Coronary artery disease Erectile dysfunction 03/13/2010 Esophageal reflux Essential hypertension, benign 09/06/2012 Ganglion and cyst of synovium, tendon and bursa 03/22/2013 Hematospermia 01/17/2006 HYPERLIPIDEMIA NEC/NOS 01/19/2005 Hyperplasia of prostate HYPERTROPHY PROSTATE WITH OBST 01/17/2006 Hypoalbuminemia due to protein-calorie malnutrition (HCC) 09/17/2021 Idiopathic pulmonary fibrosis (HCC) 07/02/2015 PERS HX BRONCHOGENIC MALIGNAN 04/09/2008 Personal history of colonic polyps Colon polyps Pulmonary fibrosis (HCC) 07/02/2015 Pure hypercholesterolemia Secondary pulmonary arterial hypertension (HCC) 02/12/2022 Furosemide. [facility]. Thyroid nodule greater than or equal to 1 cm in diameter incidentally noted on imaging study 12/18/2019 ALLERGIES No Known Allergies simvastatin (ZOCOR) 10 mg tablet Take 1 tablet by mouth daily at bedtime. pantoprazole DR (PROTONIX) 20 mg tablet Take 1 tablet by mouth once daily. guaiFENesin (MUCINEX) 600 mg 12 hr tablet Take 2 tablets by mouth twice daily. lisinopril (ZESTRIL) 10 mg tablet Take 1 tablet by mouth once daily. tamsulosin (FLOMAX) 0.4 mg Take 2 capsules by mouth once daily. oxybutynin XL (DITROPAN XL) 5 mg 24 hr tablet Take 1 tablet by mouth once daily. Nebulizer Accessories kit Provide 1 kit. Mucus Clearing Device wilmar Provide 1 device albuterol HFA (PROVENTIL HFA, VENTOLIN HFA) 90 mcg/actuation inhaler Inhale 2 Puffs as instructed four times daily as needed. FOR WHEEZING AND SHORTNESS OF BREATH. THERAPEUTIC MULTIVIT/MINERAL TAB Take one(1) tablet daily. ipratropium-albuterol (DUONEB) 0.5 mg-3 mg(2.5 mg base)/3 mL nebu Inhale 3 mL as instructed every 4hours as needed for wheezing/shortness of breath. Coenzyme Q10 100 mg ORAL Cap Take 1 capsule by mouth once daily. Social History Tobacco Use Smoking status: Former Packs/day: 1.00 Years: 24.00 Additional pack years: 0.00 Total pack years: 24.00 Types: Cigarettes Start date: 06/24/1957 Quit date: 04/18/1981 Years since quittin.7 Smokeless tobacco: Never Tobacco comments: No smoking in childhood home. Vaping Use Vaping Use: Never used Substance Use Topics Alcohol use: No Drug use: No FAMILY HISTORY Problem Relation Age of Onset Alzheimer's Disease Mother Heart Father heart attack Breast Cancer Sister Heart Brother aortic aneurysm COPD No Family History PAST SURGICAL HISTORY Procedure Laterality Date COLONOSCOPY FLX DX W/COLLJ SPEC WHEN PFRMD 07/12/2005 COLONOSCOPY FLX DX W/COLLJ SPEC WHEN PFRMD 07/19/2013 Colonoscopy COLONOSCOPY W/BIOPSY SINGLE/MULTIPLE 03/02/2010 ESOPHAGOGASTRODUODENOSCOPY TRANSORAL DIAGNOSTIC 07/19/2013 EGD REMOVAL OF LUNG,LOBECTOMY Left 04/2007 left upper lobe RIGHT HEART CATH 11/03/2020 TONSILLECTOMY & ADENOIDECTOMY <AGE 12 1946 PMH, Social history, family history and surgical history reviewed and updated in EMR REVIEW OF SYSTEMS: CONSTITUTIONAL: No fevers, chills, nightsweats. 25 pound weight loss since March HEENT: Denies nasal congestion/sinus symptoms, problematic allergy problems. CARDIOVASCULAR: No chest pain, dyspnea, palpitations, orthopnea, PND, edema. PULM: See HPI GI: No dysphagia or choking. Poor appetite NEURO: No balance problems, peripheral weakness/paresthesias or numbness of concern. INTEGUMENTARY: No new skin changes or rashes PHYSICAL EXAMINATION: BP 110/60 Pulse 67 Wt 159 lb (72.1kg) SpO2 95[on 5 L per NC]% General Appearance: Thin elderly male, NAD. Skin: Skin color, texture, turgor normal, no suspicious rashes or lesions. Head: Normocephalic, no masses, lesions, tenderness or abnormalities. Eyes: Sclera, conjunctiva normal. Neck: No JVD, no masses Chest wall: Kyphosis. Lungs: Not labored, inspiratory squeaks and crackles. Heart: RRR, no murmur. Extremities: Mild edema, no clubbing. Assessment/Plan: 1. CPFE -Flu vaccine today -He will continue on his current therapy for his obstructive lung disease -Did not tolerate antifibrotic therapy -Encourage patient to use his nebulized treatment more often -Could consider addition of Remeron for appetite stimulation 2. Chronic hypoxemic respiratory failure -Patient is compliant with and benefits from use of his supplemental oxygen Hermelinda Copeland MD [facility] [place] documented in this encounterMer[facility] History of Present illness Narrative* Jennifer Taylor, RT(R) - 12/02/2022 11:00 AM EDT Radiology Service Progress Note PATIENT NAME: Jorge Ramires DATE OF SERVICE: December 02, 2022 TIME: 11:25 AM PATIENT IDENTITY VERIFICATION COMPLETED USING TWO (2) IDENTIFIERS: Name and Date of confirmedby patient verbally. FALL SCREENING: Has the patient had 2 falls in the last year or 1 fall with injury or currently using an Ambulatory Assistive Device (Walker, Cane, Wheelchair, Crutches, etc.)? Yes, Patient High Riskfor Falls What interventions were put in place to prevent falls during this visit? Increased Observations by Caregivers PATIENT GENDER DATA: Male PATIENT RELEVANT IMPLANT DATA REVIEWED: Not Applicable RADIOLOGY DEPARTMENT: General X-ray: Exam(s) Completed: Chest X-Ray PERIPHERAL IV DATA: Not applicable SIGNED BY: RT Ryan(R) December 02, 2022 11:25 AM documented in this encounterMercy Health [facility]08-17-2023 Procedure note* Sabi Ellis RPFT - 12/02/2022 10:55 AM EDTAssociated Order(s): OXIMETRY WITH AMBULATION RESPIRATORY THERAPY OXIMETRY WITH AMBULATION Oximetry with Ambulation Test for This Encounter O2 Device O2 Adapter NC O2 Flow SpO2% HR Activity Ft Walked (ft) Time (min) Avg Speed (MPH) NC 5 94 94 Resting NC 5 89 117 Walking, usual pace 580 3 2.2 General Information Pulse Oximetry Site Total Time Spent O2 Supply Carrier Walking Assistance/Device R Index Finger 15 Other: See Comment None NAME: JEREMY Pope PATIENT NAME: Jorge Ramires DATE: December 02, 2022 TIME: 10:56 AM Comment: (Patient used own portable concentrator for oximetry. per provider request oximetry started on usual O2 liter flow.) documented in this encounterMercy [facility]08-17-2023 History of Present illness Narrative* Sabi Ellis RPFT - 12/02/2022 10:50 AM EDT PULM FUNCTION SMARTBLOCK: Provider: Rashida Lay PA-C Assisting Tech: Sabi Ellis RPFT Oximetry - Ambulation: 1 documented in this encounterMercy Health [facility]08-17-2023 History of Present illness Narrative* Rashida Lay PA-C - 12/02/2022 10:30 AM EDT Images from the original note were not included. Patient: Jorge Ramires PCP: Tito Macias MD CC: follow up HPI: Jorge Ramires 82 year old male former 24-pack year smoker with PMH significant for CPFE, h/oLUL lung cancer, CAD, HTN, HLD, and chronic hypoxemic respiratory failure. Patient previously did not tolerate Ofev and discontinued it. Today, patent states he is not using cough medicine and doing well with using Duonebs with Acapella prior to bedtime. Insurance did not cover Mucinex. Daily coughproductive of brownish sputum. No hemoptysis. No wheezing. Exertional dyspnea is stable. However, he states when he is exerting himself he will sometimes check his pulse ox and it will be in the low 80s. Currently wearing 5 L supplemental oxygen continuously. DME: [employer]. PAST MEDICAL HISTORY Diagnosis Date Benign neoplasm of colon Centrilobular emphysema (HCC) 12/29/2020 COPD with chronic bronchitis (HCC) 12/29/2020 Coronary artery disease Erectile dysfunction 03/13/2010 Esophageal reflux Essential hypertension, benign 09/06/2012 Ganglion and cyst of synovium, tendon and bursa 03/22/2013 Hematospermia 01/17/2006 HYPERLIPIDEMIA NEC/NOS 01/19/2005 Hyperplasia of prostate HYPERTROPHY PROSTATE WITH OBST 01/17/2006 Hypoalbuminemia due to protein-calorie malnutrition (HCC) 09/17/2021 Idiopathic pulmonary fibrosis (HCC) 07/02/2015 PERS HX BRONCHOGENIC MALIGNAN 04/09/2008 Personal history of colonic polyps Colon polyps Pulmonary fibrosis (HCC) 07/02/2015 Pure hypercholesterolemia Secondary pulmonary arterial hypertension (HCC) 02/12/2022 Furosemide. [facility]. Thyroid nodule greater than or equal to 1 cm in diameter incidentally noted on imaging study 12/18/2019 Allergies: No Known Allergies simvastatin (ZOCOR) 10 mg tablet Take 1 tablet by mouth daily at bedtime. pantoprazole DR (PROTONIX) 20 mg tablet Take 1 tablet by mouth once daily. guaiFENesin (MUCINEX) 600 mg 12 hr tablet Take 2 tablets by mouth twice daily. lisinopril (ZESTRIL) 10 mg tablet Take 1 tablet by mouth once daily. tamsulosin (FLOMAX) 0.4 mg Take 2 capsules by mouth once daily. ipratropium-albuterol (DUONEB) 0.5 mg-3 mg(2.5 mg base)/3 mL nebu Inhale 3 mL as instructed every 6hours as needed for wheezing/shortness of breath. oxybutynin XL (DITROPAN XL) 5 mg 24 hr tablet Take 1 tablet by mouth once daily. Nebulizer Accessories kit Provide 1 kit. Mucus Clearing Device wilmar Provide 1 device albuterol HFA (PROVENTIL HFA, VENTOLIN HFA) 90 mcg/actuation inhaler Inhale 2 Puffs as instructed four times daily as needed. FOR WHEEZING AND SHORTNESS OF BREATH. Coenzyme Q10 100 mg ORAL Cap Take 1 capsule by mouth once daily. THERAPEUTIC MULTIVIT/MINERAL TAB Take one(1) tablet daily. Social History Tobacco Use Smoking status: Former Packs/day: 1.00 Years: 24.00 Additional pack years: 0.00 Total pack years: 24.00 Types: Cigarettes Start date: 06/24/1957 Quit date: 04/18/1981 Years since quittin.6 Smokeless tobacco: Never Tobacco comments: No smoking in childhood home. Vaping Use Vaping Use: Never used Substance Use Topics Alcohol use: No Drug use: No Family History Problem Relation Age of Onset Alzheimer's Disease Mother Heart Father heart attack Breast Cancer Sister Heart Brother aortic aneurysm COPD No Family History PAST SURGICAL HISTORY Procedure Laterality Date COLONOSCOPY FLX DX W/COLLJ SPEC WHEN PFRMD 07/12/2005 COLONOSCOPY FLX DX W/COLLJ SPEC WHEN PFRMD 07/19/2013 Colonoscopy COLONOSCOPY W/BIOPSY SINGLE/MULTIPLE 03/02/2010 ESOPHAGOGASTRODUODENOSCOPY TRANSORAL DIAGNOSTIC 07/19/2013 EGD REMOVAL OF LUNG,LOBECTOMY Left 04/2007 left upper lobe RIGHT HEART CATH 11/03/2020 TONSILLECTOMY & ADENOIDECTOMY <AGE 12 1946 I reviewed the past medical history, family history, social history and surgical history with changes noted above and updated in EMR. IMMUNIZATIONS Prevnar 13 - 02/06/2019, 06/14/2014 Pneumovax 23 - 02/06/2020, 12/30/2014, 02/05/2005 Influenza - 01/03/2022 COVID-19 - 08/20/2022, 01/26/2022, 07/16/2021, 12/21/2020, 05/29/2020, 05/09/2020 ROS: CONSTITUTIONAL: No fevers, chills, nightsweats. Unintended weight loss over the past 6 months due to decreased appetite. HEENT: No nasal congestion/sinus symptoms. No epistaxis. CARDIOVASCULAR: No chest pain, palpitations, orthopnea, PND. Mild edema PULM: See HPI GI: No dysphagia/odynophagia, reflux, constipation, diarrhea. NEURO: No new balance problems, peripheral weakness/paresthesias or numbness of concern. INTEGUMENTARY: No new skin changes, no rashes or bruising PHYSICAL EXAMINATION: BP 128/58 Pulse 107 Resp 14 Ht 174.2 cm (5' 8.6) Wt 71.7 kg (158 lb) SpO2 94% BMI 23.61 kg/m O2: 5L pulsed dose Gen: No acute distress. Cooperative with examination. HEENT: Normocephalic. Sclera, conjunctiva clear. Oral hygeine and dentition good. No thrush. Resp: No stridor, accessory respiratory muscle use, supra-sternal or intercostal retractions. Scattered wheezes with crackles throughout. CV: Regular rythm. Heart tones normal. Radial pulses normal. Abd: Non distended. MSK: No kyphoscoliosis. Ext: Warm and well perfused. No clubbing, cyanosis, edema. Skin: No rash, ecchymoses. Neuro: Mental status normal. Affect normal. No tremor. DATA: Oximetry, 12/02/2022 Oximetry with Ambulation Test for This Encounter O2 Device O2 Adapter NC O2 Flow SpO2% HR Activity Ft Walked (ft) Time (min) Avg Speed (MPH) NC 5 94 94 Resting NC 5 89 117 Walking, usual pace 580 3 2.2 PFT, 12/02/2022 CT chest, 04/08/2022 IMPRESSION: Again seen are postsurgical changes of prior left thoracotomy and left upper lobectomy, when compared the prior examination. Emphysema mild, diffuse bronchiectasis. Stable pulmonary fibrosis, with traction bronchiectasis seen within both lungs. Again seen is mediastinal and bilateral hilar lymphadenopathy. Stable hypodense nodule within the right lobe of thyroid gland, measuring approximately 1.1 cm. Dilated main pulmonary artery, measuring approximately 4.3 cm, which can be seen with pulmonary arterial hypertension. Echocardiogram, 08/28/2020 CONCLUSIONS: - Technically difficult exam due to body habitus and left lobectomy. - Exam indication: Shortness of Breath - The left ventricle is normal in size. Left ventricular systolic function is normal. EF = 62 5% (2D 4-ch.) Grade I left ventricular diastolic dysfunction. - The right ventricle is mildly dilated. Right ventricular systolic function is normal. - The visualized aorta is dilated with a maximal dimension of 4.1 cm. - Estimated right ventricular systolic pressure is 55 mmHg consistent with moderate pulmonary hypertension. Estimated right atrial pressure is 3 mmHg (although IVC not seen). - Exam was compared with the prior echocardiographic exam performed on 11/30/2018. SSMENT/PLAN: 1. 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 Continue nebulized therapy with Acapella device. Patient may hold off on Mucinex at this time. Based on oximetry today he continues to need 5L supplemental oxygen with exertion. Advised him to increase to 6L when on pulse dosed. Continue diuretics. Prevnar 20 vaccine administered today. Patient to contact pharmacy regarding RSV vaccine. 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 CXR today. Next CT chest due 03/2023. - OXIMETRY WITH AMBULATION - XR CHEST 2V FRONTAL/LAT 2. Chronic hypoxemic respiratory failure (HCC) - ICD9: 518.83, 799.02, ICD10: J96.11 See #1. 3. Need for vaccination - ICD9: V05.9, ICD10: Z23 - PNEUMOCOCCAL VACCINE (PREVNAR 20) Portions of this documentation were copied and pasted from previous office visit notes in order to provide a cohesive continuity of the history. The note has been reviewed and edited and updated as necessary. Rashida Lay PA-C documented in this encounterMercy [facility]08-17-2023 Nurse Note* Anette Patricia LPN - 12/02/2022 9:39 AM EDT Intake information documented in the prior visit with JEREMY Pope today. documented in this encounterMer[facility]08-17-2023 History of Present illness Narrative* Sabi Ellis RPFT - 12/02/2022 9:24 AM EDT PULM FUNCTION SMARTBLOCK: Provider: Rashida Lay PA-C Assisting Tech: Sabi Ellis RPFT Spirometry: 1 LV - Box: 1 documented in this encounterMercy Health [facility]08-14-2023 Miscellaneous Notes* Telephone Encounter - Radha Aparicio LPN - 11/29/2022 10:44 AM EDT Patient has been identified by name and date of : Yes, Provider Dr. Fuchs Date 11/29/22 Time 10:45 am Pharmacy phones for refill(s): Requested Prescriptions Pending Prescriptions Disp Refills simvastatin (ZOCOR) 10 mg tablet 90 tablet 3 Sig: Take 1 tablet by mouth daily at bedtime. pantoprazole DR (PROTONIX) 20 mg tablet 90 tablet 3 Sig: Take 1 tablet by mouth once daily. Date of last office visit in primary care: 08/20/22 next apt 03/08/23 Last 2 Encounter Wt Readings: Date: Wt: 11/17/2022 72.1 kg (159 lb) 08/26/2022 73.9 kg (163 lb) Previous labs/tests for medication: Cholesterol: HDL Cholesterol (mg/dL) Date Value 09/10/2021 41 06/13/2020 56 LDL Cholesterol (mg/dL) Date Value 09/10/2021 77 06/13/2020 79 ALT (U/L) Date Value 03/30/2022 9 12/10/2020 10 Non HDL Cholesterol (mg/dL) Date Value 09/10/2021 88 06/13/2020 97 Thank you. Radha Aparicio LPN documented in this encounterMercy Health [facility]08-02-2023 Instructions* Patient Instructions* Rashida Lay PA-C - 11/17/2022 9:47 AM EDT Mucinex 2 tablets twice daily to help thin secretions. Acapella (blue pickle) use throughout the day and at night to help with secretions. Nebulizer 2 hours prior to bedtime. Cough syrup only at night as needed. documented in this encounterMercy Health [facility]08-02-2023 History of Present illness Narrative* Rashida Lay PA-C - 11/17/2022 9:14 AM EDT Patient: Jorge Ramires PCP: Tito Macias MD CC: follow up HPI: Jorge Ramires 82 year old male former 24-pack year smoker with PMH significant for CPFE, h/oLUL lung cancer, CAD, HTN, HLD, and chronic hypoxemic respiratory failure. Patient previously did not tolerate Ofev and discontinued it. Today, patient states he woke up 1 night and could not breath.He had his supplemental oxygen on. States he expelled brownish thick sputum and then he was better.Daily cough that typically starts after being up for awhile. Denies significant wheezing, SOB or chest discomfort. No fevers, chills or night sweats. Currently wearing 5L supplemental oxygen continuously. DME: [employer]. PAST MEDICAL HISTORY Diagnosis Date Benign neoplasm of colon Centrilobular emphysema (HCC) 12/29/2020 COPD with chronic bronchitis (HCC) 12/29/2020 Coronary artery disease Erectile dysfunction 03/13/2010 Esophageal reflux Essential hypertension, benign 09/06/2012 Ganglion and cyst of synovium, tendon and bursa 03/22/2013 Hematospermia 01/17/2006 HYPERLIPIDEMIA NEC/NOS 01/19/2005 Hyperplasia of prostate HYPERTROPHY PROSTATE WITH OBST 01/17/2006 Hypoalbuminemia due to protein-calorie malnutrition (HCC) 09/17/2021 Idiopathic pulmonary fibrosis (HCC) 07/02/2015 PERS HX BRONCHOGENIC MALIGNAN 04/09/2008 Personal history of colonic polyps Colon polyps Pulmonary fibrosis (HCC) 07/02/2015 Pure hypercholesterolemia Secondary pulmonary arterial hypertension (HCC) 02/12/2022 Furosemide. [facility]. Thyroid nodule greater than or equal to 1 cm in diameter incidentally noted on imaging study 12/18/2019 Allergies: No Known Allergies albuterol HFA (PROVENTIL HFA, VENTOLIN HFA) 90 mcg/actuation inhaler Inhale 2 Puffs as instructed four times daily as needed. FOR WHEEZING AND SHORTNESS OF BREATH. lisinopril (ZESTRIL) 10 mg tablet Take 1 tablet by mouth once daily. tamsulosin (FLOMAX) 0.4 mg Take 2 capsules by mouth once daily. ipratropium-albuterol (DUONEB) 0.5 mg-3 mg(2.5 mg base)/3 mL nebu Inhale 3 mL as instructed every 6hours as needed for wheezing/shortness of breath. oxybutynin XL (DITROPAN XL) 5 mg 24 hr tablet Take 1 tablet by mouth once daily. Nebulizer Accessories kit Provide 1 kit. Mucus Clearing Device wilmar Provide 1 device nintedanib (OFEV) 150 mg capsule Take 1 capsule by mouth every 12 hours. (Patient not taking: Reported on 08/26/2022) pantoprazole DR (PROTONIX) 20 mg tablet Take 1 tablet by mouth once daily. simvastatin (ZOCOR) 10 mg tablet Take 1 tablet by mouth daily at bedtime. guaiFENesin (MUCINEX) 600 mg 12 hr tablet Take 1 tablet by mouth twice daily. Coenzyme Q10 100 mg ORAL Cap Take 1 capsule by mouth once daily. aspirin(ADULT ASPIRIN EC LOW STRENGTH 81 MG TAB, DELAYED RELEASE) Take one(1) tablet daily. (Patient not taking: Reported on 08/26/2022) naproxen sodium(ALEVE 220 MG TAB) Take one(1) tablet twice daily. (Patient not taking: Reported on 08/26/2022) THERAPEUTIC MULTIVIT/MINERAL TAB Take one(1) tablet daily. Social History Tobacco Use Smoking status: Former Packs/day: 1.00 Years: 24.00 Total pack years: 24.00 Types: Cigarettes Start date: 06/24/1957 Quit date: 04/18/1981 Years since quittin.6 Smokeless tobacco: Never Tobacco comments: No smoking in childhood home. Vaping Use Vaping Use: Never used Substance Use Topics Alcohol use: No Drug use: No Family History Problem Relation Age of Onset Alzheimer's Disease Mother Heart Father heart attack Breast Cancer Sister Heart Brother aortic aneurysm COPD No Family History PAST SURGICAL HISTORY Procedure Laterality Date COLONOSCOPY FLX DX W/COLLJ SPEC WHEN PFRMD 07/12/2005 COLONOSCOPY FLX DX W/COLLJ SPEC WHEN PFRMD 07/19/2013 Colonoscopy COLONOSCOPY W/BIOPSY SINGLE/MULTIPLE 03/02/2010 ESOPHAGOGASTRODUODENOSCOPY TRANSORAL DIAGNOSTIC 07/19/2013 EGD REMOVAL OF LUNG,LOBECTOMY Left 04/2007 left upper lobe RIGHT HEART CATH 11/03/2020 TONSILLECTOMY & ADENOIDECTOMY <AGE 12 1946 I reviewed the past medical history, family history, social history and surgical history with changes noted above and updated in EMR. IMMUNIZATIONS Prevnar 13 - 02/06/2019, 06/14/2014 Pneumovax 23 - 02/06/2020, 12/30/2014, 02/05/2005 Influenza - 01/03/2022 COVID-19 - 08/20/2022, 01/26/2022, 07/16/2021, 12/21/2020, 05/29/2020, 05/09/2020 ROS: General: No fevers, chills or night sweats. No unintended weight loss. Eyes, Ears, nose, throat: No post nasal drip, rhinorrhea, purulent nasal discharge. Cardiac: No angina, orthopnea, edema. Resp: See HPI. GI: No heartburn, dysphagia. No nausea, vomiting or diarrhea. Musculoskeletal: No pain. Neuro: No headache, focal weakness, tremor. Skin: No new skin changes. Otherwise negative. PHYSICAL EXAMINATION: BP 128/64 Pulse 80 Resp 18 Wt 72.1 kg (159 lb) SpO2 94% BMI 23.75 kg/m O2: 5L NC Gen: No acute distress. Cooperative with examination. HEENT: Normocephalic. Sclera, conjunctiva clear. Oral hygeine and dentition good. No thrush. Resp: No stridor, accessory respiratory muscle use, supra-sternal or intercostal retractions. No wheezes. Rhonchi. CV: Regular rythm. Heart tones normal. Radial pulses normal. Abd: Non distended. MSK: No kyphoscoliosis. Ext: Warm and well perfused. No clubbing, cyanosis, edema. Skin: No rash. Bilateral arm ecchymoses. Neuro: Mental status normal. Affect normal. No tremor. DATA: STOP BANG Questionnaire 1. Snoring Do you snore loudly (louder than talking or loud enough to be heard through closed doors)? NO 2. Tired Do you often feel tired, fatigued, or sleepy during daytime? NO 3. Observed Has anyone observed you stop breathing during your sleep? NO 4. Blood Pressure Do you have or are you being treated for high blood pressure? YES 5. BMI BMI more than 35 kg/m2? NO 6. Age Age over 50 yr old? YES 7. Neck circumference Neck circumference greater than 40 cm? NO 8. Gender Gender male? YES * Neck circumference is measured by staff High risk of ELENA: answering yes to three or more items Low risk of ELENA: answering yes to less than three items ASSESSMENT/PLAN: 1. 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[facility]) - ICD9: 492.8, 515, ICD10: J43.9, J84.10 (primary diagnosis) Continue nebulized therapy. Increase Mucinex to 2 tablets twice daily. Demonstrated use of Acapella device. Patient may use this with his nebulizer. Only use cough suppressant at nighttime in order to cough out secretions. At this time, he does not appear to be at high risk for sleep apnea. Will revisit after above measures taken. Continue supplemental oxygen as directed. 2. Cough - ICD9: 786.2, ICD10: R05.9 See #1. - GUAIFENESIN ER 600 MG TABLET, EXTENDED RELEASE 12 HR 3. Chronic hypoxemic respiratory failure (HCC) - ICD9: 518.83, 799.02, ICD10: J96.11 Patient is compliant and benefits from supplemental oxygen. 4. COPD with chronic bronchitis (HCC) - ICD9: 491.20, ICD10: J44.9 See #1. Portions of this documentation were copied and pasted from previous office visit notes in order to provide a cohesive continuity of the history. The note has been reviewed and edited and updated as necessary. Rashida Lay PA-C documented in this encounterMercy [facility]07-31-2023 Miscellaneous Notes* Telephone Encounter - Anette Patricia LPN - 11/15/2022 2:47 PM EDT Duplicate encounter. Anette Patricia LPN documented in this encounterMercy Health [facility]06-23-2023 Miscellaneous Notes* Telephone Encounter - WARREN Lucero - 10/08/2022 1:59 PM EDT Refill pended for 90 day supply if provider agreeable. Patient has been identified by name and date of : Yes Patient phones for refill(s): Requested Prescriptions Pending Prescriptions Disp Refills lisinopril (ZESTRIL) 10 mg tablet 90 tablet 0 Sig: Take 1 tablet by mouth once daily. Date of last office visit in primary care: YOLANDA 08/20/22 NOV 02/24/23 Last 2 Encounter Wt Readings: Date: Wt: 08/26/2022 73.9 kg (163 lb) 08/20/2022 75.3 kg (166 lb) Please advise. Thank you. WARREN Lucero documented in this encounterMercy Health [facility]05-11-2023 History of Present illness Narrative* Rashida Lay PA-C - 08/26/2022 10:31 AM EDT Patient: Jorge Ramires PCP: Tito Macias MD CC: IPF HPI: Jorge Ramires 82 year old male former 24-pack year smoker with PMH significant for CPFE, h/oLUL lung cancer, CAD, HTN, HLD, and chronic hypoxemic respiratory failure. Patient states he has not been able to tolerate Ofev. He has tried it with food and at different times of the day. Tried taking Zofran prior to the medication. Reports nausea and vomiting. He stopped the medication approximately 10 days ago and the nausea and vomiting resolved. He states he is coughing more at night. He isnot able to sleep in bed, but has to sleep sitting up in a recliner. He is producing brownish sputum. No hemoptysis. No fevers, chills or night sweats. No wheezing. No dyspnea at rest. Exertional dyspnea with minimal effort. Currently wearing 5L supplemental oxygen continuously. DME: [employer]. 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 PAST MEDICAL HISTORY Diagnosis Date Benign neoplasm of colon Centrilobular emphysema (HCC) 12/29/2020 COPD with chronic bronchitis (HCC) 12/29/2020 Coronary artery disease Erectile dysfunction 03/13/2010 Esophageal reflux Essential hypertension, benign 09/06/2012 Ganglion and cyst of synovium, tendon and bursa 03/22/2013 Hematospermia 01/17/2006 HYPERLIPIDEMIA NEC/NOS 01/19/2005 Hyperplasia of prostate HYPERTROPHY PROSTATE WITH OBST 01/17/2006 Hypoalbuminemia due to protein-calorie malnutrition (HCC) 09/17/2021 Idiopathic pulmonary fibrosis (HCC) 07/02/2015 PERS HX BRONCHOGENIC MALIGNAN 04/09/2008 Personal history of colonic polyps Colon polyps Pulmonary fibrosis (HCC) 07/02/2015 Pure hypercholesterolemia Secondary pulmonary arterial hypertension (HCC) 02/12/2022 Furosemide. [facility]. Thyroid nodule greater than or equal to 1 cm in diameter incidentally noted on imaging study 12/18/2019 Allergies: No Known Allergies tamsulosin (FLOMAX) 0.4 mg Take 2 capsules by mouth once daily. ipratropium-albuterol (DUONEB) 0.5 mg-3 mg(2.5 mg base)/3 mL nebu Inhale 3 mL as instructed every 6hours as needed for wheezing/shortness of breath. oxybutynin XL (DITROPAN XL) 5 mg 24 hr tablet Take 1 tablet by mouth once daily. Nebulizer Accessories kit Provide 1 kit. Mucus Clearing Device wilmar Provide [address] (PROTONIX) 20 mg tablet Take 1 tablet by mouth once daily. simvastatin (ZOCOR) 10 mg tablet Take 1 tablet by mouth daily at bedtime. guaiFENesin (MUCINEX) 600 mg 12 hr tablet Take 1 tablet by mouth twice daily. lisinopril (ZESTRIL, PRINIVIL) 10 mg tablet Take 1 tablet by mouth once daily. albuterol HFA (PROVENTIL HFA, VENTOLIN HFA) 90 mcg/actuation inhaler Inhale 2 Puffs as instructed four times daily as needed. FOR WHEEZING AND SHORTNESS OF BREATH. THERAPEUTIC MULTIVIT/MINERAL TAB Take one(1) tablet daily. nintedanib (OFEV) 150 mg capsule Take 1 capsule by mouth every 12 hours. (Patient not taking: Reported on 08/26/2022) Coenzyme Q10 100 mg ORAL Cap Take 1 capsule by mouth once daily. aspirin(ADULT ASPIRIN EC LOW STRENGTH 81 MG TAB, DELAYED RELEASE) Take one(1) tablet daily. (Patient not taking: Reported on 08/26/2022) naproxen sodium(ALEVE 220 MG TAB) Take one(1) tablet twice daily. (Patient not taking: Reported on 08/26/2022) Social History Tobacco Use Smoking status: Former Packs/day: 1.00 Years: 24.00 Pack years: 24.00 Types: Cigarettes Start date: 06/24/1957 Quit date: 04/18/1981 Years since quittin.3 Smokeless tobacco: Never Tobacco comments: No smoking in childhood home. Vaping Use Vaping Use: Never used Substance Use Topics Alcohol use: No Drug use: No Family History Problem Relation Age of Onset Alzheimer's Disease Mother Heart Father heart attack Breast Cancer Sister Heart Brother aortic aneurysm COPD No Family History PAST SURGICAL HISTORY Procedure Laterality Date COLONOSCOPY FLX DX W/COLLJ SPEC WHEN PFRMD 07/12/2005 COLONOSCOPY FLX DX W/COLLJ SPEC WHEN PFRMD 07/19/2013 Colonoscopy COLONOSCOPY W/BIOPSY SINGLE/MULTIPLE 03/02/2010 ESOPHAGOGASTRODUODENOSCOPY TRANSORAL DIAGNOSTIC 07/19/2013 EGD REMOVAL OF LUNG,LOBECTOMY Left 04/2007 left upper lobe RIGHT HEART CATH 11/03/2020 TONSILLECTOMY & ADENOIDECTOMY <AGE 12 1946 I reviewed the past medical history, family history, social history and surgical history with changes noted above and updated in EMR. IMMUNIZATIONS Prevnar 13 - 02/06/2019, 06/14/2014 Pneumovax 23 - 02/06/2020, 12/30/2014, 02/05/2005 Influenza - 01/03/2022 COVID-19 - 08/20/2022, 01/26/2022, 07/16/2021, 12/21/2020, 05/29/2020, 05/09/2020 ROS: General: No fevers, chills or night sweats. No unintended weight loss. Eyes, Ears, nose, throat: No post nasal drip, rhinorrhea, purulent nasal discharge. Cardiac: No angina, orthopnea. Mild edema, stable. Resp: See HPI. GI: No heartburn, dysphagia. No nausea, vomiting or diarrhea. Musculoskeletal: No pain. Neuro: No headache, focal weakness, tremor. Skin: No new skin changes. Otherwise negative. PHYSICAL EXAMINATION: BP 118/64 Pulse 80 Resp 16 Wt 73.9 kg (163 lb) SpO2 93% BMI 24.35 kg/m O2: 5L NC Gen: No acute distress. Cooperative with examination. HEENT: Normocephalic. Sclera, conjunctiva clear. Oral hygeine and dentition good. No thrush. Resp: No stridor, accessory respiratory muscle use, supra-sternal or intercostal retractions. No wheezes. Rhonchi throughout. CV: Regular rythm. Heart tones normal. Radial pulses normal. Abd: Non distended. MSK: No kyphoscoliosis. Ext: Warm and well perfused. No clubbing, cyanosis, edema. Skin: No rash, ecchymoses. Neuro: Mental status normal. Affect normal. No tremor. DATA: PFT, 03/30/2022 IMPRESSION: Spirometry shows no obstruction.The reduced FVC suggests restriction. Recommend lung volumes if clinically indicated. Electronically Signed On 03-30-2022 17:35:54 EST by Hermelinda Copeland M.D. CT chest, 04/08/2022 IMPRESSION: Again seen are postsurgical changes of prior left thoracotomy and left upper lobectomy, when compared the prior examination. Emphysema mild, diffuse bronchiectasis. Stable pulmonary fibrosis, with traction bronchiectasis seen within both lungs. Again seen is mediastinal and bilateral hilar lymphadenopathy. Stable hypodense nodule within the right lobe of thyroid gland, measuring approximately 1.1 cm. Dilated main pulmonary artery, measuring approximately 4.3 cm, which can be seen with pulmonary arterial hypertension. ASSESSMENT/PLAN: 1. IPF (idiopathic pulmonary fibrosis) ([facility]) - ICD9: 516.31, ICD10: J84.112 (primary diagnosis) See #2. - RESP CULTURE + STAIN - SPIROMETRY WITH DILATOR IF OBSTRUCTED - LUNG VOLUMES 2. 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[facility]) - ICD9: 492.8, 515, ICD10: J43.9, J84.10 Continue inhaled therapy. Discussed with patient and daughter stopping Ofev. I am in agreement that if he is unable to enjoy his daily activities and life then stopping the Ofev for the potential benefit he may gain is not worth it. He is going to try Delsym cough syrup at night. Patient with a change in sputum. Will obtain a sputum culture. 3. Chronic hypoxemic respiratory failure ([facility]) - ICD9: 518.83, 799.02, ICD10: J96.11 Patient is compliant and benefits from supplemental oxygen. Portions of this documentation were copied and pasted from previous office visit notes in order to provide a cohesive continuity of the history. The note has been reviewed and edited and updated as necessary. Rashida Lay PA-C documented in this encounter[facility] History of Present illness Narrative* Tito Macias MD - 08/20/2022 11:56 AM EDT This note was created using [employer]. Subjective Jorge Ramires is a 82 year old male. He had no new concerns. He reduced OFEV to once daily due toside effects, and will discuss stopping the medication altogether with pulmonary. He did not take furosemide from cardiology. I reviewed his medication intake. He requested another Covid booster. His last bivalent shot was in January. Review of Systems Constitutional: Negative for diaphoresis and fever. Respiratory: No change. Cardiovascular: Positive for leg swelling. Negative for chest pain and palpitations. Gastrointestinal: Positive for nausea. Negative for diarrhea. Medication related. Genitourinary: Negative for difficulty urinating and dysuria. Neurological: Positive for headaches. Psychiatric/Behavioral: Negative for dysphoric mood. ACTIVE PROBLEM LIST Hyperlipidemia, Unspecified PERSONAL HISTORY OF GI-COLONIC POLYPS Bph With Obstruction/Lower Urinary Tract Symptoms Esophageal Reflux Seborrheic Dermatitis, Unspecified Personal History of Malignant Neoplasm of Bronchus and Lung Essential Hypertension, Benign Hiatal Hernia Idiopathic Pulmonary Fibrosis (Hcc) Obesity, Class I, Bmi 30-34.9 Thyroid Nodule Greater Than Or Equal to 1 Cm in Diameter Incidentally Noted On Imaging Study Centrilobular Emphysema (Hcc) Copd With Chronic Bronchitis (Hcc) Dependence On Continuous Supplemental Oxygen Chronic Respiratory Failure With Hypoxia (Hcc) Secondary Pulmonary Arterial Hypertension (Hcc) Social History Tobacco Use Smoking status: Former Packs/day: 1.00 Years: 24.00 Pack years: 24.00 Types: Cigarettes Start date: 06/24/1957 Quit date: 04/18/1981 Years since quittin.3 Smokeless tobacco: Never Tobacco comments: No smoking in childhood home. Vaping Use Vaping Use: Never used Substance Use Topics Alcohol use: No Drug use: No Current Outpatient Medications Medication Sig ipratropium-albuterol (DUONEB) 0.5 mg-3 mg(2.5 mg base)/3 mL nebu Inhale 3 mL as instructed every 6hours as needed for wheezing/shortness of breath. oxybutynin XL (DITROPAN XL) 5 mg 24 hr tablet Take 1 tablet by mouth once daily. Nebulizer Accessories kit Provide 1 kit. Mucus Clearing Device wilmar Provide 1 device nintedanib (OFEV) 150 mg capsule Take 1 capsule by mouth every [address] (PROTONIX) 20 mg tablet Take 1 tablet by mouth once daily. simvastatin (ZOCOR) 10 mg tablet Take 1 tablet by mouth daily at bedtime. guaiFENesin (MUCINEX) 600 mg 12 hr tablet Take 1 tablet by mouth twice daily. lisinopril (ZESTRIL, PRINIVIL) 10 mg tablet Take 1 tablet by mouth once daily. albuterol HFA (PROVENTIL HFA, VENTOLIN HFA) 90 mcg/actuation inhaler Inhale 2 Puffs as instructed four times daily as needed. FOR WHEEZING AND SHORTNESS OF BREATH. Coenzyme Q10 100 mg ORAL Cap Take 1 capsule by mouth once daily. aspirin(ADULT ASPIRIN EC LOW STRENGTH 81 MG TAB, DELAYED RELEASE) Take one(1) tablet daily. naproxen sodium(ALEVE 220 MG TAB) Take one(1) tablet twice daily. THERAPEUTIC MULTIVIT/MINERAL TAB Take one(1) tablet daily. tamsulosin (FLOMAX) 0.4 mg Take 2 capsules by mouth once daily. No current facility-administered medications for this visit. Objective BP 110/70 (BP Site: Left Arm, BP Position: Sitting, BP Cuff Size: Regular Adult) Pulse 66 Resp 16 Wt 75.3 kg (166 lb) SpO2 98% BMI 24.80 kg/m Physical Exam Constitutional: General: He is not in acute distress. Cardiovascular: Rate and Rhythm: Normal rate and regular rhythm. Heart sounds: No murmur heard. No gallop. Pulmonary: Effort: No respiratory distress. Breath sounds: Rhonchi present. No wheezing or rales. Comments: On O2 via NC. Abdominal: Tenderness: There is no abdominal tenderness. Musculoskeletal: Right lower le+ Pitting Edema present. Left lower le+ Pitting Edema present. Neurological: Mental Status: He is alert. Assessment and Plan 1. 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) - ICD9: 492.8, 515, ICD10: J43.9, J84.10 (primary diagnosis) Medications reconciled. 2. BPH with obstruction/lower urinary tract symptoms - ICD9: 600.01, 599.69, ICD10: N40.1, N13.8 Controlled. - TAMSULOSIN 0.4 MG CAPSULE 3. Need for COVID-19 vaccine - ICD9: V04.89, ICD10: Z23 - Plexx COVID-19 BIVALENT VACCINE, AGE 12+ YR 4. Chronic hypoxemic respiratory failure (HCC) - ICD9: 518.83, 799.02, ICD10: J96.11 On portable concentrator. 5. Secondary pulmonary arterial hypertension (HCC) - ICD9: 416.8, ICD10: I27.21 Per pulmonary. - CBC 6. Hyperlipidemia, unspecified hyperlipidemia type - ICD9: 272.4, ICD10: E78.5 - to be determined upon return of lab results - Continue current medication. - COMP METABOLIC PANEL - LIPID PANEL BASIC Tito Macias MD documented in this encounterMer[facility]05-04-2023 Miscellaneous Notes* Telephone Encounter - Antonia Yuen LPN - 08/19/2022 12:01 PM EDT no return call. * Telephone Encounter - Wade Oreilly Ma - 08/18/2022 1:15 PM EDT Left message to call office. 08/18/2022 1:16 PM * Telephone Encounter - Erika Chan APRN.CNP - 08/18/2022 1:01 PM EDT A sputum test was never requested or ordered by PCP? Is this something pulmonology requested? Erika Chan APRN.CNP * Telephone Encounter - Dakotah Alan RN - 08/18/2022 10:09 AM EDT Russell letting pcp know, it is not a urine test order that is needed, it is a sputum test. * Telephone Encounter - Tito Macias MD - 08/18/2022 9:53 AM EDT No order or information on urine collection. * Telephone Encounter - Antonia Yuen LPN - 08/18/2022 8:46 AM EDT Pt to [facility] lab. He dropped off a urine. Pt is gone. There is no order. Pt has appt with pcp 08/20/22. Order? documented in this encounterMer[facility]04-14-2023 Miscellaneous Notes* Telephone Encounter - Anette Patricia LPN - 07/30/2022 12:30 PM EDT Patient phones requesting refills as follows: YOLANDA 03/30/22 Requested Prescriptions Pending Prescriptions Disp Refills ipratropium-albuterol (DUONEB) 0.5 mg-3 mg(2.5 mg base)/3 mL nebu 120 mL 4 Sig: Inhale 3 mL as instructed every 6 hours as needed for wheezing/shortness of breath. Please review and advise. Anette Patricia LPN documented in this encounterMer[facility]03-10-2023 Miscellaneous Notes* Telephone Encounter - Dakotah Alan RN - 06/25/2022 4:25 PM EST Patient has been identified by name and date of : Yes, Provider Dr. Macias Date 06-25-22 Time 4:26 pm Pharmacy phones for refill(s): Requested Prescriptions Pending Prescriptions Disp Refills oxybutynin XL (DITROPAN XL) 5 mg 24 hr tablet 90 tablet 3 Sig: Take 1 tablet by mouth once daily. Date of last office visit with pcp: 02-12-22. Next appt: 08-20-22 Last 2 Encounter Wt Readings: Date: Wt: 03/30/2022 82.6 kg (182 lb) 03/30/2022 82.6 kg (182 lb) Previous labs/tests for medication: Blood Pressure: BUN (mg/dL) Date Value 02/23/2022 20 12/10/2020 17 Sodium (mmol/L) Date Value 02/23/2022 136 12/10/2020 139 Last 1 Encounter BP Readings: Date: BP: 01/18/2022 120/80 Liver Function: ALT (U/L) Date Value 03/30/2022 9 12/10/2020 10 AST (U/L) Date Value 03/30/2022 15 12/10/2020 18 Please advise. Thank you. Dakotah Alan RN documented in this encounterMer[facility]12-28-2022 Miscellaneous Notes* Telephone Encounter - Anette Patricia LPN - 04/14/2022 11:58 AM EST See [employer] message Anette Patricia LPN * Telephone Encounter - Marie Martin LPN - 04/14/2022 11:05 AM EST Patient called. Verified name and date of . Patient would like results of CT done 04/08/2022. Please review and advise. Marie Martin LPN documented in this encounterMercy [facility]12-28-2022 Miscellaneous Notes* Telephone Encounter - Hermelinda Copeland MD - 04/14/2022 11:27 AM EST Spoke with patient and regarding results. No progression of fibrosis and no suspicious lesionsfor cancer. Continue current therapy. documented in this encounterMercy Health [facility]12-22-2022 History of Present illness Narrative* Marie Abarca, RT(R) - 04/08/2022 3:40 PM EST Radiology Service Progress Note PATIENT NAME: Jorge Ramires DATE OF SERVICE: April 08, 2022 TIME: 4:00 PM PATIENT IDENTITY VERIFICATION COMPLETED USING TWO (2) IDENTIFIERS: Name and Date of confirmedby patient verbally. FALL SCREENING: Has the patient had 2 falls in the last year or 1 fall with injury or currently using an Ambulatory Assistive Device (Walker, Cane, Wheelchair, Crutches, etc.)? No PATIENT GENDER DATA: Male PATIENT RELEVANT IMPLANT DATA REVIEWED: Not Applicable RADIOLOGY DEPARTMENT: CT; Exam(s) Completed: Chest PERIPHERAL IV DATA: Not applicable SIGNED BY: RT Toyin(R) April 08, 2022 4:00 PM documented in this encounterMercy [facility]12-13-2022 History of Present illness Narrative* Hermelinda Copeland MD - 03/30/2022 2:15 PM EST Images from the original note were not included. . [facility] Note Patient name: Jorge Ramires PCP: Tito Macias MD CC: IPF/emphysema HPI: Jorge Ramires 82 year old male former 24-pack year smoker with PMH significant for CPFE, h/oLUL lung cancer, CAD, HTN, HLD, chronic hypoxemic respiratory failure recently starting OFEV. Overall seems to tolerating OFEV. Daily headaches which is controlled with Tylenol. Morning dose of OFEV causing nausea with occasional vomiting. No abdominal pain, diarrhea. LERMA is same. Main complaint ishis cough. Stopped Mucinex and has not noted any difference in cough or sputum production. Unable to sleep due to cough. Activity triggers coughing. Expectorated phlegm is clear. Spirometry today is stable. DATA: PFT Review of PFTs shows combined restriction and obstruction 07/2021: Labs: Component Ref Range & Units 3:06 PM Albumin 3.9 - 4.9 g/dL 4.4 P Bilirubin, Total 0.2 - 1.3 mg/dL 0.6 P Bilirubin, Conjugated P Alkaline Phosphatase 38 - 113 U/L 77 P AST 14 - 40 U/L 15 P ALT 10 - 54 U/L 9 Low P Protein, Total 6.3 - 8.0 g/dL 6.9 PAST MEDICAL HISTORY Diagnosis Date Benign neoplasm of colon Centrilobular emphysema (HCC) 12/29/2020 COPD with chronic bronchitis (HCC) 12/29/2020 Coronary artery disease Erectile dysfunction 03/13/2010 Esophageal reflux Essential hypertension, benign 09/06/2012 Ganglion and cyst of synovium, tendon and bursa 03/22/2013 Hematospermia 01/17/2006 HYPERLIPIDEMIA NEC/NOS 01/19/2005 Hyperplasia of prostate HYPERTROPHY PROSTATE WITH OBST 01/17/2006 Idiopathic pulmonary fibrosis (HCC) 07/02/2015 PERS HX BRONCHOGENIC MALIGNAN 04/09/2008 Personal history of colonic polyps Colon polyps Pulmonary fibrosis (HCC) 07/02/2015 Pure hypercholesterolemia Secondary pulmonary arterial hypertension (HCC) 02/12/2022 Furosemide. [facility]. Thyroid nodule greater than or equal to 1 cm in diameter incidentally noted on imaging study 12/18/2019 ALLERGIES No Known Allergies ondansetron (ZOFRAN) 4 mg tablet Take one tablet 30 minutes prior to OFEV and every 8 hours as needed for nausea furosemide (LASIX) 40 mg tablet Take 1 tablet by mouth twice daily. From Dr. Rajput. Start taking one daily. benzonatate (TESSALON PERLE) 100 mg capsule Take 1 capsule by mouth three times daily as needed forcough. Nebulizer Accessories kit Provide 1 kit. Mucus Clearing Device wilmar Provide 1 device ipratropium-albuterol (DUONEB) 0.5 mg-3 mg(2.5 mg base)/3 mL nebu Inhale 3 mL as instructed every 6hours as needed for wheezing/shortness of breath. nintedanib (OFEV) 150 mg capsule Take 1 capsule by mouth every [address] (PROTONIX) 20 mg tablet Take 1 tablet by mouth once daily. simvastatin (ZOCOR) 10 mg tablet Take 1 tablet by mouth daily at bedtime. fluticasone-salmeterol (ADVAIR, WIXELA) 250-50 mcg/dose inhaler Inhale 1 Each as instructed twice daily. guaiFENesin (MUCINEX) 600 mg 12 hr tablet Take 1 tablet by mouth twice daily. lisinopril (ZESTRIL, PRINIVIL) 10 mg tablet Take 1 tablet by mouth once daily. oxybutynin XL (DITROPAN XL) 5 mg 24 hr tablet Take 1 tablet by mouth once daily. tamsulosin (FLOMAX) 0.4 mg Take 2 capsules by mouth once daily. albuterol HFA (PROVENTIL HFA, VENTOLIN HFA) 90 mcg/actuation inhaler Inhale 2 Puffs as instructed four times daily as needed. FOR WHEEZING AND SHORTNESS OF BREATH. Coenzyme Q10 100 mg ORAL Cap Take 1 capsule by mouth once daily. aspirin(ADULT ASPIRIN EC LOW STRENGTH 81 MG TAB, DELAYED RELEASE) Take one(1) tablet daily. naproxen sodium(ALEVE 220 MG TAB) Take one(1) tablet twice daily. THERAPEUTIC MULTIVIT/MINERAL TAB Take one(1) tablet daily. Social History Tobacco Use Smoking status: Former Packs/day: 1.00 Years: 24.00 Pack years: 24.00 Types: Cigarettes Start date: 06/24/1957 Quit date: 04/18/1981 Years since quittin.9 Smokeless tobacco: Never Tobacco comments: No smoking in childhood home. Vaping Use Vaping Use: Never used Substance Use Topics Alcohol use: No Drug use: No PMH, Social history, family history and surgical history reviewed and updated in EMR REVIEW OF SYSTEMS: CONSTITUTIONAL: No fevers, chills, nightsweats, unintended weight loss HEENT: Headaches. No nasal congestion/sinus symptoms CARDIOVASCULAR: No chest pain, palpitations, orthopnea, PND. Mild edema PULM: See HPI GI: No dysphagia/odynophagia, reflux, constipation, diarrhea. Nausea with some vomiting NEURO: No new balance problems, peripheral weakness/paresthesias or numbness of concern. INTEGUMENTARY: No new skin changes, no rashes or bruising PHYSICAL EXAMINATION: Pulse 90 Resp 14 Wt 182 lb (82.6kg) SpO2 97% on oxygen General Appearance: Elderly male, NAD Skin: Skin color, texture, turgor normal, no suspicious rashes or lesions. Head: Normocephalic, no masses, lesions, tenderness or abnormalities. Eyes: Sclera, conjunctiva normal Oropharynx: No oral lesions, thrush Neck: No JVD, no masses or adenopathy Chest Wall: Kyphosis Lungs: Not labored, no wheezes, rhonchi throughout Heart: RRR, no murmur Extremities: Minimal edema, no clubbing Assessment/Plan: CPFE -Continue inhaled therapy -Zofran prior to OFEV dosing -May need to decrease dose to 100 mg -Chest CT at next visit Chronic cough -Due to fibrosis -Continue inhaled therapy -Trial of cough syrup at bedtime Chronic hypoxemic respiratory failure -Patient benefits from and is compliant with supplemental oxygen Drug monitoring -Hepatic function normal -No hepatic toxicity on OFEV Hermelinda Copeland MD [facility] documented in this encounterMer[facility]12-13-2022 Nurse Note* Anette Patricia LPN - 03/30/2022 2:07 PM EST Intake information documented in the prior visit with JEREMY Pope today. documented in this encounterMer[facility]10-31-2022 Miscellaneous Notes* Telephone Encounter - Rashida Lay PA-C - 02/15/2022 11:29 AM EDT Addressed through [employer] message. Leyda * Telephone Encounter - Ilene Duran Ma - 02/15/2022 11:20 AM EDT Patient calling and states he brought in a sputum specimen last week. Patient is asking for the results and if he needs to be treated? documented in this encounterMercy Health [facility]10-28-2022 History of Present illness Narrative* Tito Macias MD - 02/12/2022 3:41 PM EDT This note was created using path intelligenceter. Subjective Jorge Ramires is a 81 year old male. He complained of persistent cough. Ofev may also be causing some headaches. He just saw Dr. Rajput, and it seems they presumed he was still on furosemide for pulmonary hypertension, as his furosemide was increased from 40 mg daily to BID. Review of Systems Constitutional: Negative. Respiratory: Positive for cough and shortness of breath. Negative for chest tightness. Cardiovascular: Negative for chest pain, palpitations and leg swelling. Gastrointestinal: Negative. Genitourinary: Negative. Neurological: Negative. ACTIVE PROBLEM LIST Hyperlipidemia, Unspecified PERSONAL HISTORY OF GI-COLONIC POLYPS Bph With Obstruction/Lower Urinary Tract Symptoms Esophageal Reflux Seborrheic Dermatitis, Unspecified Personal History of Malignant Neoplasm of Bronchus and Lung Essential Hypertension, Benign Hiatal Hernia Thrombocytopenia (Hcc) Idiopathic Pulmonary Fibrosis (Hcc) Obesity, Class I, Bmi 30-34.9 Thyroid Nodule Greater Than Or Equal to 1 Cm in Diameter Incidentally Noted On Imaging Study Centrilobular Emphysema (Hcc) Copd With Chronic Bronchitis (Hcc) Hypoalbuminemia Due to Protein-Calorie Malnutrition (Hcc) Dependence On Continuous Supplemental Oxygen Chronic Respiratory Failure With Hypoxia (Hcc) Secondary Pulmonary Arterial Hypertension (Hcc) Current Outpatient Medications Medication Sig Nebulizer Accessories kit Provide 1 kit. Mucus Clearing Device wilmar Provide 1 device ipratropium-albuterol (DUONEB) 0.5 mg-3 mg(2.5 mg base)/3 mL nebu Inhale 3 mL as instructed every 6hours as needed for wheezing/shortness of breath. nintedanib (OFEV) 150 mg capsule Take 1 capsule by mouth every [address] (PROTONIX) 20 mg tablet Take 1 tablet by mouth once daily. simvastatin (ZOCOR) 10 mg tablet Take 1 tablet by mouth daily at bedtime. fluticasone-salmeterol (ADVAIR, WIXELA) 250-50 mcg/dose inhaler Inhale 1 Each as instructed twice daily. guaiFENesin (MUCINEX) 600 mg 12 hr tablet Take 1 tablet by mouth twice daily. lisinopril (ZESTRIL, PRINIVIL) 10 mg tablet Take 1 tablet by mouth once daily. oxybutynin XL (DITROPAN XL) 5 mg 24 hr tablet Take 1 tablet by mouth once daily. tamsulosin (FLOMAX) 0.4 mg Take 2 capsules by mouth once daily. albuterol HFA (PROVENTIL HFA, VENTOLIN HFA) 90 mcg/actuation inhaler Inhale 2 Puffs as instructed four times daily as needed. FOR WHEEZING AND SHORTNESS OF BREATH. Coenzyme Q10 100 mg ORAL Cap Take 1 capsule by mouth once daily. aspirin(ADULT ASPIRIN EC LOW STRENGTH 81 MG TAB, DELAYED RELEASE) Take one(1) tablet daily. naproxen sodium(ALEVE 220 MG TAB) Take one(1) tablet twice daily. THERAPEUTIC MULTIVIT/MINERAL TAB Take one(1) tablet daily. furosemide (LASIX) 40 mg tablet Take 1 tablet by mouth twice daily. From Dr. Rajput. Start taking one daily. benzonatate (TESSALON PERLE) 100 mg capsule Take 1 capsule by mouth three times daily as needed forcough. No current facility-administered medications for this visit. Objective BP (P) 102/64 (BP Site: Left Arm, BP Position: Sitting, BP Cuff Size: Regular Adult) Pulse (P) 87 Resp (P) 16 Wt 82.6 kg (182 lb) SpO2 (P) 95% BMI 27.19 kg/m Physical Exam Constitutional: General: He is not in acute distress. Comments: On O2. Cardiovascular: Rate and Rhythm: Normal rate and regular rhythm. Pulmonary: Breath sounds: Decreased breath sounds present. No wheezing or rales. Abdominal: Palpations: Abdomen is soft. Tenderness: There is no abdominal tenderness. Musculoskeletal: Right lower leg: No edema. Left lower leg: No edema. Neurological: Mental Status: He is alert. Gait: Gait normal. Assessment and Plan 1. Medicare annual wellness visit, subsequent - ICD9: V70.0, ICD10: Z00.00 (primary diagnosis) See wellness note. - ADVANCE CARE PLAN DISCUSSION - DEPRESSION SCREENING/ASSESSMENT 2. Secondary pulmonary arterial hypertension (HCC) - ICD9: 416.8, ICD10: I27.21 - We reviewed cardiology recommendation and prescription for increased furosemide. - Since he had not been taking furosemide we agreed to try furosemide but once daily for 2-4 weeks.He will see if it helps cough and dyspnea. Side effects including dehydration were reviewed. He will warehouse picker prescription from his pharmacy. - FUROSEMIDE 40 MG TABLET 3. Idiopathic pulmonary fibrosis (HCC) - ICD9: 516.31, ICD10: J84.112 - BENZONATATE 100 MG CAPSULE 4. COPD with chronic bronchitis (HCC) - ICD9: 491.20, ICD10: J44.9 - BENZONATATE 100 MG CAPSULE 5. Thyroid nodule greater than or equal to 1 cm in diameter incidentally noted on imaging study - ICD9: 241.0, ICD10: E04.1 Surveillance ordered. - US THYROID/PARATHYROID Tito Macias MD * Tito Macias MD - 02/12/2022 3:00 PM EDT Medical B eligibilty date 2009 Date of last exam 12/17/2020 Jorge Ramires is a 81 year old male here for a Medicare Subsequent Annual Wellness Visit Welcome to Medicare and Medicare Wellness Visits are an opportunity to create and update a personalized plan to help prevent disease and disability, based on your current health and risk factors.The yearly Wellness visit isn t a physical exam. Additional concerns may generate additional charges or co-pays. Health Risk Assessment In general, health is: Good Concerns with tiredness, difficulties with sexual function, balance, teeth/dentures: Nearly every day [place] anxious, stressed, angry, irritable, lonely, isolated, or had thoughts of hurting themself: Not at all Has little interest or pleasure in doing things: Not at all Bothered by feeling down, depressed, or hopeless: Not at all Needs help with grocery shopping, cooking, housework, bathing, grooming, dressing, eating, sitting or standing, walking, using the toilet, handling finances, taking medications, using the telephone, or driving: No Following safety precautions in the home environment and vehicle: removed throw rugs from floors, installed grab bars in the bathroom, handrails in stairwells, having adequate lighting, wearing seatbelt at all times?: Yes Smokes cigarettes, vapes, or chew tobacco: No Eats healthy foods including fruits, vegetables, whole grains, and fiber-rich foods: More than halfthe days Number of days per week engages in exercise: 5 days Average alcohol consumption: Never Current Providers Patient Care Team: Tito Macias MD as PCP - General (Internal Medicine) Specialists: I have reviewed specialist-related care of the patient in the medical record. and Outside specialists seen: Dr. Allison Copeland, pulmonary. Dr. Rajput, [facility]. [place], [place]. [place]. Medical/Family history review Reviewed and updated problem list, medical history, surgical history, family history, social history, medication list, and allergies. Opioid use review Patient is not currently using opioids. Depression screening Depression Screening PHQ-2 Score 06/14/2018 0 Depression screening tool completed and reviewed. Based on score and interview, patient is not at risk for depression. Screening tool discussed with patient, and I recommended no further interventionat this time. Cognitive screening Mini Cog Score: 4 Cognitive screening reviewed and no further action needed (score 3-5) Functional Observation Was the patient's timed Up & Go test unsteady or longer than 30 seconds? No Advance Care Planning End of Life planning discussed, including patient's advanced directive wishes: Yes. Copy needed. Measurements Wt 182 lb (82.6kg) Visual acuity: follows with optometry/ophthalmology Hearing Evaluation: within normal limits Assessment/Plan - Counseled on healthy diet and regular exercise - Fall avoidance - Depression screening - Advanced Directive Tito Macias MD documented in this encounterMer[facility]10-28-2022 Instructions* Patient Instructions* Tito Macias MD - 02/12/2022 3:16 PM EDT TRY FUROSEMIDE (LASIX) FROM DR. RAJPUT FOR ONE MONTH AND SEE IF IT HELPS COUGH AND BREATHING. documented in this encounterMercy Health [facility]10-03-2022 Miscellaneous Notes* Telephone Encounter - Anette Patricia LPN - 01/18/2022 3:25 PM EDT Orders prepped for PAL signature and faxing. Anette Patricia LPN * Telephone Encounter - Vania Cesar RN - 01/18/2022 3:06 PM EDT Esther from [facility] calls. States she needs a printed script for both the nebulizer compression and kit. She received e-script for kit but she can't accept it. In addition, patient told herhe does not have a compressor. [phone] documented in this encounterMercy Health [facility]10-03-2022 History of Present illness Narrative* Rashida Lay PA-C - 01/18/2022 1:30 PM EDT Images from the original note were not included. [facility], 01/18/2022: Name: Jorge Ramires : 1940 The patient is here today with his daughter, who attends the entire visit, exam and discussion. HPI: Jorge Ramires is a 81 yo male former 24-pack year smoker, quitting in 1981 with PMH significant for emphysema, history of lung cancer NANCY, IPF, CAD, HTN, HLD, on supplemental oxygen. Previously notinterested in starting antifibrotic therapy, however, at last office visit with Dr. Copeland on 12/10/2021 decided to initiate therapy with Ofev once horse racing season is completed in February. He hasbeen approved, but is waiting to start until February. Today, patient calls in with increased cough. Previous sputum cultures positive for Acinetobacter and Serratia. Patient is most likely colonized. The patient is here for an acute visit for cough. Since the last Pulmonary Clinic visit 12/10/2021, the patient has not required ED care for exacerbation. There has been no hospital admission for exacerbation. Claims to be consistently compliant with prescribed maintenance Rx Advair 1 inhalation daily. Daily cough that is worse at night. States that he coughs throughout the day like usual, but the last couple of nights he has not been able to sleep. Non- productive. No hemoptysis. No wheezing. No dyspnea at rest. Exertional dyspnea is improved since completing pulmonary rehab. Was able to walk around at the [facility]. Is going to [facility] with [employer]. Consistently wearing supplemental oxygen. DME: [employer]. PMH: Updated with patient today. FAMH: Updated with patient today. SOCH: Updated with patient today. IMMUNIZATIONS Prevnar 13 - 02/06/2019, 06/14/2014 Pneumovax 23 - 02/06/2020, 12/30/2014, 02/05/2005 Influenza - 12/14/2020 COVID-19 - 07/16/2021, 12/21/2020, 05/29/2020, 05/09/2020 ROS: General: Generally feels cough. Appetite good. Eyes, Ears, nose, throat: No post nasal drip, rhinorrhea, purulent nasal discharge, epistaxis. No hoarseness. Vision stable. Cardiac: No angina, edema, orthopnea. Resp: See HPI. GI: No heartburn, dysphagia, diarrhea. Musculoskeletal: No pain. Neuro: No headache, focal weakness, tremor. Skin: No rash. Otherwise negative. Allergies were reviewed and updated, and medications were reconciled with the patient. PHYSICAL EXAMINATION: BP 120/80 Pulse 84 Temp 37.1 C (98.7 F) Resp 17 Wt 82.6 kg (182 lb) SpO2 99% BMI 27.19 kg/m Gen: No acute distress. Cooperative with examination. ENT: Oral hygeine and dentition good. Pharynx clear. No halitosis. No sign of oral thrush. Resp: No stridor, accessory respiratory muscle use, supra-sternal or intercostal retractions. No wheezes. Bibasilar crackles, right greater than left. CV: Regular rythm. Heart tones normal. Radial pulses normal. Abd: Non distended. MSK: No kyphoscoliosis. Ext: Warm and well perfused. No clubbing, cyanosis, edema. Skin: No rash, ecchymoses. Neuro: Mental status normal. Affect normal. No tremor. DATA REVIEW: PFT 07/2021: Sputum, 12/09/2021 Culture Moderate Acinetobacter species Abnormal Few normal respiratory braxton Abnormal Smear Result Abnormal Moderate Mixed oral braxton Rare Polymorphonuclear leukocytes Resulting Agency: [facility] Susceptibility Acinetobacter species MINIMUM INHIBITORY CONCENTRATION (VIZION) Ampicillin/Sulbact <=4 Susceptible Ciprofloxacin 0.50 Susceptible Gentamicin <=2 Susceptible Meropenem 1 Susceptible Piperacillin/Tazobac <=8 Susceptible Tobramycin 4 Susceptible Trimeth sulfameth <=1 Susceptible Culture Moderate Serratia liquefaciens Abnormal Moderate normal respiratory braxton Abnormal Smear Result Abnormal Few Gram positive cocci Few Polymorphonuclear leukocytes Few Mononuclear cells Sputum, 10/29/2021 Susceptibility Serratia liquefaciens MINIMUM INHIBITORY CONCENTRATION(VITEK) Ampicillin Resistant Cefepime <=1 Susceptible Ceftriaxone <=1 Susceptible Ciprofloxacin <=0.25 Susceptible Ertapenem <=0.5 Susceptible Gentamicin <=1 Susceptible Meropenem <=0.25 Susceptible Piperacillin/Tazobac <=4 Susceptible Tobramycin <=1 Susceptible Trimeth sulfameth <=20 Susceptible CTA chest [facility] 10/02/2021: Findings: 59.4 mm hypodense nodule in right lobe of the thyroid gland. Normal enhancement of the main pulmonary artery and right and left pulmonary arteries. Normal enhancement of the bilateral peripheral pulmonary arteries. There is no demonstrated pulmonary embolism. There is atherosclerotic calcification of the aortic arch with tortuosity. There is no demonstrated aortic dissection. There are calcifications of the coronary arteries. There are visualized mediastinal lymph nodes which are within normal size limits, and with normal morphology. Calcified bilateral hilar lymph nodes. Normal visualized trachea and bronchi. Hyperinflation. Diffuse increased interstitial markings in both lungs worse in the lower lobes although the upper lobes are affected as well especially in the right upper lobe. Multiple subpleural blebs suggestive of chronic end-stage pulmonary fibrosis. Normal pleura. Normal chest wall structures. There are degenerative changes of the thoracic spine. Hiatal hernia Impression: Findings in keeping with chronic interstitial fibrosis. Coronary artery calcification. No evidence of aortic dilatation. ASSESSMENT/PLAN: 1. IPF (idiopathic pulmonary fibrosis) (HCC) - ICD9: 516.31, ICD10: J84.112 (primary diagnosis) Symptomatically with increased cough. Start nebulized therapy as needed. Order sent for mucus clearing vibratory device. Continue Mucinex 1-2 tablets twice daily. Sputum culture pended. If cough becomes productive and purulent patient to bring in sputum sample. Antibiotics do not seem warranted at this time. Patient received Ofev and is planning on starting tomorrow. He is to send a [employer] message within the next 1-2 weeks with a symptom update. - NEBULIZER, WITH COMPRESSOR - NEBULIZER ACCESSORIES KIT - MUCUS CLEARING DEVICE - IPRATROPIUM 0.5 MG-ALBUTEROL 3 MG (2.5 MG BASE)/3 ML NEBULIZATION SOLN - RESP CULTURE + STAIN 2. Mucopurulent chronic bronchitis (HCC) - ICD9: 491.1, ICD10: J41.1 3. Chronic respiratory failure with hypoxia (HCC) - ICD9: 518.83, 799.02, ICD10: J96.11 Continue with supplemental oxygen. 4. Acute cough - ICD9: 786.2, ICD10: R05.1 See #1. I addressed the questions of the patient and daughter, and they expressed understanding and acceptance of my answers. Rashida Lay PA-C documented in this encounterMercy [facility]10-03-2022 Miscellaneous Notes* Telephone Encounter - Anette Zena BAUTISTA - 01/18/2022 10:23 AM EDT Spoke with and same day appt scheduled. Anette Patricia LPN documented in this encounterMercy Health [facility]09-08-2022 Miscellaneous Notes* Telephone Encounter - Anette Patricia LPN - 12/24/2021 8:36 AM EDT OFEV approved through 12/23/22. Anette Fongluisana BAUTISTA * Telephone Encounter - Anette Zena BAUTISTA - 12/18/2021 2:36 PM EDT Prior auth subject to Medicare Part B review. Spoke with Shelia at [facility]. Case # [id number] Anette Fongluisana BAUTISTA * Telephone Encounter - Kaylah Holder RN - 12/15/2021 11:49 AM EDT Accountancy Professor from [facility] called in states an authorization is needed for OFEV. Authorization decker number is [id number]. Also, states form will be faxed to office. documented in this encounterMercy Health [facility]08-25-2022 History of Present illness Narrative* Hermelinda Copeland MD - 12/10/2021 10:30 AM EDT Images from the original note were not included. . [facility] Note Patient name: Jorge Ramires PCP: Tito Macias MD CC: IPF HPI: Jorge Ramires 81 year old male former [id number] smoker, quitting 1981 with PMH significant for emphysema, history of lung cancer NANCY, IPF, CAD, HTN, HLD, on supplemental oxygen 3 L, previous patient of Dr. Spicer. Clinical history c/w IPF, not HSP. Has not been interested in starting antifibrotic therapy due to potential side effect of diarrhea. 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 Last office visit was referred to pulmonary rehab at [facility]. He has completed the program and has improved endurance and strength. Plans on continued exercise through [employer]. Continues to cough upyellow thick phlegm despite recent course of prednisone and Cipro. He has LERMA but has been doing better since participation in rehab. No chest pain or wheezing. No fevers, sweats or weight loss. Goodappetite. No significant edema. New issue with nose bleeds. No og epistaxis. DME: [employer] DATA: RESPIRATORY THERAPY OXIMETRY WITH AMBULATION Oximetry with Ambulation Test for This Encounter O2 Device O2 Adapter NC O2 Flow SpO2% HR Activity Ft Walked (ft) Time (min) Avg Speed (MPH) R/A 92 72 Resting R/A 86 102 Walking, usual pace 150 1 1.7 NC 2 94 80 Resting NC 2 87 107 Walking, usual pace 250 1.8 1.58 NC 3 94 77 Resting NC 3 86 107 Walking, usual pace 400 2.7 1.68 NC 4 94 86 Resting NC 4 87 107 Walking, usual pace 400 2.8 1.62 NC 5 95 106 Resting NC 5 88 104 Walking, usual pace 450 3 1.7 PFT 07/2021: Labs: Component Ref Range & Units 3 mo ago (09/10/21) Protein, Total 6.3 - 8.0 g/dL 6.6 Albumin 3.9 - 4.9 g/dL 3.4 Low Calcium, Total 8.5 - 10.2 mg/dL 8.9 Bilirubin, Total 0.2 - 1.3 mg/dL 0.4 Alkaline Phosphatase 38 - 113 U/L 78 AST 14 - 40 U/L 20 ALT 10 - 54 U/L 12 Glucose 74 - 99 mg/dL 94 1 Follow-up Encounter Culture Moderate Acinetobacter species Abnormal Few normal respiratory braxton Abnormal Smear Result Abnormal Few Mixed oral braxton Rare Polymorphonuclear leukocytes Few Mononuclear cells Resulting Agency: [facility] Susceptibility Acinetobacter species MINIMUM INHIBITORY CONCENTRATION (VIZION) Ampicillin/Sulbact <=4 Susceptible Ciprofloxacin 0.12 Susceptible Gentamicin <=2 Susceptible Meropenem 1 Susceptible Piperacillin/Tazobac 16 Susceptible Tobramycin 4 Susceptible Trimeth sulfameth <=1 Susceptible Result Notes important suggestion Newer results are available. Click to view them now. Culture Moderate Serratia liquefaciens Abnormal Moderate normal respiratory braxton Abnormal Smear Result Abnormal Few Gram positive cocci Few Polymorphonuclear leukocytes Few Mononuclear cells Resulting Agency: [facility] Susceptibility Serratia liquefaciens MINIMUM INHIBITORY CONCENTRATION(VITEK) Ampicillin Resistant Cefepime <=1 Susceptible Ceftriaxone <=1 Susceptible Ciprofloxacin <=0.25 Susceptible Ertapenem <=0.5 Susceptible Gentamicin <=1 Susceptible Meropenem <=0.25 Susceptible Piperacillin/Tazobac <=4 Susceptible Tobramycin <=1 Susceptible Trimeth sulfameth <=20 Susceptible Imaging / Diagnostic Studies: CTA chest [facility] 10/02/2021: Findings: 59.4 mm hypodense nodule in right lobe of the thyroid gland. Normal enhancement of the main pulmonary artery and right and left pulmonary arteries. Normal enhancement of the bilateral peripheral pulmonary arteries. There is no demonstrated pulmonary embolism. There is atherosclerotic calcification of the aortic arch with tortuosity. There is no demonstrated aortic dissection. There are calcifications of the coronary arteries. There are visualized mediastinal lymph nodes which are within normal size limits, and with normal morphology. Calcified bilateral hilar lymph nodes. Normal visualized trachea and bronchi. Hyperinflation. Diffuse increased interstitial markings in both lungs worse in the lower lobes although the upper lobes are affected as well especially in the right upper lobe. Multiple subpleural blebs suggestive of chronic end-stage pulmonary fibrosis. Normal pleura. Normal chest wall structures. There are degenerative changes of the thoracic spine. Hiatal hernia Impression: Findings in keeping with chronic interstitial fibrosis. Coronary artery calcification. No evidence of aortic dilatation. I personally reviewed the images which show typical changes of IPF PAST MEDICAL HISTORY Diagnosis Date Benign neoplasm of colon Centrilobular emphysema (HCC) 12/29/2020 COPD with chronic bronchitis (HCC) 12/29/2020 Coronary artery disease Erectile dysfunction 03/13/2010 Esophageal reflux Essential hypertension, benign 09/06/2012 Ganglion and cyst of synovium, tendon and bursa 03/22/2013 Hematospermia 01/17/2006 HYPERLIPIDEMIA NEC/NOS 01/19/2005 Hyperplasia of prostate HYPERTROPHY PROSTATE WITH OBST 01/17/2006 PERS HX BRONCHOGENIC MALIGNAN 04/09/2008 Personal history of colonic polyps Colon polyps Pulmonary fibrosis (HCC) 07/02/2015 Pure hypercholesterolemia Thyroid nodule greater than or equal to 1 cm in diameter incidentally noted on imaging study 12/18/2019 ALLERGIES No Known Allergies fluticasone-salmeterol (ADVAIR, WIXELA) 250-50 mcg/dose inhaler Inhale 1 Each as instructed twice daily. guaiFENesin (MUCINEX) 600 mg 12 hr tablet Take 1 tablet by mouth twice daily. albuterol HFA (PROVENTIL HFA, VENTOLIN HFA) 90 mcg/actuation inhaler Inhale 2 Puffs as instructed four times daily as needed. FOR WHEEZING AND SHORTNESS OF BREATH. sulfamethoxazole-trimethoprim (BACTRIM DS) 800-160 mg per tablet Take 1 tablet by mouth twice dailyfor 14 days. FOR [address] (PROTONIX) 20 mg tablet Take 1 tablet by mouth once daily. simvastatin (ZOCOR) 10 mg tablet Take 1 tablet by mouth daily at bedtime. lisinopril (ZESTRIL, PRINIVIL) 10 mg tablet Take 1 tablet by mouth once daily. oxybutynin XL (DITROPAN XL) 5 mg 24 hr tablet Take 1 tablet by mouth once daily. tamsulosin (FLOMAX) 0.4 mg Take 2 capsules by mouth once daily. Coenzyme Q10 100 mg ORAL Cap Take 1 capsule by mouth once daily. aspirin(ADULT ASPIRIN EC LOW STRENGTH 81 MG TAB, DELAYED RELEASE) Take one(1) tablet daily. naproxen sodium(ALEVE 220 MG TAB) Take one(1) tablet twice daily. THERAPEUTIC MULTIVIT/MINERAL TAB Take one(1) tablet daily. Social History Tobacco Use Smoking status: Former Packs/day: 1.00 Years: 24.00 Pack years: 24.00 Types: Cigarettes Start date: 06/24/1957 Quit date: 04/18/1981 Years since quittin.6 Smokeless tobacco: Never Tobacco comments: No smoking in childhood home. Vaping Use Vaping Use: Never used Substance Use Topics Alcohol use: No Drug use: No Races horses FAMILY HISTORY Problem Relation Age of Onset Alzheimer's Disease Mother Heart Father heart attack Breast Cancer Sister Heart Brother aortic aneurysm COPD No Family History PAST SURGICAL HISTORY Procedure Laterality Date COLONOSCOPY FLX DX W/COLLJ SPEC WHEN PFRMD 07/12/2005 COLONOSCOPY FLX DX W/COLLJ SPEC WHEN PFRMD 07/19/2013 Colonoscopy COLONOSCOPY W/BIOPSY SINGLE/MULTIPLE 03/02/2010 ESOPHAGOGASTRODUODENOSCOPY TRANSORAL DIAGNOSTIC 07/19/2013 EGD REMOVAL OF LUNG,LOBECTOMY Left 04/2007 left upper lobe RIGHT HEART CATH 11/03/2020 TONSILLECTOMY & ADENOIDECTOMY <AGE 12 1946 PMH, Social history, family history and surgical history reviewed and updated in EMR REVIEW OF SYSTEMS: CONSTITUTIONAL: No fevers, chills, nightsweats, unintended weight loss HEENT: Denies nasal congestion/sinus symptoms, allergy problems. Bloody nose CARDIOVASCULAR: No chest pain, dyspnea, palpitations, edema. PULM: See HPI NEURO: No new balance problems, peripheral weakness/paresthesias or numbness of concern. MUSC-SKEL: No new joint pain, swelling, or erythema. INTEGUMENTARY: Bruising PHYSICAL EXAMINATION: Wt 182 lb (82.6kg) BP 138/78, P 58, RR 17, SpO2 98% on 3 Liters General Appearance: Elderly male, NAD Skin: Skin color, texture, turgor normal, no suspicious rashes or lesions. UE ecchymoses Head: Normocephalic, no masses, lesions, tenderness or abnormalities. Eyes: Sclera, conjunctiva normal Oropharynx: Adequate dentition, no oral lesions or thrush Lungs: Not labored, normal to percussion, crackles in right base Heart: RRR, no murmur Extremities: Mild edema, no clubbing Musculoskeletal: Mild arthritis changes, no effusions Neurologic: Alert and oriented, no focal findings Assessment/Plan: IPF -TLC has remained stable at 45% but has had progressive decline in diffusion. Previously started process for OFEV but then decided against due to concerns regarding diarrhea -Willing to try OFEV but wants to wait to start until February after racing season -Recent liver panel normal COPD with chronic bronchitis -Likely colonized with Serratia/Acinetobacter -Bactrim for 14 days -Continue Wixela and as needed albuterol ([facility]) Chronic hypoxemic respiratory failure -Patient compliant with and benefits from supplemental oxygen 4. Nasal bleeding -Due to use of oxygen -Humidification for home concentrator -Instructed to obtain OTC nasal saline spray Hermelinda Copeland MD [facility] documented in this encounterMercy Health [facility]08-19-2022 Miscellaneous Notes* Telephone Encounter - Joya Herndon RN - 12/04/2021 10:58 AM EDT Last Office Visit: 09/17/2021 Future Office Visit: 02/12/2022 Last Medication Refill: Pantoprazole 12/11/2020 90 tab 3 refill Simvastatin 12/11/2020 90 tab 3 refill Date of Last Labs: 09/10/2021 documented in this encounterMercy Health [facility]07-20-2022 NoteHNO ID: [id number] Author: Keila Mcfarland APRN.[employer]BILE [employer]PLICATION DEVELOPMENT LEAD Service: ? Author Type: Nurse Practitioner Type: Plan of Care Filed: 11/04/2021 3:01 PM Note Text: Contacted patient about sputum results. 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 Patient has symptoms of cough with yellow sputum production and more SOB than usual. Prescribed Cipro and prednisone, sent to [facility] per patient request. Keila Mcfarland APRN-MOBILE APPLICATION DEVELOPMENT LEAD Pulmonary Medicine 11/04/2021The [facility] [id number] History of Present illness Narrative* Rashida Lay PA-C - 10/12/2021 12:27 PM EDT CTA chest, 10/02/2021 [facility] read only IMPRESSION: Findings in keeping with chronic interstitial fibrosis. Coronary artery calcification. No evidence of aortic dilatation. documented in this encounterMercy Health [facility]06-19-2022 History of Present illness Narrative* Jose R Spicer MD - 10/04/2021 11:09 AM EDT [facility] [place], 09/29/2021: Name: Jorge Ramires : 1940 The patient is here today with his daughter, who attends the entire visit, exam and discussion. INTERVAL HISTORY: Mr. Ramires notes no change in a daily chronic cough productive of relatively thick nonpurulent sputum without hemoptysis. There is no pleuritic chest pain. He does notice exertional dyspnea with almost any of his daily activities, yet he remains physically active in and around his home. Allergies reviewed and updated, and medications reconciled today. Problem list, PMH, PSH, FAMH, SOCH: Reviewed with patient today, and updated accordingly. Immunizations reviewed today. PHYSICAL EXAMINATION: BP 102/55 (BP Site: Right Arm, BP Position: Sitting, BP Cuff Size: Regular Adult) Pulse 80 Temp36.3 C (97.4 F) (Temporal) Resp 20 Wt 82.1 kg (181 lb) SpO2 100% BMI 27.04 kg/m Gen: No acute distress. Cooperative with examination. Appears younger than his recorded age. ENT: Sclerae clear. Nares clear. Oral hygeine/dentition good. Pharynx clear. No halitosis. Resp: No stridor, accessory respiratory muscle use, supra-sternal retractions. A-P diameter normal. Posterior bilateral lower lobe crackles. Occasional low pitched expiratory wheezes. No pleural rubs. CV: Regular rythm. Heart tones normal. No carotid bruit. Radial pulses normal. Abd: Not distended. MSK: No kyphoscoliosis. No joint deformities of the wrists, hands, fingers. Ext: Warm and well perfused. No clubbing, cyanosis, lower extremity edema, sclerodactyly, Raynaud's. Skin: Color normal. Texture normal. No rash, eczema, telangiectasia, ecchymoses. Neuro: Mental status normal. Affect normal. Muscle strength normal and symmetrical. Normal balance and gait. No tremor. DATA REVIEW: Ambulatory oximetry, 10/01/2021 and 07/28/2021 Spirometry, 07/28/2021 MEDICAL DECISION MAKIN. Idiopathic pulmonary fibrosis. Not wanting to start Ofev at this time. Is interested in Pulmonary Rehab at [facility]. Continue supplemental oxygen 2L at rest, 5L with initiation of any activity, 3L during sleep. 2. COPD with chronic bronchitis. -Increase Mucinex to 1200 mg twice daily. Re-evaluate any symptomatic benefit in 1 month, especially in reference to frequency and severity of cough, ease in raising sputum, Chest discomfort with cough, general well being. Wixela 1 inhalation twice daily. Rinse mouth after each use to help prevent oral thrush. Albuterol HFA inhaler, 2 inhalations 10 15 minutes prior to activities associated with shortness ofbreath, and as needed for rescue relief of shortness of breath or wheezing, up to 4 times daily. Up to date on annual influenza, pneumococcal and Covid 19 vaccines. 3. Pulmonary arterial hypertension. Last echo 08/2020, RVSP 55 mmHg consistent with moderate pulmonary HTN. -I reminded the patient to ask Dr. Rajput to fax copy of current echocardiogram to me at [phone]. 4. Chronic hypoxemic respiratory failure. -Continue supplemental oxygen 2L at rest, 5L with initiation of any activity, 3L during sleep. 5. I reminded the patient and his daughter that I am retiring from the staff of [facility] and the practice of Medicine on October 15, 2021, after 41 years of service to my patients. It has been my privilege to provide you with Pulmonary consultation and care for the time we have known each other. Please feel confident that my colleagues are well equipped to provide ongoing care in the future: Loraine Alexa Copeland MD and CHRISTINE Colon MD, [facility] [address] [place] [id number] P: [phone] F: [phone] documented in this encounterMer[facility] Instructions* Patient Instructions* Jose R Spicer MD - 10/01/2021 3:24 PM EDT 1. Idiopathic pulmonary fibrosis. Not wanting to start Ofev at this time. Is interested in Pulmonary Rehab at [facility]. Continue supplemental oxygen 2L at rest, 5L with initiation of any activity, 3L during sleep. 2. COPD with chronic bronchitis. -Increase Mucinex to 1200 mg twice daily. Re-evaluate benefit in 1 month, in reference to frequency and severity of cough, ease in raising sputum, Chest discomfort with cough, general well being. Wixela 1 inhalation twice daily. Rinse mouth after each use to help prevent oral thrush. Albuterol HFA inhaler, 2 inhalations 10 15 minutes prior to activities associated with shortness ofbreath, and as needed for rescue relief of shortness of breath or wheezing, up to 4 times daily. Up to date on annual influenza, pneumococcal and Covid 19 vaccines. 3. Pulmonary arterial hypertension. Last echo 08/2020, RVSP 55 mmHg consistent with moderate pulmonary HTN. -Ask Dr. Rajput to fax copy of current echocardiogram to ct at [phone]. 4. Chronic hypoxemic respiratory failure. -Continue supplemental oxygen 2L at rest, 5L with initiation of any activity, 3L during sleep. Jose R Spicer MD, [facility] [address] [address] P: [phone] F: [phone] [email or web address] documented in this encounterMercy [facility]06[facility] Procedure note* JEREMY Pope - 10/01/2021 2:48 PM EDT Associated Order(s): OXIMETRY WITH AMBULATION Images from the original note were not included. RESPIRATORY THERAPY OXIMETRY WITH AMBULATION Oximetry with Ambulation Test for This Encounter O2 Device O2 Adapter NC O2 Flow SpO2% HR Activity Ft Walked (ft) Time (min) Avg Speed (MPH) R/A 92 72 Resting R/A 86 102 Walking, usual pace 150 1 1.7 NC 2 94 80 Resting NC 2 87 107 Walking, usual pace 250 1.8 1.58 NC 3 94 77 Resting NC 3 86 107 Walking, usual pace 400 2.7 1.68 NC 4 94 86 Resting NC 4 87 107 Walking, usual pace 400 2.8 1.62 NC 5 95 106 Resting NC 5 88 104 Walking, usual pace 450 3 1.7 General Information Pulse Oximetry Site Total Time Spent O2 Supply Carrier Walking Assistance/Device Forehead 25 Other: See Comment patient carried own portable concentrator None NAME: JEREMY Pope PATIENT NAME: Jorge Ramires DATE: October 01, 2021 TIME: 2:48 PM Comment: documented in this encounterMercy [facility] History of Present illness Narrative* RT Carlton(R) - 10/01/2021 2:00 PM EDT Radiology Service Progress Note PATIENT NAME: Jorge Ramires DATE OF SERVICE: October 01, 2021 TIME: 2:03 PM PATIENT IDENTITY VERIFICATION COMPLETED USING TWO (2) IDENTIFIERS: Name and Date of confirmedby patient verbally. FALL SCREENING: Has the patient had 2 falls in the last year or 1 fall with injury or currently using an Ambulatory Assistive Device (Walker, Cane, Wheelchair, Crutches, etc.)? No PATIENT GENDER DATA: Male PATIENT RELEVANT IMPLANT DATA REVIEWED: Yes RADIOLOGY DEPARTMENT: General X-ray: Exam(s) Completed: Chest X-Ray PERIPHERAL IV DATA: Not applicable SIGNED BY: RT Carlton(R) October 01, 2021 2:03 PM documented in this encounterMercy Health [facility]06-02-[facility]22 History of Present illness Narrative* Tito Macias MD - 09/17/2021 3:08 PM EDT This note was created using [email or web address]. Subjective Jorge Ramires is a 81 year old male. He was treated for pneumonia 7 weeks ago, and was now oxygendependent. His back pain resolved. We reviewed his labs. Review of Systems Constitutional: Positive for unexpected weight change. Negative for chills and fever. HENT: Negative for congestion and nosebleeds. Respiratory: Negative for cough, shortness of breath and wheezing. Cardiovascular: Negative. Gastrointestinal: Negative for abdominal pain and blood in stool. Musculoskeletal: Negative for back pain. Neurological: Negative. ACTIVE PROBLEM LIST Hyperlipidemia, Unspecified PERSONAL HISTORY OF GI-COLONIC POLYPS Bph With Obstruction/Lower Urinary Tract Symptoms Esophageal Reflux Seborrheic Dermatitis, Unspecified Personal History of Malignant Neoplasm of Bronchus and Lung Essential Hypertension, Benign Hiatal Hernia Thrombocytopenia (Hcc) Idiopathic Pulmonary Fibrosis (Hcc) Obesity, Class I, Bmi 30-34.9 Thyroid Nodule Greater Than Or Equal to 1 Cm in Diameter Incidentally Noted On Imaging Study Centrilobular Emphysema (Hcc) Copd With Chronic Bronchitis (Hcc) Current Outpatient Medications Medication Sig omega3/dha/epa/fish oil/vit D3 (FISH OIL-VIT D3 ORAL) Take by mouth. fluticasone-salmeterol (ADVAIR, WIXELA) 250-50 mcg/dose inhaler Inhale 1 Each as instructed twice daily. guaiFENesin (MUCINEX) 600 mg 12 hr tablet Take 1 tablet by mouth twice daily. lisinopril (ZESTRIL, PRINIVIL) 10 mg tablet Take 1 tablet by mouth once daily. oxybutynin XL (DITROPAN XL) 5 mg 24 hr tablet Take 1 tablet by mouth once daily. tamsulosin (FLOMAX) 0.4 mg Take 2 capsules by mouth once daily. pantoprazole DR (PROTONIX) 20 mg tablet Take 1 tablet by mouth once daily. simvastatin (ZOCOR) 10 mg tablet Take 1 tablet by mouth daily at bedtime. albuterol HFA (PROVENTIL HFA, VENTOLIN HFA) 90 mcg/actuation inhaler Inhale 2 Puffs as instructed four times daily as needed. FOR WHEEZING AND SHORTNESS OF BREATH. Coenzyme Q10 100 mg ORAL Cap Take 1 capsule by mouth once daily. aspirin(ADULT ASPIRIN EC LOW STRENGTH 81 MG TAB, DELAYED RELEASE) Take one(1) tablet daily. naproxen sodium(ALEVE 220 MG TAB) Take one(1) tablet twice daily. THERAPEUTIC MULTIVIT/MINERAL TAB Take one(1) tablet daily. No current facility-administered medications for this visit. Objective BP 104/62 (BP Site: Left Arm, BP Position: Sitting, BP Cuff Size: Large Adult) Pulse 80 Temp 36.1 C (97 F) (Temporal Artery) Resp 20 Wt 81.6 kg (179 lb 12.8 oz) SpO2 96% BMI 26.86 kg/m Physical Exam Constitutional: General: He is not in acute distress. Comments: On portable concentrator. Cardiovascular: Rate and Rhythm: Normal rate and regular rhythm. Heart sounds: No murmur heard. No gallop. Pulmonary: Effort: No respiratory distress. Breath sounds: Rhonchi present. No wheezing or rales. Abdominal: Tenderness: There is no abdominal tenderness. Musculoskeletal: Right lower leg: No edema. Left lower leg: No edema. Neurological: Mental Status: He is alert. Gait: Gait normal. Component Latest Ref Rng & Units 09/10/2021 Protein, Total 6.3 - 8.0 g/dL 6.6 Albumin 3.9 - 4.9 g/dL 3.4 (L) Calcium 8.5 - 10.2 mg/dL 8.9 Bilirubin, Total 0.2 - 1.3 mg/dL 0.4 Alkaline Phosphatase 38 - 113 U/L 78 AST 14 - 40 U/L 20 ALT 10 - 54 U/L 12 Glucose 74 - 99 mg/dL 94 BUN 9 - 24 mg/dL 24 Creatinine 0.73 - 1.22 mg/dL 0.70 (L) Sodium 136 - 144 mmol/L 136 Potassium 3.7 - 5.1 mmol/L 4.2 Chloride 97 - 105 mmol/L 101 CO2 22 - 30 mmol/L 29 Anion Gap 9 - 18 mmol/L 6 (L) eGFR >=60 mL/min/1.73m 93 WBC 3.70 - 11.00 k/uL 6.98 RBC 4.20 - 6.00 m/uL 4.43 Hemoglobin 13.0 - 17.0 g/dL 12.0 (L) Hematocrit 39.0 - 51.0 % 38.2 (L) MCV 80.0 - 100.0 fL 86.2 MCH 26.0 - 34.0 pg 27.1 MCHC 30.5 - 36.0 g/dL 31.4 RDW-CV 11.5 - 15.0 % 13.2 Platelet Count 150 - 400 k/uL 199 MPV 9.0 - 12.7 fL 10.4 Absolute nRBC <0.01 k/uL <0.01 Cholesterol, Total <200 mg/dL 129 Triglyceride <150 mg/dL 54 HDL Cholesterol >39 mg/dL 41 Non HDL Cholesterol <130 mg/dL 88 Fasting Time hrs 12 VLDL Cholesterol <30 mg/dL 11 TC:HDL Ratio <5.10 3.15 LDL Cholesterol <100 mg/dL 77 LDL:HDL Ratio <2.54 1.88 Assessment and Plan 1. Dependence on continuous supplemental oxygen - ICD9: V46.2, ICD10: Z99.81 (primary diagnosis) Continue per pulmonary. 2. Idiopathic pulmonary fibrosis (HCC) - ICD9: 516.31, ICD10: J84.112 Stable. 3. Centrilobular emphysema (HCC) - ICD9: 492.8, ICD10: J43.2 Stable. 4. 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 - ALBUMIN BLD 5. Anemia, unspecified type - ICD9: 285.9, ICD10: D64.9 Monitor. - CBC 6. Hyperlipidemia, unspecified hyperlipidemia type - ICD9: 272.4, ICD10: E78.5 - good control - Continue current medication. 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 documented as of this encounter (statuses as of 08/20/2022) [facility] of Past illness Narrative* Problem Noted Date Resolved Date Hypoalbuminemia due to protein-calorie malnutrit ion 09/17/2021 08/20/2022 Thrombocytopenia 06/12/2014 08/20/2022 Ganglion and cyst of synovium, tendon and bursa 03/22/2013 07/02/2015 Erectile dysfunction 03/13/2010 05/09/2017 Nonspecific (abnormal) findi ngs on radiological and other examination of lung field 03/17/2007 06/12/2014 Hematospermia 01/17/2006 06/11/2014 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 documented as of this encounter (statuses as of 08/27/2022) [facility] of Past illness Narrative* Problem Noted Date Resolved Date Hypoalbuminemia due to protein-calorie malnutrit ion 09/17/2021 08/20/2022 Thrombocytopenia 06/12/2014 08/20/2022 Ganglion and cyst of synovium, tendon and bursa 03/22/2013 07/02/2015 Erectile dysfunction 03/13/2010 05/09/2017 Nonspecific (abnormal) findi ngs on radiological and other examination of lung field 03/17/2007 06/12/2014 Hematospermia 01/17/2006 06/11/2014 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 documented as of this encounter (statuses as of 10/10/2022) [facility] Narrative* Problem Noted Date Diagnosed Date Resolved Date Hypoalbuminemia due to prote in-calorie malnutrition 09/17/2021 08/20/2022 Thrombocytopenia 06/12/2014 08/20/2022 Ganglion and cyst of synoviu m, tendon and bursa 03/22/2013 07/02/2015 Erectile dysfunction 03/13/2010 018 Nonspecific (abnormal) findi ngs on radiological and other examination of lung field 03/17/2007 06/12/2014 Hematospermia 01/17/2006 06/11/2014 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 documented as of this encounter (statuses as of 11/16/2022) [facility] Narrative* Problem Noted Date Diagnosed Date Resolved Date Hypoalbuminemia due to prote in-calorie malnutrition 09/17/2021 08/20/2022 Thrombocytopenia 06/12/2014 08/20/2022 Ganglion and cyst of synoviu m, tendon and bursa 03/22/2013 07/02/2015 Erectile dysfunction 03/13/2010 018 Nonspecific (abnormal) findi ngs on radiological and other examination of lung field 03/17/2007 06/12/2014 Hematospermia 01/17/2006 06/11/2014 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 documented as of this encounter (statuses as of 11/17/2022) [facility] Narrative* Problem Noted Date Diagnosed Date Resolved Date Hypoalbuminemia due to prote in-calorie malnutrition 09/17/2021 08/20/2022 Thrombocytopenia 06/12/2014 08/20/2022 Ganglion and cyst of synoviu m, tendon and bursa 03/22/2013 07/02/2015 Erectile dysfunction 03/13/2010 018 Nonspecific (abnormal) findi ngs on radiological and other examination of lung field 03/17/2007 06/12/2014 Hematospermia 01/17/2006 06/11/2014 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 documented as of this encounter (statuses as of 12/01/2022) [facility] Narrative* Problem Noted Date Diagnosed Date Resolved Date Hypoalbuminemia due to prote in-calorie malnutrition 09/17/2021 08/20/2022 Thrombocytopenia 06/12/2014 08/20/2022 Ganglion and cyst of synoviu m, tendon and bursa 03/22/2013 07/02/2015 Erectile dysfunction 03/13/2010 018 Nonspecific (abnormal) findi ngs on radiological and other examination of lung field 03/17/2007 06/12/2014 Hematospermia 01/17/2006 06/11/2014 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 documented as of this encounter (statuses as of 12/02/2022) [facility] Narrative* Problem Noted Date Diagnosed Date Resolved Date Hypoalbuminemia due to prote in-calorie malnutrition 09/17/2021 08/20/2022 Thrombocytopenia 06/12/2014 08/20/2022 Ganglion and cyst of synoviu m, tendon and bursa 03/22/2013 07/02/2015 Erectile dysfunction 03/13/2010 018 Nonspecific (abnormal) findi ngs on radiological and other examination of lung field 03/17/2007 06/12/2014 Hematospermia 01/17/2006 06/11/2014 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 documented as of this encounter (statuses as of 12/02/2022) [facility] Narrative* Problem Noted Date Diagnosed Date Resolved Date Hypoalbuminemia due to prote in-calorie malnutrition 09/17/2021 08/20/2022 Thrombocytopenia 06/12/2014 08/20/2022 Ganglion and cyst of synoviu m, tendon and bursa 03/22/2013 07/02/2015 Erectile dysfunction 03/13/2010 018 Nonspecific (abnormal) findi ngs on radiological and other examination of lung field 03/17/2007 06/12/2014 Hematospermia 01/17/2006 06/11/2014 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 documented as of this encounter (statuses as of 01/20/2023) [facility] Narrative* Problem Noted Date Diagnosed Date Resolved Date Hypoalbuminemia due to prote in-calorie malnutrition 09/17/2021 08/20/2022 Thrombocytopenia 06/12/2014 08/20/2022 Ganglion and cyst of synoviu m, tendon and bursa 03/22/2013 07/02/2015 Erectile dysfunction 03/13/2010 018 Nonspecific (abnormal) findi ngs on radiological and other examination of lung field 03/17/2007 06/12/2014 Hematospermia 01/17/2006 06/11/2014 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 documented as of this encounter (statuses as of 02/20/2023) [facility] Narrative* Problem Noted Date Diagnosed Date Resolved Date Hypoalbuminemia due to prote in-calorie malnutrition 09/17/2021 08/20/2022 Thrombocytopenia 06/12/2014 08/20/2022 Ganglion and cyst of synoviu m, tendon and bursa 03/22/2013 07/02/2015 Erectile dysfunction 03/13/2010 018 Nonspecific (abnormal) findi ngs on radiological and other examination of lung field 03/17/2007 06/12/2014 Hematospermia 01/17/2006 06/11/2014 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 documented as of this encounter (statuses as of 02/20/2023) [facility] Narrative* Problem Noted Date Diagnosed Date Resolved Date Hypoalbuminemia due to prote in-calorie malnutrition 09/17/2021 08/20/2022 Thrombocytopenia 06/12/2014 08/20/2022 Ganglion and cyst of synoviu m, tendon and bursa 03/22/2013 07/02/2015 Erectile dysfunction 03/13/2010 018 Nonspecific (abnormal) findi ngs on radiological and other examination of lung field 03/17/2007 06/12/2014 Hematospermia 01/17/2006 06/11/2014 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 documented as of this encounter (statuses as of 02/20/2023) [facility] Narrative* Problem Noted Date Diagnosed Date Resolved Date Hypoalbuminemia due to prote in-calorie malnutrition 09/17/2021 08/20/2022 Thrombocytopenia 06/12/2014 08/20/2022 Ganglion and cyst of synoviu m, tendon and bursa 03/22/2013 07/02/2015 Erectile dysfunction 03/13/2010 018 Nonspecific (abnormal) findi ngs on radiological and other examination of lung field 03/17/2007 06/12/2014 Hematospermia 01/17/2006 06/11/2014 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 documented as of this encounter (statuses as of 03/07/2023) [facility] Narrative* Problem Noted Date Diagnosed Date Resolved Date Hypoalbuminemia due to prote in-calorie malnutrition 09/17/2021 08/20/2022 Thrombocytopenia 06/12/2014 08/20/2022 Ganglion and cyst of synoviu m, tendon and bursa 03/22/2013 07/02/2015 Erectile dysfunction 03/13/2010 018 Nonspecific (abnormal) findi ngs on radiological and other examination of lung field 03/17/2007 06/12/2014 Hematospermia 01/17/2006 06/11/2014 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 documented as of this encounter (statuses as of 03/07/2023) [facility]arrative* Problem Noted Date Diagnosed Date Resolved Date Hypoalbuminemia due to prote in-calorie malnutrition 09/17/2021 08/20/2022 Thrombocytopenia 06/12/2014 08/20/2022 Ganglion and cyst of synoviu m, tendon and bursa 03/22/2013 07/02/2015 Erectile dysfunction 03/13/2010 018 Nonspecific (abnormal) findi ngs on radiological and other examination of lung field 03/17/2007 06/12/2014 Hematospermia 01/17/2006 06/11/2014 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 documented as of this encounter (statuses as of 03/08/2023) [facility] Narrative* Problem Noted Date Diagnosed Date Resolved Date Hypoalbuminemia due to prote in-calorie malnutrition 09/17/2021 08/20/2022 Thrombocytopenia 06/12/2014 08/20/2022 Ganglion and cyst of synoviu m, tendon and bursa 03/22/2013 07/02/2015 Erectile dysfunction 03/13/2010 018 Nonspecific (abnormal) findi ngs on radiological and other examination of lung field 03/17/2007 06/12/2014 Hematospermia 01/17/2006 06/11/2014 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 documented as of this encounter (statuses as of 03/12/2023) [facility]* Problem Noted Date Diagnosed Date Resolved Date Hypoalbuminemia due to prote in-calorie malnutrition 09/17/2021 08/20/2022 Thrombocytopenia 06/12/2014 08/20/2022 Ganglion and cyst of synoviu m, tendon and bursa 03/22/2013 07/02/2015 Erectile dysfunction 03/13/2010 018 Nonspecific (abnormal) findi ngs on radiological and other examination of lung field 03/17/2007 06/12/2014 Hematospermia 01/17/2006 06/11/2014 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 documented as of this encounter (statuses as of 03/19/2023) [facility]* Problem Noted Date Diagnosed Date Resolved Date Hypoalbuminemia due to prote in-calorie malnutrition 09/17/2021 08/20/2022 Thrombocytopenia 06/12/2014 08/20/2022 Ganglion and cyst of synoviu m, tendon and bursa 03/22/2013 07/02/2015 Erectile dysfunction 03/13/2010 018 Nonspecific (abnormal) findi ngs on radiological and other examination of lung field 03/17/2007 06/12/2014 Hematospermia 01/17/2006 06/11/2014 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 documented as of this encounter (statuses as of 05/30/2023) [facility] Narrative* Problem Noted Date Diagnosed Date Resolved Date Hypoalbuminemia due to prote in-calorie malnutrition 09/17/2021 08/20/2022 Thrombocytopenia 06/12/2014 08/20/2022 Ganglion and cyst of synoviu m, tendon and bursa 03/22/2013 07/02/2015 Erectile dysfunction 03/13/2010 018 Nonspecific (abnormal) findi ngs on radiological and other examination of lung field 03/17/2007 06/12/2014 Hematospermia 01/17/2006 06/11/2014 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 documented as of this encounter (statuses as of 06/03/2023) [facility]arrative* Problem Noted Date Diagnosed Date Resolved Date Hypoalbuminemia due to prote in-calorie malnutrition 09/17/2021 08/20/2022 Thrombocytopenia 06/12/2014 08/20/2022 Ganglion and cyst of synoviu m, tendon and bursa 03/22/2013 07/02/2015 Erectile dysfunction 03/13/2010 018 Nonspecific (abnormal) findi ngs on radiological and other examination of lung field 03/17/2007 06/12/2014 Hematospermia 01/17/2006 06/11/2014 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 documented as of this encounter (statuses as of 06/07/2023) [facility]arr[facility]* Problem Noted Date Diagnosed Date Resolved Date Hypoalbuminemia due to prote in-calorie malnutrition 09/17/2021 08/20/2022 Thrombocytopenia 06/12/2014 08/20/2022 Ganglion and cyst of synoviu m, tendon and bursa 03/22/2013 07/02/2015 Erectile dysfunction 03/13/2010 018 Nonspecific (abnormal) findi ngs on radiological and other examination of lung field 03/17/2007 06/12/2014 Hematospermia 01/17/2006 06/11/2014 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 documented as of this encounter (statuses as of 06/08/2023) [facility]* Problem Noted Date Diagnosed Date Resolved Date Hypoalbuminemia due to prote in-calorie malnutrition 09/17/2021 08/20/2022 Thrombocytopenia 06/12/2014 08/20/2022 Ganglion and cyst of synoviu m, tendon and bursa 03/22/2013 07/02/2015 Erectile dysfunction 03/13/2010 018 Nonspecific (abnormal) findi ngs on radiological and other examination of lung field 03/17/2007 06/12/2014 Hematospermia 01/17/2006 06/11/2014 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 documented as of this encounter (statuses as of 06/16/2023) [facility] Narrative* Problem Noted Date Diagnosed Date Resolved Date Hypoalbuminemia due to prote in-calorie malnutrition 09/17/2021 08/20/2022 Thrombocytopenia 06/12/2014 08/20/2022 Ganglion and cyst of synoviu m, tendon and bursa 03/22/2013 07/02/2015 Erectile dysfunction 03/13/2010 018 Nonspecific (abnormal) findi ngs on radiological and other examination of lung field 03/17/2007 06/12/2014 Hematospermia 01/17/2006 06/11/2014 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 documented as of this encounter (statuses as of 06/27/2023) [facility]06-02[facility]2022 History of Past illness Narrative* Problem Noted Date Diagnosed Date Resolved Date Hypoalbuminemia due to prote in-calorie malnutrition 09/17/2021 08/20/2022 Thrombocytopenia 06/12/2014 08/20/2022 Ganglion and cyst of synoviu m, tendon and bursa 03/22/2013 07/02/2015 Erectile dysfunction 03/13/2010 018 Nonspecific (abnormal) findi ngs on radiological and other examination of lung field 03/17/2007 06/12/2014 Hematospermia 01/17/2006 06/11/2014 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 documented as of this encounter (statuses as of 07/11/2023) [facility] History of Past illness Narrative* Problem Noted Date Diagnosed Date Resolved Date Hypoalbuminemia due to prote in-calorie malnutrition 09/17/2021 08/20/2022 Thrombocytopenia 06/12/2014 08/20/2022 Ganglion and cyst of synoviu m, tendon and bursa 03/22/2013 07/02/2015 Erectile dysfunction 03/13/2010 018 Nonspecific (abnormal) findi ngs on radiological and other examination of lung field 03/17/2007 06/12/2014 Hematospermia 01/17/2006 06/11/2014 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 documented as of this encounter (statuses as of 07/18/2023) [facility] History of Past illness Narrative* Problem Noted Date Diagnosed Date Resolved Date Hypoalbuminemia due to prote in-calorie malnutrition 09/17/2021 08/20/2022 Thrombocytopenia 06/12/2014 08/20/2022 Ganglion and cyst of synoviu m, tendon and bursa 03/22/2013 07/02/2015 Erectile dysfunction 03/13/2010 018 Nonspecific (abnormal) findi ngs on radiological and other examination of lung field 03/17/2007 06/12/2014 Hematospermia 01/17/2006 06/11/2014 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 HPI: Jorge Ramires is a 81 yo male with pmh significant for hypercholesterolemia, GERD, HTN, CAD, non small cell lung cancer left upper lobe, and IPF. Former smoker, quit 1981. 24 pack years. The patient is here for follow up of IPF and pneumonia. Since the last Pulmonary Clinic visit 07/28/2021, at which time patient was treated with Levaquin for pneumonia, the patient states he is feeling improved, but continues with productive cough. No hemoptysis. No pleuritic chest pain. No wheezing. No dyspnea at rest. Exertional dyspnea significantly improved after course of Levaquin. No fevers or chills. No lower extremity edema. Patient has been walking outside on days that are nice. He is interested in pulmonary rehab. Wearing 3 LPM supplemental oxygen with exertion and at night. DME: [facility] PMH: Updated with patient today. FAMH: Updated with patient today. SOCH: Updated with patient today. IMMUNIZATIONS Prevnar 13 - 02/06/2019, 06/14/2014 Pneumovax 23 - 02/06/2020, 12/30/2014, 02/05/2005 Influenza - 12/14/2020 COVID-19 - 07/16/2021, 12/21/2020, 05/29/2020, 05/09/2020 ROS: See HPI. Allergies were reviewed and updated, and medications were reconciled with the patient. PHYSICAL EXAMINATION: BP (P) 120/58 Pulse (P) 64 Resp (P) 17 Wt 81.2 kg (179 lb) SpO2 (P) 97% BMI 26.74 kg/m O2: 3 L Gen: No acute distress. Cooperative with examination. ENT: Oral hygeine and dentition good. Pharynx clear. No halitosis. No sign of oral thrush. Resp: No stridor, accessory respiratory muscle use, supra-sternal or intercostal retractions. No wheezes. Posterior bibasilar crackles. CV: Regular rythm. Heart tones normal. Radial pulses normal. Abd: Non distended. MSK: No kyphoscoliosis. Ext: Warm and well perfused. No clubbing, cyanosis, edema. Skin: No rash, ecchymoses. Neuro: Mental status normal. Affect normal. No tremor. DATA REVIEW: Reviewed previous PFT and Six Minute Walk. Reviewed CXR from 07/27/2021. ASSESSMENT/PLAN: 1. Idiopathic pulmonary fibrosis (HCC) - ICD9: 516.31, ICD10: J84.112 (primary diagnosis) Not wanting to start Ofev at this time. Is interested in pulmonary rehab at [facility]. Continue supplemental oxygen as directed. - OXIMETRY WITH AMBULATION 2. COPD with chronic bronchitis (HCC) - ICD9: 491.20, ICD10: J44.9 Continue Wixela 1 inhalation twice daily. Rinse mouth after each use to help prevent oral thrush. Albuterol HFA inhaler, 2 inhalations 10 15 minutes prior to activities associated with shortness ofbreath, and as needed for rescue relief of shortness of breath or wheezing, up to 4 times daily. Up to date on annual influenza, pneumococcal and Covid 19 vaccines. 3. Pulmonary arterial hypertension (HCC) - ICD9: 416.8, ICD10: I27.21 Last echo 08/2020, RVSP 55 mmHg consistent with moderate pulmonary HTN. - OXIMETRY WITH AMBULATION 4. Chronic hypoxemic respiratory failure (HCC) - ICD9: 518.83, 799.02, ICD10: J96.11 Continue with 3 L supplemental oxygen with exertion and at night. Will do oximetry with ambulation prior to next office visit. - OXIMETRY WITH AMBULATION 5. Pneumonia of left lower lobe due to infectious organism - ICD9: 486, ICD10: J18.9 Symptomatically patient is doing well. Completed course of Levaquin. CXR prior to next office visit. 6. Cough - ICD9: 786.2, ICD10: R05.9 - GUAIFENESIN ER 600 MG TABLET, EXTENDED RELEASE 12 HR - GUAIFENESIN ER 600 MG TABLET, EXTENDED RELEASE 12 HR I addressed the questions of the patient and daughter, and they expressed understanding and acceptance of my answers. Rashida Lay PA-C documented in this encounterMer[facility] Miscellaneous Notes* Telephone Encounter - Delfina Temple RN - 07/31/2021 9:53 AM EDT Most recent OV notes faxed to [employer] at below fax number per request from Bishop at [employer]. Delfina Temple RN documented in this encounterMer[facility]22 Miscellaneous Notes* Telephone Encounter - Radha Brooks - 07/31/2021 8:14 AM EDT Faxed as requested. Radha Brooks * Telephone Encounter - Radha Brooks - 07/29/2021 1:14 PM EDT Sophy calling for orders for portable Oxygen equipment. Order is from Dr. Spicer but due to him not being physically in the office this week they will send the fax with Rashida's info on it for signature to expedite the order. If we for some reason do not receive this fax, we are to call Mcghee back at [phone]. Radha Brooks documented in this encounterMer[facility]22 Miscellaneous Notes* Telephone Encounter - Anette Patricia LPN - 07/30/2021 4:00 PM EDT Order sent. Patient notified in separate encounter. Anette Patricia LPN documented in this encounterMer[facility]22 Miscellaneous Notes* Telephone Encounter - Rashida Lay PA-C - 07/30/2021 11:24 AM EDT Order ready to be FAXED. Leyda * Telephone Encounter - Alyson Parra RN - 07/30/2021 10:54 AM EDT Sasha calling back [phone] She was just at his house and po2 is 84% at rest o2 is being delivered today [facility] and asked if the delivery could be rushed today * Telephone Encounter - Alyson Parra RN - 07/30/2021 8:48 AM EDT Pts daughter calling for pt Sasha [phone] Asking for the POC order to [facility] they are also providing pt with home oxygen too States th order must say portable oxygen, mini oxygen tanks and conserving device fax no. [phone] documented in this encounterMer[facility]22 Instructions* Patient Instructions* Jose R Spicer MD - 07/28/2021 3:59 PM EDT Patient agreed to receive AVS and Instructions via [employer] message. I am retiring from the staff of [facility] and the practice of Medicine on October 15, 2021, after 41 years of service to my patients. It has been my privilege to provide you with Pulmonary consultation and care for the time we have known each other. Please feel confident that my colleagues are well equipped to provide ongoing care in the future: Carol Copeland MD and Rashida Lay PA-C. Jose R pSicer MD, [facility] [address] [address] P: [phone] F: [phone] [email or web address] documented in this encounterMercy Health [facility]04-[facility]22 Procedure note* Sabi Ellis RRT - 07/28/2021 3:15 PM EDT Associated Order(s): OXIMETRY WITH AMBULATION RESPIRATORY THERAPY OXIMETRY WITH AMBULATION Oximetry with Ambulation Test for This Encounter O2 Device O2 Adapter NC O2 Flow SpO2% HR Activity Ft Walked (ft) Time (min) Avg Speed (MPH) R/A 93 91 Resting R/A 79 125 Walking, usual pace 350 2 1.99 NC 2 96 98 Resting NC 2 87 116 Walking, usual pace 330 2 1.87 NC 3 98 92 Resting NC 3 89 114 Walking, usual pace 465 3 1.76 General Information Pulse Oximetry Site Total Time Spent O2 Supply Carrier Walking Assistance/Device Forehead 65 3 Wheel Walker NAME: Sabi Ellis RRT PATIENT NAME: Jorge Ramires DATE: July 28, 2021 TIME: 3:15 PM Comment: documented in this encounterMercy Health [facility] History of Present illness Narrative* Jose R Spicer MD - 07/28/2021 3:08 PM EDT [facility] [place], 07/28/2021: Name: Jorge Ramires : 1940 The patient is here today with his daughter, Sasha Tejeda, who attends the entire visit, exam and discussion. INTERVAL HISTORY: Mr. Ramires had been reasonably stable until a few weeks ago, his daughter called us on 07/27/2021 with a history of 3 weeks of fatigue, chills and increased exertional dyspnea. The symptoms were relatively abrupt in onset, associated with profound weakness and fatigue. They performed a home rapid Covid test that was negative. They used their home oximeter to measure pulse oximetry of 88% at rest. These symptoms have worsened over the past week. ROS: Gen: Generalized weakness. No fever, anorexia, weight loss. ENT: No purulent secretion, epistaxis, hoarseness. CV: No palpitations, angina, syncope, orthopnea, paroxysmal nocturnal dyspnea, lower extremity edema. GI: No dysphagia, emesis, abdominal pain, diarrhea, jaundice. Allergies reviewed and updated, and medications reconciled today. Problem list, PMH, PSH, FAMH, SOCH: Reviewed with patient today, and updated accordingly. Immunizations reviewed today. PHYSICAL EXAMINATION: BP 98/59 Pulse 91 Wt 83 kg (183 lb) SpO2 93% BMI 27.34 kg/m Gen: No acute distress. Cooperative with examination. Appearance is still younger than his recordedage. ENT: Sclerae clear. Nares clear. Oral hygeine and dentition are good. Pharynx is clear, and there is no halitosis. Resp: No stridor, accessory respiratory muscle use, supra-sternal retractions. A-P diameter normal.Posterior bibasilar crackles. No wheezes, pleural rubs. CV: Regular rythm. Heart tones normal. Radial pulses normal. Abd: Not distended. MSK: No kyphoscoliosis. No joint deformities of the wrists, hands, fingers. Ext: Warm and well perfused. No clubbing, cyanosis, pedal edema, sclerodactyly, Raynaud's. Skin: Color normal. Texture normal. No rash, eczema, urticaria, telangiectasia, ecchymoses. Endo: No goiter, exophthalmos, onycholysis. Neuro: Mental status normal. Affect normal. Muscle strength symmetrical. No tremor. DATA REVIEW: DATE: 07/28/2021 04/02/2021 09/18/2020 08/18/2020 01/17/2020 07/04/2019 11/10/18 FVC 2.05, 56% 2.16, 59% 2.35, 64% 2.30, 63% 2.39, 65% 2.34, 64% 2.50, 62% FEV1 1.69, 62% 1.73, 64% 1.91, 70% 1.80, 66% 1.88, 68% 1.89, 69% 1.90, 65% FEV1/FVC 0.82 0.80 0.81 0.78 0.79 0.81 0.76 TLC xx xx xx xx xx xx DLCO 8.38, 36% xx xx xx 12.68, 54% 12.76, 55% 10.8, 45% Six Minute Walk Test, 07/28/2021 FiO2 spO2% HR Activity Feet Speed (MPH) R/A 93 91 Resting R/A 79 125 Six Min Walk 350 0.7 NC, 2L 96 98 Recovery Six Minute Walk Test, 01/17/2020 FiO2 SpO2% HR Activity Feet Speed (MPH) R/A 97 76 Resting R/A 89 97 Six Minute Walk 1300 2.5 R/A 89 82 Recovery R/A 95 70 Recovery R/A 96 76 Recovery Oximetry with Ambulation Test, 07/28/2021 FiO2 spO2% HR Activity Feet Time (minutes) R/A 93 91 Resting R/A 79 125 Walking 350 2 NC, 2L 96 98 Resting NC, 2L 87 116 Walking 330 2 NC, 3L 98 92 Resting NC, 3L 89 114 Walking 465 Echocardiogram, 08/28/2020 CONCLUSIONS: - Technically difficult exam due to body habitus and left lobectomy. - Exam indication: Shortness of Breath - The left ventricle is normal in size. Left ventricular systolic function is normal. EF = 62 5% (2D 4-ch.) Grade I left ventricular diastolic dysfunction. - The right ventricle is mildly dilated. Right ventricular systolic function is normal. - The visualized aorta is dilated with a maximal dimension of 4.1 cm. - Estimated right ventricular systolic pressure is 55 mmHg consistent with moderate pulmonary hypertension. Estimated right atrial pressure is 3 mmHg (although IVC not seen). - Exam was compared with the prior echocardiographic exam performed on 11/30/2018. MEDICAL DECISION MAKIN. Idiopathic Pulmonary Fibrosis. Symptomatically increased exertional dyspnea, further decline in FVC, marked decline in 6MW distance and development of ambulatory hypoxemia; at this time associated with abrupt onset of pleuritic left posterior chest pain, rigors, increasedcough and sputum suggestive of acute community acquired pneumonia. Chest x-ray also suggests focal infiltrate in left lung base. He did not notice fever or hemoptysis. -Levofloxacin, 750 mg daily by mouth for 14 days. I discussed treatment options and alternatives with the patient, including mechanisms of actions of the medications recommended, and possible side effects of this medication -Initiate supplemental oxygen therapy, 3 L with ambulation and activity as well as during sleep. Patient and his daughter will be initiating contact with [employer], I want a portable concentrator. I will fax an order for the stationary oxygen concentrator to the [facility] office in [place]. -I again addressed consideration of antifibrotic therapy; however, the patient and his daughter were overwhelmed by the questions and persistence associated with our previous prescription Ofev, and they have requested we postpone such decision until after evaluating the response to antibiotic therapy of possible left lower lobe pneumonia. -I also discussed the potential utility of lung transplantation in the treatment of idiopathic pulmonary fibrosis; however, I highlighted that his age of 81 years is a very strong relative contraindication to transplantation. 2. Emphysema noted on imaging. Patient with history of tobacco use. Had symptomatically improved with initiation of Dulera, FEV1 increased. -Dulera 2 inhalations twice daily. Rinse mouth after each use to help prevent oral thrush. Patient prefers this to Wixela which was substituted by [facility]. -Albuterol HFA inhaler, 2 inhalations 10 15 minutes prior to activities associated with shortness of breath, and as needed for rescue relief of shortness of breath or wheezing, up to 4 times daily. -Up to date on annual influenza vaccine. Pneumococcal vaccine up to date. COVID- 19 completed. 3. Pulmonary HTN, moderate. RVSP 55 mmHg on current echocardiogram. I addressed the questions of the patient and his daughter, and they expressed understanding and acceptance of my answers. Jose R Spicer MD, [facility] [address] [place] [address] P: [phone] F: [phone] [email or web address] documented in this encounterMercy [facility] History of Present illness Narrative* Sabi lElis RRT - 07/28/2021 3:03 PM EDT PULM FUNCTION SMARTBLOCK: Provider: Jose R Spicer MD Assisting Tech: Sabi Ellis RRT Spirometry: 1 DLCO: 1 LV - Box: 1 Oximetry - Ambulation: 1 6 MW: 1 System: [id number] documented in this encounterMercy Health [facility]04-12-2022 Nurse Note* Anette Patricia LPN - 07/28/2021 2:44 PM EDT Intake information documented in the prior visit with Sabi Ellis RRT, RPFT today. documented in this encounterMercy Health [facility]04-11-2022 History of Present illness Narrative* RT Carlton(R) - 07/27/2021 1:40 PM EDT Radiology Service Progress Note PATIENT NAME: Jorge Ramires DATE OF SERVICE: July 27, 2021 TIME: 1:34 PM PATIENT IDENTITY VERIFICATION COMPLETED USING TWO (2) IDENTIFIERS: Name and Date of confirmedby patient verbally. FALL SCREENING: Has the patient had 2 falls in the last year or 1 fall with injury or currently using an Ambulatory Assistive Device (Walker, Cane, Wheelchair, Crutches, etc.)? No PATIENT GENDER DATA: Male PATIENT RELEVANT IMPLANT DATA REVIEWED: Yes RADIOLOGY DEPARTMENT: General X-ray: Exam(s) Completed: Chest X-Ray PERIPHERAL IV DATA: Not applicable SIGNED BY: RT Carlton(R) July 27, 2021 1:34 PM documented in this encounterMercy Health [facility]04-11-2022 Miscellaneous Notes* Telephone Encounter - Anette Patricia LPN - 07/27/2021 12:54 PM EDT Detailed message left for patient. Anettealexandra Patricia LPN * Telephone Encounter - Jose R Spicer MD - 07/27/2021 12:24 PM EDT CXR order placed. Is also scheduled for Pulmonary Function Testing at time of visit. Jose R Spicer MD, [facility] [address] [address] P: [phone] F: [phone] [email or web address] * Telephone Encounter - Karol Bruno RN - 07/27/2021 9:13 AM EDT Patient's daughterSasha calls to request an order for a chest x-ray. Patient has an office appointment with Dr Spicer tomorrow. Per daughter, for the past 3 weeks patient has had fatigue, chills and SOB with exertion. Patient is not on supplemental O2. Pulse ox has been around 88. These symptoms have worsened over the past week. Rapid covid test is negative. Patient is negative for elevated temperature, wheezing and cough. Daughter and patient are requesting a chest x-ray today to be reviewed at the office visit tomorrow. Please advise. Patient is requesting a return call from our office. Karol Bruno RN documented in this encounterMercy Health [facility]04-06-2022 Miscellaneous Notes* Telephone Encounter - Wade Oreilly Ma - 07/22/2021 2:15 PM EDT Faxed to [facility] as requested. Wade Oreilly Ma * Telephone Encounter - Erika Chan APRN.CNP - 07/22/2021 1:47 PM EDT This was ordered, please fax to [facility] Erika Chan APRN.CNP * Telephone Encounter - Franci Reilly RN - 07/21/2021 4:53 PM EDT Patient calls to request a referral for PT at [facility]. Patient reports that he has been seeinga chiropractor for back pain and it has helped some but he thought maybe some therapy would also benefit. Patient reports he wakes up every morning with back pain that doesn't get any better as the day goes on. Order pended for review. Franci Reilly RN documented in this encounterMercy Health [facility]03-01-2021 History of Present illness Narrative* Henry Steinberg Tech (Rt) - 06/16/2020 2:40 PM EST Radiology Service Progress Note PATIENT NAME: Jorge Ramires DATE OF SERVICE: June 16, 2020 TIME: 2:39 PM PATIENT IDENTITY VERIFICATION COMPLETED USING TWO (2) IDENTIFIERS: Name and Date of confirmedby patient verbally. FALL SCREENING: Has the patient had 2 falls in the last year or 1 fall with injury or currently using an Ambulatory Assistive Device (Walker, Cane, Wheelchair, Crutches, etc.)? No PATIENT GENDER DATA: Male PATIENT RELEVANT IMPLANT DATA REVIEWED: Not Applicable RADIOLOGY DEPARTMENT: General X-ray: Exam(s) Completed: Upper Extremity X- Ray(s): Fingers/Thumb, left : PERIPHERAL IV DATA: Not applicable SIGNED BY: RT Alissa June 16, 2020 2:39 PM documented in this encounterMercy Health [facility]12-05-2013 History of Past illness Narrative* Problem Noted Date Resolved Date Ganglion and cyst of synovium, tendon and bursa 03/22/2013 07/02/2015 Erectile dysfunction 03/13/2010 05/09/2017 Nonspecific (abnormal) findi ngs on radiological and other examination of lung field 03/17/2007 06/12/2014 Hematospermia 01/17/2006 06/11/2014 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 documented as of this encounter (statuses as of 07/22/2021) [facility] of Past illness Narrative* Problem Noted Date Resolved Date Ganglion and cyst of synovium, tendon and bursa 03/22/2013 07/02/2015 Erectile dysfunction 03/13/2010 05/09/2017 Nonspecific (abnormal) findi ngs on radiological and other examination of lung field 03/17/2007 06/12/2014 Hematospermia 01/17/2006 06/11/2014 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 documented as of this encounter (statuses as of 07/27/2021) [facility] of [facility] illness Narrative* Problem Noted Date Resolved Date Ganglion and cyst of synovium, tendon and bursa 03/22/2013 07/02/2015 Erectile dysfunction 03/13/2010 05/09/2017 Nonspecific (abnormal) findi ngs on radiological and other examination of lung field 03/17/2007 06/12/2014 Hematospermia 01/17/2006 06/11/2014 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 documented as of this encounter (statuses as of 07/28/2021) [facility] Narrative* Problem Noted Date Resolved Date Ganglion and cyst of synovium, tendon and bursa 03/22/2013 07/02/2015 Erectile dysfunction 03/13/2010 05/09/2017 Nonspecific (abnormal) findi ngs on radiological and other examination of lung field 03/17/2007 06/12/2014 Hematospermia 01/17/2006 06/11/2014 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 documented as of this encounter (statuses as of 07/28/2021) [facility] Narrative* Problem Noted Date Resolved Date Ganglion and cyst of synovium, tendon and bursa 03/22/2013 07/02/2015 Erectile dysfunction 03/13/2010 05/09/2017 Nonspecific (abnormal) findi ngs on radiological and other examination of lung field 03/17/2007 06/12/2014 Hematospermia 01/17/2006 06/11/2014 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 documented as of this encounter (statuses as of 07/29/2021) [facility] Narrative* Problem Noted Date Resolved Date Ganglion and cyst of synovium, tendon and bursa 03/22/2013 07/02/2015 Erectile dysfunction 03/13/2010 05/09/2017 Nonspecific (abnormal) findi ngs on radiological and other examination of lung field 03/17/2007 06/12/2014 Hematospermia 01/17/2006 06/11/2014 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 documented as of this encounter (statuses as of 07/30/2021) [facility] Narrative* Problem Noted Date Resolved Date Ganglion and cyst of synovium, tendon and bursa 03/22/2013 07/02/2015 Erectile dysfunction 03/13/2010 05/09/2017 Nonspecific (abnormal) findi ngs on radiological and other examination of lung field 03/17/2007 06/12/2014 Hematospermia 01/17/2006 06/11/2014 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 documented as of this encounter (statuses as of 07/30/2021) [facility] Narrative* Problem Noted Date Resolved Date Ganglion and cyst of synovium, tendon and bursa 03/22/2013 07/02/2015 Erectile dysfunction 03/13/2010 05/09/2017 Nonspecific (abnormal) findi ngs on radiological and other examination of lung field 03/17/2007 06/12/2014 Hematospermia 01/17/2006 06/11/2014 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 documented as of this encounter (statuses as of 07/31/2021) [facility] Narrative* Problem Noted Date Resolved Date Ganglion and cyst of synovium, tendon and bursa 03/22/2013 07/02/2015 Erectile dysfunction 03/13/2010 05/09/2017 Nonspecific (abnormal) findi ngs on radiological and other examination of lung field 03/17/2007 06/12/2014 Hematospermia 01/17/2006 06/11/2014 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 documented as of this encounter (statuses as of 07/31/2021) [facility]12-[facility]-2013 History of Past illness Narrative* Problem Noted Date Resolved Date Ganglion and cyst of synovium, tendon and bursa 03/22/2013 07/02/2015 Erectile dysfunction 03/13/2010 05/09/2017 Nonspecific (abnormal) findi ngs on radiological and other examination of lung field 03/17/2007 06/12/2014 Hematospermia 01/17/2006 06/11/2014 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 documented as of this encounter (statuses as of 08/17/2021) [facility] History of Past illness Narrative* Problem Noted Date Resolved Date Ganglion and cyst of synovium, tendon and bursa 03/22/2013 07/02/2015 Erectile dysfunction 03/13/2010 05/09/2017 Nonspecific (abnormal) findi ngs on radiological and other examination of lung field 03/17/2007 06/12/2014 Hematospermia 01/17/2006 06/11/2014 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 documented as of this encounter (statuses as of 08/27/2021) [facility] History of Past illness Narrative* Problem Noted Date Resolved Date Ganglion and cyst of synovium, tendon and bursa 03/22/2013 07/02/2015 Erectile dysfunction 03/13/2010 05/09/2017 Nonspecific (abnormal) findi ngs on radiological and other examination of lung field 03/17/2007 06/12/2014 Hematospermia 01/17/2006 06/11/2014 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 documented as of this encounter (statuses as of 09/17/2021) [facility] History of Past illness Narrative* Problem Noted Date Resolved Date Ganglion and cyst of synovium, tendon and bursa 03/22/2013 07/02/2015 Erectile dysfunction 03/13/2010 05/09/2017 Nonspecific (abnormal) findi ngs on radiological and other examination of lung field 03/17/2007 06/12/2014 Hematospermia 01/17/2006 06/11/2014 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 documented as of this encounter (statuses as of 10/01/2021) [facility] History of Past illness Narrative* Problem Noted Date Resolved Date Ganglion and cyst of synovium, tendon and bursa 03/22/2013 07/02/2015 Erectile dysfunction 03/13/2010 05/09/2017 Nonspecific (abnormal) findi ngs on radiological and other examination of lung field 03/17/2007 06/12/2014 Hematospermia 01/17/2006 06/11/2014 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 documented as of this encounter (statuses as of 10/02/2021) [facility] History of Past illness Narrative* Problem Noted Date Resolved Date Ganglion and cyst of synovium, tendon and bursa 03/22/2013 07/02/2015 Erectile dysfunction 03/13/2010 05/09/2017 Nonspecific (abnormal) findi ngs on radiological and other examination of lung field 03/17/2007 06/12/2014 Hematospermia 01/17/2006 06/11/2014 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 documented as of this encounter (statuses as of 10/04/2021) [facility] History of Past illness Narrative* Problem Noted Date Resolved Date Ganglion and cyst of synovium, tendon and bursa 03/22/2013 07/02/2015 Erectile dysfunction 03/13/2010 05/09/2017 Nonspecific (abnormal) findi ngs on radiological and other examination of lung field 03/17/2007 06/12/2014 Hematospermia 01/17/2006 06/11/2014 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 documented as of this encounter (statuses as of 10/12/2021) [facility] History of Past illness Narrative* Problem Noted Date Resolved Date Ganglion and cyst of synovium, tendon and bursa 03/22/2013 07/02/2015 Erectile dysfunction 03/13/2010 05/09/2017 Nonspecific (abnormal) findi ngs on radiological and other examination of lung field 03/17/2007 06/12/2014 Hematospermia 01/17/2006 06/11/2014 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 documented as of this encounter (statuses as of 10/26/2021) [facility] History of Past illness Narrative* Problem Noted Date Resolved Date Ganglion and cyst of synovium, tendon and bursa 03/22/2013 07/02/2015 Erectile dysfunction 03/13/2010 05/09/2017 Nonspecific (abnormal) findi ngs on radiological and other examination of lung field 03/17/2007 06/12/2014 Hematospermia 01/17/2006 06/11/2014 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 documented as of this encounter (statuses as of 11/20/2021) [facility] History of Past illness Narrative* Problem Noted Date Resolved Date Ganglion and cyst of synovium, tendon and bursa 03/22/2013 07/02/2015 Erectile dysfunction 03/13/2010 05/09/2017 Nonspecific (abnormal) findi ngs on radiological and other examination of lung field 03/17/2007 06/12/2014 Hematospermia 01/17/2006 06/11/2014 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 documented as of this encounter (statuses as of 12/04/2021) [facility] History of Past illness Narrative* Problem Noted Date Resolved Date Ganglion and cyst of synovium, tendon and bursa 03/22/2013 07/02/2015 Erectile dysfunction 03/13/2010 05/09/2017 Nonspecific (abnormal) findi ngs on radiological and other examination of lung field 03/17/2007 06/12/2014 Hematospermia 01/17/2006 06/11/2014 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 documented as of this encounter (statuses as of 12/10/2021) [facility] History of Past illness Narrative* Problem Noted Date Resolved Date Ganglion and cyst of synovium, tendon and bursa 03/22/2013 07/02/2015 Erectile dysfunction 03/13/2010 05/09/2017 Nonspecific (abnormal) findi ngs on radiological and other examination of lung field 03/17/2007 06/12/2014 Hematospermia 01/17/2006 06/11/2014 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 documented as of this encounter (statuses as of 12/24/2021) [facility] History of Past illness Narrative* Problem Noted Date Resolved Date Ganglion and cyst of synovium, tendon and bursa 03/22/2013 07/02/2015 Erectile dysfunction 03/13/2010 05/09/2017 Nonspecific (abnormal) findi ngs on radiological and other examination of lung field 03/17/2007 06/12/2014 Hematospermia 01/17/2006 06/11/2014 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 documented as of this encounter (statuses as of 12/29/2021) [facility] History of Past illness Narrative* Problem Noted Date Resolved Date Ganglion and cyst of synovium, tendon and bursa 03/22/2013 07/02/2015 Erectile dysfunction 03/13/2010 05/09/2017 Nonspecific (abnormal) findi ngs on radiological and other examination of lung field 03/17/2007 06/12/2014 Hematospermia 01/17/2006 06/11/2014 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 documented as of this encounter (statuses as of 01/06/2022) [facility] History of Past illness Narrative* Problem Noted Date Resolved Date Ganglion and cyst of synovium, tendon and bursa 03/22/2013 07/02/2015 Erectile dysfunction 03/13/2010 05/09/2017 Nonspecific (abnormal) findi ngs on radiological and other examination of lung field 03/17/2007 06/12/2014 Hematospermia 01/17/2006 06/11/2014 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 documented as of this encounter (statuses as of 01/06/2022) [facility] History of Past illness Narrative* Problem Noted Date Resolved Date Ganglion and cyst of synovium, tendon and bursa 03/22/2013 07/02/2015 Erectile dysfunction 03/13/2010 05/09/2017 Nonspecific (abnormal) findi ngs on radiological and other examination of lung field 03/17/2007 06/12/2014 Hematospermia 01/17/2006 06/11/2014 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 documented as of this encounter (statuses as of 01/12/2022) [facility] History of Past illness Narrative* Problem Noted Date Resolved Date Ganglion and cyst of synovium, tendon and bursa 03/22/2013 07/02/2015 Erectile dysfunction 03/13/2010 05/09/2017 Nonspecific (abnormal) findi ngs on radiological and other examination of lung field 03/17/2007 06/12/2014 Hematospermia 01/17/2006 06/11/2014 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 documented as of this encounter (statuses as of 01/13/2022) [facility] History of Past illness Narrative* Problem Noted Date Resolved Date Ganglion and cyst of synovium, tendon and bursa 03/22/2013 07/02/2015 Erectile dysfunction 03/13/2010 05/09/2017 Nonspecific (abnormal) findi ngs on radiological and other examination of lung field 03/17/2007 06/12/2014 Hematospermia 01/17/2006 06/11/2014 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 documented as of this encounter (statuses as of 01/18/2022) [facility] History of Past illness Narrative* Problem Noted Date Resolved Date Ganglion and cyst of synovium, tendon and bursa 03/22/2013 07/02/2015 Erectile dysfunction 03/13/2010 05/09/2017 Nonspecific (abnormal) findi ngs on radiological and other examination of lung field 03/17/2007 06/12/2014 Hematospermia 01/17/2006 06/11/2014 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 documented as of this encounter (statuses as of 01/18/2022) [facility]12[facility] History of Past illness Narrative* Problem Noted Date Resolved Date Ganglion and cyst of synovium, tendon and bursa 03/22/2013 07/02/2015 Erectile dysfunction 03/13/2010 05/09/2017 Nonspecific (abnormal) findi ngs on radiological and other examination of lung field 03/17/2007 06/12/2014 Hematospermia 01/17/2006 06/11/2014 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 documented as of this encounter (statuses as of 01/18/2022) [facility]12[facility] History of Past illness Narrative* Problem Noted Date Resolved Date Ganglion and cyst of synovium, tendon and bursa 03/22/2013 07/02/2015 Erectile dysfunction 03/13/2010 05/09/2017 Nonspecific (abnormal) findi ngs on radiological and other examination of lung field 03/17/2007 06/12/2014 Hematospermia 01/17/2006 06/11/2014 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 documented as of this encounter (statuses as of 01/21/2022) [facility] History of Past illness Narrative* Problem Noted Date Resolved Date Ganglion and cyst of synovium, tendon and bursa 03/22/2013 07/02/2015 Erectile dysfunction 03/13/2010 05/09/2017 Nonspecific (abnormal) findi ngs on radiological and other examination of lung field 03/17/2007 06/12/2014 Hematospermia 01/17/2006 06/11/2014 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 documented as of this encounter (statuses as of 02/12/2022) [facility] History of Past illness Narrative* Problem Noted Date Resolved Date Ganglion and cyst of synovium, tendon and bursa 03/22/2013 07/02/2015 Erectile dysfunction 03/13/2010 05/09/2017 Nonspecific (abnormal) findi ngs on radiological and other examination of lung field 03/17/2007 06/12/2014 Hematospermia 01/17/2006 06/11/2014 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 documented as of this encounter (statuses as of 02/15/2022) [facility] History of Past illness Narrative* Problem Noted Date Resolved Date Ganglion and cyst of synovium, tendon and bursa 03/22/2013 07/02/2015 Erectile dysfunction 03/13/2010 05/09/2017 Nonspecific (abnormal) findi ngs on radiological and other examination of lung field 03/17/2007 06/12/2014 Hematospermia 01/17/2006 06/11/2014 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 documented as of this encounter (statuses as of 02/15/2022) [facility] History of Past illness Narrative* Problem Noted Date Resolved Date Ganglion and cyst of synovium, tendon and bursa 03/22/2013 07/02/2015 Erectile dysfunction 03/13/2010 05/09/2017 Nonspecific (abnormal) findi ngs on radiological and other examination of lung field 03/17/2007 06/12/2014 Hematospermia 01/17/2006 06/11/2014 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 documented as of this encounter (statuses as of 03/30/2022) [facility]12[facility] History of Past illness Narrative* Problem Noted Date Resolved Date Ganglion and cyst of synovium, tendon and bursa 03/22/2013 07/02/2015 Erectile dysfunction 03/13/2010 05/09/2017 Nonspecific (abnormal) findi ngs on radiological and other examination of lung field 03/17/2007 06/12/2014 Hematospermia 01/17/2006 06/11/2014 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 documented as of this encounter (statuses as of 04/07/2022) [facility] History of Past illness Narrative* Problem Noted Date Resolved Date Ganglion and cyst of synovium, tendon and bursa 03/22/2013 07/02/2015 Erectile dysfunction 03/13/2010 05/09/2017 Nonspecific (abnormal) findi ngs on radiological and other examination of lung field 03/17/2007 06/12/2014 Hematospermia 01/17/2006 06/11/2014 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 documented as of this encounter (statuses as of 04/11/2022) [facility] History of Past illness Narrative* Problem Noted Date Resolved Date Ganglion and cyst of synovium, tendon and bursa 03/22/2013 07/02/2015 Erectile dysfunction 03/13/2010 05/09/2017 Nonspecific (abnormal) findi ngs on radiological and other examination of lung field 03/17/2007 06/12/2014 Hematospermia 01/17/2006 06/11/2014 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 documented as of this encounter (statuses as of 04/20/2022) [facility] History of Past illness Narrative* Problem Noted Date Resolved Date Ganglion and cyst of synovium, tendon and bursa 03/22/2013 07/02/2015 Erectile dysfunction 03/13/2010 05/09/2017 Nonspecific (abnormal) findi ngs on radiological and other examination of lung field 03/17/2007 06/12/2014 Hematospermia 01/17/2006 06/11/2014 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 documented as of this encounter (statuses as of 04/27/2022) [facility] History of Past illness Narrative* Problem Noted Date Resolved Date Ganglion and cyst of synovium, tendon and bursa 03/22/2013 07/02/2015 Erectile dysfunction 03/13/2010 05/09/2017 Nonspecific (abnormal) findi ngs on radiological and other examination of lung field 03/17/2007 06/12/2014 Hematospermia 01/17/2006 06/11/2014 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 documented as of this encounter (statuses as of 06/26/2022) [facility] History of Past illness Narrative* Problem Noted Date Resolved Date Ganglion and cyst of synovium, tendon and bursa 03/22/2013 07/02/2015 Erectile dysfunction 03/13/2010 05/09/2017 Nonspecific (abnormal) findi ngs on radiological and other examination of lung field 03/17/2007 06/12/2014 Hematospermia 01/17/2006 06/11/2014 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 documented as of this encounter (statuses as of 07/31/2022) [facility] History of Past illness Narrative* Problem Noted Date Resolved Date Ganglion and cyst of synovium, tendon and bursa 03/22/2013 07/02/2015 Erectile dysfunction 03/13/2010 05/09/2017 Nonspecific (abnormal) findi ngs on radiological and other examination of lung field 03/17/2007 06/12/2014 Hematospermia 01/17/2006 06/11/2014 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 documented as of this encounter (statuses as of 08/19/2022) [facility] Diagnosis Acute left-sided low back pain without sciatica- Primary [facility] Diagnosis Cough- Primary SOB (shortness of breath) Shortness of breath [facility] Cough SOB (shortness of breath) Shortness of breath [facility] 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) Obstructive chronic bronchitis without exacerbation Pulmonary arterial hypertension (HCC) Other chronic pulmonary heart diseases [facility] 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) Obstructive chronic bronchitis without exacerbation Pulmonary arterial hypertension (HCC) Other chronic pulmonary heart diseases [facility] 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) Obstructive chronic bronchitis without exacerbation Pulmonary arterial hypertension (HCC) Other chronic pulmonary heart diseases [facility] 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) Obstructive chronic bronchitis without exacerbation Pulmonary arterial hypertension (HCC) Other chronic pulmonary heart diseases [facility] 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) Obstructive chronic bronchitis without exacerbation Pulmonary arterial hypertension (HCC) Other chronic pulmonary heart diseases Chronic hypoxemic respiratory failure (HCC) Chronic respiratory failure Pneumonia of left lower lobe due to infectious organism [facility] Idiopathic pulmonary fibrosis (HCC)- Primary Idiopathic pulmonary fibrosis [facility] Diagnosis 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) Obstructive chronic bronchitis without exacerbation Pulmonary arterial hypertension (HCC) Other chronic pulmonary heart diseases Chronic hypoxemic respiratory failure (HCC) Chronic respiratory failure Pneumonia of left lower lobe due to infectious organism Cough [facility] noteNo assessment information availableWHolmes [facility] Work Phone: Evaluation note* Diagnosis Dependence on continuous supplemental oxygen- Primary Idiopathic pulmonary fibrosis (HCC) Idiopathic pulmonary fibrosis Centrilobular emphysema (HCC) Other emphysema Hypoalbuminemia due to protein-calorie malnutrition (HCC) Anemia, unspecified type Hyperlipidemia, unspecified hyperlipidemia type [facility] Diagnosis Idiopathic pulmonary fibrosis (HCC) Idiopathic pulmonary fibrosis Pulmonary arterial hypertension (HCC) Other chronic pulmonary heart diseases Chronic hypoxemic respiratory failure (HCC) Chronic respiratory failure [facility] Diagnosis 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) Obstructive chronic bronchitis without exacerbation [facility] Diagnosis 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) Obstructive chronic bronchitis without exacerbation Pulmonary arterial hypertension (HCC) Other chronic pulmonary heart diseases Chronic hypoxemic respiratory failure (HCC) Chronic respiratory failure [facility] Diagnosis Onset Date Resolution Status Essential hypertension acute Exertional shortness of breath acute Hyperlipidemia acute Dilation of aorta [facility] Work Phone: Evaluation note* Diagnosis Idiopathic pulmonary fibrosis (HCC)- Primary Idiopathic pulmonary fibrosis [facility]* Diagnosis Hyperlipidemia, unspecified hyperlipidemia type [facility]* Diagnosis IPF (idiopathic pulmonary fibrosis) (HCC)- Primary Idiopathic pulmonary fibrosis Mucopurulent chronic bronchitis (HCC) Mucopurulent chronic bronchitis Chronic respiratory failure with hypoxia (HCC) Chronic respiratory failure Nasal bleeding Epistaxis [facility] Diagnosis Pneumonia of both lower lobes due to infectious organism- Primary [facility] Diagnosis IPF (idiopathic pulmonary fibrosis) (HCC)- Primary Idiopathic pulmonary fibrosis [facility] Diagnosis IPF (idiopathic pulmonary fibrosis) (HCC)- Primary Idiopathic pulmonary fibrosis Mucopurulent chronic bronchitis (HCC) Mucopurulent chronic bronchitis Chronic respiratory failure with hypoxia (HCC) Chronic respiratory failure Acute cough [facility] Medicare annual wellness visit, subsequent- Primary Routine general medical examination at a health care facility Secondary pulmonary arterial hypertension (HCC) 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) Obstructive chronic bronchitis without exacerbation Thyroid nodule greater than or equal to 1 cm in diameter incidentally noted on imaging study [facility] Diagnosis COPD with exacerbation (HCC)- Primary Obstructive chronic bronchitis with exacerbation [facility] Diagnosis 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 Chronic cough Cough Chronic hypoxemic respiratory failure (HCC) Chronic respiratory failure Therapeutic drug monitoring Encounter for therapeutic drug monitoring [facility]* Diagnosis Idiopathic pulmonary fibrosis (HCC)- Primary Idiopathic pulmonary fibrosis [facility] Diagnosis 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 lower urinary tract symptoms (LUTS) [facility] Diagnosis IPF (idiopathic pulmonary fibrosis) (HCC) Idiopathic pulmonary fibrosis [facility] note* Diagnosis Onset Date Resolution Status Essential hypertension acute Hyperlipidemia acute Rhonchi acute Dilation of aorta chronic [facility] Work Phone: Evaluation note* Diagnosis 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 lower urinary tract symptoms (LUTS) Need for COVID-19 vaccine Chronic hypoxemic respiratory failure (HCC) Chronic respiratory failure Secondary pulmonary arterial hypertension (HCC) Hyperlipidemia, unspecified hyperlipidemia type [facility] Diagnosis IPF (idiopathic pulmonary fibrosis) (HCC)- Primary Idiopathic pulmonary fibrosis 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) Chronic hypoxemic respiratory failure (HCC) Chronic respiratory failure [facility] Diagnosis Essential hypertension, benign [facility] Diagnosis 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 Chronic cough Cough Chronic hypoxemic respiratory failure (HCC) Chronic respiratory failure COPD with chronic bronchitis (HCC) Obstructive chronic bronchitis without exacerbation [facility] Diagnosis Hyperlipidemia, unspecified hyperlipidemia type [facility] Diagnosis IPF (idiopathic pulmonary fibrosis) (HCC) Idiopathic pulmonary fibrosis [facility]* Diagnosis IPF (idiopathic pulmonary fibrosis) (HCC) Idiopathic pulmonary fibrosis 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 Chronic respiratory failure with hypoxia (HCC) Chronic respiratory failure Need for influenza vaccination Need for prophylactic vaccination and inoculation against influenza [facility] Diagnosis 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) [facility]* Diagnosis Viral illness- Primary Unspecified viral infection, in conditions classified elsewhere and of unspecified site Acute cough [facility]* Diagnosis Medicare annual wellness visit, subsequent- Primary Routine general medical examination at a [facility] Chronic respiratory failure with hypoxia (HCC) Chronic respiratory failure 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 lower urinary tract symptoms (LUTS) Essential hypertension, benign COPD with chronic bronchitis Obstructive chronic bronchitis without exacerbation Thyroid nodule greater than or equal to 1 cm in diameter incidentally noted on imaging study Abnormal weight loss Loss of weight [facility]* Diagnosis Thyroid nodule greater than or equal to 1 cm in diameter incidentally noted on imaging study [facility]* Diagnosis Thyroid nodule greater than or equal to 1 cm in diameter incidentally noted on imaging study- Primary [facility]* Diagnosis IPF (idiopathic pulmonary fibrosis) (HCC)- Primary Idiopathic pulmonary fibrosis [facility]* Diagnosis Staphylococcus aureus bronchitis- Primary Bronchitis, not specified as acute or chronic COPD with exacerbation (HCC) Obstructive chronic bronchitis with exacerbation [facility]* Diagnosis Thyroid nodule greater than or equal to 1 cm in diameter incidentally noted on imaging study- Primary [facility]* Diagnosis Thyroid nodule greater than or equal to 1 cm in diameter incidentally noted on imaging study- Primary [facility]* Diagnosis Thyroid nodule greater than or equal to 1 cm in diameter incidentally noted on imaging study- Primary Abnormal weight loss Loss of weight Essential hypertension, benign 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 lower urinary tract symptoms (LUTS) [facility]* Diagnosis Acute bronchitis, unspecified organism- Primary [facility]* Diagnosis Acute bronchitis due to other specified organisms- Primary [facility]* Diagnosis Idiopathic pulmonary fibrosis (HCC)- Primary Idiopathic pulmonary fibrosis Chronic respiratory failure with hypoxia (HCC) Chronic respiratory failure COPD with chronic bronchitis (HCC) Obstructive chronic bronchitis without exacerbation [facility] Diagnosis COPD with chronic bronchitis (HCC)- Primary Obstructive chronic bronchitis without exacerbation 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 lower urinary tract symptoms (LUTS) Thyroid nodule greater than or equal to 1 cm in diameter incidentally noted on imaging study Hyperlipidemia, unspecified hyperlipidemia type Chronic respiratory failure with hypoxia (HCC) Chronic respiratory failure Secondary pulmonary arterial hypertension (HCC) [facility]* Diagnosis Viral illness Unspecified viral infection, in conditions classified elsewhere and of unspecified site Acute cough [facility]* Diagnosis Swelling of left thumb Swelling of limb [facility]* Diagnosis Hyperlipidemia, unspecified hyperlipidemia type [facility]* Diagnosis Abnormal weight loss Loss of weight [facility]* Diagnosis Idiopathic pulmonary fibrosis (HCC)- Primary Idiopathic pulmonary fibrosis Chronic respiratory failure with hypoxia (HCC) Chronic respiratory failure Need for influenza vaccination Need for prophylactic vaccination and inoculation against influenza Gastroesophageal reflux disease without esophagitis Esophageal reflux COPD with chronic bronchitis (HCC) Obstructive chronic bronchitis without exacerbation [facility]* Diagnosis Medicare annual wellness visit, subsequent- Primary Routine general medical examination at a health care facility Screening for depression Encounter for screening examination for other mental health and behavioral disorders Acute nonintractable headache, unspecified headache type Thyroid nodule greater than or equal to 1 cm in diameter incidentally noted on imaging study COPD with chronic bronchitis (HCC) Obstructive chronic bronchitis without exacerbation Hyperlipidemia, unspecified hyperlipidemia type Essential hypertension, benign Idiopathic pulmonary fibrosis (HCC) Idiopathic pulmonary fibrosis 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* Diagnosis Essential hypertension, benign 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 lower urinary tract symptoms (LUTS) documented [facility]* Diagnosis Hyperlipidemia, unspecified hyperlipidemia type- Primary 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 lower urinary tract symptoms (LUTS) Essential hypertension, benign Idiopathic pulmonary fibrosis (HCC) Idiopathic pulmonary fibrosis Secondary pulmonary arterial hypertension (HCC) documented 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* Diagnosis Onset Date Resolution Status Admit Date Bilateral lower extremity edema acute January 08, 2025 9:23am LERMA (dyspnea on exertion) acute January 08, 2025 9:23am Essential hypertension acute Se ptember 2024 9:23am Hyperlipidemia acute January 08, 2025 9:23am Dilation of aorta chronic Septemb er 2024 9:23am [place] [facility] Work Phone: Progress note Author Dottie Jackson [facility] Note Date/Time January 08, 2025 9:56am [facility] [address] [place], [place] [address] OFFICE VISIT Date of Service: 01/08/25 MR#: [id number] Acct: [id number] Name: JORGE RAMIRES Rep #: [id number] : 1940 Provider: MANOJ Jackson Age/Sex: 84/M Location: [facility] Status: Signed HPI HPI History of Present Illness Details: This is a 84-year-old man who presents to the office today for a cardiovascular visit. 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 He had an echocardiogram performed in August of 2020 which demonstrated an ejection fraction of 62%, the right ventricle was mildly dilated, right ventricular function was normal, the estimated right ventricular systolic pressure was estimated to be 55mmhg. From a cardiac standpoint, the patient is doing well. He denies any palpitations, chest pain, pressure or heaviness. He does have SOB with exertion and at rest. He is currently on a 5L of oxygen. He denies Orthopnea, and PND. He does not have bleeding issues; no blood in urine, stool, or nosebleeds. He does acknowledge fatigue, he attributes this to his breathing. He denies myalgias, orclaudication. He does have bilateral lower extremity edema. He does not have edema, or sudden weight gain. He denies lightheadedness, dizziness, syncopal or near syncopal episodes, and headaches. Intake Vital Signs 09/13/24 09:27 01/08/25 07:03 Height 5 ft 10 in 5 ft 10 in Weight: 174 lb BMI 25.0 BP 121/70 H Blood Pressure Location Lt brachial Position Sitting Respiration 20 H Pulse 74 Pulse Source Monitor Pulse Oximetry (%) 95 Oxygen Flow Rate (L/min) 5 Intake Visit Reasons: PER PULMONARY Carder Blankets Required: No Is patient in pain?: No Allergies No Known Allergies Allergy (Verified 01/08/25 09:47) Medications ?Medication ?Instructions ?Recorded ?Confirmed ?Type albuterol sulfate 90 mcg/actuation 2 inh inhalation Q6 H PRN Shortness 10/28/20 01/08/25 History aerosol inhaler Of Breath multivitamin 1 tab PO DAILY 10/28/20 09/2 07/10 History oxybutynin chloride 5 mg 5 mg PO DAILY 10/28/2001/08 History tablet,extended release 24 hr pantoprazole 20 mg tablet,delayed 20 mg PO DAILY 10/2801/08/25 History release simvastatin 10 mg tablet 10 mg PO QHS 10/28/20 History tamsulosin 0.4 mg capsule 0.8 mg PO DAILY 10/28/20 History lisinopril 10 mg tablet 10 mg PO DAILY 10/29/2012/18 History mometasone-formoterol HFA 200 2 inh inhalation BID 01/08/25 History mcg-5 mcg/actuation aerosol inhaler Ejection fraction %: 55 Have you fallen in the past year?: No PFSH Medical History (Reviewed 01/08/25 @ 10:05 by Dottie Jackson DIRECT MARKETING ANALYST, DIRECT MARKETING ANALYST-C) Coronary artery calcification 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 BPH (benign prostatic hyperplasia) Thyroid nodule Hiatal hernia Thrombocytopenia Obesity Hyperlipidemia Essential hypertension GERD (gastroesophageal reflux disease) Non-small cell cancer of left lung Surgical History (Reviewed 01/08/25 @ 10:05 by Dottie Jackson DIRECT MARKETING ANALYST, DIRECT MARKETING ANALYST-C) History of right heart catheterization (11/03/20) History of bronchoscopy (2016) History of lobectomy of lung (2007) Social History (Reviewed 01/08/25 @ 10:05 by Dottie Jackson DIRECT MARKETING ANALYST, DIRECT MARKETING ANALYST-C) Smoking Status: Former smoker alcohol intake: never substance use type: does not use ROS Const Const: Positive for fatigue; Negative for weakness, headache(s) or frequent falls Eyes Eyes: Negative for blurry vision ENT ENT: Negative for headache(s), dizziness or Nosebleed/epistaxis Cardio Chest Pain: No Palpitations: No Edema: Bilateral (new) Muscle aches with walking: None Resp Respiratory: Positive for SOB with activity and SOB at rest; Negative for SOB orthopnea\SOB lying down Additional Details: Wears oxygen 5L via NC GI GI: Negative nausea, vomiting, heartburn, bright, red blood in stools or black,tarry stools : Negative for hematuria Neuro Neuro: Negative for dizziness, lightheadedness, near syncope, syncope, frequent falls, headache(s), weakness or blurry vision Endo Endo: Positive for fatigue Cardiology Exam Const Appearance: cooperative and no acute distress Nutritional Appearance: average body habitus and overweight Orientation: alert and oriented x3 Head Head: normal to inspection Ears: hearing grossly normal bilaterally Nose: external nose normal Face and Sinus: face symmetric Eyes General: appearance normal, both eyes and all related structures Eyelids: eyelids normal Conjunctivae: conjunctivae normal Pupils: PERRL and pupil size EOM: EOM intact bilaterally Neck Neck: normal visual inspection Carotids: Negative bruit Chest Chest inspection: normal inspection of the chest and normal respiratory effort Auscultation: Bilateral: Diminished Lung Sounds (Wearing 5L of O2 via NC) 5L of oxygen Cardio Palpation: normal PMI Rate: regular rate Rhythm: regular rhythm Heart sounds: S1 normal and S2 normal; Negative rub, gallop or murmur GI GI: normal to inspection and soft Neuro General: patient alert, patient oriented x3 and CN's II-XI intact bilaterally Skin Skin: no rashes or lesions noted Extremities Pulses: Normal: Right Posterior Tibial Pulse, Left Posterior Tibial Pulse, RightRadial Pulse and Left Radial Pulse Lower Extremity Edema: +1: Bilateral Psych Psychological: normal affect Supplemental Info Supplemental Information Echocardiogram 09/20/2023: Interpretation Summary Normal LV size. Left ventricular systolic function is normal. The left ventricular ejection fraction is 55 %. Stage 1 diastolic dysfunction. Pulmonary artery systolic pressure is 63 mmHg. Moderate pulmonary hypertension. CHEST CTA 10/02/2021 IMPRESSION: Findings in keeping with chronic interstitial fibrosis. Coronary artery calcification. No evidence of aortic dilatation. Exercise myocardial perfusion stress test 12/01/2020 Stress protocol: Rest EKG demonstrates sinus bradycardia with a rate of 55 bpm normal intervals are noted resting blood pressure is 128/82 mmHg. The patient exercised according to regular [employer] protocol for total duration of 4 minutes and 17 seconds. The maximum heart rate attained was 139 bpm which was 99% of max infected heart rate the maximum workload was 6 metabolic equivalents. At rest there were no ST changes noted to suggest ischemia and at peak exercise upsloping ST changes were noted with did not meet the criteria for ischemia. The test was terminated due to dyspnea and the target heart rate being achieved. The peak blood pressure was 182/102 mmHg. Perfusion SPECT analysis: Review of the stress images demonstrated normal uptake of tracer noted in all areas of the myocardium. The resting images similarly demonstrated normal uptake of tracer noted in all areas of the myocardium. No areas of reversibility are noted to suggest ischemia and no previous infarct is noted. Gated SPECT analysis: The gated ejection fraction is 59%. Conclusion: Normal exercise myocardial perfusion stress test. Preserved ejection fraction. Low to moderate workload attained. RIGHT HEART CATHETERIZATION 11/03/2020: CONCLUSIONS Normal right heart pressures were noted with upper normal pulmonary capillary wedge pressure. Significant coronary calcification was noted on fluoroscopy and attempts were made to obtain precertification for a left heart catheterization but this was denied RECOMMENDATIONS Would recommend stress testing RIGHT HEART ASSESSMENT Thermal CO: 4.37 Thermal CI: 2.1 PW: 18 PA: 29/10 17 RV: 30/-1 3 RA: 09/18 1 PVR: -18 Right Heart pressures - normal ECHOCARDIOGRAM 08/28/2020 CONCLUSIONS: Technically difficult exam due to body habitus and left lobectomy. Exam indication: Shortness of Breath The left ventricle is normal in size. Left ventricular systolic function is normal. EF = 62 +/- 5% (2D 4-ch.) Grade I left ventricular diastolic dysfunction. The right ventricle is mildly dilated. Right ventricular systolic function is normal. The visualized aorta is dilated with a maximal dimension of 4.1 cm. Estimated right ventricular systolic pressure is 55 mmHg consistent with Moderate pulmonary hypertension. Estimated right atrial pressure is 3 mmHg Diagnostics: Electrocardiogram Echocardiogram Stress Test Stress Test Nuclear Medicine Cardiac Catheterization Chest X-Ray Chest CTA Abdomen/Pelvis CT Past Visits: Cardiology Visit Today Assessment and Plan Assessment and Plan (1) Dilation of aorta: Status: Chronic Comment: 4.1 cm per echo 08/2020 Plan: Patient has a history of a dilated aorta. His echocardiogram 08/2020 demonstrateda dilated aorta of 4.1cm. His most recent echocardiogram from 09/2023 did not mention a dilated aorta. His most recent Chest CTA from 09/2021 demonstrated no evidence of aortic dilatation. Blood pressure and heart rate control were discussed with patient. We will continue to monitor. (2) Essential hypertension: Status: Acute Plan: Patient has a history of hypertension. His blood pressure is well controlled at this time-121/70. He will continue with his current medical therapy, along with monitoring his blood pressures at home. He will notify our office of any persistently elevated or low blood pressure readings. (3) Hyperlipidemia: Status: Acute Plan: Patient has a history of hyperlipidemia. His PCP monitors this. He will continue with simvastatin 10 mg daily, along with aggressive risk factor and lifestyle modifications. A copy of his most recent lipid panel would be greatly appreciated. (4) LERMA (dyspnea on exertion): Status: Acute Plan: Patient acknowledges dyspnea on exertion and at rest. He also acknowledges bilateral lower extremity edema. He states this is new. Would like to obtain an echocardiogram to assess his left ventricular systolic function, and lab work toassess for fluid overload. Depending on results, further recommendations will bemade. (5) Bilateral lower extremity edema: Status: Acute Plan: Patient acknowledges bilateral lower extremity edema. He states this is new. He does have 1+ bilateral lower extremity edema noted on exam. Would like to obtainan echocardiogram to assess his left ventricular systolic function, and lab workto assess for fluid overload. Depending on results, further recommendations willbe made. He was also encouraged to elevate his legs when able, and wear compression stockings. Will keep close follow-up with patient. Orders: Orders Echo Complete Today R06.09 - Other forms of dyspnea Pro- Brain NATRIURETIC PEPTIDE Today R06.09 - Other forms of dyspnea Basic Metabolic Profile (BMP) Today R06.09 - Other forms of dyspnea CBC W/Diff, Automated Today R06.09 - Other forms of dyspnea Plan Details Additional Comments: Patient will follow up in 2 months, or sooner if needed. Thank you for allowing me to participate in the care of your patient. Please don't hesitate to call if any issues arise. This note was generated using a voice recognition system and there may be incorrect words, spelling, or punctuation that were not noted when reviewing theoffice note prior to saving. Portions of this documentation were copied and pasted from previous office visitnotes to provide a cohesive continuity of the history. The note has been reviewed, edited, and updated, as necessary. Follow Up: Keep as is (KR) Coding Level of Care Code Off vis,est,level 4 Diagnoses 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 Essential hypertension I10 Hyperlipidemia E78.5 LERMA (dyspnea on exertion) R06.09 Bilateral lower extremity edema R60.0 Coding Level of Care Code Off vis,est,level 4 Diagnoses 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 Essential hypertension I10 Hyperlipidemia E78.5 LERMA (dyspnea on exertion) R06.09 Bilateral lower extremity edema R60.0 Clinical Quality Measures Falls Risk Screening/Assistive Devices Have you fallen in the past year?: No Cardiac Ejection fraction %: 55 01/08/25 1009 <Electronically signed by Dottie Jackson NP DIRECT MARKETING ANALYST-C> Date _ Dottie Barreto Signature: Date (if applicable) CC: ~ [employer] [place] [employer] Work Phone: Reason for referral (narrative)* Outpatient Procedure (Routine) - Closed Specialty Diagnoses / Procedures Referred By Contac t Referred To 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) Pulmonary arterial hypertension (HCC) Procedures OXIMETRY WITH AMBULATION NONINVASIVE EAR/PULSE OXIMETRY MULTIPLE Jose R Cortes MD [address] [place] [address] [address] Referral ID Status Reason Start Date Expiration Date V isits Requested Visits Authorized [id number] Closed Auto-Generate d Referral 07/28/2021 08/27/2022 1 1 [facility] for referral (narrative)* Outpatient Procedure (Routine) - Authorized Specialty Diagnoses / Procedures Referred By Contac t Referred To [facility] Diagnoses Idiopathic pulmonary fibrosis (HCC) Pulmonary arterial hypertension (HCC) Chronic hypoxemic respiratory failure (HCC) Procedures OXIMETRY WITH AMBULATION NONINVASIVE EAR/PULSE OXIMETRY MULTIPLE Rashida Kitchen PA-C [address] [address] Referral ID Status Reason Start Date Expiration Date Visits Requested Visits Authorized [id number] Authorized Auto-Generat ed Referral 08/17/2021 09/16/2022 1 1 T [facility] for referral (narrative)* Outpatient Procedure (Routine) - Authorized Specialty Diagnoses / Procedures Referred By Contac t Referred To Contact [facility] Diagnoses 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) Procedures SPIROMETRY BASELINE ONLY SPMTRY W/VC EXPIRATORY MORGAN W/WO MXML VOL VNTJ Jose R Spicer MD [address] [place] [address] [facility] [address] [place], [place] [id number] Referral ID Status Reason Start Date Expiration Date Visits Requested Visits Authorized [id number] Authorized Auto-Generat ed Referral 2 10/31/2022 1 1 [facility] for referral (narrative)* Diagnostic Procedure Only (Routine) - Pending Review Specialty Diagnoses / Procedures [facility] Diagnoses Thyroid nodule greater than or equal to 1 cm in diameter incidentally noted on imaging study Procedures US THYROID/PARATHYROID US SOFT TISSUE HEAD & NECK REAL TIME IMGE Tito Mckenna MD [address] [place] [id number] [facility] Referral ID Status Reason Start Date Expiration Date Visits Requested Visits Authorized [id number] Pending Review Auto-Generat ed Referral 2 03/14/2023 1 1 [facility] for referral (narrative)* Outpatient Procedure (Routine) - Authorized Specialty Diagnoses / Procedures Referred By Contac t Referred To Contact [facility] Diagnoses IPF (idiopathic pulmonary fibrosis) (HCC) Procedures LUNG VOLUMES Rashida Lay PA-C [address] [place] [address] [facility] [address] [place], [place] [id number] Referral ID Status Reason Start Date Expiration Date Visits Requested Visits Authorized [id number] Authorized Auto-Generat ed Referral 08/26/2022 09/25/2023 1 1 * Outpatient Procedure (Routine) - Authorized Specialty Diagnoses / Procedures Referred By Contac t Referred To Contact [facility] Diagnoses IPF (idiopathic pulmonary fibrosis) (HCC) Procedures SPIROMETRY WITH DILATOR IF OBSTRUCTED BRNCDILAT RSPSE SPMTRY PRE&POST-BRNCDILAT ADMRashida Hernandez PA-C [address] [facility] [place] [address] [facility] [id number] [place] [address] Referral ID Status Reason Start Date Expiration Date Visits Requested Visits Authorized [id number] Authorized Auto-Generat ed Referral 08/26/2022 09/25/2023 1 1 [facility] for referral (narrative)* Outpatient Procedure (Routine) - Closed Specialty Diagnoses / Procedures Referred By Contac t Referred To Contact [facility] Diagnoses 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) Procedures OXIMETRY WITH AMBULATION NONINVASIVE EAR/PULSE OXIMETRY MULTIPLE Rashida Kitchen PA-C [address] [facility] [place] [address] [facility] [address] [place] [address] Referral ID Status Reason Start Date Expiration Date V isits Requested Visits Authorized [id number] Closed Auto-Generate d Referral 12/02/2022 01/01/2024 1 1 [facility] for referral (narrative)No reason for referral information availableO[facility] Work Phone: Summary Purpose Family History No Family History Records FoundNo Family History Records FoundNo Family History Records FoundNo Family History Records Found Advance Directives No Advanced Directives Records FoundDocuments on File Type Date Recorded 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 Advance Directive(s) 07/27/2016 10:49 AM Documents on File Type Date Recorded 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 Advance Directive(s) 07/27/2016 10:49 AM Advance Directive Response Recorded Date/ Time Advance Directives Yes Lala 19th, 20 21 10:13am Living Will Yes September 03, 2021 9 :07am Power of Operations Inspector Yes September 03, 2021 9:07am Advance Directive Response Recorded Date/ Time Advance Directives on File No August 162021 9:07am Advance Directives Yes November 03 10:13am Living Will Yes September 03, 2021 9 :07am Power of Operations Inspector Yes September 03, 2021 9:07am Advance Directive Response Recorded Date/ Time Advance Directives Yes November 03 10:13am Reason for Referral Specialty Diagnoses / Procedures Referred By Contac t Referred To Contact [facility] Diagnoses Acute left-sided low back pain without sciatica Procedures CONSULT TO PHYSICAL THERAPY PHYSICAL THERAPY EVALUATION HIGH COMPLEX 45 MINS 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, 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, 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 [address] [place] [address] [facility] [address] [place] [address] Referral ID Status Reason Start Date Expiration Date Visits Requested Visits Authorized [id number] Pending Review Auto-Generat ed Referral 07/22/2021 07/21/2022 1 1 Specialty Diagnoses / Procedures Referred By Contac t Referred To Contact CT IMAGING Diagnoses Interstitial pulmonary disease (HCC) Procedures CT CHEST WO IVCON DIAGNOSTIC COMPUTED TOMOGRAPHY THORAX W/O Hermelinda Pruett MD [address] [facility] [place] [place] [address] Ct Imaging Referral ID Status Reason Start Date Expiration Date Visits Requested Visits Authorized [id number] Pending Review Auto-Generat ed Referral 06/21/2022 04/29/2023 1 1 Specialty Diagnoses / Procedures Referred By Contac t Referred To Contact Hermelinda Copeland MD [address] [facility] [place] [address] Referral ID Status Reason Start Date Expiration Date V isits Requested Visits Authorized [id number] Pending Review 1 1 Specialty Diagnoses / Procedures Referred By Contac t Referred To Contact CT IMAGING Diagnoses Interstitial pulmonary disease (HCC) Procedures CT CHEST WO IVCON DIAGNOSTIC COMPUTED TOMOGRAPHY THORAX W/O Hermelinda Pruett MD [address] [place] [address] [place] [id number] Referral ID Status Reason Start Date Expiration Date V isits Requested Visits Authorized [id number] Closed Auto-Generate d Referral 03/31/2022 04/17/2022 1 1 Specialty Diagnoses / Procedures Referred By Contac t Referred To Contact General Surgery Diagnoses Thyroid nodule greater than or equal to 1 cm in diameter incidentally noted on imaging study Procedures CONSULT TO GENERAL SURGERY OFFICE/OUTPATIENT [facility] 60-74 MINUTES Tito Macias MD [address] [place] [address] Referral ID Status Reason Start Date Expiration Date Visits Requested Visits Authorized [id number] Pending Review PCP Requested Referral 03/19/2023 03/18/2024 1 1 Specialty Diagnoses / Procedures Referred By Contac t Referred To Contact General Surgery Diagnoses Thyroid nodule greater than or equal to 1 cm in diameter incidentally noted on imaging study Procedures CONSULT TO GENERAL SURGERY Victorino Navarro MD [address] [facility] [place] [address] [place] [address] [place] [id number] Referral ID Status Reason Start Date Expiration Date Visits Requested Visits Authorized [id number] Ref Not Required PCP Requested Referral 06/07/2023 06/06/2024 1 1 Specialty Diagnoses / Procedures Referred By Contac t Referred To Contact General Surgery Diagnoses Thyroid nodule greater than or equal to 1 cm in diameter incidentally noted on imaging study Procedures CONSULT TO GENERAL SURGERY Tito Macias MD [address] [place] [address] Referral ID Status Reason Start Date Expiration Date Visits Requested Visits Authorized [id number] Ref Not Required PCP Requested Referral 06/08/2023 06/07/2024 1 1 Chief Complaint and Reason for Visit Chief Complaint Interstitial Pulmona ry Fibrosis, Lung Cancer, COPD COPD J44.9 Chief Complaint Interstitial Pulmona ry Fibrosis, Lung Cancer, COPD COPD J44.9 6 M FU COPD J44.9 DILATION OF AORTA Reason for Visit Essential hypertensi on Exertional shortness of breath Hyperlipidemia Dilation of aorta Chief Complaint Interstitial Pulmona ry Fibrosis, Lung Cancer, COPD COPD J44.9 6 M FU DILATION OF AORTA COPD J44.9 Reason for Visit Essential hypertensi on Exertional shortness of breath Hyperlipidemia Dilation of aorta Chief Complaint Interstitial Pulmona ry Fibrosis, Lung Cancer, COPD COPD J44.9 6 M FU DILATION OF AORTA COPD J44.9 COPD J44.9 COPD J44.9 Reason for Visit Essential hypertensi on Exertional shortness of breath Hyperlipidemia Dilation of aorta Chief Complaint 6 M FU Reason for Visit Essential hypertensi on Hyperlipidemia Rhonchi Dilation of aorta Chief Complaint Admit Date 6 M FU September 13, 2024 11:23 am Reason for Visit Admit Date Essential hypertension September 13, 2024 11 :23am Hyperlipidemia September 13, 2024 11:23 am Dilation of aorta September 13, 2024 11:23 am Chief Complaint Admit Date PER PULMONARY January 08, 2025 9:23am Reason for Visit Admit Date Bilateral lower extremity edema Septembe r 2024 9:23am LERMA (dyspnea on exertion) December 9:23am Essential hypertension January 08, 025 9:23am Hyperlipidemia January 08, 2025 9:23am Dilation of aorta January 08, 2025 9:23am Health Concerns Infection Onset Date Last Indicated Resolved Time COVID-19 Rule-Out 03/06/2023 03/06/2023 03/06/2023 9:03 PM EST Additional Source Comments (unrecognized sect ion and content) No Status Records FoundNo Status Records FoundNo Status Records FoundNo Status Records Found INFORMATION SOURCE (unrecogn ized section and content) DATE CREATED AUTHOR 10/12/2017 [facility] DATE CREATED AUTHOR AUTHOR'S ORGANIZ ATION 04/10/2022 [facility] DATE CREATED AUTHOR AUTHOR'S ORGANIZ ATION 02/09/2025 [facility] DATE CREATED AUTHOR AUTHOR'S ORGANIZ ATION 02/28/2025 [facility] Source Comments (unrecognize d section and content) In the event this informatio n is protected by the Federal Confidentiality of Alcohol and Drug Abuse Patient Records regulations: The Federal rules restrict any use of the information to criminally investigate or prosecute any alcohol or drug abuse patient.[facility] the event this information is protected by the Federal Confidentiality of Alcohol and Drug Abuse Patient Records regulations: The Federal rules restrict any use of the information to criminally investigate or prosecute any alcohol or drug abuse patient.[facility] the event this information is protected by the Federal Confidentiality of Alcohol and Drug Abuse Patient Records regulations: The Federal rules restrict any use of the information to criminally investigate or prosecute any alcohol or drug abuse patient.[facility] the event this information is protected by the Federal Confidentiality of Alcohol and Drug Abuse Patient Records regulations: The Federal rules restrict any use of the information to criminally investigate or prosecute any alcohol or drug abuse patient.[facility] the event this information is protected by the Federal Confidentiality of Alcohol and Drug Abuse Patient Records regulations: The Federal rules restrict any use of the information to criminally investigate or prosecute any alcohol or drug abuse patient.[facility]In the event this information is protected by the Federal Confidentiality of Alcohol and Drug Abuse Patient Records regulations: The Federal rules restrict any use of the information to criminally investigate or prosecute any alcohol or drug abuse patient.[facility] HospitalIn the event this information is protected by the Federal Confidentiality of Alcohol and Drug Abuse Patient Records regulations: The Federal rules restrict any use of the information to criminally investigate or prosecute any alcohol or drug abuse patient.[facility]In the event this information is protected by the Federal Confidentiality of Alcohol and Drug Abuse Patient Records regulations: The Federal rules restrict any use of the information to criminally investigate or prosecute any alcohol or drug abuse patient.[facility] the event this information is protected by the Federal Confidentiality of Alcohol and Drug Abuse Patient Records regulations: The Federal rules restrict any use of the information to criminally investigate or prosecute any alcohol or drug abuse patient.[facility] HospitalIn the event this information is protected by the Federal Confidentiality of Alcohol and Drug Abuse Patient Records regulations: The Federal rules restrict any use of the information to criminally investigate or prosecute any alcohol or drug abuse patient.[facility]In the event this information is protected by the Federal Confidentiality of Alcohol and Drug Abuse Patient Records regulations: The Federal rules restrict any use of the information to criminally investigate or prosecute any alcohol or drug abuse patient.[facility] HospitalIn the event this information is protected by the Federal Confidentiality of Alcohol and Drug Abuse Patient Records regulations: The Federal rules restrict any use of the information to criminally investigate or prosecute any alcohol or drug abuse patient.[facility] HospitalIn the event this information is protected by the Federal Confidentiality of Alcohol and Drug Abuse Patient Records regulations: The Federal rules restrict any use of the information to criminally investigate or prosecute any alcohol or drug abuse patient.[facility] HospitalIn the event this information is protected by the Federal Confidentiality of Alcohol and Drug Abuse Patient Records regulations: The Federal rules restrict any use of the information to criminally investigate or prosecute any alcohol or drug abuse patient.[facility] HospitalIn the event this information is protected by the Federal Confidentiality of Alcohol and Drug Abuse Patient Records regulations: The Federal rules restrict any use of the information to criminally investigate or prosecute any alcohol or drug abuse patient.[facility] HospitalIn the event this information is protected by the Federal Confidentiality of Alcohol and Drug Abuse Patient Records regulations: The Federal rules restrict any use of the information to criminally investigate or prosecute any alcohol or drug abuse patient.[facility] HospitalIn the event this information is protected by the Federal Confidentiality of Alcohol and Drug Abuse Patient Records regulations: The Federal rules restrict any use of the information to criminally investigate or prosecute any alcohol or drug abuse patient.[facility] HospitalIn the event this information is protected by the Federal Confidentiality of Alcohol and Drug Abuse Patient Records regulations: The Federal rules restrict any use of the information to criminally investigate or prosecute any alcohol or drug abuse patient.[facility] HospitalIn the event this information is protected by the Federal Confidentiality of Alcohol and Drug Abuse Patient Records regulations: The Federal rules restrict any use of the information to criminally investigate or prosecute any alcohol or drug abuse patient.[facility] HospitalIn the event this information is protected by the Federal Confidentiality of Alcohol and Drug Abuse Patient Records regulations: The Federal rules restrict any use of the information to criminally investigate or prosecute any alcohol or drug abuse patient.[facility] HospitalIn the event this information is protected by the Federal Confidentiality of Alcohol and Drug Abuse Patient Records regulations: The Federal rules restrict any use of the information to criminally investigate or prosecute any alcohol or drug abuse patient.[facility] HospitalIn the event this information is protected by the Federal Confidentiality of Alcohol and Drug Abuse Patient Records regulations: The Federal rules restrict any use of the information to criminally investigate or prosecute any alcohol or drug abuse patient.[facility] HospitalIn the event this information is protected by the Federal Confidentiality of Alcohol and Drug Abuse Patient Records regulations: The Federal rules restrict any use of the information to criminally investigate or prosecute any alcohol or drug abuse patient.[facility] HospitalIn the event this information is protected by the Federal Confidentiality of Alcohol and Drug Abuse Patient Records regulations: The Federal rules restrict any use of the information to criminally investigate or prosecute any alcohol or drug abuse patient.[facility] HospitalIn the event this information is protected by the Federal Confidentiality of Alcohol and Drug Abuse Patient Records regulations: The Federal rules restrict any use of the information to criminally investigate or prosecute any alcohol or drug abuse patient.[facility] HospitalIn the event this information is protected by the Federal Confidentiality of Alcohol and Drug Abuse Patient Records regulations: The Federal rules restrict any use of the information to criminally investigate or prosecute any alcohol or drug abuse patient.[facility] HospitalIn the event this information is protected by the Federal Confidentiality of Alcohol and Drug Abuse Patient Records regulations: The Federal rules restrict any use of the information to criminally investigate or prosecute any alcohol or drug abuse patient.[facility] HospitalIn the event this information is protected by the Federal Confidentiality of Alcohol and Drug Abuse Patient Records regulations: The Federal rules restrict any use of the information to criminally investigate or prosecute any alcohol or drug abuse patient.[facility] HospitalIn the event this information is protected by the Federal Confidentiality of Alcohol and Drug Abuse Patient Records regulations: The Federal rules restrict any use of the information to criminally investigate or prosecute any alcohol or drug abuse patient.[facility] HospitalIn the event this information is protected by the Federal Confidentiality of Alcohol and Drug Abuse Patient Records regulations: The Federal rules restrict any use of the information to criminally investigate or prosecute any alcohol or drug abuse patient.[facility] HospitalIn the event this information is protected by the Federal Confidentiality of Alcohol and Drug Abuse Patient Records regulations: The Federal rules restrict any use of the information to criminally investigate or prosecute any alcohol or drug abuse patient.[facility] HospitalIn the event this information is protected by the Federal Confidentiality of Alcohol and Drug Abuse Patient Records regulations: The Federal rules restrict any use of the information to criminally investigate or prosecute any alcohol or drug abuse patient.[facility] HospitalIn the event this information is protected by the Federal Confidentiality of Alcohol and Drug Abuse Patient Records regulations: The Federal rules restrict any use of the information to criminally investigate or prosecute any alcohol or drug abuse patient.[facility] HospitalIn the event this information is protected by the Federal Confidentiality of Alcohol and Drug Abuse Patient Records regulations: The Federal rules restrict any use of the information to criminally investigate or prosecute any alcohol or drug abuse patient.[facility] HospitalIn the event this information is protected by the Federal Confidentiality of Alcohol and Drug Abuse Patient Records regulations: The Federal rules restrict any use of the information to criminally investigate or prosecute any alcohol or drug abuse patient.[facility] HospitalIn the event this information is protected by the Federal Confidentiality of Alcohol and Drug Abuse Patient Records regulations: The Federal rules restrict any use of the information to criminally investigate or prosecute any alcohol or drug abuse patient.[facility] HospitalIn the event this information is protected by the Federal Confidentiality of Alcohol and Drug Abuse Patient Records regulations: The Federal rules restrict any use of the information to criminally investigate or prosecute any alcohol or drug abuse patient.[facility] HospitalIn the event this information is protected by the Federal Confidentiality of Alcohol and Drug Abuse Patient Records regulations: The Federal rules restrict any use of the information to criminally investigate or prosecute any alcohol or drug abuse patient.[facility] HospitalIn the event this information is protected by the Federal Confidentiality of Alcohol and Drug Abuse Patient Records regulations: The Federal rules restrict any use of the information to criminally investigate or prosecute any alcohol or drug abuse patient.[facility] HospitalIn the event this information is protected by the Federal Confidentiality of Alcohol and Drug Abuse Patient Records regulations: The Federal rules restrict any use of the information to criminally investigate or prosecute any alcohol or drug abuse patient.[facility] HospitalIn the event this information is protected by the Federal Confidentiality of Alcohol and Drug Abuse Patient Records regulations: The Federal rules restrict any use of the information to criminally investigate or prosecute any alcohol or drug abuse patient.[facility] HospitalIn the event this information is protected by the Federal Confidentiality of Alcohol and Drug Abuse Patient Records regulations: The Federal rules restrict any use of the information to criminally investigate or prosecute any alcohol or drug abuse patient.[facility] HospitalIn the event this information is protected by the Federal Confidentiality of Alcohol and Drug Abuse Patient Records regulations: The Federal rules restrict any use of the information to criminally investigate or prosecute any alcohol or drug abuse patient.[facility] HospitalIn the event this information is protected by the Federal Confidentiality of Alcohol and Drug Abuse Patient Records regulations: The Federal rules restrict any use of the information to criminally investigate or prosecute any alcohol or drug abuse patient.[facility] HospitalIn the event this information is protected by the Federal Confidentiality of Alcohol and Drug Abuse Patient Records regulations: The Federal rules restrict any use of the information to criminally investigate or prosecute any alcohol or drug abuse patient.[facility] HospitalIn the event this information is protected by the Federal Confidentiality of Alcohol and Drug Abuse Patient Records regulations: The Federal rules restrict any use of the information to criminally investigate or prosecute any alcohol or drug abuse patient.[facility] HospitalIn the event this information is protected by the Federal Confidentiality of Alcohol and Drug Abuse Patient Records regulations: The Federal rules restrict any use of the information to criminally investigate or prosecute any alcohol or drug abuse patient.[facility] HospitalIn the event this information is protected by the Federal Confidentiality of Alcohol and Drug Abuse Patient Records regulations: The Federal rules restrict any use of the information to criminally investigate or prosecute any alcohol or drug abuse patient.[facility] HospitalIn the event this information is protected by the Federal Confidentiality of Alcohol and Drug Abuse Patient Records regulations: The Federal rules restrict any use of the information to criminally investigate or prosecute any alcohol or drug abuse patient.[facility] HospitalIn the event this information is protected by the Federal Confidentiality of Alcohol and Drug Abuse Patient Records regulations: The Federal rules restrict any use of the information to criminally investigate or prosecute any alcohol or drug abuse patient.[facility] HospitalIn the event this information is protected by the Federal Confidentiality of Alcohol and Drug Abuse Patient Records regulations: The Federal rules restrict any use of the information to criminally investigate or prosecute any alcohol or drug abuse patient.[facility] HospitalIn the event this information is protected by the Federal Confidentiality of Alcohol and Drug Abuse Patient Records regulations: The Federal rules restrict any use of the information to criminally investigate or prosecute any alcohol or drug abuse patient.[facility] HospitalIn the event this information is protected by the Federal Confidentiality of Alcohol and Drug Abuse Patient Records regulations: The Federal rules restrict any use of the information to criminally investigate or prosecute any alcohol or drug abuse patient.[facility] HospitalIn the event this information is protected by the Federal Confidentiality of Alcohol and Drug Abuse Patient Records regulations: The Federal rules restrict any use of the information to criminally investigate or prosecute any alcohol or drug abuse patient.[facility] HospitalIn the event this information is protected by the Federal Confidentiality of Alcohol and Drug Abuse Patient Records regulations: The Federal rules restrict any use of the information to criminally investigate or prosecute any alcohol or drug abuse patient.[facility] HospitalIn the event this information is protected by the Federal Confidentiality of Alcohol and Drug Abuse Patient Records regulations: The Federal rules restrict any use of the information to criminally investigate or prosecute any alcohol or drug abuse patient.[facility] HospitalIn the event this information is protected by the Federal Confidentiality of Alcohol and Drug Abuse Patient Records regulations: The Federal rules restrict any use of the information to criminally investigate or prosecute any alcohol or drug abuse patient.[facility] HospitalIn the event this information is protected by the Federal Confidentiality of Alcohol and Drug Abuse Patient Records regulations: The Federal rules restrict any use of the information to criminally investigate or prosecute any alcohol or drug abuse patient.[facility] HospitalIn the event this information is protected by the Federal Confidentiality of Alcohol and Drug Abuse Patient Records regulations: The Federal rules restrict any use of the information to criminally investigate or prosecute any alcohol or drug abuse patient.[facility] HospitalIn the event this information is protected by the Federal Confidentiality of Alcohol and Drug Abuse Patient Records regulations: The Federal rules restrict any use of the information to criminally investigate or prosecute any alcohol or drug abuse patient.[facility] HospitalIn the event this information is protected by the Federal Confidentiality of Alcohol and Drug Abuse Patient Records regulations: The Federal rules restrict any use of the information to criminally investigate or prosecute any alcohol or drug abuse patient.[facility] HospitalIn the event this information is protected by the Federal Confidentiality of Alcohol and Drug Abuse Patient Records regulations: The Federal rules restrict any use of the information to criminally investigate or prosecute any alcohol or drug abuse patient.[facility] HospitalIn the event this information is protected by the Federal Confidentiality of Alcohol and Drug Abuse Patient Records regulations: The Federal rules restrict any use of the information to criminally investigate or prosecute any alcohol or drug abuse patient.[facility] HospitalIn the event this information is protected by the Federal Confidentiality of Alcohol and Drug Abuse Patient Records regulations: The Federal rules restrict any use of the information to criminally investigate or prosecute any alcohol or drug abuse patient.[facility] HospitalIn the event this information is protected by the Federal Confidentiality of Alcohol and Drug Abuse Patient Records regulations: The Federal rules restrict any use of the information to criminally investigate or prosecute any alcohol or drug abuse patient.[facility] HospitalIn the event this information is protected by the Federal Confidentiality of Alcohol and Drug Abuse Patient Records regulations: The Federal rules restrict any use of the information to criminally investigate or prosecute any alcohol or drug abuse patient.[facility] HospitalIn the event this information is protected by the Federal Confidentiality of Alcohol and Drug Abuse Patient Records regulations: The Federal rules restrict any use of the information to criminally investigate or prosecute any alcohol or drug abuse patient.[facility] HospitalIn the event this information is protected by the Federal Confidentiality of Alcohol and Drug Abuse Patient Records regulations: The Federal rules restrict any use of the information to criminally investigate or prosecute any alcohol or drug abuse patient.[facility] HospitalIn the event this information is protected by the Federal Confidentiality of Alcohol and Drug Abuse Patient Records regulations: The Federal rules restrict any use of the information to criminally investigate or prosecute any alcohol or drug abuse patient.[facility] HospitalIn the event this information is protected by the Federal Confidentiality of Alcohol and Drug Abuse Patient Records regulations: The Federal rules restrict any use of the information to criminally investigate or prosecute any alcohol or drug abuse patient.[facility] HospitalIn the event this information is protected by the Federal Confidentiality of Alcohol and Drug Abuse Patient Records regulations: The Federal rules restrict any use of the information to criminally investigate or prosecute any alcohol or drug abuse patient.[facility] HospitalIn the event this information is protected by the Federal Confidentiality of Alcohol and Drug Abuse Patient Records regulations: The Federal rules restrict any use of the information to criminally investigate or prosecute any alcohol or drug abuse patient.[facility] HospitalIn the event this information is protected by the Federal Confidentiality of Alcohol and Drug Abuse Patient Records regulations: The Federal rules restrict any use of the information to criminally investigate or prosecute any alcohol or drug abuse patient.[facility] HospitalIn the event this information is protected by the Federal Confidentiality of Alcohol and Drug Abuse Patient Records regulations: The Federal rules restrict any use of the information to criminally investigate or prosecute any alcohol or drug abuse patient.[facility] HospitalIn the event this information is protected by the Federal Confidentiality of Alcohol and Drug Abuse Patient Records regulations: The Federal rules restrict any use of the information to criminally investigate or prosecute any alcohol or drug abuse patient.[facility] HospitalIn the event this information is protected by the Federal Confidentiality of Alcohol and Drug Abuse Patient Records regulations: The Federal rules restrict any use of the information to criminally investigate or prosecute any alcohol or drug abuse patient.[facility] HospitalIn the event this information is protected by the Federal Confidentiality of Alcohol and Drug Abuse Patient Records regulations: The Federal rules restrict any use of the information to criminally investigate or prosecute any alcohol or drug abuse patient.[facility] HospitalIn the event this information is protected by the Federal Confidentiality of Alcohol and Drug Abuse Patient Records regulations: The Federal rules restrict any use of the information to criminally investigate or prosecute any alcohol or drug abuse patient.[facility] HospitalIn the event this information is protected by the Federal Confidentiality of Alcohol and Drug Abuse Patient Records regulations: The Federal rules restrict any use of the information to criminally investigate or prosecute any alcohol or drug abuse patient.[facility] HospitalIn the event this information is protected by the Federal Confidentiality of Alcohol and Drug Abuse Patient Records regulations: The Federal rules restrict any use of the information to criminally investigate or prosecute any alcohol or drug abuse patient.[facility] HospitalIn the event this information is protected by the Federal Confidentiality of Alcohol and Drug Abuse Patient Records regulations: The Federal rules restrict any use of the information to criminally investigate or prosecute any alcohol or drug abuse patient.[facility] HospitalIn the event this information is protected by the Federal Confidentiality of Alcohol and Drug Abuse Patient Records regulations: The Federal rules restrict any use of the information to criminally investigate or prosecute any alcohol or drug abuse patient.[facility] HospitalIn the event this information is protected by the Federal Confidentiality of Alcohol and Drug Abuse Patient Records regulations: The Federal rules restrict any use of the information to criminally investigate or prosecute any alcohol or drug abuse patient.[facility] HospitalIn the event this information is protected by the Federal Confidentiality of Alcohol and Drug Abuse Patient Records regulations: The Federal rules restrict any use of the information to criminally investigate or prosecute any alcohol or drug abuse patient.[facility] HospitalIn the event this information is protected by the Federal Confidentiality of Alcohol and Drug Abuse Patient Records regulations: The Federal rules restrict any use of the information to criminally investigate or prosecute any alcohol or drug abuse patient.[facility] HospitalIn the event this information is protected by the Federal Confidentiality of Alcohol and Drug Abuse Patient Records regulations: The Federal rules restrict any use of the information to criminally investigate or prosecute any alcohol or drug abuse patient.[facility] HospitalIn the event this information is protected by the Federal Confidentiality of Alcohol and Drug Abuse Patient Records regulations: The Federal rules restrict any use of the information to criminally investigate or prosecute any alcohol or drug abuse patient.[facility] HospitalIn the event this information is protected by the Federal Confidentiality of Alcohol and Drug Abuse Patient Records regulations: The Federal rules restrict any use of the information to criminally investigate or prosecute any alcohol or drug abuse patient.[facility] HospitalIn the event this information is protected by the Federal Confidentiality of Alcohol and Drug Abuse Patient Records regulations: The Federal rules restrict any use of the information to criminally investigate or prosecute any alcohol or drug abuse patient.[facility] HospitalIn the event this information is protected by the Federal Confidentiality of Alcohol and Drug Abuse Patient Records regulations: The Federal rules restrict any use of the information to criminally investigate or prosecute any alcohol or drug abuse patient.[facility] HospitalIn the event this information is protected by the Federal Confidentiality of Alcohol and Drug Abuse Patient Records regulations: The Federal rules restrict any use of the information to criminally investigate or prosecute any alcohol or drug abuse patient.[facility] Reason for Visit (unrecogniz ed section and content) Reason Comments Referral Request Reason Comments Orders Patient Update Reason Comments Spirometry Specialty Diagnoses / Procedures Referred By Contac t Referred [facility] Diagnoses 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) Pulmonary arterial hypertension (HCC) Procedures SPIROMETRY BASELINE ONLY SPIROMETRY WO BRONCHODILATOR Rashida Lay PA-C [address] [address] [facility] [address] [place] [address] Referral ID Status Reason Start Date Expiration Date V isits Requested Visits Authorized [id number] Closed Auto-Generate d Referral 04/02/2021 05/02/2022 1 1 Specialty Diagnoses / Procedures Referred By Contac t Referred [facility] Diagnoses 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) Pulmonary arterial hypertension (HCC) Procedures LUNG DIFFUSION CAPACITY (DLCO) DIFFUSING CAPACITY Rashida Lay PA-C [address] [employer] [address] [place] [address] [address] [address] Referral ID Status Reason Start Date Expiration Date V isits Requested Visits Authorized [id number] Closed Auto-Generate d Referral 04/02/2021 05/02/2022 1 1 Reason Comments Established Patient 3 month follow up Specialty Diagnoses / Procedures Referred By Contac t Referred To Contact [facility] Diagnoses Interstitial pulmonary disease (HCC) Procedures CT CHEST WO IVCON CAT SCAN OF CHEST Rashida Lay PA-C [address] [address] [address] [facility] Referral ID Status Reason Start Date Expiration Date V isits Requested Visits Authorized [id number] Closed Auto-Generate d Referral 04/02/2021 05/02/2022 1 1 Reason Comments POC order Reason Comments Orders Reason Comments Established Patient Reason Comments F/U 3 Month Specialty Diagnoses / Procedures Referred By Contac t Referred [facility] Diagnoses Idiopathic pulmonary fibrosis (HCC) Pulmonary arterial hypertension (HCC) Chronic hypoxemic respiratory failure (HCC) Procedures OXIMETRY WITH AMBULATION NONINVASIVE EAR/PULSE OXIMETRY MULTIPLE DETER Rashida Lay PA-C [address] [employer] [address] [address] [facility] [address] [place] [id number] Referral ID Status Reason Start Date Expiration Date V isits Requested Visits Authorized [id number] Closed Auto-Generate d Referral 08/17/2021 09/16/2022 1 1 Reason Comments COPD Follow Up Reason Onset Date Comments Refill Request 12/04/2021 Reason Comments Established Patient IPF Reason Comments Medication Problem OFEV Reason Comments Established Patient Increased cough x2 w eeks Reason Comments Medicare Wellness Exam Reason Comments Results Reason Comments Established Patient IPF Reason Comments error Reason Comments Returning Patient's Call Chest CT Reason Onset Date Comments Refill Request 06/25/2022 Reason Onset Date Comments Refill Request 07/30/2022 Reason Comments F/U 6 months Reason Comments Established Patient COPD follow up Reason Onset Date Comments Refill Request 11/29/2022 Specialty Diagnoses / Procedures Referred By Contac t Referred [facility] Diagnoses IPF (idiopathic pulmonary fibrosis) (HCC) Procedures SPIROMETRY WITH DILATOR IF OBSTRUCTED BRNCDILAT RSPSE SPMTRY PRE&POST-BRNCDILAT ADMN Rashida Lay PA-C [address] [place] [address] [facility] [address] [place] [id number] Referral ID Status Reason Start Date Expiration Date V isits Requested Visits Authorized [id number] Closed Auto-Generate d Referral 08/26/2022 09/25/2023 1 1 Specialty Diagnoses / Procedures Referred By Contac t Referred To [facility] Diagnoses IPF (idiopathic pulmonary fibrosis) ([facility]) Procedures LUNG VOLUMES Rashida Lay PA-C [address] [place] [address] [facility] [address] [place] [id number] Referral ID Status Reason Start Date Expiration Date V isits Requested Visits Authorized [id number] Closed Auto-Generate d Referral 08/26/2022 09/25/2023 1 1 Specialty Diagnoses / Procedures Referred By Contac t Referred [facility] Diagnoses 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[facility]) Procedures OXIMETRY WITH AMBULATION NONINVASIVE EAR/PULSE OXIMETRY MULTIPLE DETER Rashida Lay PA-C [address] [place] [address] [address] Referral ID Status Reason Start Date Expiration Date V isits Requested Visits Authorized [id number] Closed Auto-Generate d Referral 12/02/2022 01/01/2024 1 1 Reason Comments Established Patient 3 month follow up IP F Reason Onset Date Comments COPD Immunizations 01/18/2023 Flu vaccination Specialty Diagnoses / Procedures Referred By Contac t Referred To Contact [facility] Diagnoses Interstitial pulmonary disease (HCC) Procedures CT CHEST WO IVCON DIAGNOSTIC COMPUTED TOMOGRAPHY THORAX W/O CNTRST Hermelinda Copeland MD [address] [place] [address] [place] [address] Referral ID Status Reason Start Date Expiration Date V isits Requested Visits Authorized [id number] Closed Auto-Generate d Referral 03/31/2022 04/17/2022 [address] Specialty Diagnoses / Procedures Referred By Contac t Referred To Contact [facility] Diagnoses Interstitial pulmonary disease (HCC) Procedures CT CHEST WO IVCON DIAGNOSTIC COMPUTED TOMOGRAPHY THORAX W/O CNTRST Hermelinda Copeland MD [address] [place] [address] [place] [address] Reason Comments Chills Worries about possib le pneumonia Reason Comments Medicare Wellness Exam Reason Comments Radiology [facility] Specialty Diagnoses / Procedures Referred By Heather t Referred To Contact [facility] Diagnoses Thyroid nodule greater than or equal to 1 cm in diameter incidentally noted on imaging study Procedures US THYROID/PARATHYROID US SOFT TISSUE HEAD & NECK REAL TIME IMGE Tito Mckenna MD [address] [place] [address] [place] [address] Referral ID Status Reason Start Date Expiration Date V isits Requested Visits Authorized [id number] Closed Auto-Generate d Referral 02/12/2022 03/14/2023 1 1 Reason Comments Follow Up FNA pathology Reason Comments Established Patient Reason Comments Shortness of Breath Reason Comments Patient Update Reason Onset Date Comments Refill Request 01/31/2024 Reason Onset Date Comments Established Patient 6 month foll ow up IPF Immunizations 02/01/2024 Flu vaccination Reason Comments Appointment Reason Comments Medicare Wellness Exam F/U 6 months Reason Comments Established Patient 3 month follow up COPD Pulmonary Fibrosis Reason Onset Date Comments Refill Request 05/07/2024 Reason Onset Date Comments Refill Request 05/09/2024 Reason Comments Established Patient 6 month follow up IP F Care Teams (unrecognized sec tion and content) Quitline Counselor Relationship Specialty Start Date End Date Tito Macias MD [address] [place], [place] [id number] PCP - General Internal Medicine 06/11/14 Quitline Counselor Relationship Specialty Start Date End Date Tito Macias MD [address] [place], [place] [id number] PCP - General Internal Medicine 06/11/14 Quitline Counselor Relationship Specialty Start Date End Date Tito Macias MD [address] [place], [place] [id number] PCP - General Internal Medicine 06/11/14 Quitline Counselor Relationship Specialty Start Date End Date Tito Macias MD [address] [place] [address] PCP - General Internal Medicine 06/11/14 Quitline Counselor Relationship Specialty Start Date End Date Tito Macias MD [address] [place] [address] PCP - General Internal Medicine 06/11/14 Quitline Counselor Relationship Specialty Start Date End Date Tito Macias MD [address] [place] [address] PCP - General Internal Medicine 06/11/14 Quitline Counselor Relationship Specialty Start Date End Date Tito Macias MD [address] [place] [address] PCP - General Internal Medicine 06/11/14 Quitline Counselor Relationship Specialty Start Date End Date Tito Macias MD [address] [place] [address] PCP - General Internal Medicine 06/11/14 Quitline Counselor Relationship Specialty Start Date End Date Tito Macias MD [address] [place] [address] PCP - General Internal Medicine 06/11/14 Quitline Counselor Relationship Specialty Start Date End Date Tito Macias MD [address] [place] [address] PCP - General Internal Medicine 06/11/14 Quitline Counselor Relationship Specialty Start Date End Date Tito Macias MD [address] [place] [address] PCP - General Internal Medicine 06/11/14 Quitline Counselor Relationship Specialty Start Date End Date Tito Macias MD [address] [place] [address] PCP - General Internal Medicine 06/11/14 Quitline Counselor Relationship Specialty Start Date End Date Tito Macias MD [address] [place] [address] PCP - General Internal Medicine 06/11/14 Quitline Counselor Relationship Specialty Start Date End Date Tito Macias MD [address] [place] [address] PCP - General Internal Medicine 06/11/14 Quitline Counselor Relationship Specialty Start Date End Date Tito Macias MD [facility] [place] [address] PCP - General Internal Medicine 06/11/14 Quitline Counselor Relationship Specialty Start Date End Date Tito Macias MD [facility] [place] [address] PCP - General Internal Medicine 06/11/14 Quitline Counselor Relationship Specialty Start Date End Date Tito Macias MD [address] [place] [address] PCP - General Internal Medicine 06/11/14 Quitline Counselor Relationship Specialty Start Date End Date Tito Macias MD [facility] [place] [address] PCP - General Internal Medicine 06/11/14 Quitline Counselor Relationship Specialty Start Date End Date Tito Macias MD [address] [place] [address] PCP - General Internal Medicine 06/11/14 Quitline Counselor Relationship Specialty Start Date End Date Tito Macias MD [facility] [place] [address] PCP - General Internal Medicine 06/11/14 Quitline Counselor Relationship Specialty Start Date End Date Tito Macias MD [address] [place] [address] PCP - General Internal Medicine 06/11/14 Quitline Counselor Relationship Specialty Start Date End Date Tito Macias MD [address] [place] [address] PCP - General Internal Medicine 06/11/14 Quitline Counselor Relationship Specialty Start Date End Date Tito Macias MD [address] [place] [address] PCP - General Internal Medicine 06/11/14 Quitline Counselor Relationship Specialty Start Date End Date Tito Macias MD [address] [place] [address] PCP - General Internal Medicine 06/11/14 Team Status: Active Member Role Status Dates Dr. Tito Macias MD Family Provider Active Dr. Tito Macias MD Primary Care Provider Active Team Status: Inactive Member Role Status Dates Dr. Tito Macias MD Primary Care Provider, Refer ring Provider Active Dottie Jackson DIRECT MARKETING ANALYST, DIRECT MARKETING ANALYST-C Attending Provider Active Team Status: Inactive Member Role Status Dates Dr. Tito Macias MD Primary Care Provider Active Dottie Jackson DIRECT MARKETING ANALYST, DIRECT MARKETING ANALYST-C Attending Provider, Referring P april Active Quitline Counselor Relationship Specialty Start Date End Date Tito Macias MD [address] [place] [address] PCP - General Internal Medicine 06/11/14 Quitline Counselor Relationship Specialty Start Date End Date Tito Macias MD [address] [place] [address] PCP - General Internal Medicine 06/11/14 Quitline Counselor Relationship Specialty Start Date End Date Tito Macias MD [address] [place] [address] PCP - General Internal Medicine 06/11/14 Quitline Counselor Relationship Specialty Start Date End Date Tito Macias MD [address] [place] [address] PCP - General Internal Medicine 06/11/14 Quitline Counselor Relationship Specialty Start Date End Date Tito Macias MD [address] [place] [address] PCP - General Internal Medicine 06/11/14 Quitline Counselor Relationship Specialty Start Date End Date Tito Macias MD [address] [place] [address] PCP - General Internal Medicine 06/11/14 Quitline Counselor Relationship Specialty Start Date End Date Tito Macias MD [address] [place] [address] PCP - General Internal Medicine 06/11/14 Quitline Counselor Relationship Specialty Start Date End Date Tito Macias MD [address] [place] [address] PCP - General Internal Medicine 06/11/14 Quitline Counselor Relationship Specialty Start Date End Date Tito Macias MD [address] [place] [address] PCP - General Internal Medicine 06/11/14 Quitline Counselor Relationship Specialty Start Date End Date Tito Macias MD [address] [place] [address] PCP - General Internal Medicine 06/11/14 Quitline Counselor Relationship Specialty Start Date End Date Tito Macias MD [address] [place] [address] PCP - General Internal Medicine 06/11/14 Quitline Counselor Relationship Specialty Start Date End Date Tito Macias MD [address] [place] [address] PCP - General Internal Medicine 06/11/14 Quitline Counselor Relationship Specialty Start Date End Date Tito Macias MD [address] [place] [address] PCP - General Internal Medicine 06/11/14 Quitline Counselor Relationship Specialty Start Date End Date Tito Macias MD [address] [place] [address] PCP - General Internal Medicine 06/11/14 Quitline Counselor Relationship Specialty Start Date End Date Tito Macias MD [address] [place] [address] PCP - General Internal Medicine 06/11/14 Quitline Counselor Relationship Specialty Start Date End Date Tito Macias MD [address] [place] [address] PCP - General Internal Medicine 06/11/14 Quitline Counselor Relationship Specialty Start Date End Date Tito Macias MD [address] [place] [address] PCP - General Internal Medicine 06/11/14 Quitline Counselor Relationship Specialty Start Date End Date Tito Macias MD [address] [place] [address] PCP - General Internal Medicine 06/11/14 Quitline Counselor Relationship Specialty Start Date End Date Tito Macias MD [address] [place] [address] PCP - General Internal Medicine 06/11/14 Quitline Counselor Relationship Specialty Start Date End Date Tito Macias MD [address] [place] [address] PCP - General Internal Medicine 06/11/14 Quitline Counselor Relationship Specialty Start Date End Date Tito Macias MD [address] [place] [address] PCP - General Internal Medicine 06/11/14 Quitline Counselor Relationship Specialty Start Date End Date Tito Macias MD [address] [place] [address] PCP - General Internal Medicine 06/11/14 Quitline Counselor Relationship Specialty Start Date End Date Tito Macias MD [address] [place] [address] PCP - General Internal Medicine 06/11/14 Quitline Counselor Relationship Specialty Start Date End Date Tito Macias MD [address] [place] [address] PCP - General Internal Medicine 06/11/14 Erika Santana, 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 [address] [place] [address] Correctional Case Manager Internal Medicine 03/26/24 Quitline Counselor Relationship Specialty Start Date End Date Tito Macias MD [address] [place] [address] PCP - General Internal Medicine 06/11/14 Erika Santana, 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 [address] [place] [address] [facility] Internal Medicine 03/26/24 Quitline Counselor Relationship Specialty Start Date End Date Tito Macias MD [address] [place] [address] PCP - General Internal Medicine 06/11/14 Erika Santana, 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 [address] [place] [address] [facility] Internal Medicine 03/26/24 Quitline Counselor Relationship Specialty Start Date End Date Tito Macias MD [address] [place] [address] PCP - General Internal Medicine 06/11/14 Erika Santana, 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 [address] [place] [address] [facility] Internal [facility] 03/26/24 Team Status: Inactive Member Role Status Dates Dr. Tito Macias MD Primary Care Provider Active Start: September 13, 2024 End: September 13, 2024 Dr. Tito Macias MD Referring Provider Active Start: September 13, 2024 End: September 13, 2024 Dottie Jackson DIRECT MARKETING ANALYST, DIRECT MARKETING ANALYST-C Attending Provider Active Start: September 13, 2024 End: September 13, 2024 Quitline Counselor Relationship Specialty Start Date End Date Tito Macias MD [address] [place] [address] PCP - General Internal Medicine 06/11/14 Erika Santana, 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 [address] [place] [address] Correctional Case Manager Internal Medicine 03/26/24 Team Status: Active Member Role/Relationship Status Dates Dr. Tito Macias MD Primary care physician Activ e Team Status: Inactive Member Role/Relationship Status Dates Dr. Tito Macias MD Primary care physician Activ e Start: January 08, 2025 End: January 08, 2025 Dr. Tito Macias MD Referring Provider Active Start: January 08, 2025 End: January 08, 2025 Dottie Jackson DIRECT MARKETING ANALYST, DIRECT MARKETING ANALYST-C Attending physician Active Start: January 08, 2025 End: January 08, 2025 Team Status: Active Member Role/Relationship Status Dates Dr. Tito Macias MD Primary care physician Activ e Start: January 08, 2025 Dottie Jackson NP, DIRECT MARKETING ANALYST-C Attending physician Active Start: January 08, 2025 Dottie Jackson NP, DIRECT MARKETING ANALYST-C Referring Provider Active Start: January 08, 2025 Team Status: Inactive Member Role/Relationship Status Dates Dr. Tito Macias MD Primary care physician Activ e Start: January 08, 2025 End: January 08, 2025 Dottie Jackson NP, DIRECT MARKETING ANALYST-C Attending physician Active Start: January 08, 2025 End: January 08, 2025 Dottie Jackson NP, DIRECT MARKETING ANALYST-C Referring Provider Active Start: January 08, 2025 End: January 08, 2025 Goals (unrecognized section and content) Goals may be documented in a n alternate sectionGoals may be documented in an alternate sectionGoals may be documented in an alternate sectionGoals may be documented in an alternate sectionGoals may be documented in an alternate sectionGoals may be documented in an alternate sectionGoals may be documented in an alternate sectionGoals may be documented in an alternate section FOR RECORDS PERTAINING TO PATIENTS WHO ARE OR HAVE BEEN ENROLLED IN A CHEMICAL DEPENDENCY/SUBSTANCEABUSE PROGRAM, SOME INFORMATION MAY BE OMITTED. This clinical summary was aggregated from multiple sources. Caution should be exercised in using it in the provision of clinical care. This summary normalizes information from multiple sources, and as a consequence, information in this document may materially change the coding, format and clinical context of patient data. In addition, data may be omitted in some cases. CLINICAL DECISIONS SHOULD BE BASED ON THE PRIMARY CLINICAL RECORDS. [facility], [facility]. provides no warranty or guarantee of the accuracy or completeness of information in this document.
== END | disposition home or self-care (01) ==
LOC: US 13:44
PROVIDERS: PCP Internal Medicine; Referring Provider Surgery; Visit Provider Surgery
DX: E04.1 Nontoxic single thyroid nodule (principal)
CPT/HCPCS: 76536

== ENCOUNTER → 2025-04-05 | Outpatient (CLI) | payer MEDICARE, SELFPAY ==
[2021-11-27 08:57] VITALS: BMI 26.1
--- NOTE | 2025-04-05 13:50 | CT_ITS ---
PROCEDURE: CTA CHEST W/WO CONTRAST 04/05/2025 REASON FOR EXAM: SHORTNESS OF BREATH, R/O PE TECHNIQUE: Procedure Code: [id number] Modality: CT Procedure: CTA CHEST W/WO CONTRAST Multiplanar Sagittal and Coronal images were obtained. CONTRAST: Isovue 370 VOLUME: 75 mL One or more dose reduction techniques were used (e.g., Automated exposure control, adjustment of the mA and/or kV according to patient size, use of iterative reconstruction technique). RADIATION DOSE SUMMARY: CTDlvol: 12.43 mGy DLP: 43.54 mGycm COMPARISON: CTA chest 10/02/2021 # of known CTs in the past 12 months: 0 # of known Cardiac Nuclear Medicine Studies in the past 12 months: 0 FINDINGS: Thoracic Aorta: No aneurysm. No dissection. Heart: Mild cardiomegaly. Pulmonary Vessels: No evidence of pulmonary embolism. Dilation of the pulmonary trunk indicates chronic pulmonary hypertension. Hardware: None. Lymph nodes: No lymphadenopathy. Lungs and Airways: Interstitial thickening and honeycombing, predominantly subpleural similar to CTA 10/02/2021 consistent with interstitial lung disease. Elevation of the left hemidiaphragm. Pleura: No pneumothorax or pleural effusion. Upper Abdomen: No acute findings. Bones: No acute bony abnormalities. CT/CTA Chest W/WO Contrast IMPRESSION: No evidence of pulmonary embolism. Chronic interstitial lung disease. Reading Location: [facility]
== END | disposition home or self-care (01) ==
LOC: CT 13:40
PROVIDERS: PCP Internal Medicine; Referring Provider Nurse Practitioner Gerontology; Visit Provider Nurse Practitioner Gerontology
DX: R06.02 Shortness of breath (principal); I27.21 Secondary pulmonary arterial hypertension; R60.0 Localized edema; Z99.81 Dependence on supplemental oxygen; I77.819 Aortic ectasia, unspecified site; I10 Essential (primary) hypertension
CPT/HCPCS: 71275; Q9967